=== PATIENT | female | born 1995 ===

== ENCOUNTER 2020-11-13 12:41 | Emergency (ER) | payer MEDICAID, SELFPAY ==
--- NOTE | ~2020-11-13 | CT_ITS ---
EXAMINATION: CT HEAD WITHOUT CONTRAST CLINICAL INFORMATION: Right-sided headache for 3 months. COMPARISON: 03/12/2016 TECHNIQUE: Contiguous axial imaging was performed from the skull base to vertex without intravenous contrast. This CT examination was performed using dose optimization techniques as appropriate, variously including the following: * Automated exposure control * Adjustment of mA and/or kV according to patient size (this includes techniques or standardized protocols for targeted exams where dose is matched to indication/reason for exam; i.e. extremities or head) Use of iterative reconstruction technique DLP: 690 mGy-cm. FINDINGS: There is no evidence of acute intracranial hemorrhage or territorial infarction. No abnormal mass effect or midline shift is seen. Luu to white matter differentiation is well preserved. No extra-axial fluid collections are identified. No hydrocephalus. No significant volume loss. There is no abnormal attenuation within the brain parenchyma. The osseous structures and soft tissues are normal. The mastoid air cells and visualized portions of the paranasal sinuses are well aerated. CT/CT head/brain wo con IMPRESSION: No acute intracranial pathology.
[2020-11-13 19:11] VITALS: BP 119/80; PULSE 91; RESP 16; TEMP 37.2; O2SAT 99; BMI 37.4
--- NOTE | 2020-11-13 21:50 | ED_ITS ---
HPI - General Adult General Chief complaint: Headache Stated complaint: abd pain Time Seen by Provider: 11/13/20 21:36 Source: patient Mode of arrival: ambulatory Limitations: no limitations History of Present Illness HPI narrative: 24-year-old female who presents emergency department for evaluation of headache and abdominal pain. The patient states that she has had a headache times 2-3 months. She states that the headache is located on the right side of her head. She describes the pain as a constant, sharp pain which waxes and wanes in intensity. The pain ranges from 7/10 to 10/10. The pain is currently 8/10 in the emergency department. She states that she has daily nausea and rarely vomits however over the past 24 hours she has vomited multiple times. She has also had loose diarrheal stools over the past 24 hours. She denies visual changes. She denies numbness, weakness, loss of bowel or bladder control. She also is complaining of abdominal pain. She points to her mid epigastric area when asked to localize the pain. She describes the pain as a burning, sharp, constant pain x2 weeks. She has associated nausea and has been vomiting multiple times the past 24 hours she has also had loose diarrheal stool for 24 hours. She states that 2 days prior, her abdominal pain increased and headache increased in a caused her to faint briefly, she had no injury from falling. The patient states she did see her primary care doctor 2 months prior for the headache and she was started on multiple medications with no relief for headache. Related Data Allergies Allergy/AdvReac Type Severity Reaction Status Date / Time fish derived [FISH] Allergy Severe ANAPHYLAXIS Unverified 06/13/20 17:39 Review of Systems Review of Systems: Yes all other systems are reviewed and are negative Neurologic: Reports Abnormal speech present [facility] Past Medical History [facility] Narrative: The patient has no chronic medical problems. She denies tobacco, alcohol and drug use. Medical History delivery delivered Gallbladder & bile duct stone with obstruction Surgical History Hx of breast reduction, elective Social History Social History Alcohol intake: never Smoking Status: Never smoker Smoked in Last 30 Days: No Use of substances other than those prescribed or required for medical reasons: No Advance Directives: No Physical Exam Vital Signs: Vital Signs: Last Vital Signs Temp 98.3 F 11/13/20 22:00 Pulse 74 11/13/20 22:00 Resp 16 11/13/20 22:00 BP 99/56 L 11/13/20 22:00 Pulse Ox 99 11/13/20 22:00 Body Mass Index 37.4 Const: General: other (Awake, alert, female, pleasant, cooperative, does not appear to be in distr) Orientation/consciousness: oriented to person and oriented to place Limitations: no limitations HENMT: Head: Yes normal to inspection, Yes normocephalic, Yes atraumatic and Yes other (Tender temporal areas and maxillary and frontal sinuses) Ears: external ears normal General nose exam: Normal external nose present Face and sinus: Yes normal facial exam Mouth: Normal oral and palatal mucosa pres ent Throat: Yes posterior oropharynx normal Eyes: Periorbital: periorbital findings normal Eyelids: Yes eyelids normal Conjunctivae: conjunctivae normal Sclerae: sclerae normal Corneas: corneas normal Pupils: Equal, round and reactive pupils present Direct Ophthalmoscopy: normal light reflex Neck: Neck: Yes full ROM, Yes no lymphadenopathy, Yes no meningeal signs, Yes trachea midline and Yes supple Chest: Chest palpation & inspection: normal inspection of the chest and tenderness sternum (Mild) Resp: Effort & Inspection: normal respiratory effort and able to speak in complete sentences Auscultation: clear to auscultation bilaterally Cardio: Rate: regular rate Rhythm: regular rhythm Heart sounds: S1 normal heart sound present, S2 normal heart sound present and no murmurs GI: Inspection: Yes normal to inspection Palpation (GI): Soft to palpation, Tenderness to palpation present (GI) in the epigastrum (Moderate), no guarding, not rigid and No hepatosplenomegaly present : General: Yes no CVA tenderness Back/Spine/Pelvis: Back: no CVA tenderness Cervical Spine: normal cervical lordosis Thoracic/Lumbar Spine: thoracic and lumbar spine normal to inspection Skin: Lesions: no lesions Rashes: no rashes Wounds: no wounds Neuro: General: oriented to person, oriented to place and no meningeal signs Cranial nerves: Yes CN's II-XII intact bilaterally and Yes Equal, round and reactive pupils present Cognition (Neuro): normal cognition Speech: Abnormal speech present Motor exam (neuro): 5/5 motor strength present throughout Extrem: General: Yes normal to inspection and Yes full ROM Psych: Appearance: well kempt Mental Status: mental status grossly normal Speech and movement: Normal speech and movement present Affect: normal affect Attitude: cooperative Thought process: Normal thought process present Thought content: Normal thought content present Course Course Course Narrative: 24-year-old female who presents emergency department for evaluation of headache times 2-3 months and epigastric pain x2 days. Physical examination revealed normal vital signs. She had tenderness with palpation over her maxillary and frontal sinuses as well as over her temporal areas of her scalp. She had mild chest wall tenderness and moderate epigastric tenderness. Her neurologic exam was nonfocal. Given the prolonged time of her headaches, I will obtain a CT scan to rule out mass effect is possible caused her headache. I also ordered a laboratory evaluation to include sedimentation rate. The patient's headache and epigastric pain was treated with Toradol 30 mg IV, Reglan 10 mg IV and Benadryl 50 mg IV. She was also ordered to get normal saline IV x1 L for dehydration secondary to vomiting and diarrhea. Given the persistence of her headache, I did order a CT scan to rule out mass effect. 0023: The patient's laboratory evaluation [place] [id number] [address] scan of the head without IV contrast revealed no mass effect or other acute abnormality. The patient's headache completely resolved with the above treatment. My impression is that the patient has a migraine syndrome and I did discuss this with her. She was started on the following regimen every 6 hours as needed for her headaches: Excedrin migraine 1 tablet, Benadryl 50 mg, and regular and 10 mg. She was given verbal and printed instructions on migraines and discharged home. Medical Decision Making Lab Data Result diagrams: 11/13/20 21:59 11/13/20 21:59 Labs: Lab Results 11/13/20 11/13/20 11/13/20 Range/Units 21:59 21:59 21:59 WBC 14.2 H (4.8-10.8) X10*3/uL RBC 4.41 (4.20-5.50) X10*6/uL Hgb 13.4 (12.0-16.0) g/dl Hct 40.0 (37-47) % MCV 90.7 (80-98) fL MCH 30.4 (27.0-33.0) pg MCHC 33.5 (31.0-35.0) g/dl RDW 11.9 (11.0-16.0) % Plt Count 351 (160-400) X10*3/uL MPV 10.1 (9.4-12.3) fL Immature Gran % (Auto) 0.3 (0.0-0.4) % Neut % (Auto) 68.4 (45-73) % Lymph % (Auto) 23.1 (20-40) % Ell[place] % (Auto) 6.6 (2-11) % Eos % (Auto) 1.2 (0-4) % Baso % (Auto) 0.4 (0-2) % Lymph # (Auto) 3.3 (1.2-4.9) X10*3/uL Ellsworth # (Auto) 0.9 (0.1-1.2) X10*3/uL Eos # (Auto) 0.2 (0.0-0.4) X10*3/uL Baso # (Auto) 0.1 (0.0-0.2) X10*3/uL Abs Immat Gran (auto) 0.04 H (0.00-0.03) X10*3/uL Absolute Neuts (auto) 9.8 H (2.0-8.3) X10*3/uL Absolute Nucleated RBC 0.000 (0.0-0.012) X10*3/uL Nucleated RBC % (auto) 0.0 (0.0-0.2) /100WBC ESR (0-20) MM/HR Hold Blue Top SEE NOTE Sodium 136 (135-145) mmol/L Potassium 3.9 (3.3-5.1) mmol/L Chloride 106 (96-108) mmol/L Carbon Dioxide 23 (22-29) mmol/L Anion Gap 11 L (12-20) BUN 11 (9-16) mg/dL Creatinine 0.70 (0.5-1.4) mg/dL Estim Creat Clear Calc 126.3 Estimated GFR > 60 Random Glucose 83 (60-115) mg/dL Calcium 8.4 (8.4-10.2) mg/dL Total Bilirubin 0.4 (0.0-1.0) mg/dL AST 13 (5-31) U/L ALT 19 (0-31) U/L Alkaline Phosphatase 58 (39-117) U/L Total Protein 7.4 (6.5-8.0) g/dL Albumin 3.8 (3.5-5.0) g/dL Lipase (8-78) U/L Beta HCG, Quant mIU/mL 11/13/20 11/13/20 Range/Units 21:59 21:59 WBC (4.8-10.8) X10*3/uL RBC (4.20-5.50) X10*6/uL Hgb (12.0-16.0) g/dl Hct (37-47) % MCV (80-98) fL MCH (27.0-33.0) pg MCHC (31.0-35.0) g/dl RDW (11.0-16.0) % Plt Count (160-400) X10*3/uL MPV (9.4-12.3) fL Immature Gran % (Auto) (0.0-0.4) % Neut % (Auto) (45-73) % Lymph % (Auto) (20-40) % Ellsworth % (Auto) (2-11) % Eos % (Auto) (0-4) % Baso % (Auto) (0-2) % Lymph # (Auto) (1.2-4.9) X10*3/uL Ellsworth # (Auto) (0.1-1.2) X10*3/uL Eos # (Auto) (0.0-0.4) X10*3/uL Baso # (Auto) (0.0-0.2) X10*3/uL Abs Immat Gran (auto) (0.00-0.03) X10*3/uL Absolute Neuts (auto) (2.0-8.3) X10*3/uL Absolute Nucleated RBC (0.0-0.012) X10*3/uL Nucleated RBC % (auto) (0.0-0.2) /100WBC ESR 28 H (0-20) MM/HR Hold Blue Top Sodium (135-145) mmol/L Potassium (3.3-5.1) mmol/L Chloride (96-108) mmol/L Carbon Dioxide (22-29) mmol/L Anion Gap (12-20) BUN (9-16) mg/dL Creatinine (0.5-1.4) mg/dL Estim Creat Clear Calc Estimated GFR Random Glucose (60-115) mg/dL Calcium (8.4-10.2) mg/dL Total Bilirubin (0.0-1.0) mg/dL AST (5-31) U/L ALT (0-31) U/L Alkaline Phosphatase (39-117) U/L Total Protein (6.5-8.0) g/dL Albumin (3.5-5.0) g/dL Lipase 16 (8-78) U/L Beta HCG, Quant < 2 mIU/mL
[2020-11-13 22:00] VITALS: BP 99/56; PULSE 74; RESP 16; TEMP 36.8; O2SAT 99
--- NOTE | 2020-11-13 22:00 | PC.NURSE ---
PATIENT IS ALERT AND ORIENTED, BROUGHT TO ROOM 13 , PROVIDER IS AT BEDSIDE WHEN PAIENT ARRIVED TO ROOM, ORDERS FOR BLOOD WORK AND MEDS. IV ACCESS OBTAINED. AWAITING LAB RESULTS.
[2020-11-13] MEDS: Metoclopramide HCl 10 MG/2 ML VIAL IVPUSH (22:08)
[2020-11-13] MEDS: Ketorolac Tromethamine 30 MG/ML VIAL IVPUSH (22:08)
[2020-11-13] MEDS: diphenhydrAMINE HCL 50 MG/ML VIAL IVPUSH (22:08)
[2020-11-13] MEDS: 0.9 % Sodium Chloride 1,000 ML 999 ML IV (22:08)
[2020-11-13 22:09] LABS: Basophils Absolute Auto 0.1 X10*3/uL (0.0-0.2); Basophils Percent Auto 0.4 % (0-2); Eosinophils Absolute Auto 0.2 X10*3/uL (0.0-0.4); Eosinophils Percent Auto 1.2 % (0-4); Hemoglobin 13.4 g/dl (12.0-16.0); Imm Gran Abs Auto 0.04 X10*3/uL (0.00-0.03); Imm Gran Pct Auto 0.3 % (0.0-0.4); Lymphocytes Absolute Auto 3.3 X10*3/uL (1.2-4.9); Lymphocytes Percent Auto 23.1 % (20-40); MANUAL DIFF FLAG NO; Mean Corpuscular HGB Conc 33.5 g/dl (31.0-35.0); Mean Corpuscular Hemoglobin 30.4 pg (27.0-33.0); Mean Corpuscular Volume 90.7 fL (80-98); Mean Platelet Volume 10.1 fL (9.4-12.3); Monocytes Absolute Auto 0.9 X10*3/uL (0.1-1.2); Monocytes Percent Auto 6.6 % (2-11); Neutrophils Absolute Auto 9.8 X10*3/uL (2.0-8.3); Neutrophils Percent Auto 68.4 % (45-73); Platelet Count 351 X10*3/uL (160-400); Red Blood Count 4.41 X10*6/uL (4.20-5.50); Red Cell Distribution Width 11.9 % (11.0-16.0); White Blood Count 14.2 X10*3/uL (4.8-10.8)
[2020-11-13 22:33] LABS: Lipase 16 U/L (8-78)
[2020-11-13 22:34] LABS: Alanine Aminotransferase 19 U/L (0-31); Albumin Level 3.8 g/dL (3.5-5.0); Alkaline Phosphatase 58 U/L (39-117); Anion Gap 11 (12-20); Aspartate Amino Transferase 13 U/L (5-31); Bilirubin Total 0.4 mg/dL (0.0-1.0); Blood Urea Nitrogen 11 mg/dL (9-16); Calcium 8.4 mg/dL (8.4-10.2); Carbon Dioxide 23 mmol/L (22-29); Chloride 106 mmol/L (96-108); Creatinine Clr Calc Pharmacy 126.3; Estimated Glomerular Filt Rate > 60; Glucose Random 83 mg/dL (60-115); Potassium 3.9 mmol/L (3.3-5.1); Sodium 136 mmol/L (135-145); Total Protein 7.4 g/dL (6.5-8.0)
[2020-11-13 22:47] LABS: Erythrocyte Sedimentation Rate 28 MM/HR (0-20)
[2020-11-13 23:26] LABS: HCG Quantitative < 2 mIU/mL
== END 2020-11-14 01:01 | disposition home or self-care (01) ==
PROVIDERS: Emergency Provider Emergency Medicine Emergency Medical Services; PCP Family Medicine
DX: R51.9 Headache, unspecified (principal); R10.9 Unspecified abdominal pain; R11.2 Nausea with vomiting, unspecified
CPT/HCPCS: 36415; 70450; 80053; 83690; 84702; 85025; 85652; 96361; 96374; 96375; 99284; J1200; J1885; J2765

== ENCOUNTER → 2021-04-10 13:31 | Outpatient (BNVA) | payer MEDICAID, SELFPAY | PROVIDERS: PCP Family Medicine; Referring Provider Family Medicine; Visit Provider Physician Assistant ==

== ENCOUNTER 2021-04-29 12:39 | Outpatient (REF) | payer MEDICAID, SELFPAY ==
--- NOTE | ~2021-04-29 | XR_ITS ---
EXAMINATION: XR CHEST CLINICAL INFORMATION: Morbid (severe) obesity due to excess calories. COMPARISON: Chest radiograph 01/16/2019, 08/05/2012 TECHNIQUE: Two views of the chest were obtained. FINDINGS: The lungs are clear. There is no airspace consolidation or ground-glass opacity or effusion. The costophrenic sulci are well defined. The heart is normal in size. The hilar and mediastinal contours and bony structures are unremarkable. XR/XR chest 2V IMPRESSION: Unremarkable examination.
--- NOTE | 2021-04-29 14:09 | ECG_ITS ---
Test Reason : E66.01 Blood Pressure : / mmHG Vent. Rate : 062 BPM Atrial Rate : 062 BPM P-R Int : 148 ms QRS Dur : 078 ms QT Int : 400 ms P-R-T Axes : 051 039 020 degrees QTc Int : 406 ms Normal sinus rhythm with sinus arrhythmia Low voltage QRS Borderline ECG When compared to the previous EKG of No significant changes seen Referred By: Mary Wilkins Electronically Signed By:Alirio Donato
[2021-04-29 14:32] LABS: MANUAL DIFF FLAG NO
[2021-04-29 14:41] LABS: Basophils Percent Auto 0.4 % (0-2); Eosinophils Absolute Auto 0.1 X10*3/uL (0.0-0.4); Eosinophils Percent Auto 1.2 % (0-4); Hematocrit 38.8 % (37-47); Imm Gran Abs Auto 0.02 X10*3/uL (0.00-0.03); Imm Gran Pct Auto 0.2 % (0.0-0.4); Lymphocytes Absolute Auto 2.7 X10*3/uL (1.2-4.9); Lymphocytes Percent Auto 26.5 % (20-40); Mean Corpuscular HGB Conc 33.5 g/dl (31.0-35.0); Mean Corpuscular Volume 89.6 fL (80-98); Mean Platelet Volume 10.4 fL (9.4-12.3); Monocytes Absolute Auto 0.7 X10*3/uL (0.1-1.2); Monocytes Percent Auto 6.9 % (2-11); Neutrophils Absolute Auto 6.6 X10*3/uL (2.0-8.3); Neutrophils Percent Auto 64.8 % (45-73); Platelet Count 379 X10*3/uL (160-400); Red Blood Count 4.33 X10*6/uL (4.20-5.50); Red Cell Distribution Width 11.9 % (11.0-16.0); White Blood Count 10.2 X10*3/uL (4.8-10.8)
[2021-04-29 14:45] LABS: Estimated Average Glucose 111 mg/dL; Hemoglobin A1c % 5.5 %
[2021-04-29 15:20] LABS: Alanine Aminotransferase 24 U/L (0-31); Alkaline Phosphatase 56 U/L (39-117); Anion Gap 14 (12-20); Aspartate Amino Transferase 17 U/L (5-31); Bilirubin Total 0.3 mg/dL (0.0-1.0); Blood Urea Nitrogen 10 mg/dL (9-16); C Reactive Protein 1.17 mg/dL (< or = 0.50); Calcium 9.2 mg/dL (8.4-10.2); Carbon Dioxide 24 mmol/L (22-29); Chloride 106 mmol/L (96-108); Cholesterol 153 mg/dL; Estimated Glomerular Filt Rate > 60; Glucose Random 95 mg/dL (60-115); HDL Cholesterol 36 mg/dL; Iron 51 mcg/dL (30-160); LDL Cholesterol Calculated 89 mg/dl; Potassium 4.6 mmol/L (3.3-5.1); Sodium 139 mmol/L (135-145); Total Protein 7.8 g/dL (6.5-8.0); Triglycerides 143 mg/dL
[2021-04-29 15:31] LABS: Percent Iron Saturation 17 % (15-50); Total Iron Binding Capacity 302 mcg/dL (228-428); Unsaturated Iron Binding 251 ug/dL
[2021-04-29 15:32] LABS: Ferritin 61 ng/mL (10-122); TSH reflex Free T4 1.05 uIU/mL (0.32-4.0); Vitamin D 25-OH Total 9.5 ng/mL (>30)
[2021-04-29 15:46] LABS: Folate 13.1 ng/mL (> or = 4.0); Vitamin B12 346 pg/mL (200-900)
[2021-04-30 21:21] LABS: Insulin Level Total 25.8 uIU/mL; PTHI 46 pg/mL (14-64)
[2021-05-01 13:35] LABS: H Pylori Breath Test NOT DETECTED (NOT DETECTED)
[2021-05-03 00:17] LABS: Zinc 82 mcg/dL (60-130)
[2021-05-03 17:42] LABS: Vitamin A 47 mcg/dL (38-98)
[2021-05-05 11:11] LABS: Vitamin B1 10 nmol/L (8-30)
== END 2021-04-29 12:40 | disposition home or self-care (01) ==
LOC: HO.LAB 12:39
PROVIDERS: PCP Family Medicine; Visit Provider Physician Assistant
DX: E66.01 Morbid (severe) obesity due to excess calories (principal); Z68.41 Body mass index [BMI] 40.0-44.9, adult; Z71.3 Dietary counseling and surveillance
CPT/HCPCS: 36415; 71046; 80053; 80061; 82306; 82607; 82728; 82746; 83013; 83036; 83525; 83540; 83970; 84425; 84443; 84590; 84630; 85025; 86140; 93005; 99202; 99211

== ENCOUNTER → 2021-06-05 14:06 | Outpatient (BNVA) | payer MEDICAID, SELFPAY | PROVIDERS: PCP Family Medicine; Visit Provider Dietitian, Registered | DX: E66.01 Morbid (severe) obesity due to excess calories (principal); Z68.41 Body mass index [BMI] 40.0-44.9, adult | CPT/HCPCS: 97802 ==

== ENCOUNTER → 2021-06-16 08:30 | Outpatient (BNVA) | payer MEDICAID, SELFPAY | PROVIDERS: PCP Family Medicine; Visit Provider Surgery ==

== ENCOUNTER → 2021-06-26 08:12 | Outpatient (BNVA) | payer MEDICAID, SELFPAY | PROVIDERS: PCP Family Medicine; Referring Provider Surgery; Visit Provider Dietitian, Registered | DX: E66.01 Morbid (severe) obesity due to excess calories (principal); Z68.41 Body mass index [BMI] 40.0-44.9, adult | CPT/HCPCS: 97803 ==

== ENCOUNTER → 2021-07-07 07:00 | Outpatient (BNVA) | payer MEDICAID, SELFPAY | PROVIDERS: PCP Family Medicine; Visit Provider Surgery ==

== ENCOUNTER 2021-07-21 08:48 | Outpatient (REF) | payer MEDICAID, SELFPAY ==
--- NOTE | ~2021-07-21 | US_ITS ---
EXAMINATION: US COMPLETE ABDOMEN WITH LIVER ELASTOGRAPHY CLINICAL INFORMATION: Morbid obesity due to excessive calories. COMPARISON: None. TECHNIQUE: Real-time imaging of the abdominal viscera. Noninvasive ultrasound liver fibrosis assessment is performed using Dalia ElastPQ point quantification shear wave elastography (pSWE) with a C5-2 MHz transducer. Multiple elastography samples are obtained. FINDINGS: PANCREAS: Nonvisualized due to overlying bowel gas, accordingly not evaluated. ABDOMINAL AORTA: The proximal and distal aortic segments are normal in caliber. Mid part of the aorta is not visualized due to overlying bowel gas. INFERIOR VENA CAVA: Visualized portions are normal. LIVER: Diffuse heterogeneous abnormal increased echotexture is present, consistent with diffuse liver disease likely secondary to hepatic steatosis, hepatocellular disease, or combination thereof. Superimposed indeterminate focal hypoechogenicity is noted within the right lobe of the liver, measures approximately 2 cm at its maximum dimension[, not optimally characterized. Differential diagnostic considerations include focal area of fatty sparing versus pathologic process. Follow-up multiphasic pre and postcontrast MRI of the liver is recommended for further full detail evaluation. The right lobe measures 17.6 cm in length. The left lobe measures 12.9 cm in length. Portal flow is towards the liver (hepatopetal). Shear wave liver elastography median stiffness is 1.35 m/s (reference: normal median stiffness is 1.3 m/s or less). IQR/median stiffness to assess sampling precision is 0.13 (reference: good quality data set is IQR/median stiffness of 0.15 or less). GALLBLADDER: Surgically absent. COMMON BILE DUCT: Normal in caliber measuring 0.4 cm in diameter. RIGHT KIDNEY: Normal. No hydronephrosis. No renal calculi or focal parenchymal lesions. The kidney measures 10.6 cm in maximum dimension. LEFT KIDNEY: Normal. No hydronephrosis. No renal calculi or focal parenchymal lesions. The kidney measures 10.9 cm in maximum dimension. SPLEEN: Normal. The spleen measures 10.5 cm in maximum dimension. FREE FLUID: None. US/US abdomen comp w elastography IMPRESSION: 1. Diffuse abnormal increased echotexture is noted throughout the entire liver, consistent with diffuse liver disease likely secondary to hepatic steatosis or hepatocellular disease, or combination thereof. Specific note is made of presence of a 2 cm focal area of hypoechogenicity within the right lobe of the liver, not optimally characterized. Differential includes focal area of fatty sparing versus other pathologic process. Follow-up multiphasic pre and postcontrast MRI of the liver is recommended for further full detail evaluation. 2. Liver elastography: Measurements are consistent with a high probability of normal liver stiffness. REFERENCE: Society of Radiologists in Ultrasound Liver Stiffness Thresholds (2020): LIVER STIFFNESS THRESHOLDS: *Liver Stiffness equal or less than 1.3 m/s: High probability of being normal. *Liver Stiffness less than 1.7 m/s: In the absence of other known clinical signs, rules out compensated advanced chronic liver disease. *Liver Stiffness 1.7-2.1 m/s: Suggestive of compensated advanced chronic liver disease but need further test for confirmation. *Liver Stiffness over 2.1 m/s: Rules in compensated advanced chronic liver disease. *Liver Stiffness over 2.4 m/s: Suggestive of clinically significant portal hypertension. QUALITY OF DATA SET: *IQR/Median value equal or less than 0.15 implies a quality data set. *IQR/Median value over 0.15 implies a poor quality data set. SIGNIFICANT CHANGE FROM PRIOR EXAM: Significant change if liver stiffness measurement is 10% or greater from prior exam. OTHER CONSIDERATIONS: The stage of liver fibrosis may be overestimated in the setting of acute hepatitis, liver inflammation, elevated liver function tests, hepatic vascular congestion, obstructive cholestasis, non-fasting state, and infiltrative diseases such as amyloidosis and lymphoma. In some patients with NAFLD, the liver stiffness thresholds for compensated advanced chronic liver disease may be lower. In causes other than viral hepatitis and NAFLD, liver stiffness thresholds are not well established.
--- NOTE | ~2021-07-21 | FL_ITS ---
EXAMINATION: XR GI SERIES CLINICAL INFORMATION: Morbid/severe obesity due to excess calories. COMPARISON: None TECHNIQUE: Routine upper GI air-contrast study was performed. FINDINGS: Following oral administration of thick barium and effervescent granules, there is normal propagation of bolus from the oral cavity through the pharynx, esophagus into stomach without any evidence of obstruction, narrowing or extrinsic compression. On placing patient supine and prone lying, there is large gastroesophageal reflux into the upper esophagus without hiatal hernia. The mucosal pattern of the stomach, duodenal bulb and the sweep is normal. FLUOROSCOPY TIME: 2.7 minutes DOSE AREA PRODUCT: 37.362 uGy-m2 (microgray-meter squared) FL/FL upper GI series IMPRESSION: Large gastroesophageal reflux without hiatal hernia. The rest of the upper GI exam is unremarkable.
== END 2021-07-21 08:49 | disposition home or self-care (01) ==
LOC: HO.US 08:48
PROVIDERS: PCP Family Medicine; Visit Provider Surgery
DX: E66.01 Morbid (severe) obesity due to excess calories (principal)
CPT/HCPCS: 74240; 76705; 76981

== ENCOUNTER → 2021-07-24 08:06 | Outpatient (BNVA) | payer MEDICAID, SELFPAY | PROVIDERS: PCP Family Medicine; Referring Provider Surgery; Visit Provider Dietitian, Registered | DX: E66.9 Obesity, unspecified (principal) | CPT/HCPCS: 97803 ==

== ENCOUNTER → 2021-08-04 08:08 | Outpatient (BNVA) | payer MEDICAID, SELFPAY | PROVIDERS: PCP Family Medicine; Visit Provider Surgery ==

== ENCOUNTER → 2022-12-29 12:32 | Outpatient (BNVA) | payer MEDICAID, SELFPAY | PROVIDERS: PCP Family Medicine; Visit Provider Physician Assistant ==

== ENCOUNTER 2023-01-28 08:48 | Emergency (ER) | payer MEDICAID, SELFPAY ==
--- NOTE | ~2023-01-28 | XR_ITS ---
EXAMINATION: XR CHEST CLINICAL INFORMATION: Chest pain with cough. COMPARISON: 04/29/2021 chest radiographs. TECHNIQUE: 2 views of the chest were obtained. FINDINGS: No significant abnormality is noted involving the heart, lungs, mediastinum, bony thorax or soft tissues. XR/XR chest 2V IMPRESSION: No acute cardiopulmonary process.
[2023-01-28 08:52] VITALS: BP 122/84; PULSE 80; RESP 18; TEMP 36.1; O2SAT 98; BMI 45.9
--- NOTE | 2023-01-28 09:12 | ED_ITS ---
HPI - General Adult General Chief complaint: Upper Respiratory Symptoms Stated complaint: PAIN IN LUNGS COUGH Time Seen by Provider: 01/28/23 09:10 Source: patient Mode of arrival: ambulatory Limitations: no limitations History of Present Illness HPI narrative: Patient is a 27 year old assigned female at with a history of MDD and GERD presenting to the emergency department today with persistent cough and sore throat. Patient states that her daughter was recently tested positive for strep. Patient denies any dizziness, lightheadedness, abdominal pain, nausea, vomiting, fever, chills, blurry vision, double vision, loss of vision, chest pain, difficulty breathing, shortness of breath, back pain, night sweats, pain with urination, increased urinary frequency, increased urinary urgency, blood in her urine or stool, syncope or a near syncopal episode, recent trauma or falls, bowel incontinence, bladder incontinence, bowel retention, bladder retention, or any other complaints at this time. Onset (ago): day(s) (6) Severity: mild Severity scale (1-10): 2 Relieving factors: none Exacerbating factors: none Associated symptoms: cough Treatments prior to arrival: none Related Data Home Medications Medication Instructions Recorded Confirmed loratadine 10 mg tablet 1 tab PO DAILY 01/21/21 06/16/21 omeprazole 20 mg capsule,delayed 1 cap PO DAILY 01/21/21 06/16/21 release sumatriptan succinate 50 mg tablet 1 tab PO DAILY PRN Migraine 01/21/21 06/16/21 Headache topiramate 25 mg tablet 1 tab PO BEDTIME 01/21/21 06/16/21 Previous Rx's Medication Instructions Recorded metoclopramide HCl 10 mg tablet 10 mg PO Q6H PRN nausea and 11/14/20 (Reglan) vomiting #14 tabs cholecalciferol (vitamin D3) 50 50 mcg PO DAILY #30 caps 04/30/21 mcg (2,000 unit) capsule albuterol sulfate 90 mcg/actuation 1 inh inhalation QID PRN shortness 01/28/23 aerosol inhaler of breath or wheezing #8.5 grams penicillin V potassium 500 mg 500 mg PO BID 10 days #20 tabs 01/28/23 tablet prednisone 20 mg tablet 20 mg PO DAILY 7 days #7 tabs 01/28/23 Allergies Allergy/AdvReac Type Severity Reaction Status Date / Time fish derived [FISH] Allergy Severe ANAPHYLAXIS Verified 12/29/22 12:58 Review of Systems Constitutional: Constitutional: Reports no additional constitutional complaints, Denies chills, Denies fever(s) and Denies night sweats Eyes: Eyes: Reports no additional eye complaints, Denies blurry vision, Denies change in vision, Denies diplopia, Denies eye discharge, Denies loss of vision and Denies eye pain ENT: Denies dizziness and Reports sore throat Cardiovascular: Cardiovascular: Reports no additional cardiovascular complaints, Denies chest pain, Denies lightheadedness, Denies Loss of Consciousness and Denies dyspnea Respiratory: Respiratory: Reports no additional respiratory complaints, Reports cough and Denies dyspnea Gastrointestinal: Gastrointestinal: Reports no additional gastrointestinal complaints, Denies abdominal pain, Denies melena, Denies hematochezia, Denies change in bowel habits and Denies change in stool character Genitourinary: Genitourinary: Denies hematuria, Denies urinary frequency, Denies dysuria, Denies urinary incontinence, Denies urinary hesitancy and Denies urinary urgency Musculoskeletal: Musculoskeletal: Reports no additional musculoskeletal complaints, Denies numbness and Denies tingling Neurologic: Denies dizziness, Denies loss of vision, Denies numbness and Denies tingling Psychiatric: Psychiatric: Reports no additional psychiatric complaints Endocrine: Endocrine: Reports no additional endocrine complaints Hematologic/Lymphatic: Hematologic/Lymphatic: Reports no additional hematolog ic/lymphatic complaints Allergic/Immunologic: Allergic/Immunologic: Reports no additional allergic/immunologic complaints [facility] Past Medical History Attestation statement: The following information was validated with the patient. Source: old records reviewed and nursing notes reviewed Medical History delivery delivered Gallbladder & bile duct stone with obstruction GERD (gastroesophageal reflux disease) Migraines Surgical History Hx of breast reduction, elective Family History Family History Maternal Grandmother Breast cancer Mother Breast cancer Throat cancer Ovarian cancer Family/Other Leukemia Father Prostate cancer Diabetes Heart attack Paternal Grandfather Diabetes Social History Social History Alcohol intake: former Patient Tobacco Use Status: Never used Tobacco Advance Directives: No Physical Exam ED Vital Signs: Vital Signs - 24 hr 01/28/23 08:52 Temperature 97 F Pulse Rate 80 Respiratory Rate 18 Blood Pressure 122/84 Pulse Oximetry 98 Oxygen Delivery Method Room Air BMI result Body Mass Index 45.9 Const General: cooperative, no acute distress, alert and awake Nutritional Appearance: well nourished Orientation/consciousness: patient oriented x3 Limitations: no limitations HENMT Head: Yes normal to inspection and Yes atraumatic Ears: hearing grossly normal bilaterally and external ears normal General nose exam: Normal external nose present, no nasal discharge noted and no epistaxis Face and sinus: Yes normal facial exam, No abrasion and No laceration Mouth: Normal oral and palatal mucosa present, no drooling and no muffled voice Throat: Yes posterior oropharynx abnormal (erythema) Eyes General: appearance normal, both eyes and all related structures Periorbital: periorbital findings normal Eyelids: Yes eyelids normal Conjunctivae: conjunctivae normal Pupils: Equal, round and reactive pupils present EOM: EOMs intact bilaterally Neck Neck: Yes normal visual inspection, Yes full ROM and Yes no lymphadenopathy Chest Chest palpation & inspection: normal inspection of the chest Resp Effort & Inspection: normal respiratory effort and able to speak in complete sentences Auscultation: clear to auscultation bilaterally Cardio Rate: regular rate Rhythm: regular rhythm GI Inspection: Yes normal to inspection Neuro General: patient oriented x3 and moves all extremities Cranial nerves: Yes Equal, round and reactive pupils present Cognition (Neuro): normal cognition Motor exam (neuro): 5/5 motor strength present throughout Sensory Exam: Normal double simultaneous stimulation for sensation Coordination: [id number] test normal Extrem General: Yes normal to inspection, Yes full ROM and Yes capillary refill normal Psych Appearance: grossly normal Mental Status: mental status grossly normal Affect: normal affect Attitude: cooperative Thought process: Normal thought process present Thought content: Normal thought content present Insight: Good insight present (Psych) Medical Decision Making Medical Decision Making MDM Narrative: Patient is a 27 year old assigned female at with a history of MDD and GERD presenting to the emergency department today with a persistent cough and sore throat. Patient's physical exam showed minimal erythema to the posterior oral pharynx. Patient's chest x-ray showed no acute process. I explained my physical exam findings as well as all test results to the patient. I answered all questions asked by the patient. Given patient's recent close contact with a strep positive individual and her current clinical presentation, will cover with ABX, steroids, and an inhaler. I stressed the importance of the patient taking her medication as prescribed. I stressed the importance of the patient following up with her primary care provider. I stressed the importance of the patient returning to the emergency department immediately if her symptoms were to worsen or if she were to develop any dizziness, shortness of breath, difficulty breathing, chest pain, blurry vision, loss of vision, nausea, vomiting, abdominal pain, fever, chills, back pain, or any other complaints. Patient verbalized agreement and understanding with this treatment plan and discharge. Differential Diagnosis Differential Diagnoses: The differential diagnosis associated with the presentation includes URI Independent Interpretation I performed an independent interpretation of an: Plain X-Ray Interpretation: My interpretation is in agreement with the radiologist's impression of this imaging study. EXAMINATION: XR CHEST CLINICAL INFORMATION: Chest pain with cough. COMPARISON: 04/29/2021 chest radiographs. TECHNIQUE: 2 views of the chest were obtained. FINDINGS: No significant abnormality is noted involving the heart, lungs, mediastinum, bony thorax or soft tissues. XR/XR chest 2V IMPRESSION: No acute cardiopulmonary process. Dictated By: Joel Soliman MD Signed By: Electronically signed by Joel Soliman MD 01/28/23 0984 Discharge Plan Discharge Clinical Impression: Upper respiratory infection Patient Disposition: Home, Self-Care Instructions: Upper Respiratory Infection (DC) Additional Instructions: Follow up with your primary care provider. Return to the emergency department immediately if your symptoms worsen or if you develop any dizziness, shortness of breath, difficulty breathing, chest pain, blurry vision, loss of vision, nausea, vomiting, abdominal pain, fever, chills, back pain, or any other complaints. Prescriptions: New prednisone 20 mg tablet 20 mg PO DAILY 7 Days Qty: 7 0RF penicillin V potassium 500 mg tablet 500 mg PO BID 10 Days Qty: 20 0RF albuterol sulfate 90 mcg/actuation HFA aerosol inhaler 1 inh inhalation QID PRN (Reason: shortness of breath or wheezing) Qty: 8.5 0RF No Action cholecalciferol (vitamin D3) 50 mcg (2,000 unit) capsule 50 mcg PO DAILY Qty: 30 6RF metoclopramide HCl [Reglan] 10 mg tablet 10 mg PO Q6H PRN (Reason: nausea and vomiting) Qty: 14 0RF sumatriptan succinate 50 mg tablet 1 tab PO DAILY PRN (Reason: Migraine Headache) topiramate 25 mg tablet 1 tab PO BEDTIME omeprazole 20 mg capsule,delayed release(DR/EC) 1 cap PO DAILY loratadine 10 mg tablet 1 tab PO DAILY Referrals: Hailey Sevilla MD [Primary Care Provider] - Stand Alone Forms: Work/School Release Print Language: Ivorian
== END 2023-01-28 09:41 | disposition home or self-care (01) ==
PROVIDERS: Emergency Provider Emergency Medicine; PCP Family Medicine
DX: J06.9 Acute upper respiratory infection, unspecified (principal); R05.9 Cough, unspecified; J02.9 Acute pharyngitis, unspecified
CPT/HCPCS: 71046; 99282; 99283

== ENCOUNTER → 2023-02-10 12:30 | Outpatient (BNVA) | payer MEDICAID, SELFPAY | PROVIDERS: PCP Family Medicine; Visit Provider Physician Assistant Surgical | DX: E66.01 Morbid (severe) obesity due to excess calories (principal); G43.909 Migraine, unspecified, not intractable, without status migrainosus; K21.9 Gastro-esophageal reflux disease without esophagitis; F50.81 Binge eating disorder; F32.2 Major depressive disorder, single episode, severe without psychotic features; D72.829 Elevated white blood cell count, unspecified; Z68.42 Body mass index [BMI] 45.0-49.9, adult | CPT/HCPCS: 99212 ==

== ENCOUNTER 2023-02-12 08:44 | Outpatient (REF) | payer MEDICAID, SELFPAY ==
--- NOTE | 2023-02-12 08:49 | ECG_ITS ---
Test Reason : e66.01 Blood Pressure : / mmHG Vent. Rate : 074 BPM Atrial Rate : 074 BPM P-R Int : 158 ms QRS Dur : 080 ms QT Int : 382 ms P-R-T Axes : 045 032 007 degrees QTc Int : 424 ms Sinus rhythm with marked sinus arrhythmia Low voltage QRS Borderline ECG When compared with ECG of 29-APR-2021 14:16, No significant change was found Referred By: Delia Ahsby Electronically Signed By:Alirio Donato
[2023-02-12 09:10] LABS: MANUAL DIFF FLAG NO
[2023-02-12 09:45] LABS: Basophils Absolute Auto 0.1 X10*3/uL (0.0-0.2); Basophils Percent Auto 0.6 % (0-2); Eosinophils Absolute Auto 0.2 X10*3/uL (0.0-0.4); Eosinophils Percent Auto 1.9 % (0-4); Hematocrit 38.1 % (37.0-47.0); Hemoglobin 12.7 g/dl (12.0-16.0); Imm Gran Abs Auto 0.03 X10*3/uL (0.00-0.03); Imm Gran Pct Auto 0.3 % (0.0-0.4); Lymphocytes Absolute Auto 2.6 X10*3/uL (1.2-4.9); Mean Corpuscular HGB Conc 33.3 g/dl (31.0-35.0); Mean Corpuscular Hemoglobin 30.2 pg (27.0-33.0); Mean Corpuscular Volume 90.5 fL (80.0-98.0); Mean Platelet Volume 10.7 fL (9.4-12.3); Monocytes Absolute Auto 0.6 X10*3/uL (0.1-1.2); Monocytes Percent Auto 5.8 % (2-11); Neutrophils Absolute Auto 6.9 x10*3/uL (2.0-8.3); Neutrophils Percent Auto 66.4 % (45-73); Platelet Count 349 X10*3/uL (160-400); Red Blood Count 4.21 X10*6/uL (4.20-5.50); Red Cell Distribution Width 12.2 % (11.0-16.0); White Blood Count 10.4 X10*3/uL (4.8-10.8)
[2023-02-12 09:54] LABS: Estimated Average Glucose 117 mg/dL; Hemoglobin A1C 134.8587 umol/L; Hemoglobin A1c % 5.7 %
[2023-02-12 10:58] LABS: Alanine Aminotransferase 66 U/L (0-31); Albumin Level 3.9 g/dL (3.5-5.0); Alkaline Phosphatase 60 U/L (39-117); Anion Gap 10 (12-20); Aspartate Amino Transferase 48 U/L (5-31); Bilirubin Total 0.6 mg/dL (0.0-1.0); Blood Urea Nitrogen 9 mg/dL (9-16); C Reactive Protein 2.74 mg/dL (< or = 0.50); Carbon Dioxide 27 mmol/L (22-29); Chloride 108 mmol/L (96-108); Cholesterol 187 mg/dL; Estimated Glomerular Filt Rate > 60; Glucose Random 100 mg/dL (60-115); HDL Cholesterol 37 mg/dL; Iron 81 mcg/dL (30-160); LDL Cholesterol Calculated 127 mg/dl; Percent Iron Saturation 31 % (15-50); Potassium 4.3 mmol/L (3.3-5.1); Sodium 141 mmol/L (135-145); Total Iron Binding Capacity 263 mcg/dL (228-428); Total Protein 7.2 g/dL (6.5-8.0); Triglycerides 117 mg/dL; Unsaturated Iron Binding 182 ug/dL
[2023-02-12 11:13] LABS: Ferritin 164 ng/mL (10-122); Folate 11.9 ng/mL (> or = 4.0); Insulin 26 uU/mL (2-29); TSH reflex Free T4 1.01 uIU/mL (0.32-4.0); Vitamin B12 398 pg/mL (200-900); Vitamin D 25-OH Total 12.6 ng/mL (>30)
[2023-02-15 15:54] LABS: PTHI 77 pg/mL (16-77)
[2023-02-17 17:03] LABS: Zinc 82 mcg/dL (60-130)
[2023-02-19 16:14] LABS: Vitamin A 50 mcg/dL (38-98)
[2023-02-27 15:13] LABS: Vitamin B1 11 nmol/L (8-30)
== END 2023-02-12 08:45 | disposition home or self-care (01) ==
LOC: HO.LAB 08:44
PROVIDERS: Visit Provider Physician Assistant Surgical
DX: E66.01 Morbid (severe) obesity due to excess calories (principal)
CPT/HCPCS: 36415; 80053; 80061; 82306; 82607; 82728; 82746; 83036; 83525; 83540; 83970; 84425; 84443; 84590; 84630; 85025; 86140; 93005

== ENCOUNTER → 2023-03-12 12:26 | Outpatient (BNVA) | payer MEDICAID, SELFPAY | PROVIDERS: PCP Family Medicine; Visit Provider Physician Assistant Surgical | DX: E66.01 Morbid (severe) obesity due to excess calories (principal); K21.9 Gastro-esophageal reflux disease without esophagitis; G43.909 Migraine, unspecified, not intractable, without status migrainosus; F50.81 Binge eating disorder; F32.2 Major depressive disorder, single episode, severe without psychotic features; Z68.41 Body mass index [BMI] 40.0-44.9, adult | CPT/HCPCS: 99211; 99212 ==

== ENCOUNTER 2023-03-12 17:31 | Outpatient (REF) | payer MEDICAID, SELFPAY ==
[2023-03-13 12:38] LABS: H Pylori Breath Test Negative (Negative)
== END 2023-03-12 17:32 | disposition home or self-care (01) ==
LOC: HO.LNP 17:31
PROVIDERS: Visit Provider Physician Assistant Surgical
DX: E66.01 Morbid (severe) obesity due to excess calories (principal)
CPT/HCPCS: 83013

== ENCOUNTER → 2023-03-19 16:00 | Outpatient (BNVA) | payer OTHER, MEDICAID, SELFPAY | PROVIDERS: PCP Family Medicine; Visit Provider Counselor Mental Health | DX: F43.25 Adjustment disorder with mixed disturbance of emotions and conduct (principal); F50.9 Eating disorder, unspecified ==

== ENCOUNTER 2023-04-05 13:56 | Outpatient (AMB) | payer MEDICAID, SELFPAY ==
--- NOTE | 2023-04-05 14:22 | MHC.OFFVISWM ---
Intake VS Expanded 04/05/23 14:27 Height 5 ft 1 in Weight 237 lb 9.6 oz BMI 44.9 BP 121/81 Blood Pressure Location Rt brachial Blood Pressure Position Sitting Pulse 84 Pulse Source Pulse Oximeter Temp 97.8 F Temperature Source Temporal Artery Scan Pulse Oximetry 95 Oxygen Delivery Method Room Air Body Fat 116.0 Body Fat Percentage 48.8 Free Fat Mass 121.4 Muscle Mass 115.4 Visceral Mass 13.0 Water Mass 87.4 BMR 1,775 Intake Visit Reasons: (OV) F/U SWL Allergies fish derived [FISH] Allergy (Severe, Verified 04/05/23 14:29) ANAPHYLAXIS Medication List - Last Reconciled 04/05/23 by JOHN Agarwal albuterol sulfate 90 mcg/actuation 1 inh inhalation QID PRN cholecalciferol (vitamin D3) 125 mcg PO DAILY loratadine 1 tab PO DAILY metoclopramide HCl (Reglan) 10 mg PO Q6H PRN omeprazole 1 cap PO DAILY sumatriptan succinate 1 tab PO DAILY PRN topiramate 100 mg PO DAILY HPI HPI Comments History of Present Illness Details The patient is a pleasant 27 year old female who returns to the clinic for pre-operative surgical weight loss management.?They were last seen in the office on 03/12/2023, recorded weight at that time was 237.4 pounds, with a BMI of 44.9.?Today's weight is 237.6 pounds and BMI is 44.9.? There has been a weight loss of 7.0 pounds since initiating the surgical weight loss program on 02/10/2023 with a total body weight loss of 2.86%. Pre op work up completed as follows: SWL classes:? 05/04 BH appts: cleared 03/19/23 ?? [address] appts: scheduled 04/08 Labs: 02/12/23- high CRP, low vit D, high AST/ALT H. pylori: 03/12 negative CXR: 01/28/23,?No acute cardiopulmonary process. EK02/12/23,?Sinus rhythm with marked sinus arrhythmia; Low voltage QRS; Borderline ECG; When compared with ECG of 29-APR-2021 14:16, no significant change was found ABD U/S: 07/21/2021,?likely hepatic steatosis, with specific note of presence of a 2 cm focal area of hypoechogenicity within the right lobe of the liver UGI: 07/21/2021,?Large gastroesophageal reflux without hiatal hernia. The rest of the upper GI exam is unremarkable. The patient reports sometimes will have half a bar for dinner instead of a meal. Current meal plan includes: 2 Isopure shakes (1 scoop in 8oz water) at 7-9am and 11am-1pm Atkins half protein bar at 2pm-4pm and 8pm-10pm dinner at 6pm (8 forks of protein and 8 forks of salad/vegetables) if she doesn't have dinner, will have another protein bar Current exercise plan includes: tries to walk, hasn't had a chance to go to the gym- 10 to 15 min a day [facility] Medical History delivery delivered Gallbladder & bile duct stone with obstruction GERD (gastroesophageal reflux disease) Migraines Surgical History Hx of breast reduction, elective Family History Maternal Grandmother Breast cancer Mother Breast cancer Throat cancer Ovarian cancer Family/Other Leukemia Father Prostate cancer Diabetes Heart attack Paternal Grandfather Diabetes Social History Alcohol intake: former Patient Tobacco Use Status: Never used Tobacco Physical Exam Vital Signs: Last Vital Signs Temp 97.8 F 04/05/23 14:27 Pulse 84 04/05/23 14:27 BP 121/81 04/05/23 14:27 Pulse Ox 95 04/05/23 14:27 Oxygen Delivery Method Room Air 04/05/23 14:27 BMI result Body Mass Index 44.9 Assessment & Plan Assessment & Plan (1) GERD (gastroesophageal reflux disease): Code(s): K21.9 - Gastro-esophageal reflux disease without esophagitis (2) Morbid obesity: Code(s): E66.01 - Morbid (severe) obesity due to excess calories Plan Discussed with pt that she is likely lacking in protein intake, and also not exercising adequately. She should be taking two WHOLE protein bars instead of half, and 7 forks/7 forks for her meal to ensure adequate protein. Gave pt a letter for [facility] where there is childcare for her daughters, so she can increase her exercise on cardio machines. Aside from RD visit, preop testing is complete. RTC 3 weeks to see me, then subsequent appt with Dr. Mcconnell. Patient is morbidly obese and is not considered stable at this time. I spent a total of 30 minutes reviewing/updating records, examining the patient and counseling the patient on weight management as detailed above. Coding Level of Care Code Est Pt Level 4 (88455) Diagnoses GERD (gastroesophageal reflux disease) K21.9 Morbid obesity E66.01
[2023-04-05 14:27] VITALS: BP 121/81; PULSE 84; TEMP 36.6; O2SAT 95; BMI 44.9
== END 2023-04-05 14:52 | disposition home or self-care (01) ==
PROVIDERS: PCP Family Medicine; Visit Provider Physician Assistant Surgical
DX: K21.9 Gastro-esophageal reflux disease without esophagitis (principal); E66.01 Morbid (severe) obesity due to excess calories
CPT/HCPCS: 99214

== ENCOUNTER → 2023-04-05 13:56 | Outpatient (BNVA) | payer MEDICAID, SELFPAY | PROVIDERS: PCP Family Medicine; Visit Provider Physician Assistant Surgical | DX: E66.01 Morbid (severe) obesity due to excess calories (principal); K21.9 Gastro-esophageal reflux disease without esophagitis; Z68.41 Body mass index [BMI] 40.0-44.9, adult | CPT/HCPCS: 99214 ==

== ENCOUNTER 2023-04-27 14:32 | Outpatient (AMB) | payer MEDICAID, SELFPAY ==
--- NOTE | 2023-04-27 14:44 | MHC.OFFVISWM ---
Intake VS Expanded 04/27/23 14:49 Height 5 ft 1 in Weight 237 lb 3.2 oz BMI 44.8 BP 126/75 Blood Pressure Location Lt brachial Blood Pressure Position Sitting Pulse 84 Pulse Source Pulse Oximeter Temp 98.3 F Temperature Source Temporal Artery Scan Pulse Oximetry 99 Oxygen Delivery Method Room Air Body Fat 114.0 Body Fat Percentage 48.1 Free Fat Mass 123.0 Muscle Mass 116.8 Visceral Mass 13.0 Water Mass 88.6 BMR 1,791 Intake Visit Reasons: (OV) F/U SWL Allergies fish derived [FISH] Allergy (Severe, Verified 04/27/23 14:47) ANAPHYLAXIS Medication List - Last Reconciled 04/27/23 by Delores Layne LPN albuterol sulfate 90 mcg/actuation 1 inh inhalation QID PRN cholecalciferol (vitamin D3) 125 mcg PO DAILY loratadine 1 tab PO DAILY metoclopramide HCl (Reglan) 10 mg PO Q6H PRN omeprazole 1 cap PO DAILY sumatriptan succinate 1 tab PO DAILY PRN topiramate 100 mg PO DAILY HPI HPI Comments History of Present Illness Details The patient is a pleasant 27 year old female who returns to the clinic for pre-operative surgical weight loss management.?They were last seen in the office on 03/12/2023, recorded weight at that time was 237.4 pounds, with a BMI of 44.9.?Today's weight is 237.2 pounds and BMI is 44.8.? There has been a weight loss of 7.0 pounds since initiating the surgical weight loss program on 02/10/2023 with a total body weight loss of 3.02%. Pre op work up completed as follows: SWL classes:? 05/04 BH appts: cleared 03/19/[address] appts: scheduled 05/03 Labs: 02/12/23- high CRP, low vit D, high AST/ALT H. pylori: 03/12 negative CXR: 01/28/23,?No acute cardiopulmonary process. EK02/12/23,?Sinus rhythm with marked sinus arrhythmia; Low voltage QRS; Borderline ECG; When compared with ECG of 29-APR-2021 14:16, no significant change was found ABD U/S: 07/21/2021,?likely hepatic steatosis, with specific note of presence of a 2 cm focal area of hypoechogenicity within the right lobe of the liver UGI: 07/21/2021,?Large gastroesophageal reflux without hiatal hernia. The rest of the upper GI exam is unremarkable. Current meal plan includes: 2 Isopure shakes (1 scoop in 8oz water) at 7-9am and 11am-1pm Atkins half protein bar at 2pm-4pm and 8pm-10pm dinner at 6pm (8 forks of protein and 8 forks of salad/vegetables) if she doesn't have dinner, will have another protein bar Current exercise plan includes: tries to walk, hasn't had a chance to go to the gym- 10 to 15 min a day?? plans to start [employer] tomorrow, when they have childcare [facility] Medical History delivery delivered Gallbladder & bile duct stone with obstruction GERD (gastroesophageal reflux disease) Migraines Surgical History Hx of breast reduction, elective Family History Maternal Grandmother Breast cancer Mother Breast cancer Throat cancer Ovarian cancer Family/Other Leukemia Father Prostate cancer Diabetes Heart attack Paternal Grandfather Diabetes Social History Alcohol intake: former Patient Tobacco Use Status: Never used Tobacco Physical Exam Vital Signs: Last Vital Signs Temp 98.3 F 04/27/23 14:49 Pulse 84 04/27/23 14:49 BP 126/75 04/27/23 14:49 Pulse Ox 99 04/27/23 14:49 Oxygen Delivery Method Room Air 04/27/23 14:49 BMI result Body Mass Index 44.8 Assessment & Plan Assessment & Plan (1) Morbid obesity: Code(s): E66.01 - Morbid (severe) obesity due to excess calories (2) GERD (gastroesophageal reflux disease): Code(s): K21.9 - Gastro-esophageal reflux disease without esophagitis (3) MDD (major depressive disorder), single episode, severe: Code(s): F32.2 - Major depressive disorder, single episode, severe without psychotic features (4) Binge eating disorder: Code(s): F50.81 - Binge eating disorder Plan Pt is motivated to start exercise this week now that she has childcare via gym membership. She does not want any meal plan changes today. We reviewed ideas for cardio workouts sent via initial email and pt confirmed she still had info contained in that email. Follow up with RD next week, remainder of preop workup complete. Follow up in 6 weeks at my next available appt but I encouraged pt to reach out sooner if she gets closer to 10% weight loss goal and we can attempt to have her scheduled sooner if I have openings. Patient is morbidly obese and is not considered stable at this time. I spent a total of 30 minutes reviewing/updating records, examining the patient and counseling the patient on weight management as detailed above. Coding Level of Care Code Est Pt Level 4 (07055) Diagnoses Morbid obesity E66.01 GERD (gastroesophageal reflux disease) K21.9 MDD (major depressive disorder), single episode, severe F32.2 Binge eating disorder F50.81
[2023-04-27 14:49] VITALS: BP 126/75; PULSE 84; TEMP 36.8; O2SAT 99; BMI 44.8
== END 2023-04-27 15:30 | disposition home or self-care (01) ==
PROVIDERS: PCP Family Medicine; Visit Provider Physician Assistant Surgical
DX: E66.01 Morbid (severe) obesity due to excess calories (principal); K21.9 Gastro-esophageal reflux disease without esophagitis; F32.2 Major depressive disorder, single episode, severe without psychotic features; F50.81 Binge eating disorder
CPT/HCPCS: 99214

== ENCOUNTER → 2023-04-27 14:32 | Outpatient (BNVA) | payer MEDICAID, SELFPAY | PROVIDERS: PCP Family Medicine; Visit Provider Physician Assistant Surgical | DX: E66.01 Morbid (severe) obesity due to excess calories (principal); K21.9 Gastro-esophageal reflux disease without esophagitis; F32.2 Major depressive disorder, single episode, severe without psychotic features; F50.81 Binge eating disorder; Z68.41 Body mass index [BMI] 40.0-44.9, adult | CPT/HCPCS: 99214 ==

== ENCOUNTER 2023-08-02 15:07 | Outpatient (AMB) | payer MEDICAID, SELFPAY ==
--- NOTE | 2023-08-02 15:10 | MHC.OFFVIS ---
Intake Vital Signs 08/02/23 15:13 Height 5 ft 1 in Weight 230 lb BMI 43.5 BP 110/78 Blood Pressure Location Rt brachial Position Sitting Pulse 89 Pulse Source Pulse Oximeter Pulse Oximetry (%) 98 Oxygen Delivery Method Room Air Intake Visit Reasons: INSURANCE CLAIMS ANALYST-KATIE/Lvm Intake Note: Patient presents for INSURANCE CLAIMS ANALYST KATIE evaluation. Patient states My pcp send me here for evaluation Allergies fish derived [FISH] Allergy (Severe, Verified 08/02/23 15:14) ANAPHYLAXIS HPI HPI Comments History of Present Illness Details 27 y/o female patient presents for new in-person visit for sleep consultation. Pt reports difficulty falling asleep and staying sleep. She only can sleep for an hour. Pt reports snoring, gasping, shortness of breath, and non refreshing sleep. She has headache all day, and sleepy during daytime. She is on wt program and plans to have gastric bypass surgery. Sleep questionnaire: Have you ever been diagnosed with a sleep disorder? No. Have you ever had a sleep study in the past? No. Have you ever been treated for a sleep disorder? No. Do you take medications for a sleep disorder? No. Do you snore? Yes. Do you wake up gasping at night? Yes. Do you have episodes of apneas? No. If yes, are they witnessed? No. sleeps alone. Do you have episodes of nocturnal chest pain or dyspnea? Yes. Do you have difficulty initiating sleep? Yes. Do you have difficulty maintaining sleep? Yes. Do you wake up tired? Yes. Do you have headaches upon awakening? Yes. Do you wake up with dry mouth or throat? Yes. Do you have GERD? Yes. Do you have nocturia? No. Do you have nocturnal leg cramps? No. Do you have symptoms of restless legs? No. Do you act out your dreams? No. Sleep hygiene questionnaire: What is your usual sleep routine? Usual bedtime is at 9-10 pm; Usual wake up time is at 5-6 am. Do you take naps? No. Is your sleep environment cool, dark, and quiet? Yes. Do you exercise? Yes, sometimes. Do you take caffeine or other stimulants? No. Do you use electronics in bed? Yes. What is your work schedule? N/A. Hypersomnolence questionnaire: Do you have daytime tiredness or fatigue? Yes. Do you easily fall asleep when inactive? Yes. Have you ever had episodes of sudden weakness? No. Have you ever had episodes of sudden weakness associated with strong emotions? No. PFSH Medical History (Updated 08/02/23 @ 15:40 by Law Riggs CNP) Migraines GERD (gastroesophageal reflux disease) delivery delivered Gallbladder & bile duct stone with obstruction Surgical History (Updated 08/02/23 @ 15:15 by SUZANNA Gonzales) Hx laparoscopic cholecystectomy Hx of breast reduction, elective Family History Maternal Grandmother Breast cancer Mother Breast cancer Throat cancer Ovarian cancer Family/Other Leukemia Father Prostate cancer Diabetes Heart attack Paternal Grandfather Diabetes Social History Alcohol intake: former Patient Tobacco Use Status: Never used Tobacco Review of Systems Const All systems reviewed & are unremarkable except as noted in HPI and below ENT Reports Normal hearing present Neuro Reports Normal hearing present Physical Exam Vital Signs: Last Vital Signs Pulse 89 08/02/23 15:13 BP 110/78 08/02/23 15:13 Pulse Ox 98 08/02/23 15:13 Oxygen Delivery Method Room Air 08/02/23 15:13 BMI result Body Mass Index 43.5 Const General: cooperative and tired appearing Nutritional Appearance: obese Orientation/consciousness: patient oriented x3 Neck Neck: Yes full ROM and Yes supple Resp Effort & Inspection: normal respiratory effort and able to speak in complete sentences Neuro General: patient oriented x3, gait normal and moves all extremities Cranial nerves: Yes Bilaterally intact EOM present, Yes Normal facial strength present, Yes Midline tongue present, Yes Symmetric palate elevation present, Yes Normal hearing present, Yes Ability to bilaterally rotate head present and Yes Ability to bilaterally elevate shoulders present Cognition (Neuro): normal cognition Gait exam (Neuro): Normal gait present Motor exam (neuro): 5/5 motor strength present throughout, Pronator motor function not present and no tremor noted Psych Appearance: grossly normal Mental Status: mental status grossly normal Speech and movement: Normal speech and movement present Affect: normal affect Attitude: cooperative Assessment & Plan Assessment & Plan (1) Daytime sleepiness: Code(s): R40.0 - Somnolence (2) Snoring: Code(s): R06.83 - Snoring (3) Obesity, Class III, BMI 40-49.9 (morbid obesity): Code(s): E66.01 - Morbid (severe) obesity due to excess calories (4) Insomnia: Code(s): G47.00 - Insomnia, unspecified (5) Migraines: Code(s): G43.909 - Migraine, unspecified, not intractable, without status migrainosus Plan Pt is advised to undergo in lab sleep study to assess for sleep apnea. Will f/u with pt after study to discuss results and appropriate treatment options. Sleep hygiene education provided. Advised patient to limit electronic use before bedtime. Encouraged patient to read Say Good Night to Insomnia and practice the 6 weeks sleep hygiene program Advised patient to try magnesium 400 mg and melatonin 3 mg qHS. Pt to call with any worsening concerns or questions. Orders: Orders RT PSG in-lab sleep study Today E66.01 - Morbid (severe) obesity due to excess calories, G43.909 - Migraine, unspecified, not intractable, without status migrainosus, G47.00 - Insomnia, unspecified, R06.83 - Snoring, R40.0 - Somnolence Medications: New magnesium oxide 400 mg PO DAILY 30 days 30 caps 4RF melatonin 3 mg PO BEDTIME 30 days 30 tabs 4RF sleep Coding Level of Care Code New Pt Level 4 (63321) Diagnoses Daytime sleepiness R40.0 Snoring R06.83 Obesity, Class III, BMI 40-49.9 (morbid obesity) E66.01 Insomnia G47.00 Migraines G43.909
[2023-08-02 15:13] VITALS: BP 110/78; PULSE 89; O2SAT 98; BMI 43.5
== END 2023-08-02 15:43 | disposition home or self-care (01) ==
PROVIDERS: PCP Family Medicine; Visit Provider Nurse Practitioner Family
DX: R40.0 Somnolence (principal); R06.83 Snoring; E66.01 Morbid (severe) obesity due to excess calories; G47.00 Insomnia, unspecified; G43.909 Migraine, unspecified, not intractable, without status migrainosus
CPT/HCPCS: 99204

== ENCOUNTER → 2023-08-02 15:07 | Outpatient (BNVA) | payer MEDICAID, SELFPAY | PROVIDERS: PCP Family Medicine; Visit Provider Nurse Practitioner Family | DX: R40.0 Somnolence (principal); R06.83 Snoring; E66.01 Morbid (severe) obesity due to excess calories; G47.00 Insomnia, unspecified; G43.909 Migraine, unspecified, not intractable, without status migrainosus | CPT/HCPCS: 99212 ==

== ENCOUNTER → 2023-08-22 19:30 | Outpatient (REF) | payer MEDICAID, SELFPAY | LOC: HO.SL 19:30 | PROVIDERS: PCP Family Medicine; Visit Provider Nurse Practitioner Family | DX: G47.33 Obstructive sleep apnea (adult) (pediatric) (principal); G47.00 Insomnia, unspecified; E66.01 Morbid (severe) obesity due to excess calories; R06.83 Snoring; R40.0 Somnolence | CPT/HCPCS: 95810 ==

== ENCOUNTER → 2023-08-22 20:30 | Outpatient (BNV) | payer MEDICAID, SELFPAY | PROVIDERS: PCP Family Medicine; Visit Provider Psychiatry & Neurology Neurology | DX: G47.33 Obstructive sleep apnea (adult) (pediatric) (principal) | CPT/HCPCS: 95810 ==

== ENCOUNTER 2023-08-24 10:39 | Outpatient (AMB) | payer MEDICAID, SELFPAY ==
--- NOTE | 2023-08-24 11:09 | A.OFFVIS_ITS ---
Intake VS Expanded 08/24/23 11:16 BP 119/71 Blood Pressure Location Rt brachial Blood Pressure Position Sitting Pulse 96 Pulse Source Pulse Oximeter Temp 98.6 F Temperature Source Temporal Artery Scan Pulse Oximetry 98 Oxygen Delivery Method Room Air Height 5 ft 1 in Weight 229 lb 12.8 oz BMI 43.4 Body Fat % 47.4 Body Fat Mass 109.0 Fat Free Mass 120.8 Visceral Fat Rating 12.0 Body Water % 37.8 Body Water Mass 86.8 Muscle Mass/Score 114.6 Basal Metabolic Rate/Score 1,755 Intake Visit Reasons: (OV) F/U SWL Allergies fish derived [FISH] Allergy (Severe, Verified 08/24/23 11:12) ANAPHYLAXIS pistachio nut Allergy (Intermediate, Verified 08/24/23 11:12) swollen Medication List - Last Reconciled 08/24/23 by JOHN Agarwal albuterol sulfate 90 mcg/actuation 1 inh inhalation QID PRN cholecalciferol (vitamin D3) 125 mcg PO DAILY loratadine 1 tab PO DAILY magnesium oxide 400 mg PO DAILY 30 days melatonin 3 mg PO BEDTIME 30 days metoclopramide HCl (Reglan) 10 mg PO Q6H PRN omeprazole 1 cap PO DAILY sumatriptan succinate 1 tab PO DAILY PRN topiramate 100 mg PO DAILY HPI HPI Comments History of Present Illness Details The patient is a pleasant 27 year old female who returns to the clinic for pre-operative surgical weight loss management.? They were last seen in the office on 04/27/2023, recorded weight at that time was 237.2 pounds, with a BMI of 44.8.? Today's weight is 229.8 pounds and BMI is 43.4.? There has been a weight loss of 14.8 pounds since initiating the surgical weight loss program on 02/10/2023 with a total body weight loss of 6.05 %. Pre op work up completed as follows: SWL classes:? 05/04 BH appts: cleared 03/19/23 ?? [address] appts: needs final clearance Labs: 02/12/23- high CRP, low vit D, high AST/ALT H. pylori: 03/12 negative CXR: 01/28/23,?No acute cardiopulmonary process. EK02/12/23,?Sinus rhythm with marked sinus arrhythmia; Low voltage QRS; Borderline ECG; When compared with ECG of 29-APR-2021 14:16, no significant change was found ABD U/S: 07/21/2021,?likely hepatic steatosis, with specific note of presence of a 2 cm focal area of hypoechogenicity within the right lobe of the liver UGI: 07/21/2021,?Large gastroesophageal reflux without hiatal hernia. The rest of the upper GI exam is unremarkable. Had sleep study done yesterday, waiting on results. Current meal plan includes: 2 Isopure shakes (1 scoop in 8oz water) at 7-9am and 11am-1pm Atkins half protein bar at 2pm-4pm and 8pm-10pm dinner at 6pm (8 forks of protein and 8 forks of salad/vegetables) if she doesn't have dinner, will have another protein bar Current exercise plan includes: walks on weekends at the gym, sometimes Wednesday- will walk 5 miles, but unsure of calorie burn. also doing [employer]. Will also do Sam classes most other days of the week. [facility] Medical History (Updated 08/02/23 @ 15:40 by Law Riggs CNP) Migraines GERD (gastroesophageal reflux disease) delivery delivered Gallbladder & bile duct stone with obstruction Surgical History Hx laparoscopic cholecystectomy Hx of breast reduction, elective Family History Maternal Grandmother Breast cancer Mother Breast cancer Throat cancer Ovarian cancer Family/Other Leukemia Father Prostate cancer Diabetes Heart attack Paternal Grandfather Diabetes Alcohol intake: former Patient Tobacco Use Status: Never used Tobacco Assessment & Plan Assessment & Plan (1) GERD (gastroesophageal reflux disease): Code(s): K21.9 - Gastro-esophageal reflux disease without esophagitis (2) Morbid obesity: Code(s): E66.01 - Morbid (severe) obesity due to excess calories Plan Pt still needs clearance from RD, will schedule today. Will set up initial consult once cleared by MARTHA with Dr. Mcconnell as pt has completed all preop testing and so far has lost more than 6% TBW. Patient is morbidly obese and is not considered stable at this time. I spent a total of 30 minutes reviewing/updating records, examining the patient and counseling the patient on weight management as detailed above. Medications: Discontinued metoclopramide HCl (Reglan) Discontinued Reason: Patient Completed Course 10 mg PO Q6H PRN 14 tabs 0RF nausea and vomiting Coding Level of Care Code Est Pt Level 4 (93064) Diagnoses GERD (gastroesophageal reflux disease) K21.9 Morbid obesity E66.01
[2023-08-24 11:16] VITALS: BP 119/71; PULSE 96; TEMP 37; O2SAT 98; BMI 43.4
== END 2023-08-24 12:05 | disposition home or self-care (01) ==
PROVIDERS: PCP Family Medicine; Visit Provider Physician Assistant Surgical
DX: K21.9 Gastro-esophageal reflux disease without esophagitis (principal); E66.01 Morbid (severe) obesity due to excess calories
CPT/HCPCS: 99214

== ENCOUNTER → 2023-08-24 10:39 | Outpatient (BNVA) | payer MEDICAID, SELFPAY | PROVIDERS: PCP Family Medicine; Visit Provider Physician Assistant Surgical | DX: E66.01 Morbid (severe) obesity due to excess calories (principal); K21.9 Gastro-esophageal reflux disease without esophagitis; Z68.41 Body mass index [BMI] 40.0-44.9, adult | CPT/HCPCS: 99212 ==

== ENCOUNTER 2023-09-08 08:21 | Outpatient (AMB) | payer MEDICAID, SELFPAY ==
--- NOTE | 2023-09-08 11:34 | MHC.OFFVISWM ---
Intake VS Expanded 09/08/23 11:53 Height 5 ft 1 in Weight 229 lb BMI 43.3 Body Fat % 55.8 Body Fat Mass 127.7 Fat Free Mass 101.2 Visceral Fat Rating 24 Body Water % 30.3 Body Water Mass 69.3 Basal Metabolic Rate/Score 1,342 Intake Visit Reasons: TV Consult/Transfer Delia Allergies fish derived [FISH] Allergy (Severe, Verified 09/08/23 11:34) ANAPHYLAXIS pistachio nut Allergy (Intermediate, Verified 09/08/23 11:34) swollen Medication List - Last Reconciled 09/08/23 by Hans Smith MD albuterol sulfate 90 mcg/actuation 1 inh inhalation QID PRN cholecalciferol (vitamin D3) 125 mcg PO DAILY loratadine 1 tab PO DAILY magnesium oxide 400 mg PO DAILY 30 days melatonin 3 mg PO BEDTIME 30 days omeprazole 1 cap PO DAILY sumatriptan succinate 1 tab PO DAILY PRN topiramate 100 mg PO DAILY HPI TV Consult/Transfer Delia HPI Details Start time: 11.19am, End time: 12.04pm ?I spent 35 minutes speaking with the patient on the phone plus an additional 10 minutes reviewing and updating records for a total of 45 minutes HPI Comments History of Present Illness Details Overall weight loss: 15.6lbs, or 6.38% TBWL Is doing two Isopure shakes (1 scoop each in 8oz of water), 2 Atkins protein bars and one meal (7 forks of protein and 7 forks of salad or vegetables) Exercise: Gym x3/wk for treadmill for 1-2 hours, and outside walking PFSH Medical History (Updated 08/02/23 @ 15:40 by Law Riggs CNP) Migraines GERD (gastroesophageal reflux disease) delivery delivered Gallbladder & bile duct stone with obstruction Surgical History Hx laparoscopic cholecystectomy Hx of breast reduction, elective Family History Maternal Grandmother Breast cancer Mother Breast cancer Throat cancer Ovarian cancer Family/Other Leukemia Father Prostate cancer Diabetes Heart attack Paternal Grandfather Diabetes Social History Alcohol intake: former Patient Tobacco Use Status: Never used Tobacco Assessment & Plan Assessment & Plan (1) Morbid obesity: Code(s): E66.01 - Morbid (severe) obesity due to excess calories Plan: 1. Plan for lap sleeve gastrectomy including upper GI endoscopy. All tests has been completed and reviewed and the patient is cleared for the surgery. ?If diaphragmatic or ventral hernias are present at time of surgery, these will be repaired laparoscopically as well. Risks and complications were discussed in detail including possible conversion to an open procedure, anastomotic leak, bleeding requiring transfusion, small bowel obstruction, , DVT and pulmonary embolism, cardiac, or pulmonary complications, as terminal worker complications such as anastomotic ulcer, insufficient weight loss and vitamin deficiencies. I emphasized the importance of close follow-up, adherence to instructions and good communication. So far she has proven to be an excellent communicator and very compliant with all our directions accomplishing a great weight loss. I believe that she is an excellent candidate and she is ready. 2. Change nutritional plan to two Isopure shakes (HALF scoop each in 8oz of water), 2 Atkins protein bars and one meal (7 forks of protein and 7 forks of salad or vegetables). 3. Do not replace the salad portion of the dinner with another protein bar 4. Change treadmill with an incline of 6.0 and speed of 3.5. Increase incline by 1 every 3 min to a max incline of 12.0, stay 3min at 12.0 and then return to 6.0 and repeat same steps until you burn 500 calories, 3 times per week. 5. Start walking outside 4 days per week, tracking calories with a goal of 150-200 calories per walk. 6. Send me your weight measurements weekly on Wednesdays Telehealth Telehealth Location of provider rendering services: practice address Location of patient: address on file Patient Identification confirmed using: Name, : Yes Telehealth method: voice only Patient verbally consented to treatment: Yes Patient verbally consented to billing insurance company: Yes Patient informed of any privacy concerns related to visit: Yes Minutes spent on Phone/Video with Pt.: 45 Coding Level of Care Code Tele Est Pt Level 5 (83957) Diagnoses Morbid obesity E66.01 Time Spent (min) 45
[2023-09-08 11:53] VITALS: BMI 43.3
== END 2023-09-08 12:04 | disposition home or self-care (01) ==
LOC: HO.HBS 08:21
PROVIDERS: PCP Family Medicine; Visit Provider Surgery
DX: E66.01 Morbid (severe) obesity due to excess calories (principal); Z68.43 Body mass index [BMI] 50.0-59.9, adult
CPT/HCPCS: 99215

== ENCOUNTER → 2023-09-08 08:21 | Outpatient (BNVA) | payer MEDICAID, SELFPAY | PROVIDERS: PCP Family Medicine; Visit Provider Surgery ==

== ENCOUNTER 2023-09-10 10:46 | Outpatient (AMB) | payer MEDICAID, SELFPAY ==
--- NOTE | 2023-09-10 10:43 | MHC.AMNUTRGE ---
Intake Intake Visit Reasons: VIDEO F/U SWL Station Examiner Required: No Allergies fish derived [FISH] Allergy (Severe, Verified 09/08/23 11:34) ANAPHYLAXIS pistachio nut Allergy (Intermediate, Verified 09/08/23 11:34) swollen HPI Nutrition Presentation Details Per Dr. Smith 09/08 notes, pt is ready for bariatric surgery Reason for consult elevated BMI Diet Assmnt Details I am doing the bars and shakes they told me I was supposed to do Completed the classes 7 months ago. pt states she has no questions or concerns but when discussing post op nut recs, pt states she doesn't remember anything. Patient was very guarded today, limited discussion Dietary counseling reduction Monitoring/Goals Nutrition problem monitoring total energy intake, level of knowledge/skill, total PRO intake and weight Outcome progress progressing Learning/Education Readiness to learn poor Stages of change action Most Recent Diabetes Results: No Data to Display [facility] Medical History (Updated 08/02/23 @ 15:40 by Law Riggs CNP) Migraines GERD (gastroesophageal reflux disease) delivery delivered Gallbladder & bile duct stone with obstruction Surgical History Hx laparoscopic cholecystectomy Hx of breast reduction, elective Family History Maternal Grandmother Breast cancer Mother Breast cancer Throat cancer Ovarian cancer Family/Other Leukemia Father Prostate cancer Diabetes Heart attack Paternal Grandfather Diabetes Social History Alcohol intake: former Patient Tobacco Use Status: Never used Tobacco Assessment & Plan Assessment & Plan (1) Obesity, Class III, BMI 40-49.9 (morbid obesity): Code(s): E66.01 - Morbid (severe) obesity due to excess calories Plan reviewed diet education post op - briefly. advised she rewatch classes 6-8 again, take notes, and ask questions as needed. she will follow up with surgeon and does not require a nutrition follow up at this time. Telehealth Telehealth Location of provider rendering services: practice address Location of patient: address on file Patient Identification confirmed using: Name, : Yes Telehealth method: voice only Patient verbally consented to treatment: Yes Patient verbally consented to billing insurance company: Yes Patient informed of any privacy concerns related to visit: Yes Minutes spent on Phone/Video with Pt.: 10 Coding Level of Care Code Nutr Indiv Subseq ([id number]) Diagnoses Obesity, Class III, BMI 40-49.9 (morbid obesity) E66.01 Time Spent (min) 10
== END 2023-09-10 10:48 | disposition home or self-care (01) ==
LOC: HO.HBS 10:46
PROVIDERS: PCP Family Medicine; Visit Provider Dietitian, Registered
DX: E66.01 Morbid (severe) obesity due to excess calories (principal)

== ENCOUNTER → 2023-09-10 10:46 | Outpatient (BNVA) | payer MEDICAID, SELFPAY | PROVIDERS: PCP Family Medicine; Visit Provider Dietitian, Registered | DX: E66.01 Morbid (severe) obesity due to excess calories (principal) | CPT/HCPCS: 97803 ==

== ENCOUNTER 2023-09-29 08:13 | Outpatient (AMB) | payer MEDICAID, SELFPAY ==
--- NOTE | 2023-09-29 11:15 | MHC.OFFVISWM ---
Intake VS Expanded 09/29/23 11:29 Height 5 ft 1 in Weight 230 lb 6 oz BMI 43.5 Intake Visit Reasons: TV Pre Op LSG 10/14/23 Allergies fish derived [FISH] Allergy (Severe, Verified 09/29/23 11:15) ANAPHYLAXIS pistachio nut Allergy (Intermediate, Verified 09/29/23 11:15) swollen Medication List - Last Reconciled 09/29/23 by Hans Smith MD albuterol sulfate 90 mcg/actuation 1 inh inhalation QID PRN cholecalciferol (vitamin D3) 125 mcg PO DAILY loratadine 1 tab PO DAILY magnesium oxide 400 mg PO DAILY 30 days melatonin 3 mg PO BEDTIME 30 days ondansetron 4 mg PO Q12H pantoprazole 40 mg PO DAILY polyethylene glycol 3350 (Miralax) 17 grams PO DAILY sucralfate 10 mL PO BID sumatriptan succinate 1 tab PO DAILY PRN topiramate 100 mg PO DAILY HPI TV Pre Op LSG 10/14/23 HPI Details Start time: 11AM, End time: 11.36AM ?I spent 31 minutes speaking with the patient on the phone plus an additional 5 minutes reviewing and updating records for a total of 36 minutes HPI Comments History of Present Illness Details Overall weight loss: 14lbs, or 5.72% TBWL Is doing one Premier shake (1/2 scoop in water), 2 Atkins protein bars and one meal (7 forks of protein and 7 forks of salad or vegetables Exercise: doing treadmill (speed 3.5 and incline 6-12) for 500 calories x3/week PFSH Medical History (Updated 08/02/23 @ 15:40 by Law Riggs CNP) Migraines GERD (gastroesophageal reflux disease) delivery delivered Gallbladder & bile duct stone with obstruction Surgical History Hx laparoscopic cholecystectomy Hx of breast reduction, elective Family History Maternal Grandmother Breast cancer Mother Breast cancer Throat cancer Ovarian cancer Family/Other Leukemia Father Prostate cancer Diabetes Heart attack Paternal Grandfather Diabetes Social History Alcohol intake: former Patient Tobacco Use Status: Never used Tobacco Assessment & Plan Assessment & Plan (1) Morbid obesity: Code(s): E66.01 - Morbid (severe) obesity due to excess calories Plan: 1. Plan for lap sleeve gastrectomy including upper GI endoscopy. All tests has been completed and reviewed and the patient is cleared for the surgery. ?If diaphragmatic or ventral hernias are present at time of surgery, these will be repaired laparoscopically as well. Risks and complications were discussed in detail including possible conversion to an open procedure, anastomotic leak, bleeding requiring transfusion, small bowel obstruction, , DVT and pulmonary embolism, cardiac, or pulmonary complications, as penitentiary complications such as anastomotic ulcer, insufficient weight loss and vitamin deficiencies. I emphasized the importance of close follow-up, adherence to instructions and good communication. So far she has proven to be an excellent communicator and very compliant with all our directions accomplishing a great weight loss. I believe that she is an excellent candidate and she is ready. 2. Preop prescriptions were provided and explained the purpose of each one. Need to be purchased preop. Start Pantoprazole now as you get it from the pharmacy, 1 pill per day. Sucralfate and Zofran are for after surgery as needed. 3. Bowel prep: please do 7 packets ?of Miralax mixing each one with a an 8oz glass of water, crystal light, gatorade zero, or propel ?on 10/12/23 and the same amount on 10/13/23. Continue the protein shakes during? the bowel prep. 4. Needs to purchase 1oz medicine cups . 5. Needs to purchase Children's liquid Tylenol for postop pain control. 6. Avoid aspirin, motrin, Advil, Aleve, Ibuprofen, Naproxyn. Tylenol is OK. 7. She needs to purchase the Celebrate 4:1 protein shakes from the hospital's gift shop. 8. Will do basic preop blood work-up any day between Wednesday10/04/23 and Wednesday10/08/23 fasting for 12 hours and is scheduled to see the Anesthesiologist prior to the day of surgery. 9. Importance of adherence to postop folllow-up and recommendations was underscored and she understands that. 10. Stop food and bars as of tomorrow 09/30/23 and continue with 5 Premier protein shakes (ONE scoop EACH in 8oz almond milk) at 8am-10am, 11am-1pm, 2pm-4pm, 5pm-7pm and at 8pm-10pm 11. No soups, broths or V8 12. The patient's?medical?history has been reviewed and they are considered low risk for post op DVT and therefore DVT prophylaxis is not considered necessary. Travel after surgery was reviewed. The patient has not disclosed any travel plans during the first 30 days after surgery and they have been advised that within the first 30 days after surgery any bus, plane, train or car travel over 2 hours in duration is contraindicated due to the possibility of developing blood clots from immobility. Any travel, needs to include periods of ambulation of 10 minutes in duration every 2 hours.? Patient was instructed to discuss any plans for travel during this period with their bariatric surgeon.? 13. Use your CPAP daily and bring it to the hospital with your mask 14. Please take at the day of surgery the following medications: NONE 15. Stop any control pills and don't use them for one month after surgery 16. Absolutely no smoking or vaping, or marijuana until the surgery and for at least the first 4 weeks. Only nicotine patches are allowed. 17. Send me weight measurements on Fridays and then on 10/14/23 the day of surgery before you go to the hospital. 18. Avoid any steroids by mouth for any reason. Let me know if someone prescribes them to you 19. These instructions supersede anything else you read in the handbook, anything you watched in videos or classes or you were told by any other provider. If there is any conflict, you follow the above instructions and nothing else. Orders: Orders TSH reflex Free T4 Today E66.01 - Morbid (severe) obesity due to excess calories Comprehensive Met. Panel Today E66.01 - Morbid (severe) obesity due to excess calories Type and Screen Today E66.01 - Morbid (severe) obesity due to excess calories Partial Thromboplastin Time Today E66.01 - Morbid (severe) obesity due to excess calories C Reactive Protein Today E66.01 - Morbid (severe) obesity due to excess calories Lipid Panel Today E66.01 - Morbid (severe) obesity due to excess calories Complete Blood Count Auto Diff Today E66.01 - Morbid (severe) obesity due to excess calories Hemoglobin A1c Today E66.01 - Morbid (severe) obesity due to excess calories Prothrombin Time INR Today E66.01 - Morbid (severe) obesity due to excess calories Insulin Today E66.01 - Morbid (severe) obesity due to excess calories Medications: New pantoprazole 40 mg PO DAILY 90 tabs 0RF K21.9 - Gastro-esophageal reflux disease without esophagitis ondansetron Only take one every 12 hours as needed if you have nausea 4 mg PO Q12H 20 tabs 0RF nausea and vomiting R11.0 - Nausea sucralfate 10 mL PO BID 600 mL 2RF K21.9 - Gastro-esophageal reflux disease without esophagitis polyethylene glycol 3350 (Miralax) Mix each packet with 8oz of water, Crystal light, or Gatorade zero, or Propel and do 7 packets on 10/12/23 and another 7 packets on 10/13/23 17 grams PO DAILY 14 ea 0RF Z01.818 - Encounter for other preprocedural examination Telehealth Telehealth Location of provider rendering services: practice address Location of patient: address on file Patient Identification confirmed using: Name, : Yes Telehealth method: voice only Patient verbally consented to treatment: Yes Patient verbally consented to billing insurance company: Yes Patient informed of any privacy concerns related to visit: Yes Minutes spent on Phone/Video with Pt.: 36 Coding Level of Care Code Tele Est Pt Level 4 (50763) Diagnoses Morbid obesity E66.01 Time Spent (min) 36
[2023-09-29 11:29] VITALS: BMI 43.5
== END 2023-09-29 11:37 | disposition home or self-care (01) ==
LOC: HO.HBS 08:13
PROVIDERS: PCP Family Medicine; Visit Provider Surgery
DX: E66.01 Morbid (severe) obesity due to excess calories (principal)
CPT/HCPCS: 99214; 99443

== ENCOUNTER → 2023-09-29 08:13 | Outpatient (BNVA) | payer MEDICAID, SELFPAY | PROVIDERS: PCP Family Medicine; Visit Provider Surgery ==

== ENCOUNTER 2023-10-14 09:54 | Inpatient (IN) | payer MEDICAID, SELFPAY ==
[2023-10-05 09:55] VITALS: BMI 43.1
--- NOTE | 2023-10-09 00:05 | MHC.SHP ---
Pre-Procedural Eval Section A Date of Service: 10/09/23 The patient is an INPATIENT: Yes The History & Physical has been completed within 30 days and I have reviewed it.: Yes Section B Chief Complaint: Morbid (severe) obesity due to excess calories Relevant Family History (Specify if Yes): No Relevant Social History: None Present Medications: None Medical History: No relevant PMH History of Previous Operations: No relevant previous surgery Allergies: Allergies Allergy/AdvReac Type Severity Reaction Status Date / Time fish derived [FISH] Allergy Severe Anaphylaxis Verified 10/05/23 08:47 pistachio nut Allergy Intermediate Swelling Verified 10/05/23 08:47 Review of Systems Sugical H&P ROS: Negative: Constitution, Cardiovascular, Respiratory, Neurological, Psychiatric, Hem-Onc, Allergic/Immunologic, Gastrointestinal, Genitourinary, Musculoskeletal, Integumentary, Endocrine and Eyes/Ears/Nose/Throat Exam Surgical H&P Exam: Normal: HEENT, Normal: Heart, Normal: Lungs, Normal: Extremities, Normal: Abdomen, Normal: Skin and Normal: Neurological Plan Diagnosis/Plan: Unchanged I have reviewed the history and physical and performed a pertinent physical examination on my patient. No changes have occurred unless specified. Time Spent With Patient Time: Total time managing care of this patient today ____ minutes.
--- NOTE | 2023-10-12 13:56 | HO.ANESPROP2 ---
Documented by User: Leonie Nash NP 10/12/23 13:57 HPI - Anesthesia Eval Consult details Narrative: 27yo F for Gastrectomy Sleeve PMFSH Active Problems Active Problems: All Active Problems (Updated 10/05/23 @ 09:58 by Kiana Ramos RN) Daytime sleepiness (Acute) Snoring (Acute) Obesity, Class III, BMI 40-49.9 (morbid obesity) (Acute) Insomnia (Acute) Binge eating disorder (Acute) MDD (major depressive disorder), single episode, severe (Acute) Morbid obesity (Acute) Leukocytosis (Acute) Migraines (Acute) GERD (gastroesophageal reflux disease) (Acute) Past Medical History Medical History KATIE on CPAP Depression Migraines GERD (gastroesophageal reflux disease) Family History Family History Maternal Grandmother Breast cancer Mother Breast cancer Throat cancer Ovarian cancer Family/Other Leukemia Father Prostate cancer Diabetes Heart attack Paternal Grandfather Diabetes Surgical History Surgical History Hx of section Hx laparoscopic cholecystectomy Hx of breast reduction, elective Social History Social History Household Members Other:: minor children ages 5 & 6 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 If so, by whom?: No Are you DNR?: No Advance Directives: No Advance Directives Information Provided: No Advance Directives on File: No Recently lost weight without trying: No Eating poorly because of decreased appetite: No Nutrition Risks: No Nutritional Risk Patient : No FDLMP: 09/14/23 : No Poor oral hygiene: No Meds Allergies Allergy/AdvReac Type Severity Reaction Status Date / Time fish derived [FISH] Allergy Severe Anaphylaxis Verified 10/14/23 10:30 pistachio nut Allergy Intermediate Swelling Verified 10/14/23 10:30 Home Medications Medication Instructions Recorded Confirmed Last Taken Type loratadine 10 mg tablet 1 tab PO DAILY 01/21/21 10/05/23 Unknown History sumatriptan succinate 50 mg tablet 1 tab PO DAILY PRN Migraine 01/21/21 10/14/23 Unknown History Headache topiramate 100 mg tablet 100 mg PO DAILY 02/10/23 10/14/23 10/13/23 History Exam Height,Weight and Vital Signs: Height 5 ft 1 in Weight 103.419 kg Pertinent Lab Results Pertinent Lab Results: Laboratory Tests 10/04/23 10/04/23 12:00 12:09 WBC 10.2 RBC 4.55 Hgb 13.9 Hct 40.8 MCV 89.7 MCH 30.5 MCHC 34.1 RDW 12.1 Plt Count 393 MPV 10.8 Immature Gran % (Auto) 0.3 Neut % (Auto) 59.2 Lymph % (Auto) 32.0 [place] % (Auto) 6.8 Eos % (Auto) 1.1 Baso % (Auto) 0.6 Lymph # (Auto) 3.3 [place] # (Auto) 0.7 Eos # (Auto) 0.1 Baso # (Auto) 0.1 Abs Immat Gran (auto) 0.03 Absolute Neuts (auto) 6.0 Absolute Nucleated RBC 0.000 Nucleated RBC % (auto) 0.0 PT 12.1 INR 1.0 APTT 29.6 Sodium 138 Potassium 3.7 Chloride 106 Carbon Dioxide 26 Anion Gap 10 L BUN 13 Creatinine 0.80 Estim Creat Clear Calc TNP Estimated GFR > 60 Random Glucose 90 Estimat Average Glucose 108 Hemoglobin A1c % 5.4 Insulin Level 16 Calcium 9.3 Total Bilirubin 0.5 AST 23 ALT 35 H Alkaline Phosphatase 50 C-Reactive Protein 0.78 H Total Protein 8.2 H Albumin 4.1 Triglycerides 128 Cholesterol 156 LDL Cholesterol, Calc 93 HDL Cholesterol 38 L TSH 1.44 Blood Type O Positive Antibody Screen NEGATIVE Narrative Narrative: EKG 01/2023 Vent. Rate : 074 BPM Atrial Rate : 074 BPM P-R Int : 158 ms QRS Dur : 080 ms QT Int : 382 ms P-R-T Axes : 045 032 007 degrees QTc Int : 424 ms Sinus rhythm with marked sinus arrhythmia Low voltage QRS Borderline ECG When compared with ECG of 29-APR-2021 14:16, No significant change was found Assessment and Plan Assessment Anesthesia Assessment: Chart Reviewed Documented by User: Elias Jacob MD 10/14/23 12:43 PMFSH Past Medical History Medical History KATIE on CPAP Depression Migraines GERD (gastroesophageal reflux disease) Patient : No Family History Family History Maternal Grandmother Breast cancer Mother Breast cancer Throat cancer Ovarian cancer Family/Other Leukemia Father Prostate cancer Diabetes Heart attack Paternal Grandfather Diabetes Family history of problems with anesthesia: No Surgical History Surgical History Hx of section Hx laparoscopic cholecystectomy Hx of breast reduction, elective History of Problems with Anesthesia: No Social History Social History Household Members Other:: minor children ages 5 & 6 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 If so, by whom?: No Are you DNR?: No Advance Directives: No Advance Directives Information Provided: No Advance Directives on File: No Recently lost weight without trying: No Eating poorly because of decreased appetite: No Nutrition Risks: No Nutritional Risk Patient : No FDLMP: 09/14/23 : No Poor oral hygiene: No Meds Allergies Allergy/AdvReac Type Severity Reaction Status Date / Time fish derived [FISH] Allergy Severe Anaphylaxis Verified 10/14/23 10:30 pistachio nut Allergy Intermediate Swelling Verified 10/14/23 10:30 Home Medications Medication Instructions Recorded Confirmed Last Taken Type loratadine 10 mg tablet 1 tab PO DAILY 01/21/21 10/05/23 Unknown History sumatriptan succinate 50 mg tablet 1 tab PO DAILY PRN Migraine 01/21/21 10/14/23 Unknown History Headache topiramate 100 mg tablet 100 mg PO DAILY 02/10/23 10/14/23 10/13/23 History Exam Airway Mallampati Class: II (small mouth opening) TM Dist: <=3cm Neck ROM: Full Loose/Missing/Broken Teeth: No Heart: ok Lungs: ok Assessment and Plan Assessment Anesthesia Assessment: Anesthesia Plan Discussed Final Anesthetic Review Family History of Problems with Anesthesia: No History of Problems with Anesthesia: No NPO: Yes ASA Class: III Final Preanesthetic Review: No Changes in Pt Med Stat, Meds/Allgs Chart Reviewed, Consent Obtained/Reviewed and Anes Risks/Benef Reviewed Patient Risk: Intermediate Procedure Risk: Intermediate Anesthetic Plan Anesthetic Plan: GA and Agree w/ Assess. and Plan Disposition: Standard PACU
[2023-10-14] VITALS (10 sets, daily range): BP systolic 111–144; BP diastolic 62–85; PULSE 64–95; RESP 16–18; TEMP 36.1–36.8; O2SAT 96–100
--- NOTE | ~2023-10-14 | US_ITS ---
EXAMINATION: US VENOUS ULTRASOUND WITH DOPPLER LOWER EXTREMITY, LEFT CLINICAL INFORMATION: Left leg heaviness. COMPARISON: None available. TECHNIQUE: Ultrasound of the deep veins is performed from the hip to the calf with compression sonography and color and pulse Doppler assessment. Spectral analysis with color-flow imaging is performed. FINDINGS: There is normal venous compression and respiratory variation and augmented flow. The visualized common femoral vein, superficial femoral vein, profunda femoral vein, popliteal vein, and the trifurcation region shows no evidence of deep venous thrombosis. If the patient's symptoms persist, followup ultrasound in 5 days 7 days might be of value to exclude proximal propagation from a non-visualized calf vein. US/US venous duplex LE IMPRESSION: No DVT demonstrated in the left lower extremity.
--- NOTE | 2023-10-14 10:22 | PHA.MEDREC ---
Pharmacy Consult ? Medication Reconciliation Pharmacy has completed the medication reconciliation. Reviewed med rec done by nursing
[2023-10-14] MEDS: Lactated Ringers 1,000 ML 100 ML IVCONT ×2 (10:57→16:54)
[2023-10-14] MEDS: Lactated Ringers 1,000 ML 999 ML IV (10:57)
[2023-10-14] MEDS: Aprepitant 32 MG/4.4 ML VIAL IVPUSH (10:57)
[2023-10-14 11:45] LABS: UPreg QC Valid YES; Urine Pregnancy NEGATIVE (NEGATIVE)
--- NOTE | 2023-10-14 12:39 | PC.NURSE ---
CPAP checked by [facility] referral number [id number].
--- NOTE | 2023-10-14 12:58 | P.BOP_ITS ---
Brief Operative Note Date of Service: 10/14/23 Pre-op diagnosis: Morbid obesity with comorbidities (see below) Post-op diagnosis: same (& congenital adhesions) Procedure: INITIAL PATIENT BMI ON PRESENTATION AT OUR OFFICE: 46.2 kg/m2 LAST BMI BEFORE SURGERY: 43 kg/m2 COMORBIDITIES: sleep apnea on CPAP, asthma, GERD, insomnia, migraines, GERD ?The patient presented to the Weight Management Program with significant obesity that was negatively impacting the patient's comorbidities as listed above.? The program is a phased program with a special focus on preoperative medical weight management to promote substantial weight loss and prepare the patients for the second phase of the program: bariatric surgery. The patient participated in an intensive weekly lifestyle ?intervention and exercise program during which the patient ?has lost between the initial office visit and the last preoperative visit 17lbs, or 6.55% of initial actual body weight. It was deemed appropriate for the patient to now have bariatric surgery. In light of the current Covid-19 pandemic and the well documented strong association of obesity and increased risk of worse outcomes if infected with Covid-19 (REFERENCES: https://pubmed.ncbi.nlm.nih.gov/81611108/ ,? https://pubmed.ncbi.nlm.nih.gov/76198100/ ), any delay in undergoing bariatric surgery may lead to the patient's worsening health condition and increased?risk of more severe Covid-19 disease if infected. In addition a recent?study from [facility] published in [employer] on 09/22/2021 ([id number]) found that, among patients with obesity, substantial weight loss achieved with surgery was associated with improved outcomes of COVID-19 infection. The findings suggest that obesity can be a modifiable risk factor for the severity of COVID-19 infection. In addition, the patient met the BMI-criteria for bariatric surgery based on the BMI on initial presentation. The patient should not be penalized for achieving such weight loss because ?it is not sustainable long-term without surgical intervention and it was achieved in preparation for bariatric surgery ?under my direction and based on my published research ([email or web address]).pdf and? https://www.soard.org/article/[email or web address](10)49630-X/pdf ) ?that a 10% preoperative weight loss improves long-term weight loss after surgery and reduces perioperative complications.? Insurance carriers such as [facility] have endorsed my recommendations ?and have included in their policies criteria to include a 10% preoperative weight loss requirement. PROCEDURE: Esophago-gastroscopy, laparoscopic lysis of adhesions, laparoscopic sleeve gastrectomy and laparoscopic gastropexy INDICATIONS: This is a 27 year-old female who was electively scheduled for laparoscopic, possibly open sleeve gastrectomy. The risks and complications of the procedure were discussed with the patient in advance, particularly the possibility of ; pulmonary embolism; staple line leak; bleeding; GERD; cardiac, pulmonary, or renal complications; as well as long-term problems such as insufficient weight loss, vitamin deficiency, strictures, or ulcers. The patient understood all the risks, and was in agreement to proceed with surgery. DESCRIPTION OF PROCEDURE: After informed consent was obtained from the patient, the patient was given preoperative antibiotics, and was transferred to the operating room. After successful induction of general anesthesia, pneumatic compression devices were placed on both lower extremities. An upper endoscopy was performed next. The oropharynx and esophagus appeared to be within normal limits. There was no diaphragmatic hernia present consistent w ith the findings of the preoperative upper GI. The stomach was entered. Then after all fluid and air were suctioned and the stomach was fully decompressed, the scope was withdrawn and secured in the mid esophagus. The patient was then prepped and draped in the usual sterile manner, and abdominal access was established at the right upper quadrant with the Katty technique. A 12 mm blunt port was inserted, and the abdomen was insufflated with CO2 to a pressure of 15 mmHg. Under direct visualization, additional ports were placed, specifically two 5 mm Versi-step ports to the left upper quadrant, and a 5 mm Versi-Step port to the right upper quadrant. 1% lidocaine plain was used to infiltrate all port sites as well as all fascia defects. Following that, the patient was placed in a steep reverse Trendelenburg position. An additional 5 mm port was placed to the right flank for the Mediflex retractor that was used to retract the left lobe of the liver. The gastro-esophageal fat pad was opened with the ultrasonic device (Thunderbeat, Olympus) and the anterior esophagus and hiatus were exposed. The angle of His was opened with the ultrasonic device the fundus of the stomach from any diaphragmatic and splenic attachments. I then opened the gastrocolic ligament between the transverse colon and the greater curvature of the stomach with the ultrasonic device to enter the lesser sac and facilitate the ligation of the short gastric vessels. I started at a mid-point along the greater curvature and using the Thunderbeat, all short gastric vessels were divided all the way to the angle of His until the left merary was completely dissected at its entirety. I then divided the gastro-colic ligament distally to a distance of about 3-4 cm proximal to the pylorus. There were extensive congenital adhesions between the pancreas and posterior gastric wall. Those were lysed completely with the ultrasonic device. Adhesiolysis took approximately 45 min to complete. The stomach was then divided transversely with three Endo PRATIMA-45 purple and three PRATIMA-60 articulating purple loads using the [employer] stapler and loads. Every effort was made that the gastric sleeve had a tubular shape and an even caliber throughout. Once the sleeve resection was completed, the staple line of the gastric sleeve was reinforced with Hemoclips. The resected stomach was retrieved without difficulty from the Katty port. A gastropexy was then performed in order to prevent postoperative GERD and partial gastric volvulus. Several interrupted 2.0 Surgidac sutures were placed between the sleeve's staple line and the previously divided greater omentum and gastro-colic ligament using the Endo-Stitch device. ?An upper endoscopy was performed. There was no narrowing at the GE junction. The scope was easily advanced all the way to the pylorus which was clearly visualized. There was no narrowing anywhere and the sleeve's caliber was even throughout. The sleeve's staple line was inspected and there was no evidence of ischemia, bleeding or dehiscence. At that point the gastroscope was withdrawn from the patient?s mouth while we were decompressing the bowel and the stomach from any remaining air. I looked into the lesser sac to see how the sleeve was situating and it was situating well. There was no bleeding from the staple line, spleen, or short gastric vessels. The Mediflex retractor was removed, and the undersurface of the liver was inspected and there was no bleeding. The patient was placed in supine position. I closed the fascial defect of the 12 mm port site with a figure of eight #1 Polysorb suture. Then 30cc Ropivacaine plain with 10 mg of Dexamethasone were used to infiltrate the fascial closure as well as all skin incisions. At this point, the abdomen was deflated, all ports were removed under direct vision, and no bleeding was noted from any of the port sites. The skin incisions were irrigated with saline and were closed with 4-0 absorbable monofilament sutures. Steri-Strips and OpSites were used to cover all incisions. The patient was extubated and was transferred in stable condition to the recovery room for further care. I was present and performed all pruitt parts of the procedure. Mr. Bearden was the transport assistant. There were no residents to assist with this case. Ryley Smith MD, PhD, FACS Surgeon: Hans Smith MD Anesthesia: GETA, local and other (TAP block) Was an Machinist Job Setter used for this Procedure?: No Machinist Job Setter: Manuel Bearden Estimated blood loss (mL): 10 Urine output (mL): 0 (No Foster to record output) Pathology: other (Stomach) Condition: stable Disposition: PACU
--- NOTE | 2023-10-14 13:01 | P.PNGS_ITS ---
Subjective Subjective Date of Service: 10/15/23 Interval history: Feels well. Mild incisional pain. She is tolerating phase 1 bariatric diet Physical Exam 2 Vital Signs: Vital Signs: Last Vital Signs Temp 98.3 F 10/14/23 10:55 Pulse 69 10/14/23 10:55 Resp 16 10/14/23 10:55 BP 117/62 10/14/23 10:55 Pulse Ox 98 10/14/23 10:55 O2 Del Method Room Air 10/14/23 10:55 BMI result Body Mass Index 43.1 GI: Inspection: Yes normal to inspection, Yes incision (clean, dry and intact) and Yes obesity Palpation (GI): Soft to palpation Extrem: Right lower extremity: normal to inspection (no calf tenderness) L eft lower extremity: normal to inspection (no calf tenderness) Objective Data Active Medications Fentanyl (Fentanyl Citrate/Pf 100 Mcg/2 Ml Vial) 50 mcg IVPUSH Q5M PRN; Protocol PRN Reason: Pain, Severe (Pain Scale 7-10) Hydromorphone HCl (Hydromorphone Hcl 0.5 Mg/0.5 Ml Syringe) 0.5 mg IVPUSH Q5M PRN; Protocol PRN Reason: Pain, Severe (Pain Scale 7-10) Lactated Ringer's (Lr) 1,000 mls @ 100 mls/hr IVCONT .Q10H NUPUR Last Admin: 10/14/23 10:57 Dose: 100 mls/hr Documented By: NGOZI Ondansetron HCl (Ondansetron Hcl 4 Mg/2 Ml Vial) 4 mg IVPUSH ONCE PRN PRN Reason: Nausea and Vomiting Labs 10/15/23 05:57 10/15/23 05:57 Labs: Laboratory Results - last 24 hr 10/14/23 11:30 Urine Test NEGATIVE Procedures Date of Service Date of Service: 10/15/23 Progress Note: A&P Assessment and plan (1) Morbid obesity: Status: Acute Assessment and Plan: s/p laparoscopic sleeve gastrectomy, lysis of adhesions and gastropexy Doing well Will check am labs and if OK the patient will be discharged home (2) KATIE on CPAP: Status: Acute (3) Asthma: Status: Acute (4) GERD (gastroesophageal reflux disease): Status: Acute (5) Migraines: Status: Acute (6) S/P laparoscopic sleeve gastrectomy: Status: Acute (7) Congenital intra-abdominal adhesions: Status: Acute Time Spent With Patient Time: Total time managing care of this patient today ____ minutes. Quality Stroke Does the patient have a stroke diagnosis?: No VTE Prior VTE?: No VTE Risk Level:: Surgical - moderate VTE Device Contraindication: N/A - Device Ordered VTE Drug Contraindication: Treatment Not Indicated
--- NOTE | 2023-10-14 15:29 | P.DS_ITS ---
DS: Providers Provider Date of Service: 10/15/23 Date of admission: 10/14/23 09:54 Primary care physician: Hailey Sevilla MD DS: Diagnosis Discharge Diagnosis (1) Morbid obesity: Status: Acute (2) KATIE on CPAP: Status: Acute (3) Asthma: Status: Acute (4) GERD (gastroesophageal reflux disease): Status: Acute (5) Migraines: Status: Acute (6) S/P laparoscopic sleeve gastrectomy: Status: Acute (7) Congenital intra-abdominal adhesions: Status: Acute DS: Summary Hospital Course Hospital Course: ADMITTING DIAGNOSIS: morbid obesity, KATIE, depression, migraines, GERD ? DISCHARGE DIAGNOSIS: same, s/p laparoscopic sleeve gastrectomy ? PAST SURGICAL HISTORY: laparoscopic cholecystectomy, cesarian section, breast reduction ? PROCEDURE: upper endoscopy, laparoscopic sleeve gastrectomy ? DISCHARGE SUMMARY: ? History of Present Illness: ? The patient is a?27 year-old woman with a BMI of?46.2 kg/m2 and associated co- morbidities as described above. The patient had extensive work-up,lost?17.2 lbs preoperatively and was electively scheduled for laparoscopic, possible open sleeve gastrectomy and gastropexy. Risks and complications of the surgery were discussed with the patient in advance, particularly the possibility of , pulmonary embolism, anastomotic leak, bleeding, bowel injury, GERD, cardiac, renal or pulmonary complications. The patient understood all the risks and was in agreement with the surgical plan. ? Hospital Course: ? The patient underwent an uneventful laparoscopic sleeve gastrectomy with gastropexy on the day of admission. Postoperatively, the patient was transferred to the surgical floor. The patient received IV Acetaminophen and IV dilaudid for pain control. Patient was started on bariatric phase 1 diet POD #0. On postoperative day one, the patient was feeling well without nausea, vomiting, fevers, or tachycardia. The patient had some mild incisional pain and the abdomen was soft. ? On the morning of postoperative day one, the patient was continued on 1 ounce of water or ice every half hour. During the day, the patient did fairly well, having some incisional pain, but able to ambulate adequately and to tolerate liquids well. ? Since the patient is doing well, we decided that the patient was ready to be discharged. The patient was given instructions to follow-up with me next week and to call my office for any fever over 101, persistent abdominal pain, nausea, vomiting, GERD, symptoms of DVT such as calf tenderness, or leg swelling, or pulmonary embolism such as chest pain or shortness of breath. The patient was also instructed to drink 40-60 ounces of liquids per day using the 1-ounce cups. The patient had been given prescriptions for Tylenol for pain, Zofran prn for nausea, and pantoprazole and carafate previously. The patient was encouraged to ambulate and use the incentive spirometer. The patient was allowed to shower, but no baths, and encouraged to stay active at home. All of these instructions were given to the patient personally. All questions were answered and the patient understood all instructions, the instructions were also given to the patient in print. Time Attestation Discharge coordination time: Less than 30 minutes Quality: Safe Use of Opioids Does Pt have an Active Cancer Diagnosis on the Problem List?: No Quality: Stroke Does the patient have a stroke diagnosis?: No Physical Exam Vital Signs: Vital Signs: Last Vital Signs Temp 98.3 F 10/14/23 10:55 Pulse 69 10/14/23 10:55 Resp 16 10/14/23 10:55 BP 117/62 10/14/23 10:55 Pulse Ox 98 10/14/23 10:55 O2 Del Method Room Air 10/14/23 10:55 BMI result Body Mass Index 43.1 DS: Data Data Completed and Pending Pending studies at discharge: Pending at discharge 10/14/23 14:28 Surgical [PTH] Routine Labs on day of discharge: Laboratory Results - last 24 hr 10/14/23 11:30 Urine Test NEGATIVE Discharge Plan Discharge Anticipated Discharge Date/Time: 10/15/23 10:00 Patient Disposition: Home, Self-Care Discharge Diagnosis: s/p laparoscopic sleeve gastrectomy Referrals: Hailey Sevilla MD [Primary Care Provider] - 1 Week Discharge Medications: Continued sumatriptan succinate 50 mg tablet 1 tab PO DAILY PRN (Reason: Migraine Headache) loratadine 10 mg tablet 1 tab PO DAILY albuterol sulfate 90 mcg/actuation HFA aerosol inhaler 1 inh inhalation QID PRN (Reason: shortness of breath or wheezing) Qty: 8.5 0RF topiramate 100 mg tablet 100 mg PO DAILY melatonin 3 mg tablet 3 mg PO BEDTIME 30 Days Qty: 30 4RF pantoprazole 40 mg tablet,delayed release (DR/EC) 40 mg PO DAILY Qty: 90 0RF sucralfate 100 mg/mL suspension 10 ml PO BID Qty: 600 2RF ondansetron 4 mg tablet,disintegrating 4 mg PO Q12H Qty: 20 0RF Rx Instructions: Only take one every 12 hours as needed if you have nausea Held magnesium oxide 400 mg magnesium capsule 400 mg PO DAILY 30 Days Qty: 30 4RF Hold Instructions: until discussed with Dr Smith Discontinued cholecalciferol (vitamin D3) 125 mcg (5,000 unit) capsule 125 mcg PO DAILY Qty: 90 3RF polyethylene glycol 3350 [Miralax] 17 gram powder in packet 17 g PO DAILY Qty: 14 0RF Rx Instructions: Mix each packet with 8oz of water, Crystal light, or Gatorade zero, or Propel and do 7 packets on 10/12/23 and another 7 packets on 10/13/23 Discharge Orders: Discharge Order (Routine); Ordered 10/15/23 Ordered By: Manuel Bearden Activity on Discharge: No heavy lifting Stand Alone Forms: Patient Portal Discharge page Care Plan Goals: weight loss Health Concerns: morbid obesity Plan of Treatment: No tub baths, sex or returning to work until discussed at first post op appointment. No exercise, alcohol, tobacco or illegal drug use. Continue to use incentive spirometer hourly while awake. Walk in home for 5- 10 minutes every 2 hours during the first week. Follow all instructions in the bariatric handbook and call with any questions.Discharge Instructions 1. Please call your doctor or come back to the emergency room should any new symptoms arise. 2. You will receive a courtesy call from [facility] 24-48 hours after discharge. 3. Activity: abstain from alcohol, practice limited stair climbing, no bending, no driving, no exercise, no illicit substances, no lifting, no sex, no tub bath, no work. 4. Diet: continue as discussed with Dr. Smith. 5. Dressing Change/Wound Care: Your incision is covered by clear bandages and guaze underneath. If the area is tender, you may apply an ice pack for short intervals (no more than 20 minutes on, followed by at least 20 minutes off). Do not apply heat. Do not use creams, lotions, or topical antibiotics unless instructed to do so by your surgeon. These can cause infection or allergic reaction. 6. Call your doctor if: - Your temperature exceeds 101.5 F - You experience excessive pain or swelling - You have an unexpected reaction to medication - You have excessive bleeding - You experience continued vomiting/nausea - Your incision begins to separate - Your incision shows signs of infection such as increased redness, swelling, excessive pain, heat, or drainage (light blood or clear fluid is normal) 7. General instructions: No lifting greater than 5 lbs for 1 week and not more than 20lbs the next 3?weeks. No driving until seen at the office in 5-7 days after surgery. If you do not move your bowels in the next 2 days, please tell?Dr. Smith. Please walk around your home every hour or two to prevent blood clots from forming in your legs. You do not need to wake from sleeping to walk. Please sleep in a bed or couch to prevent kinking at the hips and knees. Please take your incentive spirometer (your lung cinder crusher operator) home with you and use it for the next few days to prevent pneumonia. You may shower, no hot tubs, baths or swimming pools.?Please follow the post op diet instructions you are?emily modi by Dr Smith? and text me daily at 5-6pm for an update.?If you have any issues or concerns or questions please communicate this to him via text.? The Celebrate shakes have all of the bariatric vitamins you need if you consume these shakes. If you are drinking other protein shakes, you will need to purchase the Celebrate multivitamins and calcium that are available in the hospital gift shop on the first floor of the [facility].??Do not take anything without first discussing with Dr Smith. Please make sure you are consuming at least 40 ounces of fluids per day starting the?day AFTER your discharge from the hospital. Always drink 1-2 ml per minute using the 5ml?syringe. If you drink faster you may experience?bloating,?gas pain, burping, nausea or heartburn. In that case please slow down your pace and use the syringe to?understand better the?proper?pace and volume of drinking. Do not hesitate to contact the office with any questions at . The patient's medical history has been reviewed and they are considered low risk for post op DVT and therefore DVT prophylaxis is not considered necessary. Travel after surgery was reviewed. The patient has not disclosed any travel plans during the first 30 days after surgery and they have been advised that within the first 30 days after surgery any bus, plane, train or car travel over 2 hours in duration is contraindicated due to the possibility of developing blood clots from immobility. Any travel, needs to include periods of ambulation of 10 minutes in duration every 2 hours.? The patient was instructed to discuss any plans for travel during this period with their bariatric surgeon. Assessment: stable, s/p laparscopic sleeve gastrectomy
[2023-10-14 16:39] LABS: Hematocrit 38.2 % (37.0-47.0); Hemoglobin 13.1 g/dl (12.0-16.0)
[2023-10-14 16:52] LABS: Anion Gap 13 (12-20); Blood Urea Nitrogen 11 mg/dL (9-16); Calcium 8.5 mg/dL (8.4-10.2); Carbon Dioxide 22 mmol/L (22-29); Chloride 105 mmol/L (96-108); Creatinine Clr Calc Pharmacy 109.9; Estimated Glomerular Filt Rate > 60; Glucose Random 88 mg/dL (60-115); Potassium 4.1 mmol/L (3.3-5.1); Sodium 136 mmol/L (135-145)
[2023-10-14] MEDS: 0.9 % Sodium Chloride Flush 3 ML SYRINGE IVFLUSH ×2 (16:55→20:42)
[2023-10-14] MEDS: ondansetron HCL 4 MG/2 ML VIAL IVPUSH (18:07)
[2023-10-14] MEDS: ceFAZolin Sodium/Dextrose,Iso 2 GM/50 ML PIGGYBACK IV (19:18)
[2023-10-14] MEDS: Famotidine/PF 20 MG/2 ML VIAL IVPUSH (20:39)
[2023-10-14] MEDS: Acetaminophen 1,000 MG/100 ML PIGGYBACK 16.7 MG IV (20:39)
[2023-10-14] MEDS: Melatonin 3 MG TABLET PO (20:47)
[2023-10-15] MEDS: Acetaminophen 1,000 MG/100 ML PIGGYBACK 16.7 MG IV ×2 (02:55→09:48)
[2023-10-15] MEDS: Lactated Ringers 1,000 ML 100 ML IVCONT (02:56)
[2023-10-15] MEDS: HYDROmorphone HCl 0.5 MG/0.5 ML SYRINGE 0.25 MG IVPUSH ×2 (03:23→12:31)
[2023-10-15 03:59] VITALS: BP 113/78; PULSE 61; RESP 17; TEMP 36.1; O2SAT 96
[2023-10-15] MEDS: ondansetron HCL 4 MG/2 ML VIAL IVPUSH (06:18)
[2023-10-15 06:33] LABS: MANUAL DIFF FLAG NO
[2023-10-15 06:39] LABS: Basophils Percent Auto 0.1 % (0-2); Hematocrit 36.8 % (37.0-47.0); Hemoglobin 12.6 g/dl (12.0-16.0); Imm Gran Abs Auto 0.03 X10*3/uL (0.00-0.03); Imm Gran Pct Auto 0.3 % (0.0-0.4); Lymphocytes Absolute Auto 1.1 X10*3/uL (1.2-4.9); Lymphocytes Percent Auto 11.3 % (20-40); Mean Corpuscular HGB Conc 34.2 g/dl (31.0-35.0); Mean Corpuscular Volume 90.4 fL (80.0-98.0); Mean Platelet Volume 11.1 fL (9.4-12.3); Monocytes Absolute Auto 0.3 X10*3/uL (0.1-1.2); Monocytes Percent Auto 3.5 % (2-11); Neutrophils Percent Auto 84.8 % (45-73); Platelet Count 326 X10*3/uL (160-400); Red Blood Count 4.07 X10*6/uL (4.20-5.50); White Blood Count 9.4 X10*3/uL (4.8-10.8)
[2023-10-15 06:52] LABS: Anion Gap 17 (12-20); Blood Urea Nitrogen 9 mg/dL (9-16); Calcium 8.8 mg/dL (8.4-10.2); Carbon Dioxide 19 mmol/L (22-29); Chloride 106 mmol/L (96-108); Creatinine Clr Calc Pharmacy 121.3; Estimated Glomerular Filt Rate > 60; Glucose Random 98 mg/dL (60-115); Potassium 4.7 mmol/L (3.3-5.1); Sodium 137 mmol/L (135-145)
[2023-10-15 07:31] VITALS: BP 125/72; PULSE 56; RESP 16; TEMP 36.8; O2SAT 97
--- NOTE | 2023-10-15 09:25 | MHC.CM.PN ---
Female 27 S/P Gastric sleeve. She lives with her 2 children. Her mother will stay with the family to assist. Patient is independent with all functional mobility. A new HCP has been documented. It has been scanned into the EMR. DP home with family assist. Patients sister will provide transportation home.
[2023-10-15] MEDS: Famotidine/PF 20 MG/2 ML VIAL IVPUSH (09:47)
[2023-10-15] MEDS: Topiramate 100 MG TABLET PO (09:50)
[2023-10-15 11:08] VITALS: O2SAT 97
--- NOTE | 2023-10-15 14:02 | HO.POSTANES ---
Post Anesthesia Evaluation Post Anesthesia Evaluation Date of Service: 10/15/23 Vital Signs: Vital Signs Temp Pulse Resp BP Pulse Ox O2 Del Method 10/15/23 11:08 97 Room Air 10/15/23 07:31 98.2 F 56 16 125/72 97 Room Air 10/15/23 03:59 97 F 61 17 113/78 96 CPAP Anesthesia: General Endotracheal-GETA Mental Status: Awake Pain Control: Satisfactory Nausea/Vomiting: None Hydration: Adequate Anesthesia-Related Issues: No Anes. Related Issues
== END 2023-10-15 15:01 | disposition home or self-care (01) | DRG 403 ==
LOC: HO.SSSA 15:32 → HO.S3 16:12
PROVIDERS: Nurse Practitioner; Physician Assistant Surgical; Admitting Provider Surgery; PCP Family Medicine; Visit Provider Surgery
PROC: 0DB64Z3 Excision of Stomach, Percutaneous Endoscopic Approach, Vertical (ICD-10-PCS; CPT 43845; principal; 2023-10-14 12:50)
DX: E66.01 Morbid (severe) obesity due to excess calories (principal); Q43.3 Congenital malformations of intestinal fixation; G43.909 Migraine, unspecified, not intractable, without status migrainosus; G47.33 Obstructive sleep apnea (adult) (pediatric); K21.9 Gastro-esophageal reflux disease without esophagitis; J45.909 Unspecified asthma, uncomplicated; Z68.41 Body mass index [BMI] 40.0-44.9, adult; Z79.899 Other long term (current) drug therapy
CPT/HCPCS: 36415; 80048; 80053; 80061; 81025; 83036; 83525; 84443; 85014; 85018; 85025; 85610; 85730; 86140; 86850; 86900; 86901; 88304; 88305; 88307; 88342; 93971; 99024; A4649; C9145; J0131; J0690; J1100; J1170; J1596; J2250; J2405; J2704; J2795; J3010; J7120

== ENCOUNTER → 2023-10-14 09:54 | Outpatient (BNV) | payer MEDICAID, SELFPAY | PROVIDERS: Admitting Provider Surgery; PCP Family Medicine; Visit Provider Surgery | DX: E66.01 Morbid (severe) obesity due to excess calories (principal); Z68.41 Body mass index [BMI] 40.0-44.9, adult; K66.0 Peritoneal adhesions (postprocedural) (postinfection) | CPT/HCPCS: 43659; 43775; 99238 ==

== ENCOUNTER 2023-10-19 10:21 | Outpatient (AMB) | payer MEDICAID, SELFPAY ==
--- NOTE | 2023-10-19 11:00 | MHC.OFFVISWM ---
Intake VS Expanded 10/19/23 11:19 BP 115/59 L Blood Pressure Location Rt brachial Blood Pressure Position Sitting Pulse 90 Pulse Source Pulse Oximeter Temp 98.2 F Temperature Source Temporal Artery Scan Pulse Oximetry 97 Oxygen Delivery Method Room Air Height 5 ft 1 in Weight 211 lb 12.8 oz BMI 40.0 Body Fat % 48.3 Body Fat Mass 102.2 Fat Free Mass 109.4 Visceral Fat Rating 11.0 Body Water % 37.2 Body Water Mass 78.8 Muscle Mass/Score 103.8 Basal Metabolic Rate/Score 1,603 Intake Visit Reasons: (OV) PO LSG 10/14/23 Allergies fish derived [FISH] Allergy (Severe, Verified 10/19/23 11:52) Anaphylaxis pistachio nut Allergy (Intermediate, Verified 10/19/23 11:52) Swelling HPI HPI Comments History of Present Illness Details Patient is a 27-year-old female who returns to the office today in follow-up. She is approximately 5 days post sleeve gastrectomy performed on 10/14/2023. She states that she has only been tolerating 1-2 shakes per day consisting of celebrate 4 in 1 with 1 scoop in 8 oz of fluids and only 20-30 oz at max per day of liquids. She reports multiple episodes of dizziness and lightheadedness without any syncope. She was somewhat vague in her account of exact fluids, she states that she had been communicating with Dr. Smith but was unable to quantify how accurate she was with her text messages. She reports positive bowel movement and only mild mid incisional pain. [facility] Medical History (Updated 10/19/23 @ 15:15 by JOHN Preston) Asthma KATIE on CPAP Depression Migraines GERD (gastroesophageal reflux disease) Surgical History (Updated 10/19/23 @ 11:22 by Susan Zuniga CMA) S/P laparoscopic sleeve gastrectomy Hx of section Hx laparoscopic cholecystectomy Hx of breast reduction, elective Family History Maternal Grandmother Breast cancer Mother Breast cancer Throat cancer Ovarian cancer Family/Other Leukemia Father Prostate cancer Diabetes Heart attack Paternal Grandfather Diabetes Social History Household Members: Children Household Members Other:: minor children ages 5 & 6 Housing: Apartment Are you a primary critical care paramedic to a significant other at home: Yes Do you presently have visiting nurse or other home services: No Alcohol intake: former Patient Tobacco Use Status: Never used Tobacco service: No Physical Exam Vital Signs: Last Vital Signs Temp 98.2 F 10/19/23 11:19 Pulse 90 10/19/23 11:19 BP 115/59 L 10/19/23 11:19 Pulse Ox 97 10/19/23 11:19 Oxygen Delivery Method Room Air 10/19/23 11:19 BMI result Body Mass Index 40.0 GI Inspection: Yes incision (Staining at the midline incision otherwise clean, dry, intact) Assessment & Plan Assessment & Plan (1) S/P laparoscopic sleeve gastrectomy: Code(s): Z98.84 - Bariatric surgery status Plan: POD 5 s/p LSG on 10/14/[address] Smith Weight loss prior to surgery was 17.2 pounds or []7 % TBWL. Original weight on 02/10/2023 was 244.6 pounds and op weight was 227.4 pounds. Be sure to text Dr Smith exactly 1 week after surgery your weight from your home scale so he can adjust your meal plan. Continue meal plan until f/u w Delia in 2 weeks May shower, no submersion in bath for another week Continue abdominal binder with activity and exercise for the next 2 weeks. Exercise prior to surgery was [treadmill, may resume once improved PO intake No abdominal exercises for 6 weeks post operatively Will be emailed link to post op video for review Reminded of the pace of drinking, 2 mL per minute, 1 oz/15 min. (2) Dehydration: Code(s): E86.0 - Dehydration Plan: Discussed the critical importance of communicating accurately with Dr. Smith. Given her presentation, suspect dehydration. She will be sent down to the emergency room for labs and IV fluids. Report given to ER attending. Discussed with the patient the importance of following directions exactly including drinking 1 oz every 15 minutes. She was unable to accurately count how much she had been drinking. She did state that she was frequently feeling full, but was unable to clearly, consistently and accurately account for how much she was drinking and it seems as though she was drinking 10 mL every 15 minutes which was not correct. We again discussed the appropriate pace of drinking and the importance of maintaining adequate hydration. Coding Level of Care Code Global (51932) Diagnoses S/P laparoscopic sleeve gastrectomy Z98.84 Dehydration E86.0
[2023-10-19 11:19] VITALS: BP 115/59; PULSE 90; TEMP 36.8; O2SAT 97; BMI 40.0
== END 2023-10-19 15:28 | disposition home or self-care (01) ==
PROVIDERS: PCP Family Medicine; Visit Provider Physician Assistant Surgical
DX: E66.01 Morbid (severe) obesity due to excess calories (principal); Z68.41 Body mass index [BMI] 40.0-44.9, adult; Z90.3 Acquired absence of stomach [part of]; Z98.84 Bariatric surgery status; E86.0 Dehydration
CPT/HCPCS: 99024

== ENCOUNTER → 2023-10-19 10:21 | Outpatient (BNVA) | payer MEDICAID, SELFPAY | PROVIDERS: PCP Family Medicine; Visit Provider Physician Assistant Surgical ==

== ENCOUNTER 2023-10-19 11:40 | Emergency (ER) | payer MEDICAID, SELFPAY ==
--- NOTE | 2023-10-19 11:51 | ED_ITS ---
HPI - Abdominal Pain General Chief Complaint: General Medical Stated Complaint: Dehydrated 5 Days Postop Time Seen by Provider: 10/19/23 17:43 Source: patient, RN notes reviewed and old records reviewed Mode of arrival: ambulatory Limitations: no limitations History of Present Illness HPI narrative: 27-year-old female presents for evaluation of weakness. Patient is postop day 5 a sleeve gastrectomy with Dr. Smith She states that she is supposed to be drinking 40 oz of fluids per day but has been drinking approximately half that She is not supposed to have anything solid yet and therefore has not been eating anything solid She reports nausea, weakness, occasional dizziness She was seen in the office today by Manuel reid who recommended the patient come to the ER for further evaluation. Denies any fevers or chills, She is occasional mild abdominal pain She is passing gas Related Data Home Medications Medication Instructions Recorded Confirmed loratadine 10 mg tablet 1 tab PO DAILY 01/21/21 10/05/23 sumatriptan succinate 50 mg tablet 1 tab PO DAILY PRN Migraine 01/21/21 10/14/23 Headache topiramate 100 mg tablet 100 mg PO DAILY 02/10/23 10/14/23 Previous Rx's Medication Instructions Recorded albuterol sulfate 90 mcg/actuation 1 inh inhalation QID PRN shortness 01/28/23 aerosol inhaler of breath or wheezing #8.5 grams magnesium oxide 400 mg PO DAILY 30 days #30 caps 08/02/23 melatonin 3 mg tablet 3 mg PO BEDTIME sleep 30 days #30 08/02/23 tabs ondansetron 4 mg disintegrating 4 mg PO Q12H nausea and vomiting 09/29/23 tablet #20 tabs pantoprazole 40 mg tablet,delayed 40 mg PO DAILY #90 tabs 09/29/23 release sucralfate 100 mg/mL oral 10 ml PO BID #600 mL 09/29/23 suspension Allergies Allergy/AdvReac Type Severity Reaction Status Date / Time fish derived [FISH] Allergy Severe Anaphylaxis Verified 10/19/23 11:52 pistachio nut Allergy Intermediate Swelling Verified 10/19/23 11:52 Review of Systems Constitutional: Denies chills, Denies fever(s) and Reports weakness Cardiovascular: Denies dyspnea Respiratory: Denies dyspnea Gastrointestinal: Reports abdominal pain, Reports nausea and Denies vomiting Musculoskeletal: Denies back pain Skin/Breast: Denies rash Reports weakness PMFSH Past Medical History Medical History (Updated 10/19/23 @ 18:10 by Benito Pastrana) Asthma KATIE on CPAP Depression Migraines GERD (gastroesophageal reflux disease) Surgical History (Updated 10/19/23 @ 18:10 by Benito Pastrana) S/P laparoscopic sleeve gastrectomy Hx of section Hx laparoscopic cholecystectomy Hx of breast reduction, elective Family History Family History Maternal Grandmother Breast cancer Mother Breast cancer Throat cancer Ovarian cancer Family/Other Leukemia Father Prostate cancer Diabetes Heart attack Paternal Grandfather Diabetes Social History Social History Household Members: Children Household Members Other:: minor children ages 5 & 6 Housing: Apartment Are you a primary healthcare administrative assistant to a significant other at home: Yes Do you presently have visiting nurse or other home services: No Alcohol intake: former Patient Tobacco Use Status: Never used Tobacco Smoked in Last 30 Days: No Use of substances other than those prescribed or required for medical reasons: No Advance Directives: No Advance Directives Information Provided: Yes service: No Physical Exam ED Vital Signs: Vital Signs - 24 hr 10/19/23 11:52 10/19/23 14:18 Temperature 98 F 97.8 F Pulse Rate 81 75 Respiratory Rate 18 17 Blood Pressure 113/69 119/82 Pulse Oximetry 98 98 Oxygen Delivery Method Room Air Room Air BMI result Body Mass Index 39.9 Const General: healthy appearing, comfortable, no acute distress, alert and awake Nutritional Appearance: well nourished Orientation/consciousness: patient oriented x3 HENMT Head: Yes normocephalic and Yes atraumatic Eyes Eyelids: Yes eyelids normal Conjunctivae: conjunctivae normal Sclerae: sclerae normal Corneas: corneas normal Pupils: Equal, round and reactive pupils present EOM: EOMs intact bilaterally Neck Neck: Yes full ROM Resp Effort & Inspection: normal respiratory effort, able to speak in complete sentences and not labored GI Other: Patient's surgical wounds are intact, no significant erythema. No purulent drainage Inspection: No distended Palpation (GI): Soft to palpation, not firm, Tenderness to palpation present (GI) (Mild diffuse tenderness), no guarding and not rigid Skin General skin exam: elasticity normal Neuro General: patient oriented x3 Cranial nerves: Yes Equal, round and reactive pupils present and Yes Bilaterally intact EOM present Cognition (Neuro): normal cognition Extrem Other: Moving all extremities well without any obvious deformities Course Course Course Narrative: RME: 27 year-old F w/ PMHx pbesity, KATIE, asthma, Migraines, s/p laparoscopic sleeve gastrectomy on 10/14/[address] Girard presenting to the ED from Bariatric office for dehydration. reports decreased PO intake/nausea. Admits to residual pain from surgery, unchanged. denies fever, vomiting Labs, UA, ordered Full HPI, ROS and PE to be performed by primary ED provider. Medical Decision Making Medical Decision Making MDM Narrative: 27-year-old female presents for evaluation of weakness 5 days postop a gastric sleeve. Her labs and vitals are within normal limits. She has a mild leukocytosis which is likely reactive. No ANGELITO or electrolyte abnormalities. Plan to treat with a L of lactated Ringer's. I discussed with Manuel reid bariatric JOHN who agrees with plan. Low suspicion for obstruction. No evidence of infectious process. Differential Diagnosis Differential Diagnoses: The differential diagnosis associated with the presentation includes Weakness Dehydration Postop pain Gastric sleeve Morbid obesity Consult Healthcare Provider Management of the patient was discussed with: Clinical Research Analyst (Manuel reid bariatric PA) Lab Data [facility] Lab Attestation statement: I reviewed the patient's lab results. As above, mild leukocytosis, no electrolyte abnormalities 10/19/23 12:36 10/19/23 12:36 Labs: Lab Results 10/19/23 Range/Units 12:36 WBC 13.7 H (4.8-10.8) X10*3/uL RBC 4.61 (4.20-5.50) X10*6/uL Hgb 13.8 (12.0-16.0) g/dl Hct 40.9 (37.0-47.0) % MCV 88.7 (80.0-98.0) fL MCH 29.9 (27.0-33.0) pg MCHC 33.7 (31.0-35.0) g/dl RDW 12.5 (11.0-16.0) % Plt Count 392 (160-400) X10*3/uL MPV 10.4 (9.4-12.3) fL Immature Gran % (Auto) 0.3 (0.0-0.4) % Neut % (Auto) 74.1 H (45-73) % Lymph % (Auto) 16.8 L (20-40) % [place] % (Auto) 5.6 (2-11) % Eos % (Auto) 2.9 (0-4) % Baso % (Auto) 0.3 (0-2) % Lymph # (Auto) 2.3 (1.2-4.9) X10*3/uL [place] # (Auto) 0.8 (0.1-1.2) X10*3/uL Eos # (Auto) 0.4 (0.0-0.4) X10*3/uL Baso # (Auto) 0.0 (0.0-0.2) X10*3/uL Abs Immat Gran (auto) 0.04 H (0.00-0.03) X10*3/uL Absolute Neuts (auto) 10.1 H (2.0-8.3) x10*3/uL Absolute Nucleated RBC 0.000 (0.0-0.012) X10*3/uL Nucleated RBC % (auto) 0.0 (0.0-0.2) /100WBC Sodium 138 (135-145) mmol/L Potassium 4.1 (3.3-5.1) mmol/L Chloride 108 (96-108) mmol/L Carbon Dioxide 19 L (22-29) mmol/L Anion Gap 15 (12-20) BUN 11 (9-16) mg/dL Creatinine 0.73 (0.5-1.4) mg/dL Estim Creat Clear Calc 122.3 Estimated GFR > 60 Random Glucose 68 (60-115) mg/dL Calcium 9.5 D (8.4-10.2) mg/dL Magnesium 2.0 (1.6-2.6) mg/dL Total Bilirubin 0.5 (0.0-1.0) mg/dL Direct Bilirubin 0.3 (0.0-0.5) mg/dL AST 18 (5-31) U/L ALT 23 (0-31) U/L Alkaline Phosphatase 58 (39-117) U/L Total Protein 8.7 H (6.5-8.0) g/dL Albumin 4.0 (3.5-5.0) g/dL Lipase 12 (8-78) U/L Discharge Plan Discharge Clinical Impression: Obesity, Class III, BMI 40-49.9 (morbid obesity), S/P laparoscopic sleeve gastrectomy, Weakness Patient Disposition: Home, Self-Care Instructions: Soft Diet (ED) Additional Instructions: Your workup in the ER today was reassuring. Your blood work did not show any concerning abnormalities to suggest true dehydration.. Your given 1 L of IV fluids Follow-up with your bariatric surgery office Prescriptions: No Action sumatriptan succinate 50 mg tablet 1 tab PO DAILY PRN (Reason: Migraine Headache) loratadine 10 mg tablet 1 tab PO DAILY albuterol sulfate 90 mcg/actuation HFA aerosol inhaler 1 inh inhalation QID PRN (Reason: shortness of breath or wheezing) Qty: 8.5 0RF topiramate 100 mg tablet 100 mg PO DAILY magnesium oxide 400 mg magnesium capsule 400 mg PO DAILY 30 Days Qty: 30 4RF Hold Instructions: until discussed with Dr Smith melatonin 3 mg tablet 3 mg PO BEDTIME 30 Days Qty: 30 4RF pantoprazole 40 mg tablet,delayed release (DR/EC) 40 mg PO DAILY Qty: 90 0RF sucralfate 100 mg/mL suspension 10 ml PO BID Qty: 600 2RF ondansetron 4 mg tablet,disintegrating 4 mg PO Q12H Qty: 20 0RF Rx Instructions: Only take one every 12 hours as needed if you have nausea
[2023-10-19 11:52] VITALS: BP 113/69; PULSE 81; RESP 18; TEMP 36.6; O2SAT 98; BMI 39.9
[2023-10-19 12:54] LABS: MANUAL DIFF FLAG NO
[2023-10-19 12:56] LABS: Basophils Percent Auto 0.3 % (0-2); Eosinophils Absolute Auto 0.4 X10*3/uL (0.0-0.4); Eosinophils Percent Auto 2.9 % (0-4); Hematocrit 40.9 % (37.0-47.0); Hemoglobin 13.8 g/dl (12.0-16.0); Imm Gran Abs Auto 0.04 X10*3/uL (0.00-0.03); Imm Gran Pct Auto 0.3 % (0.0-0.4); Lymphocytes Absolute Auto 2.3 X10*3/uL (1.2-4.9); Lymphocytes Percent Auto 16.8 % (20-40); Mean Corpuscular HGB Conc 33.7 g/dl (31.0-35.0); Mean Corpuscular Hemoglobin 29.9 pg (27.0-33.0); Mean Corpuscular Volume 88.7 fL (80.0-98.0); Mean Platelet Volume 10.4 fL (9.4-12.3); Monocytes Absolute Auto 0.8 X10*3/uL (0.1-1.2); Monocytes Percent Auto 5.6 % (2-11); Neutrophils Absolute Auto 10.1 x10*3/uL (2.0-8.3); Neutrophils Percent Auto 74.1 % (45-73); Platelet Count 392 X10*3/uL (160-400); Red Blood Count 4.61 X10*6/uL (4.20-5.50); Red Cell Distribution Width 12.5 % (11.0-16.0); White Blood Count 13.7 X10*3/uL (4.8-10.8)
[2023-10-19 13:34] LABS: Alanine Aminotransferase 23 U/L (0-31); Alkaline Phosphatase 58 U/L (39-117); Anion Gap 15 (12-20); Aspartate Amino Transferase 18 U/L (5-31); Bilirubin Direct 0.3 mg/dL (0.0-0.5); Bilirubin Total 0.5 mg/dL (0.0-1.0); Blood Urea Nitrogen 11 mg/dL (9-16); Calcium 9.5 mg/dL (8.4-10.2); Carbon Dioxide 19 mmol/L (22-29); Chloride 108 mmol/L (96-108); Creatinine Clr Calc Pharmacy 122.3; Estimated Glomerular Filt Rate > 60; Glucose Random 68 mg/dL (60-115); Potassium 4.1 mmol/L (3.3-5.1); Sodium 138 mmol/L (135-145); Total Protein 8.7 g/dL (6.5-8.0)
[2023-10-19 13:56] LABS: Lipase 12 U/L (8-78)
[2023-10-19 14:18] VITALS: BP 119/82; PULSE 75; RESP 17; TEMP 36.6; O2SAT 98
--- NOTE | 2023-10-19 17:49 | PC.NURSE ---
pt is a&o x4, pleasant, calm, and cooperative. pt sts she had a gastric sleeve placed 5 days ago, followed up today and was sent to the ER for possible dehydration. pt reports 6/10 pain to incision sites. currently resting quietly in no apparent distress. rr even/unlabored. plan of care ongoing.
[2023-10-19] MEDS: Lactated Ringers 1,000 ML 999 ML IV (18:37)
[2023-10-19] MEDS: Acetaminophen 325 MG TABLET 650 MG PO (20:08)
== END 2023-10-19 20:14 | disposition home or self-care (01) ==
PROVIDERS: Physician Assistant; Emergency Provider Internal Medicine; PCP Family Medicine
DX: R53.1 Weakness (principal); E66.01 Morbid (severe) obesity due to excess calories; Z68.41 Body mass index [BMI] 40.0-44.9, adult; Z71.3 Dietary counseling and surveillance; Z98.84 Bariatric surgery status
CPT/HCPCS: 36415; 80048; 80076; 83690; 83735; 85025; 96360; 99212; 99284; J7120

== ENCOUNTER 2023-10-26 11:27 | Outpatient (AMB) | payer MEDICAID, SELFPAY ==
--- NOTE | 2023-10-26 11:38 | A.OFFVIS_ITS ---
Intake VS Expanded 10/26/23 11:45 BP 100/59 L Blood Pressure Location Rt brachial Blood Pressure Position Sitting Pulse 88 Pulse Source Pulse Oximeter Temp 96.3 F L Temperature Source Tympanic Pulse Oximetry 98 Oxygen Delivery Method Room Air Height 5 ft 1 in Weight 203 lb 9.6 oz BMI 38.5 Body Fat % 49.3 Body Fat Mass 100.4 Fat Free Mass 103.2 Visceral Fat Rating 11.0 Body Water % 36.5 Body Water Mass 74.2 Muscle Mass/Score 97.8 Basal Metabolic Rate/Score 1,526 Intake Visit Reasons: (OV) PO LSG 10/14/23 Allergies fish derived [FISH] Allergy (Severe, Verified 10/19/23 11:52) Anaphylaxis pistachio nut Allergy (Intermediate, Verified 10/19/23 11:52) Swelling Medication List - Last Reconciled 10/26/23 by JOHN Agarwal albuterol sulfate 90 mcg/actuation 1 inh inhalation QID PRN loratadine 1 tab PO DAILY magnesium oxide 400 mg PO DAILY 30 days melatonin 3 mg PO BEDTIME 30 days ondansetron 4 mg PO Q12H pantoprazole 40 mg PO DAILY sucralfate 10 mL PO BID sumatriptan succinate 1 tab PO DAILY PRN topiramate 100 mg PO DAILY HPI HPI Comments History of Present Illness Details Pt is 12 days s/p LSG. Went to ER 1 week ago for dehydration, was treated with IVF and able to be discharged to home. Since ER visit, pt doing better although only getting 32oz fluids total per day. Low BP noted, Meal plan per Dr. Mcconnell: Celebrate 4:1, 8oz UAM with 2 scoops each 1 Premier shake 2 scoops in 8oz unsweete rigo almond milk Voiding without difficulty, urine is not dark per pt, normal yellow color. Continues to have some episodes of lightheadedness/dizziness, not constant, will happen with positional changes. [facility] Medical History (Updated 10/26/23 @ 12:33 by JOHN Agarwal) Asthma KATIE on CPAP Depression Migraines GERD (gastroesophageal reflux disease) Surgical History (Updated 10/23/23 @ 00:04 by Eli Samano) S/P laparoscopic sleeve gastrectomy Hx of section Hx laparoscopic cholecystectomy Hx of breast reduction, elective Family History Maternal Grandmother Breast cancer Mother Breast cancer Throat cancer Ovarian cancer Family/Other Leukemia Father Prostate cancer Diabetes Heart attack Paternal Grandfather Diabetes Social History Household Members: Children Household Members Other:: minor children ages 5 & 6 Housing: Apartment Are you a primary director medicare sales to a significant other at home: Yes Do you presently have visiting nurse or other home services: No Alcohol intake: former Patient Tobacco Use Status: Never used Tobacco service: No Physical Exam Vital Signs: Last Vital Signs Temp 96.3 F L 10/26/23 11:45 Pulse 88 10/26/23 11:45 BP 100/59 L 10/26/23 11:45 Pulse Ox 98 10/26/23 11:45 Oxygen Delivery Method Room Air 10/26/23 11:45 BMI result Body Mass Index 38.5 Const General: cooperative, comfortable and no acute distress Orientation/consciousness: patient oriented x3 GI Other: soft, nontender, nondistended, steri-strips stained/peeling- removed and replaced with clean steris, no hernia, no masses Neuro General: patient oriented x3 Assessment & Plan Assessment & Plan (1) S/P laparoscopic sleeve gastrectomy: Code(s): Z98.84 - Bariatric surgery status (2) Obesity: Code(s): E66.9 - Obesity, unspecified Plan Pt to continue same meal plan for now. Encouraged her to be taking 1oz q15min even if she feels full from protein shake- take a break from shake and drink water. Primary goal at this time is to stay hydrated. Pt is not tachycardic today. She will monitor her BP at home. Per pt Dr Mcconnell was ok with 32oz fluids per day right now; I encouraged her to try to get closer to 40+oz. Avoid any activity/exercise that exacerbates dizziness, focus on walking. If episodes of dizziness worsen she knows to call the office and can set up additional IVF hydration if needed. RTC 1 week. Patient is obese and is not considered stable at this time. I spent a total of 30 minutes reviewing/updating records, examining the patient and counseling the patient on weight management as detailed above. Coding Level of Care Code Est Pt Level 4 (98587) Diagnoses S/P laparoscopic sleeve gastrectomy Z98.84 Obesity E66.9
[2023-10-26 11:45] VITALS: BP 100/59; PULSE 88; TEMP 35.7; O2SAT 98; BMI 38.5
== END 2023-10-26 12:40 | disposition home or self-care (01) ==
PROVIDERS: PCP Family Medicine; Visit Provider Physician Assistant Surgical
DX: E66.9 Obesity, unspecified (principal); Z68.38 Body mass index [BMI] 38.0-38.9, adult; Z90.3 Acquired absence of stomach [part of]; Z98.84 Bariatric surgery status
CPT/HCPCS: 99024

== ENCOUNTER → 2023-10-26 11:27 | Outpatient (BNVA) | payer MEDICAID, SELFPAY | PROVIDERS: PCP Family Medicine; Visit Provider Physician Assistant Surgical | DX: Z98.84 Bariatric surgery status (principal); E86.0 Dehydration ==

== ENCOUNTER 2023-11-04 11:24 | Outpatient (AMB) | payer MEDICAID, SELFPAY ==
--- NOTE | 2023-11-04 11:41 | A.OFFVIS_ITS ---
Intake VS Expanded 11/04/23 11:47 BP 116/86 Blood Pressure Location Rt brachial Blood Pressure Position Sitting Pulse 93 Pulse Source Pulse Oximeter Temp 96.3 F L Temperature Source Tympanic Pulse Oximetry 96 Oxygen Delivery Method Room Air Height 5 ft 1 in Weight 197 lb 6.4 oz BMI 37.3 Body Fat % 48.7 Body Fat Mass 96.2 Fat Free Mass 101.2 Visceral Fat Rating 11.0 Body Water % 37.0 Body Water Mass 73.0 Muscle Mass/Score 96.2 Basal Metabolic Rate/Score 1,495 Intake Visit Reasons: (OV) PO LSG 10/14/23 Allergies fish derived [FISH] Allergy (Severe, Verified 11/04/23 11:53) Anaphylaxis pistachio nut Allergy (Intermediate, Verified 11/04/23 11:53) Swelling Medication List - Last Reconciled 11/04/23 by JOHN Agarwal albuterol sulfate 90 mcg/actuation 1 inh inhalation QID PRN loratadine 1 tab PO DAILY magnesium oxide 400 mg PO DAILY 30 days melatonin 3 mg PO BEDTIME 30 days ondansetron 4 mg PO Q12H pantoprazole 40 mg PO DAILY sucralfate 10 mL PO BID sumatriptan succinate 1 tab PO DAILY PRN topiramate 100 mg PO DAILY HPI HPI Comments History of Present Illness Details This?is a?27?yo female who is s/p LSG 10/14/2023. Presents for 3 week post op visit. 6.2lb weight loss since last office visit 1 week ago.? Hydration- 40oz per day over the past few days, no N/V, no pain. Occasional lightheadedness when walking, a few days with low BP. (SBP in high 90s) She reports Dr. Mcconnell is aware and she has been texting her readings to him. Present meal plan includes: Celebrate 4:1, 8oz UAM with 2 scoops each 1 Premier shake 1 scoops in 8oz unsweete rigo almond milk 1 Zone bar Exercise routine includes: walking- mostly around the house, or out shopping [facility] Medical History (Updated 11/04/23 @ 12:17 by JOHN Agarwal) Asthma KATIE on CPAP Depression Migraines GERD (gastroesophageal reflux disease) Surgical History S/P laparoscopic sleeve gastrectomy Hx of section Hx laparoscopic cholecystectomy Hx of breast reduction, elective Family History Maternal Grandmother Breast cancer Mother Breast cancer Throat cancer Ovarian cancer Family/Other Leukemia Father Prostate cancer Diabetes Heart attack Paternal Grandfather Diabetes Social History Household Members: Children Household Members Other:: minor children ages 5 & 6 Housing: Apartment Are you a primary memory care program director to a significant other at home: Yes Do you presently have visiting nurse or other home services: No Alcohol intake: former Patient Tobacco Use Status: Never used Tobacco service: No Physical Exam Vital Signs: Last Vital Signs Temp 96.3 F L 11/04/23 11:47 Pulse 93 11/04/23 11:47 BP 116/86 11/04/23 11:47 Pulse Ox 96 11/04/23 11:47 Oxygen Delivery Method Room Air 11/04/23 11:47 BMI result Body Mass Index 37.3 Assessment & Plan Assessment & Plan (1) Obesity: Code(s): E66.9 - Obesity, unspecified (2) S/P laparoscopic sleeve gastrectomy: Code(s): Z98.84 - Bariatric surgery status (3) Dizziness: Code(s): R42 - Dizziness and giddiness Plan Pt to continue same meal plan per Dr. Mcconnell for now. Recommended walking for exercise, can avoid anything too high intensity until dizziness resolves. Encouraged her to notify us if she struggles with hydration or protein intake. Will order EKG to rule out cardiac origin although I think this is unlikely. At this time her vital signs are WNL, no tachycardia or hypotension in office. RTC 2 weeks. Patient is obese and is not considered stable at this time. I spent a total of 30 minutes reviewing/updating records, examining the patient and counseling the patient on weight management as detailed above. Orders: Orders ECG 12 lead EKG Today R42 - Dizziness and giddiness Coding Level of Care Code Est Pt Level 4 (31001) Diagnoses Obesity E66.9 S/P laparoscopic sleeve gastrectomy Z98.84 Dizziness R42
[2023-11-04 11:47] VITALS: BP 116/86; PULSE 93; TEMP 35.7; O2SAT 96; BMI 37.3
== END 2023-11-04 12:27 | disposition home or self-care (01) ==
PROVIDERS: PCP Family Medicine; Visit Provider Physician Assistant Surgical
DX: E66.9 Obesity, unspecified (principal); Z68.37 Body mass index [BMI] 37.0-37.9, adult; Z98.84 Bariatric surgery status; R42 Dizziness and giddiness
CPT/HCPCS: 99024

== ENCOUNTER → 2023-11-04 11:24 | Outpatient (BNVA) | payer MEDICAID, SELFPAY | PROVIDERS: PCP Family Medicine; Visit Provider Physician Assistant Surgical ==

== ENCOUNTER → 2023-11-05 09:53 | Outpatient (REF) | payer MEDICAID, SELFPAY ==
--- NOTE | 2023-11-05 10:07 | ECG_ITS ---
Test Reason : DIZZINESS GIDDI Blood Pressure : / mmHG Vent. Rate : 093 BPM Atrial Rate : 093 BPM P-R Int : 156 ms QRS Dur : 088 ms QT Int : 360 ms P-R-T Axes : 054 031 016 degrees QTc Int : 447 ms Normal sinus rhythm Nonspecific ST abnormality Abnormal ECG When compared with ECG of 12-FEB-2023 08:50, Non-specific change in ST segment in Inferior leads Referred By: Delia Ashby Electronically Signed By:JAVIER RAY
== END ==
LOC: HO.CARD 09:53
PROVIDERS: PCP Family Medicine; Visit Provider Physician Assistant Surgical
DX: R42 Dizziness and giddiness (principal)
CPT/HCPCS: 93005

== ENCOUNTER → 2023-11-05 10:07 | Outpatient (BNV) | payer MEDICAID, SELFPAY | PROVIDERS: PCP Family Medicine; Visit Provider Internal Medicine | DX: R94.31 Abnormal electrocardiogram [ECG] [EKG] (principal) | CPT/HCPCS: 93010 ==

== ENCOUNTER 2023-11-30 14:07 | Outpatient (AMB) | payer MEDICAID, SELFPAY ==
[2023-11-30 15:03] VITALS: BP 112/68; PULSE 51; BMI 37.4
--- NOTE | 2023-11-30 15:03 | A.OFFVIS_ITS ---
Intake Vital Signs 11/30/23 15:03 Height 5 ft 1 in Weight 198 lb BMI 37.4 BP 112/68 Blood Pressure Location Lt brachial Position Sitting Pulse 51 Pulse Source Monitor Intake Visit Reasons: Abnormal EKG Intake Note: follow up with EKG Allergies fish derived [FISH] Allergy (Severe, Verified 11/04/23 11:53) Anaphylaxis pistachio nut Allergy (Intermediate, Verified 11/04/23 11:53) Swelling Medication List - Last Reconciled 11/30/23 by Elissa Leung NP albuterol sulfate 90 mcg/actuation 1 inh inhalation QID PRN loratadine 1 tab PO DAILY magnesium oxide 400 mg PO DAILY 30 days melatonin 3 mg PO BEDTIME 30 days ondansetron 4 mg PO Q12H pantoprazole 40 mg PO DAILY sucralfate 10 mL PO BID sumatriptan succinate 1 tab PO DAILY PRN topiramate 100 mg PO DAILY HPI HPI Comments History of Present Illness Details 28-year-old female presents today for a new patient visit. She had an abnormal EKG ordered by her PCP showing ST changes in the inferior leads. Octavia ent reports she has been getting chest pressure, shortness of breath, and palpitations. The chest pain is a pressure and happens at rest and with exertion about two times a week. She reports she gets dizzy when she gets palpitations described as fast and pounding of her heart. She has a medical history of sleep apnea with CPAP use, obesity, and gastric sleeve. [facility] Medical History (Updated 11/30/23 @ 15:18 by Elissa Leung NP) Palpitation Shortness of breath Chest pain Asthma KATIE on CPAP Depression Migraines GERD (gastroesophageal reflux disease) Surgical History S/P laparoscopic sleeve gastrectomy Hx of section Hx laparoscopic cholecystectomy Hx of breast reduction, elective Family History Maternal Grandmother Breast cancer Mother Breast cancer Throat cancer Ovarian cancer Family/Other Leukemia Father Prostate cancer Diabetes Heart attack Paternal Grandfather Diabetes Social History Household Members: Children Household Members Other:: minor children ages 5 & 6 Housing: Apartment Are you a primary health care facility administrator to a significant other at home: Yes Do you presently have visiting nurse or other home services: No Alcohol intake: former Patient Tobacco Use Status: Never used Tobacco service: No Review of Systems Const Denies weakness ENT Denies dizziness Card Denies chest pain, Denies chest pain with activity, Denies syncope, Denies rapid heart rate, Denies pedal edema, Denies edema, Denies leg edema, Denies lightheadedness, Denies palpitations, Denies dyspnea, Denies dyspnea on exertion and Denies orthopnea Resp Denies cough, Denies dyspnea and Denies dyspnea on exertion GI Denies hematochezia and Denies change in stool character Musc Denies abnormal gait, Denies muscle cramps, Denies muscle weakness, Denies numbness, Denies radiating pain into limb and Denies tingling Neuro Denies abnormal gait, Denies dizziness, Denies syncope, Denies numbness, Denies tingling and Denies weakness Endo Denies palpitations Physical Exam Vital Signs: BMI result Body Mass Index 37.4 Const General: healthy appearing and no acute distress Orientation/consciousness: patient oriented x3 HEENT Head: Yes normal to inspection Eyes General: appearance normal, both eyes and all related structures Neck Neck: Yes normal visual inspection Chest Chest palpation & inspection: normal inspection of the chest Resp Effort & Inspection: normal respiratory effort Auscultation: clear to auscultation bilaterally Cardio Jugular venous distension: no JVD Palpation: normal PMI Rate: regular rate Rhythm: regular rhythm Heart sounds: S1 normal heart sound present, S2 normal heart sound present, no click, no gallops, no murmurs and no rubs GI Inspection: Yes normal to inspection Palpation (GI): Soft to palpation Skin General skin exam: no rashes or lesions noted Neuro General: patient oriented x3 Extrem General: Yes normal to inspection Psych Appearance: grossly normal Office Procedures EKG Details: EKG today. Sinus Bradycardia. Rate 51 pm. QRS 94ms. QTc. 422ms. MD 144ms. [id number], Complete Assessment & Plan Assessment & Plan (1) Chest pain: Code(s): R07.9 - Chest pain, unspecified (2) Shortness of breath: Code(s): R06.02 - Shortness of breath (3) Palpitation: Code(s): R00.2 - Palpitations (4) Dizziness: Code(s): R42 - Dizziness and giddiness Plan Patient reports chest pains and at rest and with exertion in a pressure like quality with occasional numbness in the arm and episodes of shortness of breath. She also had EKG which showed ST depressions in the inferior leads. Will get exercise stress test to assess ischemia. Patient states she can walk on a treadmill. She reports palpitations which feel hard and fast in which she gets dizzy - will get a 3 day holter to assess for arrhythmias. She denies syncope and substance use. Will obtain echo for a baseline and to assess ejection fraction, valves, and wall motion. ED care if needed for symptoms. Follow-up after testing. Orders: Orders CA echo transthoracic complete Today R07.9 - Chest pain, unspecified, R42 - Dizziness and giddiness ECG 3 day holter monitor Today R00.2 - Palpitations CA stress test Today R06.02 - Shortness of breath, R07.9 - Chest pain, unspecified Coding Level of Care Code New Pt Level 4 (83434) Diagnoses Chest pain R07.9 Shortness of breath R06.02 Palpitation R00.2 Dizziness R42 CPT Codes EKG - CPT: [id number], Complete ([id number])
== END 2023-11-30 16:00 | disposition home or self-care (01) ==
PROVIDERS: PCP Family Medicine; Visit Provider Nurse Practitioner
DX: R07.9 Chest pain, unspecified (principal); R06.02 Shortness of breath; R00.2 Palpitations; R42 Dizziness and giddiness
CPT/HCPCS: 93010; 99204

== ENCOUNTER → 2023-11-30 14:07 | Outpatient (BNVA) | payer MEDICAID, SELFPAY | PROVIDERS: PCP Family Medicine; Visit Provider Nurse Practitioner | DX: R07.9 Chest pain, unspecified (principal); R06.02 Shortness of breath; R00.2 Palpitations; R42 Dizziness and giddiness | CPT/HCPCS: 93005; 99212 ==

== ENCOUNTER 2023-12-02 14:17 | Outpatient (AMB) | payer MEDICAID, SELFPAY ==
--- NOTE | 2023-12-02 14:27 | MHC.OFFVIS ---
Intake Vital Signs 12/02/23 14:32 Height 5 ft 1 in Weight 197 lb 2 oz BMI 37.2 BP 124/70 Blood Pressure Location Lt brachial Position Sitting Pulse 56 Pulse Source Pulse Oximeter Pulse Oximetry (%) 98 Oxygen Delivery Method Room Air Intake Visit Reasons: 4 mo f/u -KATIE-Conf Intake Note: Patient presents for 4 months KATIE. Allergies fish derived [FISH] Allergy (Severe, Verified 12/02/23 14:31) Anaphylaxis pistachio nut Allergy (Intermediate, Verified 12/02/23 14:31) Swelling HPI HPI Comments History of Present Illness Details 28 y/o female patient presents for follow up of sleep study. The PSG sleep study result was significant for loud snoring, mild degree of sleep apnea with increased severity in REM. The AHI was 7/hr, REM AHI was 17/hr and oxygen armando was 86%. Pt started APAP [id number]. The CPAP compliance and therapy response (11/02/23-12/01/23) reviewed. The usage days 15 days and the average usage hours 3 hrs 36 min. The max pressure was 11.5 and the AHI was 2/hr. She feels good with CPAP but still wakes up several times in the middle of night. Pt reports she had a gastric sleeves done in September, and lost about 50 lb. [facility] Medical History (Updated 11/30/23 @ 15:18 by Elissa Leung NP) Palpitation Shortness of breath Chest pain Asthma KATIE on CPAP Depression Migraines GERD (gastroesophageal reflux disease) Surgical History S/P laparoscopic sleeve gastrectomy Hx of section Hx laparoscopic cholecystectomy Hx of breast reduction, elective Family History Maternal Grandmother Breast cancer Mother Breast cancer Throat cancer Ovarian cancer Family/Other Leukemia Father Prostate cancer Diabetes Heart attack Paternal Grandfather Diabetes Social History Household Members: Children Household Members Other:: minor children ages 5 & 6 Housing: Apartment Are you a primary tire care manager to a significant other at home: Yes Do you presently have visiting nurse or other home services: No Alcohol intake: former Patient Tobacco Use Status: Never used Tobacco service: No Review of Systems Const All systems reviewed & are unremarkable except as noted in HPI and below ENT Reports Normal hearing present Neuro Reports Normal hearing present Physical Exam Vital Signs: Last Vital Signs Pulse 56 12/02/23 14:32 BP 124/70 12/02/23 14:32 Pulse Ox 98 12/02/23 14:32 Oxygen Delivery Method Room Air 12/02/23 14:32 BMI result Body Mass Index 37.2 Const General: cooperative Nutritional Appearance: obese Orientation/consciousness: patient oriented x3 Neck Neck: Yes full ROM and Yes supple Resp Effort & Inspection: normal respiratory effort and able to speak in complete sentences Neuro General: patient oriented x3, gait normal and moves all extremities Cranial nerves: Yes Bilaterally intact EOM present, Yes Normal facial strength present, Yes Midline tongue present, Yes Symmetric palate elevation present, Yes Normal hearing present, Yes Ability to bilaterally rotate head present and Yes Ability to bilaterally elevate shoulders present Cognition (Neuro): normal cognition Gait exam (Neuro): Normal gait present Motor exam (neuro): 5/5 motor strength present throughout, Pronator motor function not present and no tremor noted Psych Appearance: grossly normal Mental Status: mental status grossly normal Speech and movement: Normal speech and movement present Affect: normal affect Attitude: cooperative Assessment & Plan Assessment & Plan (1) KATIE on CPAP: Code(s): G47.33 - Obstructive sleep apnea (adult) (pediatric) Plan Advised patient to continue to use APAP at 5-42mbV4T. Stressed compliance, use CPAP nightly and more than 4 hrs. Will repeat sleep study next year. Coding Level of Care Code Est Pt Level 3 (33609) Diagnoses KATIE on CPAP G47.33
[2023-12-02 14:32] VITALS: BP 124/70; PULSE 56; O2SAT 98; BMI 37.2
== END 2023-12-02 14:48 | disposition home or self-care (01) ==
LOC: HO.HSMS 14:24
PROVIDERS: PCP Family Medicine; Visit Provider Nurse Practitioner Family
DX: G47.33 Obstructive sleep apnea (adult) (pediatric) (principal)
CPT/HCPCS: 99213

== ENCOUNTER → 2023-12-02 14:17 | Outpatient (BNVA) | payer MEDICAID, SELFPAY | PROVIDERS: PCP Family Medicine; Visit Provider Nurse Practitioner Family | DX: G47.33 Obstructive sleep apnea (adult) (pediatric) (principal) | CPT/HCPCS: 99212 ==

== ENCOUNTER 2023-12-13 10:12 | Outpatient (AMB) | payer MEDICAID, SELFPAY ==
--- NOTE | 2023-12-13 09:55 | A.OFFVIS_ITS ---
Intake VS Expanded 12/13/23 10:07 Height 5 ft 1 in Weight 190 lb 2 oz BMI 35.9 Intake Visit Reasons: TELEPHONE PO LSG 10/14/23 Allergies fish derived [FISH] Allergy (Severe, Verified 12/02/23 14:31) Anaphylaxis pistachio nut Allergy (Intermediate, Verified 12/02/23 14:31) Swelling Medication List - Last Reconciled 12/13/23 by JOHN Agarwal albuterol sulfate 90 mcg/actuation 1 inh inhalation QID PRN loratadine 1 tab PO DAILY magnesium oxide 400 mg PO DAILY 30 days melatonin 3 mg PO BEDTIME 30 days ondansetron 4 mg PO Q12H pantoprazole 40 mg PO DAILY sucralfate 10 mL PO BID sumatriptan succinate 1 tab PO DAILY PRN topiramate 100 mg PO DAILY HPI HPI Comments History of Present Illness Details This?is a?28?yo female who is s/p LSG 10/14/2023. Presents for 2 month post op visit. Weight at last visit on 11/04/2023 was 197.4 pounds with a BMI of 37.3, weight today is 190.2 pounds, representing a [] pound weight loss with a BMI today of [].? No complaints of nausea, emesis, abdominal pain or reflux, or constipation. Since last visit saw cardiology, scheduled for echo and stress test. Present meal plan includes: 1 shake a day- Premier 2 scoops 1-2 ZP bars per day will sometimes have some yogurt or cottage cheese- only 1-2 forks 1-2 forkfuls soft veggies getting adequate hydration now All meals last 20 - 30 minutes and does not drink and eat at the same time. Exercise routine includes: walking outside most days [facility] Medical History (Updated 11/30/23 @ 15:18 by Elissa Leung NP) Palpitation Shortness of breath Chest pain Asthma KATIE on CPAP Depression Migraines GERD (gastroesophageal reflux disease) Surgical History S/P laparoscopic sleeve gastrectomy Hx of section Hx laparoscopic cholecystectomy Hx of breast reduction, elective Family History Maternal Grandmother Breast cancer Mother Breast cancer Throat cancer Ovarian cancer Family/Other Leukemia Father Prostate cancer Diabetes Heart attack Paternal Grandfather Diabetes Social History (Reviewed 12/02/23 @ 14:32 by Delores Frost [facility]) Household Members: Children Household Members Other:: minor children ages 5 & 6 Housing: Apartment Are you a primary elderly caregiver to a significant other at home: Yes Do you presently have visiting nurse or other home services: No Alcohol intake: former Patient Tobacco Use Status: Never used Tobacco service: No Assessment & Plan Assessment & Plan (1) S/P laparoscopic sleeve gastrectomy: Code(s): Z98.84 - Bariatric surgery status (2) Obesity, Class III, BMI 40-49.9 (morbid obesity): Code(s): E66.01 - Morbid (severe) obesity due to excess calories Plan Discussed getting adequate protein intake, pt currently likely to be low- needs 1 shake, 2 bars, and 1 small meal of protein to ensure she meets her protein needs. Scheduled to have cardiology testing later this month. RTC 4 weeks, pt will text me between appts with any concerns. Patient is obese and is not considered stable at this time. I spent a total of 30 minutes reviewing/updating records, examining the patient and counseling the patient on weight management as detailed above. Telehealth Telehealth Location of provider rendering services: other Location of patient: address on file Patient Identification confirmed using: Name, : Yes Telehealth method: voice only Patient verbally consented to treatment: Yes Patient verbally consented to billing insurance company: Yes Patient informed of any privacy concerns related to visit: Yes Minutes spent on Phone/Video with Pt.: 15 Coding Level of Care Code Tele Est Pt Level 4 (11114) Diagnoses S/P laparoscopic sleeve gastrectomy Z98.84 Obesity, Class III, BMI 40-49.9 (morbid obesity) E66.01
[2023-12-13 10:07] VITALS: BMI 35.9
== END 2023-12-13 10:33 | disposition home or self-care (01) ==
LOC: HO.HBS 10:12
PROVIDERS: PCP Family Medicine; Visit Provider Physician Assistant Surgical
DX: E66.01 Morbid (severe) obesity due to excess calories (principal); Z68.35 Body mass index [BMI] 35.0-35.9, adult; Z90.3 Acquired absence of stomach [part of]; Z98.84 Bariatric surgery status
CPT/HCPCS: 99024

== ENCOUNTER → 2023-12-13 10:12 | Outpatient (BNVA) | payer MEDICAID, SELFPAY | PROVIDERS: PCP Family Medicine; Visit Provider Physician Assistant Surgical ==

== ENCOUNTER → 2023-12-23 08:18 | Outpatient (REF) | payer MEDICAID, SELFPAY ==
--- NOTE | 2023-12-23 08:21 | HM_ITS ---
* Total monitoring time 2 days. * Underlying rhythm is sinus with an average rate of 61/Min. * Frequent supraventricular ectopy with a burden of 2.2%. * No significant pauses or AV blocks. * No patient markers or diary events. MTDD
--- NOTE | 2023-12-23 08:21 | CA_ITS ---
Transthoracic Echocardiogram Patient (Last, First, Middle): Jak Izquierdo, Gender: Female Date of : 1995 Age: 28 Procedure Date: 12/23/2023 Procedure Type: Transthoracic Echocardiogram Location: OP Height: 154.94 cm Weight: 85.73 kg BSA: 1.84 m2 Heart Rate: bpm BP: 100 / 62 mmHg Medical Reception: TO Referring MD: Elissa Leung ACID OPERATOR [id number] Programmer Analyst: Rafa Lott MD Symptoms: R07.9 - Chest pain, unspecified Study Quality: Adequate w contrast ECG Rhythm: Sinus Conclusions: - Normal study Findings Procedure Information Contrast agent, definity, is being given per protocol without apparent complications. Left Ventricle Normal left ventricular size, thickness, and systolic function. The visually estimated ejection fraction is between 60-65%. Diastolic function is normal for age. Right Ventricle Normal right ventricular cavity size and systolic function. Atria Both atria are normal in size. There is no evidence of interatrial shunt. Aortic Valve Normal aortic valve structure and function. There is no aortic valve stenosis. There is no aortic valve regurgitation. Mitral Valve Normal mitral valve structure and function. There is no mitral valve regurgitation. There is no mitral valve stenosis. Pulmonic Valve The pulmonic valve is likely normal. There is trace pulmonic valve regurgitation. Tricuspid Valve Normal tricuspid valve structure. There is trace tricuspid valve regurgitation. The right ventricular systolic pressure is normal. The right ventricular systolic pressure is 14 mmHg. Normal right atrial pressure. There is no evidence of pulmonary hypertension. Great Vessels All visible segments of the aorta are normal in size. The visualized portions of the pulmonary artery and branches are normal. Venous The inferior vena cava is normal in size and collapses greater than 50% with inspiration. Pericardium/Pleural There is no evidence of pericardial effusion. Prior Study Comparison No prior study available for comparison. Measurements 2D Linear Measurements IVSd: 0.81 0.6-0.9/0.6-1.0 cm LVIDd: 4.86 3.9-5.3/4.2-5.9 cm LVIDd Index: 2.64 2.4-3.2/2.2-3.1 cm/m2 LVIDs: 2.79 2.0-3.6 cm LVPWd: 0.79 0.7-1.1 cm LA Diam: 3.70 2.7-3.8/3.0-4.0 cm LAIDs Index: 2.01 1.5-2.3 cm/m2 LV Mass: 161.25 67-162/88-224 g LV Mass Index: 87.63 43-95/49-115 g/m2 LVOT Diam: 2.10 3.0+(-)1.3 cm 2D Systolic Function EF 4C: 63.90 >55% EF 2C: 65.60 >55% EF BiP: 64.80 >55% Mitral Valve MV Pk E: 0.85 MV PK A: 0.41 MV Decel Time: 194.00 E/A: 2.10 E'Lateral: 13.90 E'Medial: 10.40 E/E' Med: 8.20 E/E' Lat: 6.10 PHT: 57.00 MVA PHT: 3.86 Decel [place]: 4.40 Aortic Valve AoV Pk [place]: 1.40 AoV Mn Marco [place]: 0.88 AoV VTI: 0.32 AoV Pk Grad: 8.00 Aov Mn Grad: 4.00 BI Cont.VTI: 2.87 LVOT LVOT Pk [place]: 0.99 LVOT Mn [place]: 0.71 LVOT VTI: 0.27 LVOT Pk Grad: 4.00 LVOT Mn Grad: 3.00 LVOT Diam: 2.10 LVOT Area: 3.46 Diastolic Function MV Pk E: 0.85 MV Pk A: 0.41 E/A: 2.10 E'Medial: 10.40 E/E' Med: 8.20 E' Laterial: 13.90 E/E' Lat: 6.10 Right Ventricle TAPSE (mm): 16.90 TVS' [place]: 10.30 Tricuspid Valve TR Pk [place]: 1.69 TR Pk Grad: 11.00 RA Press: 3.00 RVSP: 14.00 Great Vessels Aorta Sinus of Valsalva: 2.81 2.0-3.5 cm Ao Asc: 2.80 2.1-3.4 cm Ao Arch: 2.50 Updated in Other Vendor System with Status of Final Rafa Lott MD electronically signed on 12/24/2023 1:25:57 PM with status of Final
--- NOTE | 2023-12-23 08:21 | CA_ITS ---
Acquisition Time: 2023-12-23 10:09:05 Total Exercise Time: 00:09:00 Test Indications: ABN EKG, CP Medications: SEE H Protocol: GAYE Max HR: 179 BPM 93% of Pred: 192 BPM Max BP: 150/078 mmHG Max Work Load: 10.1 METS Exercise stress test with exercise 9 min of Gaye protocol, achieving 93% MPHR, with report of sharp pleuritic pain left upper chest that started in stage 3 and continued through recovery, without arrythmia, with normotensive response to exercise, with T wave inversion lead III and slight inversion aVF, without ST changes that meet criteria for ischemia. She further describes that the chest discomfort can happen at rest or with activity, at times feeling like a pressure and other times more sharp, both worsened by deep inspiration and can take 30-60 minutes to fully resolved once it occurs. Test reviewed with Dr Donato. Referred By: Elissa Leung Overread By: JADON TIRADO
== END ==
LOC: HO.CARD 08:18
PROVIDERS: PCP Family Medicine; Visit Provider Nurse Practitioner
DX: R07.9 Chest pain, unspecified (principal); R00.2 Palpitations; R06.02 Shortness of breath
CPT/HCPCS: 93017; 93242; 93306; Q9957

== ENCOUNTER → 2023-12-23 08:21 | Outpatient (BNV) | payer MEDICAID, SELFPAY | PROVIDERS: PCP Family Medicine; Visit Provider Nurse Practitioner Family | DX: R00.1 Bradycardia, unspecified (principal) | CPT/HCPCS: 93016; 93018; 93227; 93350; 93352 ==

== ENCOUNTER 2024-01-13 09:46 | Outpatient (AMB) | payer MEDICAID, SELFPAY ==
--- NOTE | 2024-01-13 09:42 | MHC.OFFVISWM ---
Intake VS Expanded 01/13/24 09:44 Height 5 ft 1 in Weight 181 lb 2 oz BMI 34.2 Intake Visit Reasons: TELEPHONE PO LSG 10/08/23 Allergies fish derived [FISH] Allergy (Severe, Verified 12/02/23 14:31) Anaphylaxis pistachio nut Allergy (Intermediate, Verified 12/02/23 14:31) Swelling Medication List - Last Reconciled 01/13/24 by JOHN Agarwal albuterol sulfate 90 mcg/actuation 1 inh inhalation QID PRN clotrimazole 1% 1 appl topical BID loratadine 1 tab PO DAILY magnesium oxide 400 mg PO DAILY 30 days melatonin 3 mg PO BEDTIME 30 days sumatriptan succinate 1 tab PO DAILY PRN topiramate 100 mg PO DAILY HPI HPI Comments History of Present Illness Details This?is a?28?yo female who is s/p LSG 10/08/2023. Presents for 3 month post op visit. Weight loss of 9lbs since last OV.? No complaints of nausea, emesis, abdominal pain or reflux, or constipation. Present meal plan includes: 1 shake (Premier 2 scoops), 2 bars, and 1 small meal of protein taking MVI Exercise routine includes: walking most days Pt reports some rashes of excess skin of abdomen, using Vaseline to help. This bothers her during exercise. [facility] Medical History (Updated 01/13/24 @ 09:54 by JOHN Agarwal) Palpitation Shortness of breath Chest pain Asthma KATIE on CPAP Depression Migraines GERD (gastroesophageal reflux disease) Surgical History S/P laparoscopic sleeve gastrectomy Hx of section Hx laparoscopic cholecystectomy Hx of breast reduction, elective Family History Maternal Grandmother Breast cancer Mother Breast cancer Throat cancer Ovarian cancer Family/Other Leukemia Father Prostate cancer Diabetes Heart attack Paternal Grandfather Diabetes Social History Household Members: Children Household Members Other:: minor children ages 5 & 6 Housing: Apartment Are you 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 She is happy with current meal plan, does not desire any changes today. Rx for clotrimazole for rashes of excess skin. RTC 6 weeks. Patient is obese and is not considered stable at this time. I spent a total of 30 minutes reviewing/updating records, examining the patient and counseling the patient on weight management as detailed above. Medications: New clotrimazole 1% 1 appl topical BID 45 grams 3RF Telehealth Telehealth Location of provider rendering services: practice address Location of patient: address on file Patient Identification confirmed using: Name, : Yes Telehealth method: voice only Patient verbally consented to treatment: Yes Patient verbally consented to billing insurance company: Yes Patient informed of any privacy concerns related to visit: Yes Minutes spent on Phone/Video with Pt.: 15 Coding Level of Care Code Tele Est Pt Level 4 (34670) Diagnoses Obesity E66.9 S/P laparoscopic sleeve gastrectomy Z98.84 Excess skin L98.7
[2024-01-13 09:44] VITALS: BMI 34.2
== END 2024-01-13 09:58 | disposition home or self-care (01) ==
LOC: HO.HBS 09:47
PROVIDERS: PCP Family Medicine; Visit Provider Physician Assistant Surgical
DX: E66.9 Obesity, unspecified (principal); Z98.84 Bariatric surgery status; L98.7 Excessive and redundant skin and subcutaneous tissue
CPT/HCPCS: 99214

== ENCOUNTER → 2024-01-13 09:46 | Outpatient (BNVA) | payer MEDICAID, SELFPAY | PROVIDERS: PCP Family Medicine; Visit Provider Physician Assistant Surgical ==

== ENCOUNTER → 2024-01-31 10:41 | Outpatient (REF) | payer MEDICAID, SELFPAY ==
--- NOTE | 2024-01-31 10:49 | CA_ITS ---
Acquisition Time: 2024-01-31 10:53:05 Total Exercise Time: 00:10:10 Test Indications: ABN EKG, CP, SOB Medications: SEE H Protocol: GAYE Max HR: 179 BPM 93% of Pred: 192 BPM Max BP: 114/078 mmHG Max Work Load: 12.0 METS Exercise stress test exercise 10 min 10 sec of Gaye protocol achieving approximaletly 91% MPHR, with 6-7/10 chest tightness in stage 3, without arrhythmias noted through artfact, with normotensivce response to exercise, without EKG changes. Echo images obtained by tech at rest and immediately post peak exercise. Definity contrast used. Patient describes deep insiration worsens pain. Can take up to an hour to resolve, Test reviewed with Dr. Donato. Echo images reviewed at rest and post stress. At rest: Normal EF and no RWMA. Post stress: LV cavity appears smaller in size and LV function has appropriately augmented. No exercise induced RWMA. Conclusion: Normal stress echo at achieved workload. Referred By: Elissa Leung Overread By: Alirio Donato
== END ==
LOC: HO.CARD 10:41
PROVIDERS: PCP Family Medicine; Visit Provider Nurse Practitioner
DX: R07.9 Chest pain, unspecified (principal)
CPT/HCPCS: 93350; Q9957

== ENCOUNTER → 2024-01-31 10:49 | Outpatient (BNV) | payer MEDICAID, SELFPAY | PROVIDERS: PCP Family Medicine; Visit Provider Internal Medicine Cardiovascular Disease | DX: R07.9 Chest pain, unspecified (principal) | CPT/HCPCS: 93351; 93352 ==

== ENCOUNTER 2024-02-08 14:43 | Outpatient (AMB) | payer MEDICAID, SELFPAY ==
[2024-02-08 14:55] VITALS: BP 122/68; PULSE 60; O2SAT 99; BMI 33.7
--- NOTE | 2024-02-08 14:55 | A.OFFVIS_ITS ---
Vital Signs 02/08/24 14:55 Height 5 ft 1 in Weight 178 lb 9.191 oz BMI 33.7 BP 122/68 Blood Pressure Location Lt brachial Position Sitting Pulse 60 Pulse Source Pulse Oximeter Pulse Oximetry (%) 99 Oxygen Delivery Method Room Air Intake Visit Reasons: f/up echo/ holter/ stress Allergies fish derived [FISH] Allergy (Severe, Verified 12/02/23 14:31) Anaphylaxis pistachio nut Allergy (Intermediate, Verified 12/02/23 14:31) Swelling HPI Comments Details: 28-year-old female presents today for a follow-up. She has a medical history of sleep apnea with CPAP use, obesity, and gastric sleeve. She reports she still gets palpitations about three times per week. She will get some chest discomfort especially with deep breathes. [facility] Medical History (Updated 01/13/24 @ 09:54 by JOHN Agarwal) Palpitation Shortness of breath Chest pain Asthma KATIE on CPAP Depression Migraines GERD (gastroesophageal reflux disease) Surgical History S/P laparoscopic sleeve gastrectomy Hx of section Hx laparoscopic cholecystectomy Hx of breast reduction, elective Family History Maternal Grandmother Breast cancer Mother Breast cancer Throat cancer Ovarian cancer Family/Other Leukemia Father Prostate cancer Diabetes Heart attack Paternal Grandfather Diabetes Social History Household Members: Children Household Members Other:: minor children ages 5 & 6 Housing: Apartment Are you a primary rn home care to a significant other at home: Yes Do you presently have visiting nurse or other home services: No Alcohol intake: former Patient Tobacco Use Status: Never used Tobacco service: No Review of Systems Const Denies weakness ENT Denies dizziness Card Denies chest pain, Denies chest pain with activity, Denies syncope, Denies rapid heart rate, Denies pedal edema, Denies edema, Denies leg edema, Denies lightheadedness, Denies palpitations, Denies dyspnea, Denies dyspnea on exertion and Denies orthopnea Resp Denies cough, Denies dyspnea and Denies dyspnea on exertion GI Denies hematochezia and Denies change in stool character Musc Denies abnormal gait, Denies muscle cramps, Denies muscle weakness, Denies numbness, Denies radiating pain into limb and Denies tingling Neuro Denies abnormal gait, Denies dizziness, Denies syncope, Denies numbness, Denies tingling and Denies weakness Endo Denies palpitations Physical Exam Vital Signs: Last Vital Signs Pulse 60 02/08/24 14:55 BP 122/68 02/08/24 14:55 Pulse Ox 99 02/08/24 14:55 Oxygen Delivery Method Room Air 02/08/24 14:55 BMI result Body Mass Index 33.7 Results Reviewed Results Reviewed: Exercise stress test exercise 10 min 10 sec of Eduard protocol achieving approximately 91% MPHR, with 6-7/10 chest tightness in stage 3, without arrhythmias noted through artfact, with normotensivce response to exercise, without EKG changes. Echo images obtained by tech at rest and immediately post peak exercise. Definity contrast used. Patient describes deep insiration worsens pain. Can take up to an hour to resolve, Test reviewed with Dr. Donato. Echo images reviewed at rest and post stress. At rest: Normal EF and no RWMA. Post stress: LV cavity appears smaller in size and LV function has appropriately augmented. No exercise induced RWMA. Conclusion: Normal stress echo at achieved workload. * Total monitoring time 2 days. * Underlying rhythm is sinus with an average rate of 61/Min. * Frequent supraventricular ectopy with a burden of 2.2%. * No significant pauses or AV blocks. * No patient markers or diary events. * Echo Conclusions: - Normal study Assessment & Plan Assessment & Plan (1) Palpitation: Code(s): R00.2 - Palpitations Category: Medical Plan: Stress echo shows normal perfusion at achieved workload. No exercise induced RWMA. Holter showed PACs. Discussed avoidance of stimulants, dehydration, poor sleep, and stress. Echocardiogram within normal limits. Will check in in 6 months to evaluate if further improvement or not. Coding Level of Care Code Est Pt Level 3 (69895) Diagnoses Palpitation R00.2
== END 2024-02-08 15:27 | disposition home or self-care (01) ==
PROVIDERS: PCP Family Medicine; Visit Provider Nurse Practitioner
DX: R00.2 Palpitations (principal)
CPT/HCPCS: 99213

== ENCOUNTER → 2024-02-08 14:43 | Outpatient (BNVA) | payer MEDICAID, SELFPAY | PROVIDERS: PCP Family Medicine; Visit Provider Nurse Practitioner | DX: R00.2 Palpitations (principal) | CPT/HCPCS: 99212 ==

== ENCOUNTER 2024-03-09 14:24 | Outpatient (REF) | payer MEDICAID, SELFPAY ==
[2024-03-09 15:58] LABS: Hematocrit 36.5 % (37.0-47.0); Hemoglobin 12.5 g/dl (12.0-16.0)
[2024-03-09 16:14] LABS: Iron 55 mcg/dL (30-160); Percent Iron Saturation 24 % (15-50); Total Iron Binding Capacity 233 mcg/dL (228-428); Unsaturated Iron Binding 178 ug/dL
[2024-03-09 16:30] LABS: TSH reflex Free T4 0.77 uIU/mL (0.32-4.0)
== END 2024-03-09 14:25 | disposition home or self-care (01) ==
LOC: HO.HHCL 14:24
PROVIDERS: Visit Provider Nurse Practitioner Primary Care
DX: L65.9 Nonscarring hair loss, unspecified (principal)
CPT/HCPCS: 36415; 83540; 84443; 85014; 85018

== ENCOUNTER 2024-03-15 09:22 | Outpatient (AMB) | payer MEDICAID, SELFPAY ==
--- NOTE | 2024-03-15 09:06 | A.OFFVIS_ITS ---
VS Expanded 03/15/24 09:08 Height 5 ft 1 in Weight 167 lb BMI 31.6 Intake Visit Reasons: (TELEPHONE) PO LSG 10/08/23 Allergies fish derived [FISH] Allergy (Severe, Verified 12/02/23 14:31) Anaphylaxis pistachio nut Allergy (Intermediate, Verified 12/02/23 14:31) Swelling Medication List - Last Reconciled 03/15/24 by JOHN Agarwal albuterol sulfate 90 mcg/actuation 1 inh inhalation QID PRN clotrimazole 1% 1 appl topical BID loratadine 1 tab PO DAILY magnesium oxide 400 mg PO DAILY 30 days melatonin 3 mg PO BEDTIME 30 days sumatriptan succinate 1 tab PO DAILY PRN topiramate 100 mg PO DAILY HPI Comments Details: This?is a?28?yo female who is s/p LSG 10/08/2023. Presents for 5 month post op visit. Weight at last visit on 01/13/2024 was 181.2 pounds with a BMI of 34.2, weight today is 167 pounds, representing a 14.2 pound weight loss with a BMI today of 31.? No complaints of nausea, emesis, abdominal pain or reflux, or constipation. Was referred to dermatology due to hair loss. Saw cardiology and underwent testing, will follow up in 6months. Present meal plan includes: 1 shake (Premier 2 scoops), 2 bars, and 1 small meal of protein taking MVI Exercise routine includes: walking most days Pt reports ongoing rashes of excess skin of abdomen, which bothers her during exercise. Has tried clotrimazole ointment but still getting some irritation. [facility] Medical History (Updated 01/13/24 @ 09:54 by JOHN Agarwal) Palpitation Shortness of breath Chest pain Asthma KATIE on CPAP Depression Migraines GERD (gastroesophageal reflux disease) Surgical History S/P laparoscopic sleeve gastrectomy Hx of section Hx laparoscopic cholecystectomy Hx of breast reduction, elective Family History Maternal Grandmother Breast cancer Mother Breast cancer Throat cancer Ovarian cancer Family/Other Leukemia Father Prostate cancer Diabetes Heart attack Paternal Grandfather Diabetes Social History Household Members: Children Household Members Other:: minor children ages 5 & 6 Housing: Apartment Are you a primary early breastfeeding care specialist to a significant other at home: Yes Do you presently have visiting nurse or other home services: No Alcohol intake: former Patient Tobacco Use Status: Never used Tobacco service: No Telehealth Telehealth Telehealth Platform: Telephone Location of provider rendering services: practice address Location of patient: address on file Patient Identification confirmed using: Name, : Yes Telehealth method: voice only Patient verbally consented to treatment: Yes Patient verbally consented to billing insurance company: Yes Patient informed of any privacy concerns related to visit: Yes Minutes spent on Phone/Video with Pt.: 12 Assessment & Plan Assessment & Plan (1) Obesity: Code(s): E66.9 - Obesity, unspecified Category: Medical (2) S/P laparoscopic sleeve gastrectomy: Code(s): Z98.84 - Bariatric surgery status Category: Medical (3) Excess skin: Code(s): L98.7 - Excessive and redundant skin and subcutaneous tissue Category: Medical Plan We discussed that hair loss is very common at this point postop, ensure adequate protein intake and vitamin supplementation. Patient doing well on current meal plan, losing about 2lbs per week and happy with it so no changes made today. Will order labs in anticipation of 6 month visit, can also check vitamin levels to ensure no vitamin deficiencies contributing to hair loss. Continue clotrimazole ointment for excess skin irritation. RTC 6 weeks for 6mo appt. Patient is obese and is not considered stable at this time. I spent a total of 30 minutes reviewing/updating records, examining the patient and counseling the patient on weight management as detailed above. Orders: Orders Vitamin B1 Today Z98.84 - Bariatric surgery status Vitamin A Today Z98.84 - Bariatric surgery status TSH reflex Free T4 03/27/24 Z98.84 - Bariatric surgery status Vitamin D 25-OH Total Today Z98.84 - Bariatric surgery status Insulin Today Z98.84 - Bariatric surgery status Hemoglobin A1c Today Z98.84 - Bariatric surgery status Complete Blood Count Auto Diff Today Z98.84 - Bariatric surgery status Lipid Panel Today Z98.84 - Bariatric surgery status IRON PROFILE Today Z.84 - Bariatric surgery status Comprehensive Met. Panel Today Z98.84 - Bariatric surgery status Vitamin B12 and Folate Today Z98.84 - Bariatric surgery status Zinc Today Z98.84 - Bariatric surgery status C Reactive Protein Today Z98.84 - Bariatric surgery status Ferritin Today Z98.84 - Bariatric surgery status
[2024-03-15 09:08] VITALS: BMI 31.6
== END 2024-03-15 09:25 | disposition home or self-care (01) ==
LOC: HO.HBS 09:22
PROVIDERS: PCP Family Medicine; Visit Provider Physician Assistant Surgical
DX: E66.9 Obesity, unspecified (principal); Z98.84 Bariatric surgery status; L98.7 Excessive and redundant skin and subcutaneous tissue
CPT/HCPCS: 99214

== ENCOUNTER → 2024-03-15 09:22 | Outpatient (BNVA) | payer MEDICAID, SELFPAY | PROVIDERS: PCP Family Medicine; Visit Provider Physician Assistant Surgical | DX: Z98.84 Bariatric surgery status (principal); E66.9 Obesity, unspecified; L98.7 Excessive and redundant skin and subcutaneous tissue ==

== ENCOUNTER → 2024-05-25 13:31 | Outpatient (RCR) | payer MEDICAID, SELFPAY ==
[2021-01-21 14:57] VITALS: BP 116/64; PULSE 92; RESP 12; TEMP 36.9; O2SAT 98; BMI 41.3
--- NOTE | 2021-01-21 15:19 | MHC.HEMONCMA ---
Patient came in for a consult on leukocytosis. Clinical summary was reiviewed and updated. PAtient had labs and will return in 3 months for a follow up.
[2021-01-21 15:39] LABS: MANUAL DIFF FLAG NO
[2021-01-21 15:49] LABS: Basophils Absolute Auto 0.1 X10*3/uL (0.0-0.2); Basophils Percent Auto 0.5 % (0-2); Eosinophils Absolute Auto 0.1 X10*3/uL (0.0-0.4); Eosinophils Percent Auto 0.9 % (0-4); Hematocrit 39.3 % (37-47); Hemoglobin 13.2 g/dl (12.0-16.0); Imm Gran Abs Auto 0.03 X10*3/uL (0.00-0.03); Imm Gran Pct Auto 0.2 % (0.0-0.4); Lymphocytes Absolute Auto 3.1 X10*3/uL (1.2-4.9); Lymphocytes Percent Auto 25.5 % (20-40); Mean Corpuscular HGB Conc 33.6 g/dl (31.0-35.0); Mean Corpuscular Hemoglobin 30.1 pg (27.0-33.0); Mean Corpuscular Volume 89.5 fL (80-98); Monocytes Percent Auto 8.5 % (2-11); Neutrophils Absolute Auto 7.9 X10*3/uL (2.0-8.3); Neutrophils Percent Auto 64.4 % (45-73); Platelet Count 337 X10*3/uL (160-400); Red Blood Count 4.39 X10*6/uL (4.20-5.50); Red Cell Distribution Width 11.9 % (11.0-16.0); White Blood Count 12.2 X10*3/uL (4.8-10.8)
[2021-01-21 16:20] LABS: Alanine Aminotransferase 20 U/L (0-31); Alkaline Phosphatase 59 U/L (39-117); Anion Gap 11 (12-20); Aspartate Amino Transferase 15 U/L (5-31); Bilirubin Total 0.4 mg/dL (0.0-1.0); Blood Urea Nitrogen 10 mg/dL (9-16); Calcium 9.1 mg/dL (8.4-10.2); Carbon Dioxide 27 mmol/L (22-29); Chloride 105 mmol/L (96-108); Creatinine Clr Calc Pharmacy 130.6; Estimated Glomerular Filt Rate > 60; Glucose Random 77 mg/dL (60-115); Lactate Dehydrogenase 140 U/L (122-220); Potassium 4.3 mmol/L (3.3-5.1); Sodium 139 mmol/L (135-145); Total Protein 7.6 g/dL (6.5-8.0)
--- NOTE | 2021-01-21 16:21 | PM.HEMONCCN ---
Subjective - Subjective Chief complaint: CONSULT FOR: LEUKOCYTOSIS. Patient: new to practice Consult date: 01/21/21 Requesting Physician: . Medical Summary: DIAGNOSIS: LEUKOCYTOSIS. HPI - Consult Narrative Reason for consult: Consult for: Leukocytosis. Narrative: Jak Blankenship is a pleasant 25 year old lady, review of her labs revealed mild leukocytosis. In 2018 white count was 11.7. In 2019 it was 11.3. Most recently she went to the ER for a migraine headache back in October. WBC was 14.2. ROS: She feels somewhat fatigued. No fever nor chills. No recent infections. Appetite is good she eats once a day. She has not lost weight. She gets migraine headaches. She had nose bleeds a few days ago. They have since stopped. Denies chest pain or trouble breathing. She denies abdominal pain nausea or vomiting. No diarrhea. No gross blood in the stools. She denies urinary complaints. She does get some muscle pain. Lately she has noted easy bruising. She denies any focal weakness. Denies depression. No skin rashes nor pruritus. Family history: Mom had throat cancer breast cancer and ovarian cancer. Did ovarian cancer was recurrent and so she had surgery, for it. She is well now. 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 Currently she is home with the kids. She has 2 kids. She is . Denies smoking. No alcohol. Review of Systems - Constitutional Reports system reviewed and no additional complaints, except as documented - Eyes Reports system reviewed and no additional complaints, except as documented - ENT Reports system reviewed and no additional complaints, except as documented - Cardiovascular Reports system reviewed and no additional complaints, except as documented - Respiratory Reports no additional respiratory complaints - Gastrointestinal Reports system reviewed and no additional complaints, except as documented - Genitourinary Reports no additional female genitourinary complaints - Musculoskeletal Reports system reviewed and no additional complaints, except as documented - Integumentary/Breasts Skin/Breast: Reports no additional skin complaints - Neurologic Reports system reviewed and no additional complaints, except as documented Comments: Migraine headaches. - Psychiatric Reports system reviewed and no additional complaints, except as documented - Endocrine Reports no additional endocrine complaints - Hematologic/Lymphatic Reports system reviewed and no additional complaints, except as documented - Allergic/Immunologic Reports system reviewed and no additional complaints, except as documented Oncology Screenings - ECOG Performance Status ECOG Performance Status: 0 [facility] Medical History: Medical History (Last Updated 01/21/21 @ 15:01 by Janae Alvarenga) delivery delivered Gallbladder & bile duct stone with obstruction GERD (gastroesophageal reflux disease) Functional capacity: independent ambulation Patient : No Family History: Family History (Last Updated 01/21/21 @ 15:04 by Janae Alvarenga) Maternal Grandmother Breast cancer Mother Breast cancer Throat cancer Ovarian cancer Family/Other Leukemia Father Prostate cancer Diabetes Heart attack Paternal Grandfather Diabetes Surgical History: Surgical History (Last Reviewed 11/13/20 @ 21:55 by Nick Grider MD) Hx of breast reduction, elective Social History: Social History (Last Updated 01/21/21 @ 15:04 by Janae Alvarenga) Alcohol History: Alcohol intake: former Alcohol History Details: Alcohol intake frequency: does not drink Tobacco History: Smoking Status: Never smoker Substance Use History: Use of substances other than those prescribed or required for medical reasons: No Nutrition Assessment: Patient : No Smoking status: Never smoker Home Medications and Allergies Home Medications Medication Instructions Recorded Confirmed Type loratadine 1 tab PO DAILY 01/21/21 01/21/21 History omeprazole 1 cap PO DAILY 01/21/21 01/21/21 History sumatriptan succinate 1 tab PO DAILY PRN 01/21/21 01/21/21 History topiramate 1 tab PO BEDTIME 01/21/21 01/21/21 History Allergies Allergy/AdvReac Type Severity Reaction Status Date / Time fish derived [FISH] Allergy Severe ANAPHYLAXIS Unverified 06/13/20 17:39 Physical Exam Vital signs: Vital Signs Temp 98.4 F 01/21/21 14:57 Pulse 92 01/21/21 14:57 Resp 12 01/21/21 14:57 BP 116/64 01/21/21 14:57 Pulse Ox 98 01/21/21 14:57 Intake & Output 01/20/21 01/21/21 01/21/21 18:59 06:59 18:59 Other: Weight 99.1 kg Weight in Grams 42800 Weight 99.1 kg - Constitutional Present: no acute distress - Routine HEENT Exam Head: Present: normal inspection ENT: Present: mucous membranes moist - Routine Neck Exam Present: supple - Routine Cardiovascular Exam Cardiovascular: Present: RRR, S1, S2 - Routine Abdominal Exam Present: soft, nontender - Routine Extremities Exam Present: nontender - Routine Back/Spine/Pelvis Exam Back/Spine: Present: full ROM - Routine Skin Exam Present: intact - Routine Neurological Exam Present: alert, oriented X3 - Detailed Neurological Exam: Coma Scale Eye Opening: Spontaneous (4) Verbal Response: Oriented (5) Motor Response: Obeys commands (6) V[place]y Coma Scale Total: 15 - Routine Psychiatric Exam Present: normal affect Hem/Onc Consult Result - Labs CBC & Chem 7: 01/21/21 15:38 01/21/21 15:38 Labs: Short CBC 01/21/21 Range/Units 15:38 WBC 12.2 H (4.8-10.8) X10*3/uL Hgb 13.2 (12.0-16.0) g/dl Hct 39.3 (37-47) % Plt Count 337 (160-400) X10*3/uL BMP 01/21/21 15:38 Sodium 139 Potassium 4.3 Chloride 105 Carbon Dioxide 27 BUN 10 Creatinine 0.71 Calcium 9.1 D Liver Function 01/21/21 Range/Units 15:38 Total Bilirubin 0.4 (0.0-1.0) mg/dL AST 15 (5-31) U/L ALT 20 (0-31) U/L Alkaline Phosphatase 59 (39-117) U/L Albumin 4.0 (3.5-5.0) g/dL Assessment and Plan (1) Leukocytosis Status: Acute This is a pleasant 25-year-old lady with a history of mild Leukocytosis, dating back to 2019. White count range is 11.3-14.2. Today's WBC is 12.2. She has a normal hemoglobin and platelet count. Most likely she has benign leukocytosis. DIFFERENTIAL DIAGNOSIS: 2. Related to infection: There is no obvious infectious process going on at this point. 3. Myeloproliferative neoplasm: CML. PLAN: I will proceed with further evaluation. Will check a manual diff. Check LDH: 140. I will check BCR-ABL gene transcript to rule out CML. She will return in 3 months for a follow-up visit. Thank you, CC: Dr. Sevilla.
== END | disposition home or self-care (01) ==
LOC: HO.ONC 01-21 14:31
PROVIDERS: Visit Provider Internal Medicine Medical Oncology
DX: D72.829 Elevated white blood cell count, unspecified (principal)
CPT/HCPCS: 36415; 80053; 81206; 81207; 83615; 85025; 99204

== ENCOUNTER 2024-06-20 08:57 | Emergency (ER) | payer MEDICAID, SELFPAY ==
--- NOTE | ~2024-06-20 | XR_ITS ---
EXAMINATION: XR CHEST CLINICAL INFORMATION: Chest pain and tightening. COMPARISON: Chest radiograph dated 01/28/2023. TECHNIQUE: 2 views of the chest were obtained. FINDINGS: The lungs are clear. The cardiomediastinal silhouette is normal in size. There is no pleural effusion or pneumothorax. No acute osseous abnormality. XR/XR chest 2V IMPRESSION: No acute cardiopulmonary findings. Electronically signed by: Morteza Alvarez MD 06/20/2024 11:21 AM EDT
--- NOTE | 2024-06-20 09:00 | ECG_ITS ---
Test Reason : chest tighness Blood Pressure : / mmHG Vent. Rate : 046 BPM Atrial Rate : 046 BPM P-R Int : 146 ms QRS Dur : 090 ms QT Int : 474 ms P-R-T Axes : 055 030 022 degrees QTc Int : 414 ms Sinus bradycardia with Premature atrial complexes Nonspecific ST abnormality Abnormal ECG When compared with ECG of 05-NOV-2023 10:05, Premature atrial complexes are now Present Vent. rate has decreased BY 47 BPM Non-specific change in ST segment in Inferior leads Referred By: Generic ED Physician Electronically Signed By:IGOR DENISE
[2024-06-20 09:32] VITALS: BP 107/60; PULSE 42; RESP 18; O2SAT 100; BMI 28.4
[2024-06-20 10:03] VITALS: BP 119/61; PULSE 43; RESP 14; TEMP 36.6; O2SAT 100
[2024-06-20 10:17] LABS: MANUAL DIFF FLAG NO
[2024-06-20 10:21] LABS: Basophils Percent Auto 0.5 % (0-2); Eosinophils Absolute Auto 0.1 X10*3/uL (0.0-0.4); Eosinophils Percent Auto 0.9 % (0-4); Imm Gran Abs Auto 0.03 X10*3/uL (0.00-0.03); Imm Gran Pct Auto 0.4 % (0.0-0.4); Lymphocytes Absolute Auto 2.6 X10*3/uL (1.2-4.9); Mean Corpuscular HGB Conc 34.2 g/dl (31.0-35.0); Mean Corpuscular Hemoglobin 31.2 pg (27.0-33.0); Mean Corpuscular Volume 91.1 fL (80.0-98.0); Mean Platelet Volume 10.5 fL (9.4-12.3); Monocytes Absolute Auto 0.6 X10*3/uL (0.1-1.2); Monocytes Percent Auto 7.5 % (2-11); Neutrophils Absolute Auto 4.3 x10*3/uL (2.0-8.3); Neutrophils Percent Auto 56.7 % (45-73); Platelet Count 294 X10*3/uL (160-400); Red Blood Count 4.17 X10*6/uL (4.20-5.50); Red Cell Distribution Width 12.4 % (11.0-16.0); White Blood Count 7.6 X10*3/uL (4.8-10.8)
[2024-06-20 10:23] LABS: UPreg QC Valid YES; Urine Pregnancy NEGATIVE (NEGATIVE)
--- NOTE | 2024-06-20 10:38 | ED.CHESTPAIN ---
HPI - Chest Pain General Chief Complaint: Chest Pain Stated Complaint: Chest tightness Time Seen by Provider: 06/20/24 10:38 History of Present Illness ED Provider: Chris DUBON narrative: The patient is a 28-year-old female who says that she has not been feeling well for about a week. She has had headaches, chest discomfort, palpitations, and an episode of near-syncope. Not had any fever, sweats, chills. No cough or sputum. The patient had bariatric surgery in September of this year and she says that she had an episode of feeling unwell in a manner somewhat similar to this postoperatively. Related Data Home Medications ?Medication ?Instructions ?Recorded ?Confirmed loratadine 10 mg tablet 1 tab PO DAILY 01/21/21 03/15/24 sumatriptan succinate 50 mg tablet 1 tab PO DAILY PRN Migraine 01/21/21 03/15/24 Headache topiramate 100 mg tablet 100 mg PO DAILY 02/10/23 03/15/24 Previous Rx's ?Medication ?Instructions ?Recorded albuterol sulfate 90 mcg/actuation 1 inh inhalation QID PRN shortness 01/28/23 aerosol inhaler of breath or wheezing #8.5 grams magnesium oxide 400 mg PO DAILY 30 days #30 caps 08/02/23 melatonin 3 mg tablet 3 mg PO BEDTIME sleep 30 days #30 08/02/23 tabs clotrimazole 1 % topical cream 1 appl topical BID #45 grams 01/13/24 Allergies Allergy/AdvReac Type Severity Reaction Status Date / Time fish derived [FISH] Allergy Severe Anaphylaxis Verified 06/20/24 09:34 pistachio nut Allergy Intermediate Swelling Verified 06/20/24 09:34 Review of Systems Review of Systems: Yes all other systems are reviewed and are negative [facility] Past Medical History Medical History (Updated 06/20/24 @ 11:46 by Michael Perez MD) Palpitation Shortness of breath Chest pain Asthma KATIE on CPAP Depression Migraines GERD (gastroesophageal reflux disease) Surgical History S/P laparoscopic sleeve gastrectomy Hx of section Hx laparoscopic cholecystectomy Hx of breast reduction, elective Family History Family History Maternal Grandmother Breast cancer Mother Breast cancer Throat cancer Ovarian cancer Family/Other Leukemia Father Prostate cancer Diabetes Heart attack Paternal Grandfather Diabetes Social History Social History Household Members: Children Household Members Other:: minor children ages 5 & 6 Housing: Apartment Are you a primary rn long term care to a significant other at home: Yes Do you presently have visiting nurse or other home services: No Alcohol intake: former Patient Tobacco Use Status: Never used Tobacco service: No Physical Exam Vital Signs: Vital Signs: Last Vital Signs Temp 97.2 F 06/20/24 12:38 Pulse 47 L 06/20/24 12:38 Resp 20 06/20/24 12:38 BP 110/72 06/20/24 12:38 Pulse Ox 99 06/20/24 12:38 O2 Del Method Room Air 06/20/24 12:38 BMI result Body Mass Index 28.4 Const: Other: the patient is awake, alert, pleasant, cooperative. She does not appear in distress or seem uncomfortable or ill in anyway. HEENT: Other: Face is symmetrical. Mucous membranes moist. Posterior pharynx is unremarkable. Eyes: Other: Pupils are round equal, conjunctivae are clear, extraocular movements intact. Neck: Other: Neck is supple, no JVD. Resp: Effort & Inspection: normal respiratory effort Auscultation: clear to auscultation bilaterally Cardio: Rate: bradycardic Rhythm: regular rhythm Heart sounds: S1 normal heart sound present and S2 normal heart sound present GI: Other: the abdomen is soft and nontender. Skin: Other: Skin is dry and unremarkable. Neuro: Other: The patient is awake, alert, oriented, appropriate. Mental status is entirely normal. Demeanor is nontoxic. Cranial nerves 2-12 are intact. She moves her extremities normally and appropriately. She seems neurologically intact. Extrem: Other: No calf swelling or tenderness, no peripheral edema, no calf asymmetry. Medical Decision Making Medical Decision Making MDM Narrative: The patient is a 28-year-old female who had bariatric surgery 8 months ago. She presents with several days of nonspecific symptoms including headaches, lightheadedness, intermittent chest tightness. There have been no fevers, sweats, chills. No shortness of breath. No sweats. Clinically the patient does not appear ill or unwell in any way. The most salient finding in her workup is bradycardia. She says that she has been noted to have bradycardia in the past but my review of her records does not show this degree of bradycardia. Her blood pressure is fine and she does not seem to be currently symptomatic with her bradycardia currently. Her labs are very reassuring. On the whole I do not have a good explanation for her symptoms. I do not think she requires hospitalization. She does not seem to require any acute treatment as she seemed relatively asymptomatic. I think she may be discharged with instructions follow-up with regular doctor. I think she should also follow up with Cardiology given her degree of bradycardia. Lab Data 06/20/24 10:13 06/20/24 10:13 Labs: Lab Results 06/20/24 Range/Units 10:13 WBC 7.6 (4.8-10.8) X10*3/uL RBC 4.17 L (4.20-5.50) X10*6/uL Hgb 13.0 (12.0-16.0) g/dl Hct 38.0 (37.0-47.0) % MCV 91.1 (80.0-98.0) fL MCH 31.2 (27.0-33.0) pg MCHC 34.2 (31.0-35.0) g/dl RDW 12.4 (11.0-16.0) % Plt Count 294 (160-400) X10*3/uL MPV 10.5 (9.4-12.3) fL Immature Gran % (Auto) 0.4 (0.0-0.4) % Neut % (Auto) 56.7 (45-73) % Lymph % (Auto) 34.0 (20-40) % [place] % (Auto) 7.5 (2-11) % Eos % (Auto) 0.9 (0-4) % Baso % (Auto) 0.5 (0-2) % Lymph # (Auto) 2.6 (1.2-4.9) X10*3/uL [place] # (Auto) 0.6 (0.1-1.2) X10*3/uL Eos # (Auto) 0.1 (0.0-0.4) X10*3/uL Baso # (Auto) 0.0 (0.0-0.2) X10*3/uL Abs Immat Gran (auto) 0.03 (0.00-0.03) X10*3/uL Absolute Neuts (auto) 4.3 (2.0-8.3) x10*3/uL Absolute Nucleated RBC 0.000 (0.0-0.012) X10*3/uL Nucleated RBC % (auto) 0.0 (0.0-0.2) /100WBC Sodium 139 (135-145) mmol/L Potassium 4.0 (3.3-5.1) mmol/L Chloride 109 H (96-108) mmol/L Carbon Dioxide 24 (22-29) mmol/L Anion Gap 10 L (12-20) BUN 8 L (9-16) mg/dL Creatinine 0.68 (0.5-1.4) mg/dL Estim Creat Clear Calc 108.8 Estimated GFR > 60 Random Glucose 86 (60-115) mg/dL Calcium 8.9 D (8.4-10.2) mg/dL Total Bilirubin 0.7 (0.0-1.0) mg/dL AST 14 (5-31) U/L ALT 14 (0-31) U/L Alkaline Phosphatase 52 (39-117) U/L Troponin I High Sens < 2.7 (<3.5-17.0) ng/L Total Protein 7.4 (6.5-8.0) g/dL Albumin 3.8 (3.5-5.0) g/dL Urine Test NEGATIVE (NEGATIVE) Independent Interpretation I performed an independent interpretation of an: EKG Interpretation: EKG at 09:00 shows sinus bradycardia at 47 beats per minute. Aside from the significant bradycardia I do not feel there are any significant acute findings. Discharge Plan Discharge Clinical Impression: Weakness, Bradycardia, Near syncope Patient Disposition: Home, Self-Care Additional Instructions: Your testing today is largely reassuring. The most notable abnormality in your testing today is that your heart rate is quite low. I know that your heart rate has been low in the past but I think it would be good for you to follow up with the cardiology office again to discuss your heart rate. Therefore please plan on following up both with your regular doctor and with the cardiology office. Please call the cardiology office today to set up an appointment soon. Return to the emergency room if you feel significantly worse. Prescriptions: No Action sumatriptan succinate 50 mg tablet 1 tab PO DAILY PRN (Reason: Migraine Headache) loratadine 10 mg tablet 1 tab PO DAILY albuterol sulfate 90 mcg/actuation HFA aerosol inhaler 1 inh inhalation QID PRN (Reason: shortness of breath or wheezing) Qty: 8.5 0RF topiramate 100 mg tablet 100 mg PO DAILY magnesium oxide 400 mg magnesium capsule 400 mg PO DAILY 30 Days Qty: 30 4RF melatonin 3 mg tablet 3 mg PO BEDTIME 30 Days Qty: 30 4RF clotrimazole 1 % cream 1 appl topical BID Qty: 45 3RF Referrals: [facility] [Provider Group] (Bradycardia) Hailey Sevilla MD [Primary Care Provider] - (bradycardia, lightheadedness) Discharge Date/Time: 06/20/24 12:40 Print Language: Luxembourger
[2024-06-20 10:46] LABS: Troponin-I High Sensitivity < 2.7 ng/L (<3.5-17.0)
[2024-06-20 10:47] LABS: Alanine Aminotransferase 14 U/L (0-31); Albumin Level 3.8 g/dL (3.5-5.0); Alkaline Phosphatase 52 U/L (39-117); Anion Gap 10 (12-20); Aspartate Amino Transferase 14 U/L (5-31); Bilirubin Total 0.7 mg/dL (0.0-1.0); Blood Urea Nitrogen 8 mg/dL (9-16); Calcium 8.9 mg/dL (8.4-10.2); Carbon Dioxide 24 mmol/L (22-29); Chloride 109 mmol/L (96-108); Creatinine Clr Calc Pharmacy 108.8; Estimated Glomerular Filt Rate > 60; Glucose Random 86 mg/dL (60-115); Sodium 139 mmol/L (135-145); Total Protein 7.4 g/dL (6.5-8.0)
[2024-06-20 12:38] VITALS: BP 110/72; PULSE 47; RESP 20; TEMP 36.2; O2SAT 99
== END 2024-06-20 12:40 | disposition home or self-care (01) ==
PROVIDERS: Emergency Provider Emergency Medicine; PCP Family Medicine
DX: R07.89 Other chest pain (principal); I49.8 Other specified cardiac arrhythmias; R55 Syncope and collapse; Z98.84 Bariatric surgery status; Z79.899 Other long term (current) drug therapy
CPT/HCPCS: 36415; 71046; 80053; 81025; 84484; 85025; 93005; 99283

== ENCOUNTER 2024-06-27 13:32 | Outpatient (AMB) | payer MEDICAID, SELFPAY ==
[2024-06-27 13:41] VITALS: BP 110/62; PULSE 45; BMI 28.2
--- NOTE | 2024-06-27 13:41 | MHC.OFFVIS ---
Vital Signs 06/27/24 13:41 Height 5 ft 1 in Weight 149 lb 0.52 oz BMI 28.2 BP 110/62 Blood Pressure Location Lt brachial Position Sitting Pulse 45 L Pulse Source Monitor Intake Visit Reasons: ER-Follow up-Jhon Intake Note: ER-f/up-jhon- pt had some chest pain last night while sleeping that work her up. Sausage Stringer Required: No Accompanied by: Self / Same As Patient Allergies fish derived [FISH] Allergy (Severe, Verified 06/20/24 09:34) Anaphylaxis pistachio nut Allergy (Intermediate, Verified 06/20/24 09:34) Swelling Medication List - Last Reconciled 06/27/24 by Tawanna Hinson CHIEF CLINICAL OFFICER-C albuterol sulfate 90 mcg/actuation 1 inh inhalation QID PRN clotrimazole 1% 1 appl topical BID loratadine 1 tab PO DAILY magnesium oxide 400 mg PO DAILY 30 days melatonin 3 mg PO BEDTIME 30 days sumatriptan succinate 1 tab PO DAILY PRN topiramate 100 mg PO DAILY HPI HPI ER-Follow up-Jhon: Details: Ree is a 28-year-old female with past medical history of obesity, status post gastric sleeve September 2023, sleep apnea with CPAP use, prior evaluation for chest discomfort without cardiac findings who was recently seen in the ER for lightheadedness, palpitation, reported presyncope. BP 110/72, labs were unremarkable. EKG showed Sinus Bradycardia, rate 47. She was referred back to cardiology in follow up. Today she reports that she has notice that her heart rate has been running slower recently. She had 1 episode of lightheadedness where she thought she may pass out. No recurrent episodes. She does get discomfort along her left chest and around the breast area that occurs randomly. When she has the discomfort she feels the area is tender to palpation. It is not worsened by walking or stair climbing. No shortness of breath, PND, orthopnea or edema. She has not had any racing palpitations. She reports good activity tolerance. Tolerates normal ADLs. Takes care of her 2-year-old child. [facility] Medical History Palpitation Shortness of breath Chest pain Asthma KATIE on CPAP Depression Migraines GERD (gastroesophageal reflux disease) Surgical History S/P laparoscopic sleeve gastrectomy Hx of section Hx laparoscopic cholecystectomy Hx of breast reduction, elective Family History Maternal Grandmother Breast cancer Mother Breast cancer Throat cancer Ovarian cancer Family/Other Leukemia Father Prostate cancer Diabetes Heart attack Paternal Grandfather Diabetes Social History Household Members: Children Household Members Other:: minor children ages 5 & 6 Housing: Apartment Are you a primary care clinician to a significant other at home: Yes Do you presently have visiting nurse or other home services: No Alcohol intake: former Patient Tobacco Use Status: Never used Tobacco service: No Review of Systems Const All systems reviewed & are unremarkable except as noted in HPI and below Denies chills, Denies fatigue, Denies fever(s), Denies frequent falls, Denies weakness, Denies weight gain and Denies weight loss ENT Reports dizziness Card Reports chest pain, Reports chest pain at rest, Denies leg edema, Reports lightheadedness, Denies palpitations, Denies dyspnea and Denies dyspnea on exertion Resp Denies cough, Denies dyspnea and Denies dyspnea on exertion GI Denies hematochezia Musc Denies abnormal gait, Denies muscle weakness, Denies numbness, Denies radiating pain into limb and Denies tingling Neuro Denies abnormal gait, Reports dizziness, Denies frequent falls, Denies numbness, Denies tingling and Denies weakness Endo Denies fatigue and Denies palpitations Physical Exam Vital Signs: Last Vital Signs Pulse 45 L 06/27/24 13:41 BP 110/62 06/27/24 13:41 BMI result Body Mass Index 28.2 Const General: cooperative, healthy appearing, comfortable and no acute distress Orientation/consciousness: patient oriented x3 Neck Neck: Yes normal visual inspection Resp Effort & Inspection: normal respiratory effort Auscultation: clear to auscultation bilaterally, no crackles, no rales, no rhonchi and no wheezes Cardio Jugular venous distension: no JVD Rate: bradycardic Rhythm: regular rhythm Heart sounds: S1 normal heart sound present, S2 normal heart sound present, no murmurs and no rubs Neuro General: patient oriented x3 Extrem General: Yes normal to inspection and No no pedal edema Psych Appearance: grossly normal Mental Status: mental status grossly normal Speech and movement: Normal speech and movement present Office Procedures EKG Details: Today, read by me, sinus bradycardia, rate 45, QTC 390 milliseconds [id number], Complete Assessment & Plan Assessment & Plan (1) Sinus bradycardia: Code(s): R00.1 - Bradycardia, unspecified Category: Medical Plan: EKG done during recent ER visit for symptoms including lightheadedness did show sinus bradycardia, rate 47. EKG done in the office today also showing sinus bradycardia, rate 45, currently asymptomatic. She did have prior cardiac evaluation for atypical chest discomfort without significant findings. Echocardiogram done 12/23/2023 was normal study. Holter monitor done on 12/23/2023 for 2 days showed sinus rhythm with average heart rate 61, SVE 2.2% of time. Exercise stress echo done 01/31/2024 showed exercise 10 minutes with report of chest tightness however no EKG or echo evidence of ischemia. She had normal chronotropic heart rate response at that time. Prior EKGs reviewed by me and sinus bradycardia seems to be new finding. She denies any new medications. She is not on any rate slowing agents. I had her ambulate the full distance of our hallway, up and back and heart rate shana to 68. Her blood pressure was low when checked by me however not orthostatic. Blood pressure/pulse sitting 88/60, 44. Blood pressure/pulse standing 102/60, 56. She did undergo bariatric surgery September 2023. She reports that she has been losing weight and tries to maintain good hydration. Instructed to increase her fluid intake and add salt to her diet. Keep off all rate slowing medications. Will check a Holter monitor to ensure she has no significant bradycardia or pauses. Plan to call her with results. Emergency care if she does have any recurrent presyncope or syncope. Cardiology follow-up 6 weeks, sooner if needed (2) Dizziness: Code(s): R42 - Dizziness and giddiness Category: Medical Plan: As above (3) Chest pain: Code(s): R07.9 - Chest pain, unspecified Category: Medical Plan: Atypical with prior negative cardiac workup (4) S/P laparoscopic sleeve gastrectomy: Code(s): Z98.84 - Bariatric surgery status Category: Surgical Plan: As above Plan Time spent on chart review, documentation, interview and assessment Orders: Orders ECG 3 day holter monitor Today R00.1 - Bradycardia, unspecified Coding Level of Care Code Est Pt Level 4 (36525) Diagnoses Sinus bradycardia R00.1 Dizziness R42 Chest pain R07.9 S/P laparoscopic sleeve gastrectomy Z98.84 CPT Codes EKG - CPT: 37047-[id number], Complete ([id number]) Time Spent (min) 28
== END 2024-06-27 14:20 | disposition home or self-care (01) ==
PROVIDERS: PCP Family Medicine; Visit Provider Nurse Practitioner Family
DX: R00.1 Bradycardia, unspecified (principal); R42 Dizziness and giddiness; R07.9 Chest pain, unspecified; Z98.84 Bariatric surgery status
CPT/HCPCS: 93010; 99214

== ENCOUNTER → 2024-06-27 13:32 | Outpatient (BNVA) | payer MEDICAID, SELFPAY | PROVIDERS: PCP Family Medicine; Visit Provider Nurse Practitioner Family | DX: R00.1 Bradycardia, unspecified (principal); R07.9 Chest pain, unspecified; R42 Dizziness and giddiness; Z90.3 Acquired absence of stomach [part of] | CPT/HCPCS: 93005; 99212 ==

== ENCOUNTER → 2024-07-06 12:52 | Outpatient (REF) | payer MEDICAID, SELFPAY ==
--- NOTE | 2024-07-06 12:54 | HM_ITS ---
* Total monitoring time 3 days. * Underlying rhythm is sinus with an average rate of 59/Min. * Frequent supraventricular ectopy with a burden of 2.1%. * No significant pauses or high-grade AV blocks. * No patient markers or diary events. MTDD
== END ==
LOC: HO.CARD 12:52
PROVIDERS: PCP Family Medicine; Visit Provider Nurse Practitioner Family
DX: R00.1 Bradycardia, unspecified (principal)
CPT/HCPCS: 93242

== ENCOUNTER → 2024-07-06 12:54 | Outpatient (BNV) | payer MEDICAID, SELFPAY | PROVIDERS: PCP Family Medicine; Visit Provider Internal Medicine | DX: I47.10 Supraventricular tachycardia, unspecified (principal) | CPT/HCPCS: 93244 ==

== ENCOUNTER 2024-07-12 13:17 | Outpatient (AMB) | payer MEDICAID, SELFPAY ==
--- NOTE | 2024-07-12 13:04 | MHC.OFFVISWM ---
VS Expanded 07/12/24 13:07 Height 5 ft 1 in Weight 147 lb BMI 27.8 Intake Visit Reasons: (TELEPHONE) PO LSG 10/08/23 Allergies fish derived [FISH] Allergy (Severe, Verified 06/20/24 09:34) Anaphylaxis pistachio nut Allergy (Intermediate, Verified 06/20/24 09:34) Swelling Medication List - Last Reconciled 07/12/24 by JOHN Agarwal albuterol sulfate 90 mcg/actuation 1 inh inhalation QID PRN clotrimazole 1% 1 appl topical BID loratadine 1 tab PO DAILY magnesium oxide 400 mg PO DAILY 30 days melatonin 3 mg PO BEDTIME 30 days sumatriptan succinate 1 tab PO DAILY PRN topiramate 100 mg PO DAILY HPI Comments Details: This?is a?28?yo female who is s/p LSG 10/08/2023. Presents for 9 month post op visit. Weight at last visit on 03/13/2024 was 167 pounds with a BMI of 31.6, weight today is 147 pounds, representing a 20 pound weight loss with a BMI today of 27.8.? No complaints of nausea, emesis, abdominal pain or reflux, or constipation. Recently followed up with cardiology again for hypotension/bradycardia, notes reviewed. Present meal plan includes: 1 shake (Premier 2 scoops), 2 bars, and 1 small meal of protein taking MVI Exercise routine includes: walking most days Pt reports ongoing rashes of excess skin of abdomen, which bothers her during movement and exercise. Belly button has become increasingly rashy and painful. The moisture that collects here has an unpleasant odor. Has difficulty finding clothes that fit well; has to wear compressive garment to hold excess skin in place. Has tried clotrimazole ointment but still getting some irritation. [facility] Medical History Palpitation Shortness of breath Chest pain Asthma KATIE on CPAP Depression Migraines GERD (gastroesophageal reflux disease) Surgical History S/P laparoscopic sleeve gastrectomy Hx of section Hx laparoscopic cholecystectomy Hx of breast reduction, elective Family History Maternal Grandmother Breast cancer Mother Breast cancer Throat cancer Ovarian cancer Family/Other Leukemia Father Prostate cancer Diabetes Heart attack Paternal Grandfather Diabetes Social History Household Members: Children Household Members Other:: minor children ages 5 & 6 Housing: Apartment Are you a primary direct support professional caregiver to a significant other at home: Yes Do you presently have visiting nurse or other home services: No Alcohol intake: former Patient Tobacco Use Status: Never used Tobacco service: No Telehealth Telehealth Telehealth Platform: Telephone Location of provider rendering services: other Location of patient: address on file Patient Identification confirmed using: Name, : Yes Telehealth method: voice only Patient verbally consented to treatment: Yes Patient verbally consented to billing insurance company: Yes Patient informed of any privacy concerns related to visit: Yes Minutes spent on Phone/Video with Pt.: 14 Assessment & Plan Assessment & Plan (1) Overweight: Code(s): E66.3 - Overweight Category: Medical (2) Excess skin: Code(s): L98.7 - Excessive and redundant skin and subcutaneous tissue Category: Medical (3) S/P laparoscopic sleeve gastrectomy: Code(s): Z98.84 - Bariatric surgery status Category: Surgical Plan Pt doing very well with weight loss, continue same meal plan/exercise regimen. Continue clotrimazole for rashes of excess skin. Pt is experiencing issues of excess skin resulting in frequent painful and malodorous rashes refractory to topical rx, as well as limitation of mobility due to discomfort and need for special clothing. Her insurance requires her to be 18mo postop for consideration of panniculectomy. RTC 3 months for annual. I spent a total of 30 minutes reviewing/updating records, examining the patient and counseling the patient on weight management as detailed above.
[2024-07-12 13:07] VITALS: BMI 27.8
== END 2024-07-12 13:19 | disposition home or self-care (01) ==
LOC: HO.HBS 13:17
PROVIDERS: PCP Family Medicine; Visit Provider Physician Assistant Surgical
DX: E66.3 Overweight (principal); L98.7 Excessive and redundant skin and subcutaneous tissue; Z98.84 Bariatric surgery status
CPT/HCPCS: 99214

== ENCOUNTER → 2024-07-12 13:17 | Outpatient (BNVA) | payer MEDICAID, SELFPAY | PROVIDERS: PCP Family Medicine; Visit Provider Physician Assistant Surgical ==

== ENCOUNTER 2024-08-30 13:18 | Outpatient (AMB) | payer MEDICAID, SELFPAY ==
[2024-08-30 13:21] VITALS: BP 120/60; PULSE 68; BMI 26.7
--- NOTE | 2024-08-30 13:21 | MHC.OFFVIS ---
Vital Signs 08/30/24 13:21 Height 5 ft 1 in Weight 141 lb 1.533 oz BMI 26.7 BP 120/60 Blood Pressure Location Lt brachial Position Sitting Pulse 68 Pulse Source Pulse Oximeter Intake Visit Reasons: 7 wk f/up Intake Note: 7 wk f/up/ holter Business Account Executive Required: No Accompanied by: Self / Same As Patient Allergies fish derived [FISH] Allergy (Severe, Verified 06/20/24 09:34) Anaphylaxis pistachio nut Allergy (Intermediate, Verified 06/20/24 09:34) Swelling Medication List - Last Reconciled 08/30/24 by Alirio Donato MD albuterol sulfate 90 mcg/actuation 1 inh inhalation QID PRN clotrimazole 1% 1 appl topical BID loratadine 1 tab PO DAILY magnesium oxide 400 mg PO DAILY 30 days melatonin 3 mg PO BEDTIME 30 days sumatriptan succinate 1 tab PO DAILY PRN topiramate 100 mg PO DAILY HPI Comments Details: [age] year female here for follow-up. She has been following with Tawanna in our office. Previously had stress echocardiogram where no wall motion abnormalities were noticed. She had some bradycardia but 3 day Holter monitor did not show any significant arrhythmia. Also during exercise stress test her peak heart rate was 179 beats per minute. She does not have any chronotropic incompetence. She is status post bariatric surgery and has lost 100 lb. At times she has noticed dizziness and lightheadedness and fatigue. She hydrate herself. Previous visits her blood pressure was low but overall her blood pressure has improved significantly. She is saying she continues to lose weight. She also has reproducible sharp chest pains which she can point with 1 finger. [facility] Medical History Palpitation Shortness of breath Chest pain Asthma KATIE on CPAP Depression Migraines GERD (gastroesophageal reflux disease) Surgical History S/P laparoscopic sleeve gastrectomy Hx of section Hx laparoscopic cholecystectomy Hx of breast reduction, elective Family History Maternal Grandmother Breast cancer Mother Breast cancer Throat cancer Ovarian cancer Family/Other Leukemia Father Prostate cancer Diabetes Heart attack Paternal Grandfather Diabetes Social History Household Members: Children Household Members Other:: minor children ages 5 & 6 Housing: Apartment Are you a primary animal caretaker supervisor to a significant other at home: Yes Do you presently have visiting nurse or other home services: No Alcohol intake: former Patient Tobacco Use Status: Never used Tobacco service: No Review of Systems Const Denies chills, Denies fatigue, Denies fever(s), Denies frequent falls, Denies weakness, Denies weight gain and Denies weight loss ENT Denies dizziness Card Denies chest pain, Denies leg edema, Denies lightheadedness, Denies palpitations, Denies dyspnea and Denies dyspnea on exertion Resp Denies cough, Denies dyspnea and Denies dyspnea on exertion GI Denies hematochezia Musc Denies abnormal gait, Denies muscle weakness, Denies numbness, Denies radiating pain into limb and Denies tingling Neuro Denies abnormal gait, Denies dizziness, Denies frequent falls, Denies numbness, Denies tingling and Denies weakness Endo Denies fatigue and Denies palpitations Physical Exam Vital Signs: Last Vital Signs Pulse 68 08/30/24 13:21 BP 120/60 08/30/24 13:21 BMI result Body Mass Index 26.7 GENERAL APPEARANCE: in no acute distress, pleasant. NECK: no carotid bruit, no jugular venous distention. SKIN: no suspicious lesions, warm and dry. HEART: no murmurs, regular rate and rhythm. LUNGS: clear to auscultation bilaterally. ABDOMEN: soft, nontender. EXTREMITIES: no edema. PERIPHERAL PULSES: equal. NEUROLOGIC: No gross deficits, AAO X 3 Assessment & Plan Assessment & Plan (1) Sinus bradycardia: Code(s): R00.1 - Bradycardia, unspecified Category: Medical (2) Chest pain: Code(s): R07.9 - Chest pain, unspecified Category: Medical Plan Pleasant young lady with background of morbid obesity status post bariatric surgery and 100 lb weight loss. She has noncardiac chest pain. She had a stress echocardiogram performed already which did not show any regional wall motion abnormalities or ischemic EKG changes. I have reassured her about this. Previously had sinus bradycardia but during exercise she did not have chronotropic incompetence. Heart rates are back to normal at this point. Three day Holter monitor did not show any heart block or any significant arrhythmia. I have advised her to keep herself well hydrated and drink Gatorade/Powerade or Pedialyte every 2-3 days. Follow-up with Tawanna in 1 year. Thank you for allowing me to participate in the care of your patient. Please feel free to contact me if you have any questions. Coding Level of Care Code Est Pt Level 4 (65975) Diagnoses Sinus bradycardia R00.1 Chest pain R07.9
== END 2024-08-30 14:01 | disposition home or self-care (01) ==
PROVIDERS: PCP Family Medicine; Visit Provider Internal Medicine Cardiovascular Disease
DX: R00.1 Bradycardia, unspecified (principal); R07.9 Chest pain, unspecified
CPT/HCPCS: 99214

== ENCOUNTER → 2024-08-30 13:18 | Outpatient (BNVA) | payer MEDICAID, SELFPAY | PROVIDERS: PCP Family Medicine; Visit Provider Internal Medicine Cardiovascular Disease | DX: R00.1 Bradycardia, unspecified (principal); R07.9 Chest pain, unspecified | CPT/HCPCS: 99212 ==

== ENCOUNTER 2024-09-08 18:29 | Inpatient (IN) | payer MEDICAID, SELFPAY ==
--- NOTE | ~2024-09-08 | CT_ITS ---
EXAMINATION: CT ABDOMEN AND PELVIS WITH CONTRAST CLINICAL INFORMATION: Abdominal pain. Pancreatitis. COMPARISON: Abdominal ultrasound 07/21/2021. TECHNIQUE: Multidetector volumetric images were obtained from the superior aspect of the liver through the pubic symphysis following administration 85 mL of Omnipaque 350 intravenous contrast. Sagittal and coronal reformatted images were obtained on the technologist's workstation. Oral contrast: No This CT examination was performed using dose optimization techniques as appropriate, variously including the following: *Automated exposure control *Adjustment of mA and/or kV according to patient size (this includes techniques or standardized protocols for targeted exams where dose is matched to indication/reason for exam; i.e. extremities or head) *Use of iterative reconstruction technique DLP: 395 mGy-cm FINDINGS: LUNG BASES: The visualized lung bases are unremarkable. LIVER, GALLBLADDER, AND BILIARY TREE: Vague focal geographic low density is present in the liver adjacent to the falciform ligament most consistent with incidental focal fat. The liver is otherwise normal in appearance. The gallbladder is not visualized and may be surgically absent. PANCREAS: The pancreas is normal in appearance. No peripancreatic inflammatory changes identified. No dilatation of the main pancreatic duct. SPLEEN: Normal ADRENAL GLANDS: Unremarkable. KIDNEYS AND URETERS: 3 mm low-density focus is present within the superior pole of the right kidney and may represent an angiomyolipoma. This region demonstrates macroscopic fat density. BLADDER: Unremarkable. GASTROINTESTINAL TRACT: The appendix is not visualized. No pericecal inflammatory changes noted. No free intraperitoneal fluid or gas collections identified. Suture material likely related to a gastric sleeve resection is noted. A small hiatal hernia of the stomach is identified. Normal appearance of the sigmoid mesentery and small bowel mesentery. ABDOMINAL WALL: No significant hernia is appreciated. LYMPH NODES: Normal. VASCULAR: Unremarkable. PELVIC VISCERA: Intrauterine device is noted. No adnexal lesions visualized. OSSEOUS STRUCTURES: Benign-appearing densely sclerotic 6 mm focus within the intertrochanteric region of the right femur which may represent an incidental anostosis. No suspicious skeletal lesions noted. CT/CT abdomen pelvis w IV con IMPRESSION: 1. No acute abnormalities identified. Normal appearance of the pancreas. No peripancreatic inflammatory changes identified. 2. Status post gastric sleeve resection. Small gastric hiatal hernia. 3. Intrauterine device in place. Electronically signed by: Naman Mack MD 09/09/2024 03:53 AM EST RP
--- NOTE | ~2024-09-08 | MR_ITS ---
ABDOMINAL MRI/MRCP with Contrast Clinical indication: Epigastric pain Technique: Abdominal MRI with MRCP was performed as per standard departmental protocol. Comparison: CT abdomen pelvis on 09/09/2024 FINDINGS: GALLBLADDER/BILIARY TREE: Common bile duct is normal in caliber. No filling ducts in the common bile duct. No gallstones, gallbladder wall thickening or pericholecystic fluid. LIVER: The liver measures 19 cm. The liver parenchyma demonstrates normal signal characteristics aside from a region of focal fat infiltration adjacent to the falciform ligament.. No focal hepatic lesions. Patent portal and hepatic veins. Mild periportal edema. PANCREAS: Normal pancreatic parenchyma. No pancreatic ductal dilatation. SPLEEN: Normal. KIDNEYS: No focal renal lesions or hydronephrosis. LYMPH NODES: No lymphadenopathy. MUSCULOSKELETAL: Unremarkable. OTHER: No ascites. Postsurgical changes of the stomach. MR/MR MRCP IMPRESSION: 1. Mild periportal edema, nonspecific and possibly due to resuscitation. 2. No choledocholithiasis. Electronically signed by: Krysten Burch MD 09/09/2024 12:54 PM EST
[2024-09-08 19:40] VITALS: BP 97/45; PULSE 78; RESP 19; TEMP 36.6; O2SAT 98; BMI 27.4
--- NOTE | 2024-09-08 19:41 | ECG_ITS ---
Test Reason : pain Blood Pressure : / mmHG Vent. Rate : 068 BPM Atrial Rate : 068 BPM P-R Int : 136 ms QRS Dur : 088 ms QT Int : 400 ms P-R-T Axes : -04 025 030 degrees QTc Int : 425 ms Sinus rhythm with marked sinus arrhythmia Low voltage QRS Borderline ECG When compared with ECG of 20-JUN-2024 09:00, Premature atrial complexes are no longer Present Vent. rate has increased BY 22 BPM Referred By: Benito Pastrana Electronically Signed By:LIAM BRADLEY MD
--- NOTE | 2024-09-08 19:42 | ED_ITS ---
HPI - General Adult General Chief complaint: Abdominal Pain Stated complaint: Vomiting Time Seen by Provider: 09/09/24 02:14 Source: patient Mode of arrival: ambulatory Limitations: no limitations History of Present Illness ED Provider: HPI narrative: Patient no significant past medical history status post gastric sleeve surgery , cholecystitis comes here for upper abdominal pain with nausea vomiting all day with also has a headache unable due eat much does not feel hungry , pain localized in mid abdomen radiating to the back no fever no history of alcohol use no history of high cholesterol no family history of pancreatitis other family member also sick with GI symptoms Related Data Home Medications ?Medication ?Instructions ?Recorded ?Confirmed loratadine 10 mg tablet 1 tab PO DAILY 01/21/21 08/30/24 sumatriptan succinate 50 mg tablet 1 tab PO DAILY PRN Migraine 01/21/21 08/30/24 Headache topiramate 100 mg tablet 100 mg PO DAILY 02/10/23 08/30/24 Previous Rx's ?Medication ?Instructions ?Recorded albuterol sulfate 90 mcg/actuation 1 inh inhalation QID PRN shortness 01/28/23 aerosol inhaler of breath or wheezing #8.5 grams magnesium oxide 400 mg PO DAILY 30 days #30 caps 08/02/23 melatonin 3 mg tablet 3 mg PO BEDTIME sleep 30 days #30 08/02/23 tabs clotrimazole 1 % topical cream 1 appl topical BID #45 grams 01/13/24 Allergies Allergy/AdvReac Type Severity Reaction Status Date / Time fish derived [FISH] Allergy Severe Anaphylaxis Verified 09/08/24 19:42 pistachio nut Allergy Intermediate Swelling Verified 09/08/24 19:42 Iodinated Contrast Media Allergy Anaphylaxis Verified 09/09/24 03:25 [IV Contrast Dye] Review of Systems 2 Review of Systems: Yes all other systems are reviewed and are negative PMFSH Past Medical History Medical History Palpitation Shortness of breath Chest pain Asthma KATIE on CPAP Depression Migraines GERD (gastroesophageal reflux disease) Surgical History S/P laparoscopic sleeve gastrectomy Hx of section Hx laparoscopic cholecystectomy Hx of breast reduction, elective Family History Family History Maternal Grandmother Breast cancer Mother Breast cancer Throat cancer Ovarian cancer Family/Other Leukemia Father Prostate cancer Diabetes Heart attack Paternal Grandfather Diabetes Social History Social History Household Members: Children Household Members Other:: minor children ages 5 & 6 Housing: Apartment 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: Yes Do you presently have visiting nurse or other home services: No Alcohol intake: former Patient Tobacco Use Status: Never used Tobacco Use of substances other than those prescribed or required for medical reasons: No Advance Directives: No Advance Directives Information Provided: No Do you have a plan to hurt others: No Plan Nutrition Risks: No Nutritional Risk service: No Physical Exam ED Vital Signs: Vital Signs - 24 hr 09/08/24 19:40 09/09/24 02:46 09/09/24 03:05 Temperature 98 F Pulse Rate 78 108 H Respiratory Rate 19 18 Blood Pressure 97/45 L 111/59 L Pulse Oximetry 98 Oxygen Delivery Method Room Air 09/09/24 03:13 09/09/24 03:19 09/09/24 04:10 Temperature 98.6 F Pulse Rate 108 H 102 H 75 Respiratory Rate 26 H 18 16 Blood Pressure 106/58 L 116/61 99/54 L Pulse Oximetry 99 100 96 Oxygen Delivery Method Room Air Room Air Room Air BMI result Body Mass Index 27.4 Appearance: Alert. Oriented X3. No acute distress. Eyes: No pallor or icterus ENT: Pharynx normal. Oral Mucosa moist Neck: Normal inspection. Neck supple. CVS: Normal heart rate and rhythm. Pulses normal. Respiratory: No respiratory distress. Equal air entry bilateral, no wheezing/rales/rhonchi Abdomen: Soft and tenderness in mid abdomen with guarding no rebound tenderness Bowel sounds are present, no mass palpable, no CVA tenderness Skin: Skin warm and dry. Normal skin color. Normal skin turgor. Extremities: No lower extremity edema. No calf tenderness Neuro: Oriented X 3. No motor deficit. Course Course Course Narrative: RME, this is a rapid medical exam performed by Nain Pastrana please refer to primary provider for complete H&P- 28-year-old female presents for evaluation upper abdominal pain, nausea vomiting. She also complains of chest pain, headaches and subjective fevers and chills. Her boyfriend has similar symptoms. Plan for labs, EKG, viral swabs. She will be treated with acetaminophen she is status post cholecystectomy and gastric sleeve Medications Administered Generic Name Dose Route Start Last Admin Trade Name Freq PRN Reason Stop Dose Admin Lactated Ringer's 1,000 mls @ 100 mls/hr 09/09/24 06:00 09/09/24 06:32 Lr IVCONT 0 mls/hr .Q10H NUPUR Infusion Sodium Chloride 3 ml 09/09/24 08:00 09/09/24 06:28 0.9 % Sodium Chloride Flush 3 Ml Syringe IVFLUSH Not Given QSHIFT NUPUR Discontinued Medications Generic Name Dose Route Start Last Admin Trade Name Freq PRN Reason Stop Dose Admin Acetaminophen 975 mg 09/08/24 19:43 09/08/24 19:46 Acetaminophen 325 Mg Tablet PO 09/08/24 19:44 975 mg ONCE ONE Administration Dexamethasone Sodium Phosphate 10 mg 09/09/24 03:02 09/09/24 03:07 Dexamethasone Sod Phosphate 10 Mg/Ml Vial IVPUSH 09/09/24 03:03 10 mg ONCE ONE Administration Diphenhydramine HCl 50 mg 09/09/24 03:02 09/09/24 03:04 Diphenhydramine Hcl 50 Mg/Ml Vial IVPUSH 09/09/24 03:03 50 mg ONCE ONE Administration Epinephrine 0.3 mg 09/09/24 03:02 09/09/24 03:05 Epinephrine 1 Mg/Ml Vial IM 09/09/24 03:03 0.3 mg STAT STA Administration Sodium Chloride 1,000 mls @ 999 mls/hr 09/09/24 02:29 09/09/24 04:09 Ns IV 09/09/24 03:29 Infused .Q1H1M ONE Infusion Lactated Ringer's 1,000 mls @ 999 mls/hr 09/09/24 06:08 09/09/24 06:27 Lr IV 09/09/24 07:08 999 mls/hr .Q1H1M STA Administration Iohexol 85 ml 09/09/24 03:03 09/09/24 03:03 Iohexol 350 Mg/Ml 100 Ml Infus..Btl IV 09/09/24 03:04 85 ml ONCE ONE Administration Morphine Sulfate 4 mg 09/09/24 02:29 09/09/24 02:46 Morphine Sulfate 4 Mg/Ml Cartridge IVPUSH 09/09/24 02:30 4 mg ONCE ONE Administration Protocol Ondansetron HCl 4 mg 09/08/24 19:41 09/08/24 19:46 Ondansetron Odt 4 Mg Tab.Rapdis TRANSLINGU 09/08/24 19:42 4 mg ONCE ONE Administration Ondansetron HCl 4 mg 09/09/24 02:29 09/09/24 02:46 Ondansetron Hcl 4 Mg/2 Ml Vial IVPUSH 09/09/24 02:30 4 mg ONCE ONE Administration Medical Decision Making Medical Decision Making [facility] Narrative: Patient has elevated LFT and lipase CT scan negative for findings of pancreatitis patient is status post cholecystectomy likely stricture or pancreatic duct obstruction will admit patient for further evaluation including MRCP patient's repeat liver functions enzymes were further elevated Differential Diagnosis Differential Diagnoses: The differential diagnosis associated with the presentation includes Admission/Observation Consideration of admission/observation: Escalation of care including admission/observation considered Consult Healthcare Provider Management of the patient was discussed with: Hospitalist Lab Data [facility] Lab Attestation statement: I reviewed the patient's lab results. 09/08/24 20:19 09/08/24 20:19 Labs: Lab Results 09/08/24 09/09/24 Range/Units 20:19 04:44 WBC 11.1 H (4.8-10.8) X10*3/uL RBC 4.32 (4.20-5.50) X10*6/uL Hgb 13.7 (12.0-16.0) g/dl Hct 38.9 (37.0-47.0) % MCV 90.0 (80.0-98.0) fL MCH 31.7 (27.0-33.0) pg MCHC 35.2 H (31.0-35.0) g/dl RDW 12.1 (11.0-16.0) % Plt Count 261 (160-400) X10*3/uL MPV 10.6 (9.4-12.3) fL Immature Gran % (Auto) 0.4 (0.0-0.4) % Neut % (Auto) 87.4 H (45-73) % Lymph % (Auto) 5.4 L (20-40) % [place] % (Auto) 6.4 (2-11) % Eos % (Auto) 0.1 (0-4) % Baso % (Auto) 0.3 (0-2) % Lymph # (Auto) 0.6 L (1.2-4.9) X10*3/uL [place] # (Auto) 0.7 (0.1-1.2) X10*3/uL Eos # (Auto) 0.0 (0.0-0.4) X10*3/uL Baso # (Auto) 0.0 (0.0-0.2) X10*3/uL Abs Immat Gran (auto) 0.04 H (0.00-0.03) X10*3/uL Absolute Neuts (auto) 9.7 H (2.0-8.3) x10*3/uL Absolute Nucleated RBC 0.000 (0.0-0.012) X10*3/uL Nucleated RBC % (auto) 0.0 (0.0-0.2) /100WBC Sodium 139 (135-145) mmol/L Potassium 4.0 (3.3-5.1) mmol/L Chloride 109 H (96-108) mmol/L Carbon Dioxide 20 L (22-29) mmol/L Anion Gap 14 (12-20) BUN 12 (9-16) mg/dL Creatinine 0.61 (0.5-1.4) mg/dL Estim Creat Clear Calc 119.2 Estimated GFR > 60 Random Glucose 106 (60-115) mg/dL Calcium 9.0 (8.4-10.2) mg/dL Total Bilirubin 1.7 H 1.5 H (0.0-1.0) mg/dL Direct Bilirubin 0.9 H (0.0-0.5) mg/dL AST 544 H 993 H (5-31) U/L ALT 196 H 606 H (0-31) U/L Alkaline Phosphatase 79 95 (39-117) U/L Troponin I High Sens < 2.7 (<3.5-17.0) ng/L Total Protein 7.7 6.1 L (6.5-8.0) g/dL Albumin 4.0 3.2 L (3.5-5.0) g/dL Triglycerides 49 (<150) mg/dL Cholesterol 146 (<200) mg/dL LDL Cholesterol, Calc 91 (<100) mg/dL HDL Cholesterol 46 (>40) mg/dL Lipase 1215 H 110 H (8-78) U/L Beta HCG, Quant < 2 mIU/mL Influenza Type A (PCR) NEGATIVE (Negative) Influenza Type B (PCR) NEGATIVE (Negative) RSV RNA Qual (PCR) NEGATIVE (Negative) SARS-CoV-2 RNA (RT-PCR) NEGATIVE (Negative) Independent Interpretation I performed an independent interpretation of an: CT Scan Radiology Impression Discussion of test interpretation with radiology: I have reviewed the radiologist's reading. Radiologist Impression: [address] [address] [address] Scan Report Signed Patient: Jak Izquierdo MR#: [id number] : 1995 Acct:[id number] Age/Sex: 28 / F ADM Date: 09/08/24 Loc: .ED Attending Dr: Ordering Physician: Nemesio Riggs MD Date of Service: 09/09/24 Procedure(s): CT abdomen pelvis w IV con Accession Number(s): [id number] cc: Physician,Unknown ; Nemesio Riggs MD~ EXAMINATION: CT ABDOMEN AND PELVIS WITH CONTRAST CLINICAL INFORMATION: Abdominal pain. Pancreatitis. COMPARISON: Abdominal ultrasound 07/21/2021. TECHNIQUE: Multidetector volumetric images were obtained from the superior aspect of the liver through the pubic symphysis following administration 85 mL of Omnipaque 350 intravenous contrast. Sagittal and coronal reformatted images were obtained on the technologist's workstation. Oral contrast: No This CT examination was performed using dose optimization techniques as appropriate, variously including the following: *Automated exposure control *Adjustment of mA and/or kV according to patient size (this includes techniques or standardized protocols for targeted exams where dose is matched to indication/reason for exam; i.e. extremities or head) *Use of iterative reconstruction technique DLP: 395 mGy-cm FINDINGS: LUNG BASES: The visualized lung bases are unremarkable. LIVER, GALLBLADDER, AND BILIARY TREE: Vague focal geographic low density is present in the liver adjacent to the falciform ligament most consistent with incidental focal fat. The liver is otherwise normal in appearance. The gallbladder is not visualized and may be surgically absent. PANCREAS: The pancreas is normal in appearance. No peripancreatic inflammatory changes identified. No dilatation of the main pancreatic duct. SPLEEN: Normal ADRENAL GLANDS: Unremarkable. KIDNEYS AND URETERS: 3 mm low-density focus is present within the superior pole of the right kidney and may represent an angiomyolipoma. This region demonstrates macroscopic fat density. BLADDER: Unremarkable. GASTROINTESTINAL TRACT: The appendix is not visualized. No pericecal inflammatory changes noted. No free intraperitoneal fluid or gas collections identified. Suture material likely related to a gastric sleeve resection is noted. A small hiatal hernia of the stomach is identified. Normal appearance of the sigmoid mesentery and small bowel mesentery. ABDOMINAL WALL: No significant hernia is appreciated. LYMPH NODES: Normal. VASCULAR: Unremarkable. PELVIC VISCERA: Intrauterine device is noted. No adnexal lesions visualized. OSSEOUS STRUCTURES: Benign-appearing densely sclerotic 6 mm focus within the intertrochanteric region of the right femur which may represent an incidental anostosis. No suspicious skeletal lesions noted. CT/CT abdomen pelvis w IV con IMPRESSION: 1. No acute abnormalities identified. Normal appearance of the pancreas. No peripancreatic inflammatory changes identified. 2. Status post gastric sleeve resection. Small gastric hiatal hernia. 3. Intrauterine device in place. Electronically signed by: Naman Mack MD 09/09/2024 03:53 AM EST Dictated By: Naman Mack MD Signed By: <Electronically signed by Naman Mack MD in OV> 09/09/24 0353 DD/ 0230 TD/TT: 09/09/24 0304 Tufting Supervisor: EF Discharge Plan Discharge Clinical Impression: Pancreatitis, Transaminitis Patient Disposition: Admitted As Inpatient
[2024-09-08] MEDS: Acetaminophen 325 MG TABLET 975 MG PO (19:46)
[2024-09-08] MEDS: Ondansetron ODT 4 MG TAB.RAPDIS TRANSLINGU (19:46)
[2024-09-08 20:24] LABS: MANUAL DIFF FLAG NO
[2024-09-08 20:26] LABS: Basophils Percent Auto 0.3 % (0-2); Eosinophils Percent Auto 0.1 % (0-4); Hematocrit 38.9 % (37.0-47.0); Hemoglobin 13.7 g/dl (12.0-16.0); Imm Gran Abs Auto 0.04 X10*3/uL (0.00-0.03); Imm Gran Pct Auto 0.4 % (0.0-0.4); Lymphocytes Absolute Auto 0.6 X10*3/uL (1.2-4.9); Lymphocytes Percent Auto 5.4 % (20-40); Mean Corpuscular HGB Conc 35.2 g/dl (31.0-35.0); Mean Corpuscular Hemoglobin 31.7 pg (27.0-33.0); Mean Platelet Volume 10.6 fL (9.4-12.3); Monocytes Absolute Auto 0.7 X10*3/uL (0.1-1.2); Monocytes Percent Auto 6.4 % (2-11); Neutrophils Absolute Auto 9.7 x10*3/uL (2.0-8.3); Neutrophils Percent Auto 87.4 % (45-73); Platelet Count 261 X10*3/uL (160-400); Red Blood Count 4.32 X10*6/uL (4.20-5.50); Red Cell Distribution Width 12.1 % (11.0-16.0); White Blood Count 11.1 X10*3/uL (4.8-10.8)
[2024-09-08 20:45] LABS: Alanine Aminotransferase 196 U/L (0-31); Alkaline Phosphatase 79 U/L (39-117); Anion Gap 14 (12-20); Aspartate Amino Transferase 544 U/L (5-31); Bilirubin Total 1.7 mg/dL (0.0-1.0); Blood Urea Nitrogen 12 mg/dL (9-16); Carbon Dioxide 20 mmol/L (22-29); Chloride 109 mmol/L (96-108); Creatinine Clr Calc Pharmacy 119.2; Estimated Glomerular Filt Rate > 60; Glucose Random 106 mg/dL (60-115); Sodium 139 mmol/L (135-145); Total Protein 7.7 g/dL (6.5-8.0)
[2024-09-08 20:49] LABS: HCG Quantitative < 2 mIU/mL; Troponin-I High Sensitivity < 2.7 ng/L (<3.5-17.0)
[2024-09-08 20:58] LABS: Lipase 1215 U/L (8-78)
[2024-09-08 21:02] LABS: Influenza A PCR NEGATIVE (Negative); Influenza B PCR NEGATIVE (Negative); Resp Syncy Virus RNA Qual PCR NEGATIVE (Negative); SARS COV2 PCR INHOUSE NEGATIVE (Negative)
[2024-09-09] VITALS (11 sets, daily range): BP systolic 93–116; BP diastolic 53–61; PULSE 44–108; RESP 11–26; TEMP 36.1–37; O2SAT 96–100
[2024-09-09] MEDS: Morphine Sulfate 4 MG/ML CARTRIDGE IVPUSH (02:46)
[2024-09-09] MEDS: 0.9 % Sodium Chloride 1,000 ML 999 ML IV (02:46)
[2024-09-09] MEDS: ondansetron HCL 4 MG/2 ML VIAL IVPUSH (02:46)
[2024-09-09] MEDS: iohexoL 350 MG/ML 100 ML INFUS..BTL 85 ML IV (03:03)
[2024-09-09] MEDS: diphenhydrAMINE HCL 50 MG/ML VIAL IVPUSH (03:04)
[2024-09-09] MEDS: EPINEPHrine 1 MG/ML VIAL 0.3 MG IM (03:05)
[2024-09-09] MEDS: dexAMETHasone sod phosphate 10 MG/ML VIAL IVPUSH (03:07)
[2024-09-09 03:22] LABS: Cholesterol 146 mg/dL (<200); HDL Cholesterol 46 mg/dL (>40); LDL Cholesterol Calculated 91 mg/dL (<100); Triglycerides 49 mg/dL (<150)
--- NOTE | 2024-09-09 04:11 | PC.NURSE ---
Pt remains stable on RA, reporting relief of symptoms post admin of medications documented per MAR
--- NOTE | 2024-09-09 04:50 | PC.NURSE ---
Repeat lab work order by provider to compare to initial draw, CT neg, at this time pt continues to have moderate abdominal pain, this RN obtained labs via straight stick, pt made aware of plan
[2024-09-09 05:05] LABS: Alanine Aminotransferase 606 U/L (0-31); Albumin Level 3.2 g/dL (3.5-5.0); Alkaline Phosphatase 95 U/L (39-117); Aspartate Amino Transferase 993 U/L (5-31); Bilirubin Direct 0.9 mg/dL (0.0-0.5); Bilirubin Total 1.5 mg/dL (0.0-1.0); Lipase 110 U/L (8-78); Total Protein 6.1 g/dL (6.5-8.0)
--- NOTE | 2024-09-09 05:50 | PM.IMHP ---
History of Present Illness Date of Service: 09/09/24 Attending physician on admission: Julito Ruiz Chief Complaint: Abdominal pain, nausea and diarrhea Jak Blankenship is a 28 years old woman with past medical history significant for GERD and migraines presents to the emergency department complaining of multiple events of nonbloody watery diarrhea, nausea, vomiting and epigastric pain that started yesterday for p.m.. She also reported chills, headache and chest tightness. Denies fever, palpitations or shortness on breath. She characterizes the pain as colicky in nature, intensity 10/10 without radiations. Currently the pain is 7/10. She took Pepto-Bismol at home without improvement of her symptoms. Patient mentioned that her family is experiencing the same symptoms. Past medical history significant for x2, laparoscopic cholecystectomy and gastric sleeve. Patient denied recent alcohol consumption. Patient developed allergic reaction to the IV contrast for which she received epinephrine, Benadryl and dexamethasone. In the ED, she was found to have stable vital signs. Blood workup showed leukocytosis 11.1. Hemoglobin and platelets are normal. There are no significant electrolyte imbalances except for mild hyperchloremia of 109. Renal function is normal. Transaminases are markedly elevated and getting worse, AST 993 and ALT 606. Bilirubin is mildly elevated at 1.5 and alk-phos is normal. Lipase decreased from 1215 to 110. test is negative. Lipid panel is normal. COVID-19, RSV and influenza are negative. Abdomen pelvis CT scan with IV contrast showed no acute intra-abdominal abnormalities: Pancreas is normal; there is an IUD in place. ED tx: Ibuprofen 600 mg p.o., Zofran 8 mg IV Toradol, Tylenol 975 mg p.o., NS 1 L bolus Review of Systems Review of Systems: All 12 systems were reviewed and normal except as noted in HPI. [facility] Medical History Palpitation Shortness of breath Chest pain Asthma KATIE on CPAP Depression Migraines GERD (gastroesophageal reflux disease) Family History Maternal Grandmother Breast cancer Mother Breast cancer Throat cancer Ovarian cancer Family/Other Leukemia Father Prostate cancer Diabetes Heart attack Paternal Grandfather Diabetes Surgical History S/P laparoscopic sleeve gastrectomy Hx of section Hx laparoscopic cholecystectomy Hx of breast reduction, elective Social History Household Members: Children Household Members Other:: minor children ages 5 & 6 Housing: Apartment 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 Do you presently have visiting nurse or other home services: No Alcohol intake: former Patient Tobacco Use Status: Never used Tobacco Use of substances other than those prescribed or required for medical reasons: No Advance Directives: No Advance Directives Information Provided: No Do you have a plan to hurt others: No Plan Nutrition Risks: No Nutritional Risk service: No Meds Allergies Allergy/AdvReac Type Severity Reaction Status Date / Time fish derived [FISH] Allergy Severe Anaphylaxis Verified 09/08/24 19:42 pistachio nut Allergy Intermediate Swelling Verified 09/08/24 19:42 Iodinated Contrast Media Allergy Anaphylaxis Verified 09/09/24 03:25 [IV Contrast Dye] Home Medications ?Medication ?Instructions ?Recorded ?Confirmed ?Last Taken ?Type loratadine 10 mg tablet 1 tab PO DAILY 01/21/21 08/30/24 Unknown History sumatriptan succinate 50 mg tablet 1 tab PO DAILY PRN Migraine 01/21/21 08/30/24 Unknown History Headache topiramate 100 mg tablet 100 mg PO DAILY 02/10/23 08/30/24 10/13/23 History Physical Exam Vital Signs and Narrative: Vital Signs: Last Vital Signs Temp 98.6 F 09/09/24 04:10 Pulse 75 09/09/24 04:10 Resp 16 09/09/24 04:10 BP 99/54 L 09/09/24 04:10 Pulse Ox 96 09/09/24 04:10 O2 Del Method Room Air 09/09/24 04:10 BMI result Body Mass Index 27.4 Constitutional - Awake and Alert, No apparent distress. Pleasant. Cooperative. HEENT - PER, EOMI. Normal sclerae. Dry oral mucosa. Heart - S1S2, RRR, No murmurs Lungs - Normal lung expansion, Normal respiratory effort, No respiratory distress, CTA bilaterally Abdomen -increased bowel sounds, nondistended, epigastric tenderness to palpation without rebound or guarding. Extremities - no calf tenderness bilaterally, no swelling Musculoskeletal - Normal inspection, normal ROM Skin - Warm/Dry Neurological - Alert & oriented x3. No focal weakness grossly noted. Normal speech. Psychological - Appropriate affect Results Labs 09/08/24 20:19 09/08/24 20:19 Labs: Laboratory Results - last 24 hr 09/08/24 09/09/24 20:19 04:44 MCV 90.0 MCH 31.7 MCHC 35.2 H RDW 12.1 Plt Count 261 MPV 10.6 Immature Gran % (Auto) 0.4 Neut % (Auto) 87.4 H Lymph % (Auto) 5.4 L [place] % (Auto) 6.4 Eos % (Auto) 0.1 Baso % (Auto) 0.3 Lymph # (Auto) 0.6 L [place] # (Auto) 0.7 Eos # (Auto) 0.0 Baso # (Auto) 0.0 Abs Immat Gran (auto) 0.04 H Absolute Neuts (auto) 9.7 H Absolute Nucleated RBC 0.000 Nucleated RBC % (auto) 0.0 Anion Gap 14 Estim Creat Clear Calc 119.2 Estimated GFR > 60 Random Glucose 106 Calcium 9.0 Total Bilirubin 1.7 H 1.5 H Direct Bilirubin 0.9 H AST 544 H 993 H ALT 196 H 606 H Alkaline Phosphatase 79 95 Troponin I High Sens < 2.7 Total Protein 7.7 6.1 L Albumin 4.0 3.2 L Triglycerides 49 Cholesterol 146 LDL Cholesterol, Calc 91 HDL Cholesterol 46 Lipase 1215 H 110 H Beta HCG, Quant < 2 Influenza Type A (PCR) NEGATIVE Influenza Type B (PCR) NEGATIVE RSV RNA Qual (PCR) NEGATIVE SARS-CoV-2 RNA (RT-PCR) NEGATIVE Imaging Radiologist's Impressions: Impressions Abdomen/Pelvis CT 09/09/24 02:30 IMPRESSION: 1. No acute abnormalities identified. Normal appearance of the pancreas. No peripancreatic inflammatory changes identified. 2. Status post gastric sleeve resection. Small gastric hiatal hernia. 3. Intrauterine device in place. Electronically signed by: Naman Mack MD 09/09/2024 03:53 AM [facility] Assessment and Plan (1) Elevated LFTs: Status: Acute (2) Acute gastroenteritis: Status: Acute Plan Jak Blankenship is a 28 y/o woman with PMHx significant for laparoscopic cholecystectomy, gastric sleep and X2 presents with diarrhea, nausea, vomiting and epigastric pain admitted with: Markedly elevated transaminases, mild elevation of direct bilirubin, normal alk-phos, elevated lipase -consistent with hepatocellular damage + family has same symptoms. Normal abdominopelvic CT scan. Likely infectious in etiology. Admit to hospitalist service. NPO. Start IV fluids. Check hepatitis panel, acetaminophen level and INR. Continue to monitor LFTs. Check MRCP. Gastroenterology consult. Status post allergic reaction secondary to IV contrast, resolved. Symptoms resolved. Migraine. Continue Topamax. Asthma, well controlled. DVT prophylaxis: SCDs, early ambulation. Code status: Full Patient will need hospitalization for at least 2 midnights for LFTs workup with further imaging (MRI), closed LFTs monitoring and evaluation by subspecialty. Quality Stroke Does the patient have a stroke diagnosis?: No VTE Prior VTE?: No VTE Risk Level:: Medical - low VTE Device Contraindication: N/A - Device Ordered VTE Drug Contraindication: Treatment Not Indicated
[2024-09-09 06:18] LABS: Appearance Urine Clear; Color Urine Dark Yellow; Glucose Urine UA Negative (Negative); Leukocyte Esterase Urine Negative (Negative); Nitrite Urine Negative (Negative); Specific Gravity - Urine >= 1.030 (1.005-1.025); UMIC TRIGGER UACC YES; Urine Blood Negative (Negative); Urine Ketones 15 mg/dL (Negative); Urine Protein 30 (1+) mg/dL (Neg-Trace)
[2024-09-09] MEDS: Lactated Ringers 1,000 ML 100 ML IVCONT (06:18)
--- NOTE | 2024-09-09 06:21 | PC.NURSE ---
Addendum entered by Nubia Segovia RN 09/09/24 06:31: Per MD she wants the bolus given first, then continue with maintenance fluids.Bolus running at this time, IVF paused until bolus complete. Original Note: MRI screening form completed at 0620 by this RN and faxed to MRI. Pt aware next time she has a BM that we need to collect it, IVF running at this time per NOV. verified to clarify LR orders, awaiting response at this time
[2024-09-09 06:25] LABS: Bacteria Urine None Seen (None Seen); Hyaline Casts Urine 0-2 /LPF (0-2); RBC Urine 0-2 /HPF (0-2); Squamous Epithelial Cell Urine 0-2 /HPF (0-2); WBC Urine 0-5 /HPF (0-5)
[2024-09-09] MEDS: Lactated Ringers 1,000 ML 999 ML IV (06:27)
[2024-09-09 07:03] LABS: INTERNATIONAL NORM RATIO 1.2 (0.9-1.1); Prothrombin Time 14.3 SEC (10.9-12.4)
[2024-09-09 07:21] LABS: Acetaminophen LAB < 3 mcg/mL (<30)
--- NOTE | 2024-09-09 08:33 | PC.NURSE ---
Pt restful, states mild pain at this time to abd. No n/v. Sinus vesna on tele and BP soft however pt relays this is her baseline recently. Dr Robbins notified. LR continues at 100ml/hr. Awaits MRCP.
[2024-09-09 08:54] LABS: HBS Num1 2.36 mIU/mL (0-7.99); HBc Num1 0.16 S/CO (0.00-0.79); HBsAGNum1 0.47 S/CO (0.00-0.99); Hepatitis A Antibody IgM 0.18 Index (0-0.79); Hepatitis B Core Antibody Nonreactive (Nonreactive); Hepatitis B Surface Antigen Negative (Negative); ~HepC Num1 0.13 S/CO (0.00-0.79); ~Hepatitis A Antibody IgM Nonreactive (Nonreactive); ~Hepatitis B Surface Antibody NONREACTIVE (Nonreactive); ~Hepatitis C Antibody Nonreactive (Nonreactive)
--- NOTE | 2024-09-09 09:06 | PHA.MEDREC ---
Pharmacy Consult ? Medication Reconciliation Pharmacy has completed the medication reconciliation. Spoke to pt to confirm meds.
--- NOTE | 2024-09-09 09:58 | PC.NURSE ---
returned from MRI, no acute changes from prior assessment
--- NOTE | 2024-09-09 11:03 | PM.GICN ---
History of Present Illness Data of Consult Service Date: 09/09/24 Requesting physician: Julito Ruiz Primary Care Provider: Unknown Physician HPI Reason for consult: Elevated LFTs 28 YF with GERD and migraine HAs seen at [facility] on 09/08/24 with multiple episodes of non bloody watery diarrhea, nausea, vomiting and epigastric pain 1 day prior to presentation to the ER. Pt reports abd pain was 10/10 in intensity colicky in character and radiated to the back and chest (notes pain is similar to past episodes of abd pain prior to her cholecystectomy in ). Pt noted She could not get comfortable in any position. She also reported chills, headache and chest tightness and denies fever, palpitations or shortness on breath. She took Pepto-Bismol at home without improvement of her symptoms. Patient mentioned that her family is experiencing the same symptoms. Past medical history significant for x2, laparoscopic cholecystectomy and gastric sleeve. Patient denied smoking or recent alcohol consumption. She has 2 children. Pt denies known FH of pancreatic disease, colon polyps or GI malignancy Patient developed allergic reaction to the IV contrast for which she received epinephrine, Benadryl and dexamethasone. In the ED, labs showed leukocytosis 11.1. Hemoglobin and platelets are normal. Renal function is normal. Transaminases were markedly elevated and repeat LFTs showed AST 993 and ALT 606. Bilirubin is mildly elevated at 1.5 and alk-phos is normal. Lipase improved from 1215 to 110. test is negative. Lipid panel was normal. COVID-19, RSV and influenza are negative. ED tx: Ibuprofen 600 mg p.o., Zofran 8 mg IV Toradol, Tylenol 975 mg p.o., NS 1 L bolus 09/09/[address] SCAN SHOWED: 1. No acute abnormalities identified. Normal appearance of the pancreas. No peripancreatic inflammatory changes identified. 2. Status post gastric sleeve resection. Small gastric hiatal hernia. 3. Intrauterine device in place. 09/09/24 MRI SHOWED: GALLBLADDER/BILIARY TREE: Common bile duct is normal in caliber. No filling ducts in the common bile duct. No gallstones, gallbladder wall thickening or pericholecystic fluid. LIVER: The liver measures 19 cm. The liver parenchyma demonstrates normal signal characteristics aside from a region of focal fat infiltration adjacent to the falciform ligament.. No focal hepatic lesions. Patent portal and hepatic veins. Mild periportal edema. PANCREAS: Normal pancreatic parenchyma. No pancreatic ductal dilatation. Review of Systems Review of Systems: All 12 systems were reviewed and normal except as noted in HPI. [facility] Past Medical History Medical History Palpitation Shortness of breath Chest pain Asthma KATIE on CPAP Depression Migraines GERD (gastroesophageal reflux disease) Family History Family History Maternal Grandmother Breast cancer Mother Breast cancer Throat cancer Ovarian cancer Family/Other Leukemia Father Prostate cancer Diabetes Heart attack Paternal Grandfather Diabetes Surgical History Surgical History S/P laparoscopic sleeve gastrectomy Hx of section Hx laparoscopic cholecystectomy Hx of breast reduction, elective Social History Social History Household Members: Children Household Members Other:: minor children ages 5 & 6 Housing: Apartment 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 Do you presently have visiting nurse or other home services: No Alcohol intake: former Patient Tobacco Use Status: Never used Tobacco Use of substances other than those prescribed or required for medical reasons: No Advance Directives: No Advance Directives Information Provided: No Do you have a plan to hurt others: No Plan Nutrition Risks: No Nutritional Risk service: No Meds Allergies Allergy/AdvReac Type Severity Reaction Status Date / Time fish derived [FISH] Allergy Severe Anaphylaxis Verified 09/08/24 19:42 pistachio nut Allergy Intermediate Swelling Verified 09/08/24 19:42 Iodinated Contrast Media Allergy Anaphylaxis Verified 09/09/24 03:25 [IV Contrast Dye] Active Medications: Current Medications Lactated Ringer's (Lr) 1,000 mls @ 100 mls/hr IVCONT .Q10H NUPUR Last Infusion: 09/09/24 08:09 Dose: 100 mls/hr Sodium Chloride (0.9 % Sodium Chloride Flush 3 Ml Syringe) 3 ml IVFLUSH QSHIFT NUPUR Last Admin: 09/09/24 06:28 Dose: Not Given Home Medications ?Medication ?Instructions ?Recorded ?Confirmed ?Last Taken ?Type topiramate 100 mg tablet 100 mg PO DAILY PRN Migraine 02/10/23 09/09/24 10/13/23 History Headache [id number] 1 tab PO DAILY 09/09/24 09/09/24 3 Days Ago History fumarate 7.5 mg-folic acid 400 mcg ~09/06/24 tablet pantoprazole 40 mg tablet,delayed 40 mg PO DAILY PRN Heartburn 09/09/24 09/09/24 Unknown History release Physical Exam Vital Signs: Vital Signs: Last Vital Signs Temp 98.1 F 09/09/24 08:15 Pulse 50 09/09/24 08:15 Resp 11 L 09/09/24 08:15 BP 94/55 L 09/09/24 08:15 Pulse Ox 99 09/09/24 08:15 O2 Del Method Room Air 09/09/24 08:15 BMI result Body Mass Index 27.4 Const: General: no acute distress Nutritional Appearance: overweight Orientation/consciousness: patient oriented x3 Limitations: no limitations HEENT: Head: Yes normal to inspection Ears: hearing grossly normal bilaterally Eyes: Sclerae: sclerae normal Pupils: Equal, round and reactive pupils present Neck: Neck: Yes normal visual inspection Chest: Chest palpation & inspection: normal inspection of the chest Resp: Effort & Inspection: normal respiratory effort Auscultation: clear to auscultation bilaterally Cardio: Palpation: normal PMI Rate: regular rate Rhythm: regular rhythm Heart sounds: S1 normal heart sound present, S2 normal heart sound present and no murmurs GI: Palpation (GI): Soft to palpation, nontender and No hepatosplenomegaly present Auscultation: normal bowel sounds Rectal Exam - Female: deferred Skin: General skin exam: no rashes or lesions noted Neuro: General: patient oriented x3, gait normal and moves all extremities Cranial nerves: Yes Equal, round and reactive pupils present Psych: Appearance: grossly normal Mental Status: mental status grossly normal Results Labs 09/08/24 20:19 09/08/24 20:19 Labs: Short CBC 09/08/24 Range/Units 20:19 WBC 11.1 H (4.8-10.8) X10*3/uL Hgb 13.7 (12.0-16.0) g/dl Hct 38.9 (37.0-47.0) % Plt Count 261 (160-400) X10*3/uL BMP 09/08/24 20:19 Sodium 139 Potassium 4.0 Chloride 109 H Carbon Dioxide 20 L BUN 12 Creatinine 0.61 Calcium 9.0 Liver Function 09/08/24 09/09/24 Range/Units 20:19 04:44 Total Bilirubin 1.7 H 1.5 H (0.0-1.0) mg/dL Direct Bilirubin 0.9 H (0.0-0.5) mg/dL AST 544 H 993 H (5-31) U/L ALT 196 H 606 H (0-31) U/L Alkaline Phosphatase 79 95 (39-117) U/L Albumin 4.0 3.2 L (3.5-5.0) g/dL Urine 09/09/24 Range/Units 06:08 Urine Color Dark Yellow Urine Appearance Clear Urine pH 6.0 (5.0-9.0) Ur Specific [place] >= 1.030 H (1.005-1.025) Urine Protein 30 (1+) H (Neg-Trace) mg/dL Urine Glucose (UA) Negative (Negative) mg/dL Assessment and Plan (1) Pancreatitis: Status: Acute (2) Acute gastroenteritis: Status: Acute (3) Elevated LFTs: Status: Acute Plan 28 YF with GERD and migraine HAs admitted to [facility] on 09/08/24 with one day hx of multiple episodes of non bloody watery diarrhea, nausea, vomiting and epigastric pain (notes pain is similar to past episodes of abd pain prior to her cholecystectomy in ). Past medical history significant for x2, laparoscopic cholecystectomy and gastric sleeve. Patient denied smoking or recent alcohol consumption In the ED, labs showed leukocytosis 11.1. Transaminases were markedly elevated and repeat LFTs showed AST 993 and ALT 606 (of note, pt had normal LFTs in 05/2024). Bilirubin is mildly elevated at 1.5 and alk-phos is normal. Lipase improved from 1215 to 110. Hep A, B and C serologies were negative and Lipid panel was normal. Acute pancreatitis with elevated LFTs is suggestive of gallstone pancreatitis (likely due to stones or sludge in the CBD) or sphincter of Oddi stenosis. No CBD stone seen on abd MRI suggesting stone may have passed spontaneously RECOMMENDATIONS: 1. Agree with IV fluids, pain medications and antiemetics. 2. GI panel if pt continues to have diarrhea (order placed) - pancreatitis can be associated with Salmonella or parasitic infections 3. Follow LFTs daily. 4. If LFTs remain elevated and abd pain persists, she may need further evaluation with EUS or ERCP Procedures Date of Service Date of Service: 09/09/24
--- NOTE | 2024-09-09 11:55 | PM.EVENT ---
Event Note Date of Service: 09/09/24 Event Note: Day Team follow up S - Pt seen and examined reports abd pain, upper quadrants radiating to back denies n/v O vitals -- hypotensive without any symptoms gen - nad cvs - s1s2; braydcardic in the 40s lungs - clear abd - soft with upper quad TTP without rebound A/P 28 yo F presenting with abd pain found to have elevated LFTs AST/ALT rising MRCP done, pending results continue with IVF -- increase to 150 cc/hr pt with hypotension and bradycardia -- completely asymptomatic and endorses this is around her baseline IV analgesics GI consult remainder per H&P Time Spent With Patient Time: Total time managing care of this patient today ____ minutes.
[2024-09-09] MEDS: Morphine Sulfate 2 MG/ML CARTRIDGE IVPUSH ×2 (11:58→20:43)
[2024-09-09] MEDS: Lactated Ringers 1,000 ML 150 ML IVCONT (15:47)
[2024-09-09] MEDS: 0.9 % Sodium Chloride Flush 3 ML SYRINGE IVFLUSH (15:48)
[2024-09-09] MEDS: oxyCODONE HCl Immed Release 5 MG TABLET PO (16:34)
--- NOTE | 2024-09-09 17:17 | PC.NURSE ---
pt medicated per NOV for 5 posterior headache, per MD Chang hold APAP d/t increased LFT's
[2024-09-10] MEDS: Morphine Sulfate 2 MG/ML CARTRIDGE IVPUSH ×4 (00:42→22:46)
[2024-09-10 03:23] VITALS: BP 97/61; PULSE 53; RESP 16; TEMP 36.1; O2SAT 98
[2024-09-10] MEDS: Lactated Ringers 1,000 ML 150 ML IVCONT ×3 (04:50→18:28)
[2024-09-10 05:41] LABS: MANUAL DIFF FLAG NO
[2024-09-10 06:04] LABS: Alanine Aminotransferase 453 U/L (0-31); Albumin Level 3.3 g/dL (3.5-5.0); Alkaline Phosphatase 83 U/L (39-117); Anion Gap 11 (12-20); Aspartate Amino Transferase 193 U/L (5-31); Bilirubin Total 0.6 mg/dL (0.0-1.0); Blood Urea Nitrogen 10 mg/dL (9-16); Calcium 8.4 mg/dL (8.4-10.2); Carbon Dioxide 23 mmol/L (22-29); Chloride 107 mmol/L (96-108); Creatinine Clr Calc Pharmacy 106.8; Estimated Glomerular Filt Rate > 60; Glucose Random 90 mg/dL (60-115); Potassium 4.1 mmol/L (3.3-5.1); Sodium 137 mmol/L (135-145); Total Protein 6.3 g/dL (6.5-8.0)
[2024-09-10 06:26] LABS: Basophils Percent Auto 0.2 % (0-2); Hematocrit 32.6 % (37.0-47.0); Hemoglobin 11.1 g/dl (12.0-16.0); Imm Gran Abs Auto 0.01 X10*3/uL (0.00-0.03); Imm Gran Pct Auto 0.2 % (0.0-0.4); Lymphocytes Absolute Auto 2.1 X10*3/uL (1.2-4.9); Lymphocytes Percent Auto 33.4 % (20-40); Mean Corpuscular Hemoglobin 31.2 pg (27.0-33.0); Mean Corpuscular Volume 91.6 fL (80.0-98.0); Mean Platelet Volume 11.4 fL (9.4-12.3); Monocytes Absolute Auto 0.7 X10*3/uL (0.1-1.2); Neutrophils Absolute Auto 3.5 x10*3/uL (2.0-8.3); Neutrophils Percent Auto 55.2 % (45-73); Platelet Count 241 X10*3/uL (160-400); Red Blood Count 3.56 X10*6/uL (4.20-5.50); Red Cell Distribution Width 12.2 % (11.0-16.0); White Blood Count 6.3 X10*3/uL (4.8-10.8)
[2024-09-10 07:15] VITALS: BP 91/55; PULSE 56; RESP 16; TEMP 36.3; O2SAT 100
--- NOTE | 2024-09-10 08:27 | P.PNIM_ITS ---
Subjective Subjective Date of Service: 09/10/24 Interval History: seen and examined reports some improvement in pain denies nausea d/w her Re: mri Review of Systems Negative except HPI/interval history. Physical Exam 2 Vital Signs: Vital Signs: Last Vital Signs Temp 97.4 F 09/10/24 07:15 Pulse 56 09/10/24 07:15 Resp 16 09/10/24 07:15 BP 91/55 L 09/10/24 07:15 Pulse Ox 100 09/10/24 07:15 O2 Del Method Room Air 09/10/24 07:15 BMI result Body Mass Index 27.4 Const: Other: General - no acute distress, appears comfortable Cardiovascular - regular rate and rhythm, S1-S2 Lungs - normal respiratory effort, clear to auscultation bilaterally, no wheezing Abdomen - mild TTP without rebound; +BS Extremities - no edema bilaterally Neuro - awake and alert, no focal deficits Objective Data Active Medications Lactated Ringer's (Lr) 1,000 mls @ 150 mls/hr IVCONT .Q6H40M [facility] Last Admin: 09/10/24 04:50 Dose: 150 mls/hr Documented By: CHRISTOPH Morphine Sulfate (Morphine Sulfate 2 Mg/Ml Cartridge) 2 mg IVPUSH Q4H PRN; Protocol PRN Reason: Pain, Severe (Pain Scale 7-10) Last Admin: 09/10/24 00:42 Dose: 2 mg Documented By: CHRISTOPH Sodium Chloride (0.9 % Sodium Chloride Flush 3 Ml Syringe) [facility] Last Admin: 09/09/24 15:48 Dose: 3 ml Documented By: ONESIMO Labs 09/10/24 05:30 09/10/24 05:30 Labs: Laboratory Results - last 24 hr 09/09/24 09/10/24 06:47 05:30 MCV 91.6 MCH 31.2 MCHC 34.0 RDW 12.2 Plt Count 241 MPV 11.4 Immature Gran % (Auto) 0.2 Neut % (Auto) 55.2 Lymph % (Auto) 33.4 [place] % (Auto) 11.0 Eos % (Auto) 0.0 Baso % (Auto) 0.2 Lymph # (Auto) 2.1 [place] # (Auto) 0.7 Eos # (Auto) 0.0 Baso # (Auto) 0.0 Abs Immat Gran (auto) 0.01 Absolute Neuts (auto) 3.5 Absolute Nucleated RBC 0.000 Nucleated RBC % (auto) 0.0 Anion Gap 11 L Estim Creat Clear Calc 106.8 Estimated GFR > 60 Random Glucose 90 Calcium 8.4 D Total Bilirubin 0.6 AST 193 H ALT 453 H Alkaline Phosphatase 83 Total Protein 6.3 L Albumin 3.3 L Hepatitis A IgM Ab Nonreactive Hep Bs Antigen Negative Hep Bs Antibody NONREACTIVE Hep B Core Total Ab Nonreactive Hepatitis C Ab (EIA) Nonreactive Assessment and Plan (1) Pancreatitis: Status: Acute Plan 28 yo F with past lap. sleeve gastrectomy, lap jennifer, GERD, migranes and others who prsented with abdominal pain and was found to have elevated LFTS and lipase. 1. Abdominal pain Question secondary to pancreatitis from question passed gall stones IV analgesics and IVF start clears and advance as tolerated 2. Elevated LFTs probable same etiology as #1 down trending GI input appreciate 3. Allergic Reaction post IV contrast no further issues 4. hypotension / bradycardia not due to sepsis and likely her baseline no symptoms related to this Full Code DVT pptx -- low risk, early ambulation reason for continued hospitalization: advancing diet today, will taper IV analgesics and IVF -- possible d/c later today vs tomorrow Quality Stroke Does the patient have a stroke diagnosis?: No VTE Prior VTE?: No VTE Risk Level:: Medical - low VTE Device Contraindication: N/A - Device Ordered VTE Drug Contraindication: Treatment Not Indicated
--- NOTE | 2024-09-10 09:40 | MHC.CM.PN ---
PT REPORTS SHE LIVES WITH HER S/O AND CHILDREN SHE IS INDEPENDENT WITH CARE AND MOBILITY HCP ON FILE PCP: KARL AREVALO DCP: HOME NO SERVICES VIA PRIVATE TRANSPORT
[2024-09-10] MEDS: ondansetron HCL 4 MG/2 ML VIAL IVPUSH (11:38)
[2024-09-10 11:58] VITALS: BP 96/56; PULSE 44; RESP 14; TEMP 36.4; O2SAT 100
--- NOTE | 2024-09-10 12:47 | PC.NURSE ---
HR 44, alert and oriented ,no sob, no chest pain no dizziness
--- NOTE | 2024-09-10 12:48 | PC.NURSE ---
diet advanced to clear liquids this am , pt had some pain to upper abdomen after the meal , has nausea no vomiting , medicated with Morphine for pain and Zofran for nausea with good effect .
[2024-09-10] MEDS: Famotidine/PF 20 MG/2 ML VIAL IVPUSH (13:30)
[2024-09-10 15:26] VITALS: BP 105/61; PULSE 43; RESP 18; TEMP 36.3; O2SAT 100
--- NOTE | 2024-09-10 18:37 | PC.NURSE ---
pt is not tolerating PO intake , pt reported that she has pain to epigastric area when she tries liquid diet ,
[2024-09-10 20:00] VITALS: BP 99/54; PULSE 47; RESP 20; TEMP 36.2; O2SAT 93
[2024-09-10 23:37] VITALS: BP 98/57; PULSE 52; RESP 18; TEMP 36.2; O2SAT 100
[2024-09-11] MEDS: Lactated Ringers 1,000 ML 150 ML IVCONT ×2 (00:05→06:11)
[2024-09-11 07:18] VITALS: BP 112/75; PULSE 44; RESP 16; TEMP 36.6; O2SAT 100
[2024-09-11] MEDS: ondansetron HCL 4 MG/2 ML VIAL IVPUSH ×3 (07:33→22:54)
[2024-09-11] MEDS: Morphine Sulfate 2 MG/ML CARTRIDGE IVPUSH ×3 (07:33→22:53)
[2024-09-11 08:51] LABS: Alanine Aminotransferase 275 U/L (0-31); Albumin Level 3.1 g/dL (3.5-5.0); Alkaline Phosphatase 70 U/L (39-117); Aspartate Amino Transferase 64 U/L (5-31); Bilirubin Direct 0.2 mg/dL (0.0-0.5); Bilirubin Total 0.5 mg/dL (0.0-1.0)
[2024-09-11] MEDS: Famotidine/PF 20 MG/2 ML VIAL IVPUSH (09:05)
--- NOTE | 2024-09-11 09:42 | P.PNIM_ITS ---
Subjective Subjective Date of Service: 09/11/24 Interval History: seen and examined reports abdomina pain and nausea, worsened by oral intake denies cp, dizziness Physical Exam 2 Vital Signs: Vital Signs: Last Vital Signs Temp 97.9 F 09/11/24 07:18 Pulse 44 L 09/11/24 07:18 Resp 16 09/11/24 07:18 BP 112/75 09/11/24 07:18 Pulse Ox 100 09/11/24 07:18 O2 Del Method Room Air 09/11/24 07:18 BMI result Body Mass Index 27.4 Const: Other: General - no acute distress, appears comfortable Cardiovascular - regular rate and rhythm, S1-S2 Lungs - normal respiratory effort, clear to auscultation bilaterally, no wheezing Abdomen - ssoft with TTP in upper quadrants Extremities - no edema bilaterally Neuro - awake and alert, no focal deficits Objective Data Active Medications Famotidine (Famotidine/Pf 20 Mg/2 Ml Vial) 20 mg IVPUSH BID [facility] Last Admin: 09/11/24 09:05 Dose: 20 mg Documented By: MELI Morphine Sulfate (Morphine Sulfate 2 Mg/Ml Cartridge) 2 mg IVPUSH Q4H PRN; Protocol PRN Reason: Pain, Severe (Pain Scale 7-10) Last Admin: 09/11/24 07:33 Dose: 2 mg Documented By: MELI Ondansetron HCl (Ondansetron Hcl 4 Mg/2 Ml Vial) 4 mg IVPUSH Q8H PRN PRN Reason: Nausea and Vomiting Last Admin: 09/11/24 07:33 Dose: 4 mg Documented By: MELI Sodium Chloride (0.9 % Sodium Chloride Flush 3 Ml Syringe) 3 ml IVFLUSH QSHIFT [facility] Last Admin: 09/11/24 07:01 Dose: Not Given Documented By: MELI Non-Admin Reason: IV Running Labs 09/10/24 05:30 09/10/24 05:30 Labs: Laboratory Results - last 24 hr 09/11/24 08:11 Hold Purple Top SEE NOTE Total Bilirubin 0.5 Direct Bilirubin 0.2 AST 64 H ALT 275 H Alkaline Phosphatase 70 Total Protein 6.0 L Albumin 3.1 L Assessment and Plan (1) Pancreatitis: Status: Acute Plan 28 yo F with past lap. sleeve gastrectomy, lap jennifer, GERD, migranes and others who prsented with abdominal pain and was found to have elevated LFTS and lipase. 1. Abdominal pain had initially improved, but now intolerant to orals pancreatitis vs gastritis vs others diet as tolerate -- continue with IVF for now IV analgesics IV PPI d/w GI -- they will follow up today 2. Elevated LFTs improving; question related to passed stone 3. Allergic Reaction post IV contrast no further issues 4. hypotension / bradycardia not due to sepsis and likely her baseline no symptoms related to this Full Code DVT pptx -- low risk, early ambulation reason for continued hospitalization: persistent abdominal pain, still not tolerate oral intake, requiring IV analgesics and IV PPI + GI re-eval Quality Stroke Does the patient have a stroke diagnosis?: No VTE Prior VTE?: No VTE Risk Level:: Medical - low VTE Device Contraindication: N/A - Device Ordered VTE Drug Contraindication: Treatment Not Indicated
[2024-09-11] MEDS: Pantoprazole Sodium 40 MG/10 ML VIAL IVPUSH ×2 (10:38→15:33)
--- NOTE | 2024-09-11 11:31 | MHC.CM.PN ---
Per MD rounds no dc today. Patient continues with abdominal pain. She is tolerating po intake. GI is scheduled to assess the patient later today. [facility] Home no services. Patient will arrange for transportation home when cleared for discharge.
[2024-09-11 11:59] VITALS: BP 99/66; PULSE 46; RESP 20; TEMP 36.1; O2SAT 99
[2024-09-11 12:09] VITALS: RESP 18
[2024-09-11] MEDS: Lactated Ringers 1,000 ML 100 ML IVCONT (12:12)
[2024-09-11 15:03] VITALS: BP 107/75; PULSE 45; RESP 20; TEMP 36.7; O2SAT 100
[2024-09-11 19:47] VITALS: BP 94/53; PULSE 47; RESP 20; TEMP 36.9; O2SAT 99
[2024-09-11 23:15] VITALS: BP 103/52; PULSE 51; RESP 18; TEMP 36.7; O2SAT 96
[2024-09-12] VITALS (10 sets, daily range): BP systolic 84–105; BP diastolic 44–61; PULSE 43–63; RESP 12–18; TEMP 36.1–36.9; O2SAT 96–100
[2024-09-12] MEDS: Lactated Ringers 1,000 ML 100 ML IVCONT ×2 (01:16→08:54)
[2024-09-12] MEDS: Pantoprazole Sodium 40 MG/10 ML VIAL IVPUSH ×2 (05:32→16:48)
[2024-09-12 07:02] LABS: Anion Gap 11 (12-20); Blood Urea Nitrogen 7 mg/dL (9-16); Calcium 8.4 mg/dL (8.4-10.2); Carbon Dioxide 27 mmol/L (22-29); Chloride 103 mmol/L (96-108); Creatinine Clr Calc Pharmacy 96.9; Estimated Glomerular Filt Rate > 60; Glucose Random 72 mg/dL (60-115); Potassium 3.9 mmol/L (3.3-5.1); Sodium 137 mmol/L (135-145)
[2024-09-12 07:07] LABS: Hematocrit 30.7 % (37.0-47.0); Hemoglobin 10.8 g/dl (12.0-16.0); Mean Corpuscular HGB Conc 35.2 g/dl (31.0-35.0); Mean Corpuscular Hemoglobin 31.6 pg (27.0-33.0); Mean Corpuscular Volume 89.8 fL (80.0-98.0); Mean Platelet Volume 11.4 fL (9.4-12.3); Platelet Count 214 X10*3/uL (160-400); Red Blood Count 3.42 X10*6/uL (4.20-5.50); Red Cell Distribution Width 11.9 % (11.0-16.0); White Blood Count 7.4 X10*3/uL (4.8-10.8)
[2024-09-12] MEDS: Morphine Sulfate 2 MG/ML CARTRIDGE IVPUSH (08:47)
[2024-09-12] MEDS: ondansetron HCL 4 MG/2 ML VIAL IVPUSH (08:49)
[2024-09-12] MEDS: Lactated Ringers 1,000 ML 80 ML IVCONT (12:32)
--- NOTE | 2024-09-12 13:04 | MHC.SHP ---
Pre-Procedural Eval Section A - 24 Hr Update-Section A only Date of Service: 09/12/24 The patient is an INPATIENT: Yes Changes since office visit: Yes New Medical Problems, Yes Changes in Medication and Yes Patient answered all questions; No Cold of Flu in the past 2 weeks The patient has been examined within 24 hours of the surgical procedure. The History & Physical has been completed within 30 days and I have reviewed it.: Yes Section B - Complete if H&P > 30 days Chief Complaint: Abdominal Pain, Elevated LFT's Allergies: Allergies Allergy/AdvReac Type Severity Reaction Status Date / Time fish derived [FISH] Allergy Severe Anaphylaxis Verified 09/12/24 12:19 Iodinated Contrast Media Allergy Severe Anaphylaxis Verified 09/12/24 12:19 [IV Contrast Dye] pistachio nut Allergy Intermediate Swelling Verified 09/12/24 12:19 Plan Diagnosis/Plan: Change (proceed with EGD today) I have reviewed the history and physical and performed a pertinent physical examination on my patient. No changes have occurred unless specified. Time Spent With Patient Time: Total time managing care of this patient today ____ minutes.
--- NOTE | 2024-09-12 13:41 | HO.ANESPROP2 ---
[facility] Active Problems Active Problems: All Active Problems Transaminitis (Acute) Pancreatitis (Acute) Acute gastroenteritis (Acute) Elevated LFTs (Acute) Overweight (Acute) Sinus bradycardia (Acute) Excess skin (Acute) Dizziness (Acute) Obesity (Acute) Dehydration (Acute) Congenital intra-abdominal adhesions (Acute) Daytime sleepiness (Acute) Snoring (Acute) Obesity, Class III, BMI 40-49.9 (morbid obesity) (Acute) Insomnia (Acute) Binge eating disorder (Acute) MDD (major depressive disorder), single episode, severe (Acute) Morbid obesity (Acute) Leukocytosis (Acute) Palpitation (Acute) Shortness of breath (Acute) Chest pain (Acute) S/P laparoscopic sleeve gastrectomy (Acute) Asthma (Acute) KATIE on CPAP (Acute) Migraines (Acute) GERD (gastroesophageal reflux disease) (Acute) Past Medical History Medical History Palpitation Shortness of breath Chest pain Asthma KATIE on CPAP Depression Migraines GERD (gastroesophageal reflux disease) Patient : No Family History Family History Maternal Grandmother Breast cancer Mother Breast cancer Throat cancer Ovarian cancer Family/Other Leukemia Father Prostate cancer Diabetes Heart attack Paternal Grandfather Diabetes Family history of problems with anesthesia: No Surgical History Surgical History S/P laparoscopic sleeve gastrectomy Hx of section Hx laparoscopic cholecystectomy Hx of breast reduction, elective History of Problems with Anesthesia: No Social History Social History Household Members: Family Household Members Other:: minor children ages 5 & 6 Housing: House Are you a primary field care coordinator to a significant other at home: No Do you presently have visiting nurse or other home services: No Alcohol intake: former Patient Tobacco Use Status: Never used Tobacco Advance Directives Date on File: 10/15/23 service: No Meds Allergies Allergy/AdvReac Type Severity Reaction Status Date / Time fish derived [FISH] Allergy Severe Anaphylaxis Verified 09/12/24 12:19 Iodinated Contrast Media Allergy Severe Anaphylaxis Verified 09/12/24 12:19 [IV Contrast Dye] pistachio nut Allergy Intermediate Swelling Verified 09/12/24 12:19 Active Medications: Current Medications Lactated Ringer's (Lr) 1,000 mls @ 100 mls/hr IVCONT .Q10H [facility] Last Admin: 09/12/24 08:54 Dose: 100 mls/hr Lactated Ringer's (Lr) 1,000 mls @ 80 mls/hr IVCONT .[id number] [facility] Last Admin: 09/12/24 12:32 Dose: 80 mls/hr Morphine Sulfate (Morphine Sulfate 2 Mg/Ml Cartridge) 2 mg IVPUSH Q4H PRN; Protocol PRN Reason: Pain, Severe (Pain Scale 7-10) Last Admin: 09/12/24 08:47 Dose: 2 mg Ondansetron HCl (Ondansetron Hcl 4 Mg/2 Ml Vial) 4 mg IVPUSH Q8H PRN PRN Reason: Nausea and Vomiting Last Admin: 09/12/24 08:49 Dose: 4 mg Pantoprazole Sodium (Pantoprazole Sodium 40 Mg/10 Ml Vial) 40 mg IVPUSH BID@0630,1630 [facility] Last Admin: 09/12/24 05:32 Dose: 40 mg Sodium Chloride (0.9 % Sodium Chloride Flush 3 Ml Syringe) 3 ml IVFLUSH QSHIFT [facility] Last Admin: 09/12/24 08:34 Dose: Not Given Home Medications ?Medication ?Instructions ?Recorded ?Confirmed ?Last Taken ?Type topiramate 100 mg tablet 100 mg PO DAILY PRN Migraine 02/10/23 09/09/24 10/13/23 History Headache [id number] 1 tab PO DAILY 09/09/24 09/09/24 3 Days Ago History fumarate 7.5 mg-folic acid 400 mcg ~09/06/24 tablet pantoprazole 40 mg tablet,delayed 40 mg PO DAILY PRN Heartburn 09/09/24 09/09/24 Unknown History release Exam Height,Weight and Vital Signs: Height 5 ft 1 in Weight 65.771 kg Last Vital Signs Temp 98.0 F 09/12/24 12:24 Pulse 44 L 09/12/24 12:56 Resp 16 09/12/24 12:24 BP 91/56 L 09/12/24 12:56 Pulse Ox 99 09/12/24 12:24 O2 Del Method Room Air 09/12/24 12:24 Pertinent Lab Results Pertinent Lab Results: Laboratory Tests 09/08/24 09/09/24 09/09/24 20:19 04:44 06:08 WBC 11.1 H RBC 4.32 Hgb 13.7 Hct 38.9 MCV 90.0 MCH 31.7 MCHC 35.2 H RDW 12.1 Plt Count 261 MPV 10.6 Immature Gran % (Auto) 0.4 Neut % (Auto) 87.4 H Lymph % (Auto) 5.4 L [place] % (Auto) 6.4 Eos % (Auto) 0.1 Baso % (Auto) 0.3 Lymph # (Auto) 0.6 L [place] # (Auto) 0.7 Eos # (Auto) 0.0 Baso # (Auto) 0.0 Abs Immat Gran (auto) 0.04 H Absolute Neuts (auto) 9.7 H Absolute Nucleated RBC 0.000 Nucleated RBC % (auto) 0.0 Hold Purple Top PT INR Sodium 139 Potassium 4.0 Chloride 109 H Carbon Dioxide 20 L Anion Gap 14 BUN 12 Creatinine 0.61 Estim Creat Clear Calc 119.2 Estimated GFR > 60 Random Glucose 106 Calcium 9.0 Total Bilirubin 1.7 H 1.5 H Direct Bilirubin 0.9 H AST 544 H 993 H ALT 196 H 606 H Alkaline Phosphatase 79 95 Troponin I High Sens < 2.7 Total Protein 7.7 6.1 L Albumin 4.0 3.2 L Triglycerides 49 Cholesterol 146 LDL Cholesterol, Calc 91 HDL Cholesterol 46 Lipase 1215 H 110 H Beta HCG, Quant < 2 Urine Color Dark Yellow Urine Appearance Clear Urine pH 6.0 Ur Specific [place] >= 1.030 H Urine Protein 30 (1+) H Urine Glucose (UA) Negative Urine Ketones 15 Urine Blood Negative Urine Nitrite Negative Ur Leukocyte Esterase Negative Urine RBC 0-2 Urine WBC 0-5 Ur Squamous Epith Cells 0-2 Urine Bacteria None Seen Hyaline Casts 0-2 Acetaminophen Hepatitis A IgM Ab Hep Bs Antigen Hep Bs Antibody Hep B Core Total Ab Hepatitis C Ab (EIA) Influenza Type A (PCR) NEGATIVE Influenza Type B (PCR) NEGATIVE RSV RNA Qual (PCR) NEGATIVE SARS-CoV-2 RNA (RT-PCR) NEGATIVE 09/09/24 09/10/24 09/11/24 06:47 05:30 08:11 WBC 6.3 RBC 3.56 L Hgb 11.1 L Hct 32.6 L MCV 91.6 MCH 31.2 MCHC 34.0 RDW 12.2 Plt Count 241 MPV 11.4 Immature Gran % (Auto) 0.2 Neut % (Auto) 55.2 Lymph % (Auto) 33.4 [place] % (Auto) 11.0 Eos % (Auto) 0.0 Baso % (Auto) 0.2 Lymph # (Auto) 2.1 [place] # (Auto) 0.7 Eos # (Auto) 0.0 Baso # (Auto) 0.0 Abs Immat Gran (auto) 0.01 Absolute Neuts (auto) 3.5 Absolute Nucleated RBC 0.000 Nucleated RBC % (auto) 0.0 Hold Purple Top SEE NOTE PT 14.3 H INR 1.2 H Sodium 137 Potassium 4.1 Chloride 107 Carbon Dioxide 23 Anion Gap 11 L BUN 10 Creatinine 0.68 Estim Creat Clear Calc 106.8 Estimated GFR > 60 Random Glucose 90 Calcium 8.4 D Total Bilirubin 0.6 0.5 Direct Bilirubin 0.2 AST 193 H 64 H ALT 453 H 275 H Alkaline Phosphatase 83 70 Troponin I High Sens Total Protein 6.3 L 6.0 L Albumin 3.3 L 3.1 L Triglycerides Cholesterol LDL Cholesterol, Calc HDL Cholesterol Lipase Beta HCG, Quant Urine Color Urine Appearance Urine pH Ur Specific [place] Urine Protein Urine Glucose (UA) Urine Ketones Urine Blood Urine Nitrite Ur Leukocyte Esterase Urine RBC Urine WBC Ur Squamous Epith Cells Urine Bacteria Hyaline Casts Acetaminophen < 3 Hepatitis A IgM Ab Nonreactive Hep Bs Antigen Negative Hep Bs Antibody NONREACTIVE Hep B Core Total Ab Nonreactive Hepatitis C Ab (EIA) Nonreactive Influenza Type A (PCR) Influenza Type B (PCR) RSV RNA Qual (PCR) SARS-CoV-2 RNA (RT-PCR) 09/12/24 05:31 WBC 7.4 RBC 3.42 L Hgb 10.8 L Hct 30.7 L MCV 89.8 MCH 31.6 MCHC 35.2 H RDW 11.9 Plt Count 214 MPV 11.4 Immature Gran % (Auto) Neut % (Auto) Lymph % (Auto) [place] % (Auto) Eos % (Auto) Baso % (Auto) Lymph # (Auto) [place] # (Auto) Eos # (Auto) Baso # (Auto) Abs Immat Gran (auto) Absolute Neuts (auto) Absolute Nucleated RBC 0.000 Nucleated RBC % (auto) 0.0 Hold Purple Top PT INR Sodium 137 Potassium 3.9 Chloride 103 Carbon Dioxide 27 Anion Gap 11 L BUN 7 L Creatinine 0.75 Estim Creat Clear Calc 96.9 Estimated GFR > 60 Random Glucose 72 Calcium 8.4 Total Bilirubin Direct Bilirubin AST ALT Alkaline Phosphatase Troponin I High Sens Total Protein Albumin Triglycerides Cholesterol LDL Cholesterol, Calc HDL Cholesterol Lipase Beta HCG, Quant Urine Color Urine Appearance Urine pH Ur Specific [place] Urine Protein Urine Glucose (UA) Urine Ketones Urine Blood Urine Nitrite Ur Leukocyte Esterase Urine RBC Urine WBC Ur Squamous Epith Cells Urine Bacteria Hyaline Casts Acetaminophen Hepatitis A IgM Ab Hep Bs Antigen Hep Bs Antibody Hep B Core Total Ab Hepatitis C Ab (EIA) Influenza Type A (PCR) Influenza Type B (PCR) RSV RNA Qual (PCR) SARS-CoV-2 RNA (RT-PCR) Airway Mallampati Class: II TM Dist: >3cm Neck ROM: Full Heart: RRR Lungs: CTA Assessment and Plan Assessment Anesthesia Assessment: Anesthesia Plan Discussed and Chart Reviewed Final Anesthetic Review Family History of Problems with Anesthesia: No History of Problems with Anesthesia: No NPO: Yes ASA Class: II Final Preanesthetic Review: Meds/Allgs Chart Reviewed, Consent Obtained/Reviewed and Anes Risks/Benef Reviewed Patient Risk: Low Procedure Risk: Low Anesthetic Plan Anesthetic Plan: MAC: Disposition: Standard PACU
--- NOTE | 2024-09-12 13:47 | W.PM.OPN ---
Operative Note Operative Note Date of Service: 09/12/24 Narrative: FLEXIBLE TRANSORAL UPPER GASTROINTESTINAL ENDOSCOPY WITH BIOPSIES Pre-op diagnosis: Epigastric pain, Nausea Post-op diagnosis: Esophageal nodule, hiatal hernia, Gastritis, gastric antral nodule, Sleeve gastrectomy status Endoscopist:? Bang Maldonado MD Anesthesia:?MAC UPPER ENDOSCOPY Consent: Indications for the procedure and potential complications of bleeding, perforation, reaction to medications and missed diagnosis were discussed with the patient and informed consent was obtained. Instrument: Olympus GIF H 190 mid size upper endoscope Monitoring: Vital signs and clinical assessment, continuous EKG monitoring, Pulse oximetry, Carbon Dioxide monitoring and blood pressure monitoring were done throughout the procedure. Procedure: The patient was placed in the left lateral decubitis position and pre-procedure medications were administered and a bite block was placed. The endoscope was inserted into the mouth and advanced under direct vision to the third part of duodenum. A careful inspection was made as the upper endoscope was withdrawn including a retroflexed examination of the proximal stomach; Findings and interventions are described below. Findings: Larynx: Normal Esophagus: GE junction at 32 cms, hiatal hernia 32 to 35 cms. A 10 -12 mm benign appearing nodule at GE junction - biopsied. Stomach: Mild diffuse gastric erythema without ulcers or erosions - biopsies were obtained from the antrum. A 12 mm benign appearing nodule in the pre-pyloric area - biopsied. Grade 3 flap valve on retroflexed examination of the cardia. Duodenum: Normal bulb and descending duodenum. Biopsies were obtained from 3rd part of the duodenum to check for celiac sprue. Intervention: Biopsies as noted above Impression and Post Procedure Diagnosis: Endoscopy Findings: ESOPHAGUS: Hiatal hernia, Nodule GE junction STOMACH: Gastritis and benign appearing gastric nodule DUODENUM: Normal - biopsied to check for celiac sprue No clear etiology found for nausea and vomiting - ? medication related Plan: I will contact the pt with biopsy results. Switch anti emetics to Compazine instead of Ondansetron Attempt a trail of full liquid diet. Above findings were reviewed with the patient and relevant handouts were given and the discharge area.
--- NOTE | 2024-09-12 15:00 | PC.NURSE ---
Addendum entered by Adri Nuno RN 09/12/24 23:15: IVF held per Ana Layne, pending tolerance to diet. Pt has tolerated some food states slight pain, but tolerable Original Note: IV fluids held per Ana Layne, pending evaluation of diet tolerance.
--- NOTE | 2024-09-12 15:01 | MHC.CM.PN ---
Patient has returned from Endoscopy. A diet has been ordered. Patient may be able to discharge later today. The patient will need to tolerate the diet prior to discharge. DP Home self care. Pt will arrange for a ride home.
[2024-09-12] MEDS: 0.9 % Sodium Chloride Flush 3 ML SYRINGE IVFLUSH ×2 (16:48→23:13)
--- NOTE | 2024-09-12 16:51 | P.PNIM_ITS ---
Subjective Subjective Date of Service: 09/12/24 Interval History: seen and examined reports abdomina pain and nausea, worsened by oral intake denies cp, dizziness Physical Exam 2 Vital Signs: Vital Signs: Last Vital Signs Temp 98.5 F 09/12/24 15:19 Pulse 56 09/12/24 15:19 Resp 18 09/12/24 15:19 BP 98/61 09/12/24 15:19 Pulse Ox 98 09/12/24 15:19 O2 Del Method Room Air 09/12/24 15:19 BMI result Body Mass Index 27.4 Appearing in no acute distress lung sounds are clear to auscultation heart regular rate rhythm, clear S1, S2 positive bowel sounds, abdomen is soft, nontender neuro patient is alert x3, no focal deficits Objective Data Active Medications Lactated Ringer's (Lr) 1,000 mls @ 100 mls/hr IVCONT .Q10H [facility] Last Infusion: 09/12/24 14:52 Dose: 0 mls/hr Documented By: MELI Lactated Ringer's (Lr) 1,000 mls @ 80 mls/hr IVCONT .[id number] [facility] Last Admin: 09/12/24 12:32 Dose: 80 mls/hr Documented By: ZAYNAB Morphine Sulfate (Morphine Sulfate 2 Mg/Ml Cartridge) 2 mg IVPUSH Q4H PRN; Protocol PRN Reason: Pain, Severe (Pain Scale 7-10) Last Admin: 09/12/24 08:47 Dose: 2 mg Documented By: MELI Naloxone HCl (Naloxone Hcl 0.4 Mg/Ml Vial) 0.04 mg IVPUSH Q5M PRN PRN Reason: Excessive sedation or RR < 8 Ondansetron HCl (Ondansetron Hcl 4 Mg/2 Ml Vial) 4 mg IVPUSH Q8H PRN PRN Reason: Nausea and Vomiting Last Admin: 09/12/24 08:49 Dose: 4 mg Documented By: MELI Pantoprazole Sodium (Pantoprazole Sodium 40 Mg/10 Ml Vial) 40 mg IVPUSH BID@0630,1630 [facility] Last Admin: 09/12/24 05:32 Dose: 40 mg Documented By: DEE Sodium Chloride (0.9 % Sodium Chloride Flush 3 Ml Syringe) 3 ml IVFLUSH QSHIFT [facility] Last Admin: 09/12/24 08:34 Dose: Not Given Documented By: MELI Non-Admin Reason: IV Running Labs 09/12/24 05:31 09/12/24 05:31 Labs: Laboratory Results - last 24 hr 09/12/24 05:31 MCV 89.8 MCH 31.6 MCHC 35.2 H RDW 11.9 Plt Count 214 MPV 11.4 Absolute Nucleated RBC 0.000 Nucleated RBC % (auto) 0.0 Anion Gap 11 L Estim Creat Clear Calc 96.9 Estimated GFR > 60 Random Glucose 72 Calcium 8.4 Assessment and Plan (1) Pancreatitis: Status: Acute Plan 28 yo F with past lap. sleeve gastrectomy, lap jennifer, GERD, migranes and others who prsented with abdominal pain and was found to have elevated LFTS and lipase. Abdominal pain had initially improved, but became intolerant IV analgesics IV PPI>po d/w GI>s/p; EGD hiatal hernia, GE junction nodule, gastritis. Biopsies taken, antiemetic change to Compazine, advanced diet Elevated LFTs improving; question related to passed stone Allergic Reaction post IV contrast no further issues hypotension / bradycardia. not due to sepsis and likely her baseline no symptoms related to this Full Code DVT pptx -- low risk, early ambulation reason for continued hospitalization: persistent abdominal pain, still not tolerate oral intake, requiring IV analgesics and IV PPI + GI re-eval Quality Stroke Does the patient have a stroke diagnosis?: No VTE Prior VTE?: No VTE Risk Level:: Medical - low VTE Device Contraindication: N/A - Device Ordered VTE Drug Contraindication: Treatment Not Indicated
[2024-09-12] MEDS: Prochlorperazine Edisylate 10 MG/2 ML VIAL 5 MG IV (20:32)
[2024-09-13 03:26] VITALS: BP 100/56; PULSE 43; RESP 16; TEMP 36; O2SAT 96
--- NOTE | 2024-09-13 07:05 | P.DS_ITS ---
DS: Providers Provider Date of Service: 09/13/24 Date of admission: 09/09/24 05:52 Date of discharge: 09/13/24 Primary care physician: Hailey Sevilla MD Consults: 09/09/24 06:29 Consult to Gastroenterology Routine Consulting Provider: Bang Maldonado Reason for consultation: Elevated LFTs Has provider been notified: No DS: Diagnosis Discharge Diagnosis (1) Pancreatitis: Status: Acute DS: Summary Hospital Course Hospital Course: History and physical as per admitting provider. Jak Blankenship is a 28 years old woman with past medical history significant for GERD and migraines presents to the emergency department complaining of multiple events of nonbloody watery diarrhea, nausea, vomiting and epigastric pain that started yesterday for p.m.. She also reported chills, headache and chest tightness. Denies fever, palpitations or shortness on breath. She characterizes the pain as colicky in nature, intensity 10/10 without radiations. Currently the pain is 7/10. She took Pepto-Bismol at home without improvement of her symptoms. Patient mentioned that her family is experiencing the same symptoms. Past medical history significant for x2, laparoscopic cholecystectomy and gastric sleeve. Patient denied recent alcohol consumption. Patient developed allergic reaction to the IV contrast for which she received epinephrine, Benadryl and dexamethasone. In the ED, she was found to have stable vital signs. Blood workup showed leukocytosis 11.1. Hemoglobin and platelets are normal. There are no significant electrolyte imbalances except for mild hyperchloremia of 109. Renal function is normal. Transaminases are markedly elevated and getting worse, AST 993 and ALT 606. Bilirubin is mildly elevated at 1.5 and alk-phos is normal. Lipase decreased from 1215 to 110. test is negative. Lipid panel is normal. COVID-19, RSV and influenza are negative. Abdomen pelvis CT scan with IV contrast showed no acute intra-abdominal abnormalities: Pancreas is normal; there is an IUD in place. 28-year-old woman treated for abdominal pain. Initially treated with IV PPI, IV fluids, NPO and IV analgesics. Patient is status post EGD with findings of hiatal hernia, GE junction nodule and gastritis. Biopsies taken and patient should follow-up with her primary care provider for results. She was also noted to have elevated LFTs with the likelihood of a passed stone but LFTs have trended down significantly. MRCP showed mild periportal edema with no choledocholithiasis. She was noted to have an allergic reaction post IV contrast but resolved fairly quickly and had no further issues. She was noted to be hypotensive and bradycardic, not due to sepsis and likely her baseline. Time Attestation Discharge Coordination Time (in mins): 38 Quality: Safe Use of Opioids Does Pt have an Active Cancer Diagnosis on the Problem List?: No Quality: Stroke Does the patient have a stroke diagnosis?: No Physical Exam Vital Signs: Vital Signs: Last Vital Signs Temp 96.8 F 09/13/24 03:26 Pulse 43 L 09/13/24 03:26 Resp 16 09/13/24 03:26 BP 100/56 L 09/13/24 03:26 Pulse Ox 96 09/13/24 03:26 O2 Del Method Room Air 09/13/24 03:26 BMI result Body Mass Index 27.4 Appearing in no acute distress head is normocephalic atraumatic eyes pupils are PERRLA sclera is anicteric mouth throat mucous membranes are intact and moist neck is supple no lymphadenopathy, no JVD noted lung sounds are clear to auscultation heart regular rate rhythm, clear S1, S2 positive bowel sounds, abdomen is soft, nontender neuro patient is alert x3, no focal deficits DS: Data Data Completed and Pending Completed studies during hospitalization [Text1]: Procedures Excision of Stomach, Percutaneous Endoscopic Approach, Vertical (10/14/23) Release Peritoneum, Percutaneous Endoscopic Approach (10/14/23) Pending studies at discharge: Pending at discharge 09/12/24 13:36 Surgical [PTH] Routine Labs on day of discharge: Laboratory Results - last 24 hr 09/12/24 05:31 WBC 7.4 RBC 3.42 L Hgb 10.8 L Hct 30.7 L MCV 89.8 MCH 31.6 MCHC 35.2 H RDW 11.9 Plt Count 214 MPV 11.4 Absolute Nucleated RBC 0.000 Nucleated RBC % (auto) 0.0 Discharge Plan Discharge Anticipated Discharge Date/Time: 09/13/24 07:04 Patient Disposition: Home, Self-Care Discharge Diagnosis: Hiatal hernia Gastritis Referrals: Hailey Sevilla MD [Primary Care Provider] - 1 Week Discharge Medications: New prochlorperazine maleate [Compazine] 5 mg tablet 5 mg PO BID PRN (Reason: nausea and vomiting) Qty: 10 0RF Continued pantoprazole 40 mg tablet,delayed release (DR/EC) 40 mg PO DAILY PRN (Reason: Heartburn) [id number] fum-folic ac 7.5 mg iron-400 mcg tablet 1 tab PO DAILY topiramate 100 mg tablet 100 mg PO DAILY PRN (Reason: Migraine Headache) Discharge Orders: Discharge Order (Routine); Ordered 09/13/24 Ordered By: Ana Layne Diet: Low fat, low cholesterol Activity on Discharge: As tolerated Stand Alone Forms: Patient Portal Discharge page Print Language: Bulgarian Care Plan Goals: Continue with bland foods for a few days, follow low-fat diet Continue pantoprazole for gastritis Health Concerns: Hiatal hernia Gastritis Plan of Treatment: Follow-up with primary care provider for results of biopsy Take all medications as prescribed Assessment: See discharge summary Discharge Date/Time: 09/13/24 09:21
[2024-09-13 07:17] VITALS: BP 104/61; PULSE 47; RESP 12; TEMP 36.6; O2SAT 100
--- NOTE | 2024-09-13 08:46 | MHC.CM.PN ---
Patient is discharged to home self care. She has arranged for transportation home.
--- NOTE | 2024-09-13 10:57 | HO.POSTANES ---
Post Anesthesia Evaluation Post Anesthesia Evaluation Date of Service: 09/13/24 Vital Signs: Vital Signs Temp Pulse Resp BP Pulse Ox O2 Del Method 09/13/24 07:17 97.9 F 47 L 12 104/61 100 Room Air 09/13/24 03:26 96.8 F 43 L 16 100/56 L 96 Room Air Anesthesia: Monitored Mental Status: Awake Pain Control: Satisfactory Nausea/Vomiting: None Hydration: Adequate Anesthesia-Related Issues: No Anes. Related Issues Comments: spoke over the phone
== END 2024-09-13 09:21 | disposition home or self-care (01) | DRG 241 ==
LOC: HO.ED 09-09 02:14 → HO.EDOVER 09-09 05:59 → HO.S3 09-09 18:09
PROVIDERS: Family Medicine; Internal Medicine Gastroenterology; Physician Assistant; Admitting Provider Internal Medicine; Emergency Provider Internal Medicine; PCP Family Medicine; Visit Provider Nurse Practitioner Acute Care
PROC: 0DJ08ZZ Inspection of Upper Intestinal Tract, Via Natural or Artificial Opening Endoscopic (ICD-10-PCS; CPT 43235; principal; 2024-09-12 13:20)
DX: K29.70 Gastritis, unspecified, without bleeding (principal); I95.9 Hypotension, unspecified; K22.89 Other specified disease of esophagus; K44.9 Diaphragmatic hernia without obstruction or gangrene; K80.20 Calculus of gallbladder without cholecystitis without obstruction; K31.89 Other diseases of stomach and duodenum; Z20.822 Contact with and (suspected) exposure to COVID-19; Z98.84 Bariatric surgery status; Z79.899 Other long term (current) drug therapy
CPT/HCPCS: 0241U; 36415; 74177; 74181; 80048; 80053; 80061; 80076; 80143; 81001; 83690; 84484; 84702; 85025; 85027; 85610; 86704; 86706; 86709; 86803; 87340; 88305; 88313; 88342; 93005; 99285; J0171; J0737; J1100; J1200; J1596; J2003; J2270; J2405; J2470; J2704; J7120; Q9967

== ENCOUNTER → 2024-09-08 19:41 | Outpatient (BNV) | payer MEDICAID, SELFPAY | PROVIDERS: Admitting Provider Internal Medicine; Emergency Provider Internal Medicine; Visit Provider Internal Medicine Cardiovascular Disease | DX: R10.9 Unspecified abdominal pain (principal) | CPT/HCPCS: 93010 ==

== ENCOUNTER → 2024-09-09 05:52 | Outpatient (BNV) | payer MEDICAID, SELFPAY | PROVIDERS: Admitting Provider Internal Medicine; Emergency Provider Internal Medicine; Visit Provider Internal Medicine | DX: K85.90 Acute pancreatitis without necrosis or infection, unspecified (principal) | CPT/HCPCS: 99223; 99232; 99239; 99499 ==

== ENCOUNTER → 2024-09-09 05:52 | Outpatient (BNV) | payer MEDICAID, SELFPAY | PROVIDERS: Admitting Provider Internal Medicine; Emergency Provider Internal Medicine; Visit Provider Internal Medicine Gastroenterology | DX: K29.70 Gastritis, unspecified, without bleeding (principal); R11.0 Nausea; K22.82 Esophagogastric junction polyp | CPT/HCPCS: 43239; 99222 ==

== ENCOUNTER 2024-10-05 10:28 | Outpatient (REF) | payer MEDICAID, SELFPAY ==
[2024-10-05 11:36] LABS: MANUAL DIFF FLAG NO
[2024-10-05 11:37] LABS: Basophils Absolute Auto 0.1 X10*3/uL (0.0-0.2); Basophils Percent Auto 0.8 % (0-2); Eosinophils Percent Auto 0.7 % (0-4); Hematocrit 35.8 % (37.0-47.0); Hemoglobin 12.1 g/dl (12.0-16.0); Imm Gran Abs Auto 0.02 X10*3/uL (0.00-0.03); Imm Gran Pct Auto 0.3 % (0.0-0.4); Lymphocytes Absolute Auto 1.8 X10*3/uL (1.2-4.9); Lymphocytes Percent Auto 31.1 % (20-40); Mean Corpuscular HGB Conc 33.8 g/dl (31.0-35.0); Mean Corpuscular Hemoglobin 31.3 pg (27.0-33.0); Mean Corpuscular Volume 92.7 fL (80.0-98.0); Mean Platelet Volume 11.2 fL (9.4-12.3); Monocytes Absolute Auto 0.4 X10*3/uL (0.1-1.2); Monocytes Percent Auto 7.4 % (2-11); Neutrophils Absolute Auto 3.5 x10*3/uL (2.0-8.3); Neutrophils Percent Auto 59.7 % (45-73); Platelet Count 271 X10*3/uL (160-400); Red Blood Count 3.86 X10*6/uL (4.20-5.50); Red Cell Distribution Width 12.3 % (11.0-16.0); White Blood Count 5.9 X10*3/uL (4.8-10.8)
[2024-10-05 12:34] LABS: Vitamin B12 266 pg/mL (200-900)
[2024-10-05 12:40] LABS: Estimated Average Glucose 100 mg/dL; Hemoglobin A1C 103.2966 umol/L; Hemoglobin A1c % 5.1 % (<6.0); Total Hemoglobin (HGBA1C) 3166.1279 umol/L
[2024-10-05 12:51] LABS: Alanine Aminotransferase 22 U/L (0-31); Albumin Level 3.9 g/dL (3.5-5.0); Alkaline Phosphatase 52 U/L (39-117); Anion Gap 9 (12-20); Aspartate Amino Transferase 20 U/L (5-31); Bilirubin Direct 0.2 mg/dL (0.0-0.5); Bilirubin Total 0.7 mg/dL (0.0-1.0); Blood Urea Nitrogen 12 mg/dL (9-16); C Reactive Protein 0.13 mg/dL (< or = 0.50); Calcium 8.9 mg/dL (8.4-10.2); Carbon Dioxide 27 mmol/L (22-29); Chloride 111 mmol/L (96-108); Cholesterol 134 mg/dL (<200); Estimated Glomerular Filt Rate > 60; Glucose Random 73 mg/dL (60-115); HDL Cholesterol 40 mg/dL (>40); Iron 62 mcg/dL (30-160); LDL Cholesterol Calculated 81 mg/dL (<100); Percent Iron Saturation 29 % (15-50); Potassium 3.9 mmol/L (3.3-5.1); Sodium 143 mmol/L (135-145); Total Iron Binding Capacity 215 mcg/dL (228-428); Total Protein 7.3 g/dL (6.5-8.0); Triglycerides 68 mg/dL (<150); Unsaturated Iron Binding 153 ug/dL
[2024-10-05 13:13] LABS: Ferritin 142 ng/mL (10-122); TSH reflex Free T4 0.57 uIU/mL (0.32-4.0); Vitamin D 25-OH Total 9.3 ng/mL (>30)
[2024-10-05 13:32] LABS: Insulin 10 uU/mL (2-29)
[2024-10-06 19:53] LABS: Immunoglobulin A 267 mg/dL (47-310); Transglutaminase IgA <1.0 U/mL
[2024-10-09 17:18] LABS: Vitamin A 29 mcg/dL (38-98)
== END 2024-10-05 10:29 | disposition home or self-care (01) ==
LOC: HO.HHCL 10:28
PROVIDERS: Physician Assistant Surgical; Visit Provider Family Medicine
DX: Z98.84 Bariatric surgery status (principal); R63.4 Abnormal weight loss; R74.01 Elevation of levels of liver transaminase levels
CPT/HCPCS: 36415; 80053; 80061; 82248; 82306; 82607; 82728; 82746; 82784; 83036; 83525; 83540; 84443; 84590; 85025; 86140; 86364

== ENCOUNTER 2024-10-17 09:21 | Outpatient (AMB) | payer MEDICAID, SELFPAY ==
--- NOTE | 2024-10-17 09:32 | A.OFFVIS_ITS ---
VS Expanded 10/17/24 09:50 BP 110/58 L Blood Pressure Location Rt brachial Blood Pressure Position Sitting Pulse 62 Pulse Source Pulse Oximeter Temp 96.8 F Temperature Source Temporal Artery Scan Pulse Oximetry 100 Oxygen Delivery Method Room Air Height 5 ft 1 in Weight 128 lb 6.4 oz BMI 24.3 Body Fat % 30.2 Body Fat Mass 38.8 Fat Free Mass 89.6 Visceral Fat Rating 3.0 Body Water % 50.2 Body Water Mass 64.4 Muscle Mass/Score 84.8 Basal Metabolic Rate/Score 1,259 Intake Visit Reasons: OV PO LSG 09/28/23 -annual Allergies fish derived [FISH] Allergy (Severe, Verified 10/17/24 09:48) Anaphylaxis Iodinated Contrast Media [IV Contrast Dye] Allergy (Severe, Verified 10/17/24 09:48) Anaphylaxis pistachio nut Allergy (Intermediate, Verified 10/17/24 09:48) Swelling Medication List - Last Reconciled 10/17/24 by JOHN Agarwal clotrimazole 1% 1 appl topical BID gdzcdatj-eug-jbap fum-folic ac 7.5 mg iron-400 mcg 1 tab PO DAILY pantoprazole 40 mg PO DAILY PRN prochlorperazine maleate (Compazine) 5 mg PO BID PRN topiramate 100 mg PO DAILY PRN [vitamin a PO] HPI Comments Details: This?is a?28?yo female who is s/p LSG 09/28/2023. Presents for 1 year post op visit. Weight loss of 18.6lbs since last OV 3 months ago and has now reached a healthy BMI.? Was recently hospitalized for abdominal pain, elevated LFTs, ? passed stone. Pain has improved, no nausea. Present meal plan includes: 1 shake (Premier 2 scoops), 2 bars, and 1 small meal of protein taking MVI Exercise routine includes: walking most days Pt reports ongoing rashes of excess skin of abdomen, which bothers her during movement and exercise. Belly button has become increasingly rashy and painful. The moisture that collects here has an unpleasant odor. Has difficulty finding clothes that fit well; has to wear compressive garment to hold excess skin in place. Has tried clotrimazole ointment but still getting some irritation. [facility] Medical History Palpitation Shortness of breath Chest pain Asthma KATIE on CPAP Depression Migraines GERD (gastroesophageal reflux disease) Surgical History S/P laparoscopic sleeve gastrectomy Hx of section Hx laparoscopic cholecystectomy Hx of breast reduction, elective Family History Maternal Grandmother Breast cancer Mother Breast cancer Throat cancer Ovarian cancer Family/Other Leukemia Father Prostate cancer Diabetes Heart attack Paternal Grandfather Diabetes Social History Household Members: Family Household Members Other:: minor children ages 5 & 6 Housing: House Are you a primary child daycare worker to a significant other at home: No Do you presently have visiting nurse or other home services: No Alcohol intake: former Patient Tobacco Use Status: Never used Tobacco Advance Directives Date on File: 10/15/23 service: No Physical Exam Vital Signs: Last Vital Signs Temp 96.8 F 10/17/24 09:50 Pulse 62 10/17/24 09:50 BP 110/58 L 10/17/24 09:50 Pulse Ox 100 10/17/24 09:50 Oxygen Delivery Method Room Air 10/17/24 09:50 BMI result Body Mass Index 24.3 Const General: cooperative, comfortable and no acute distress Orientation/consciousness: patient oriented x3 GI Other: soft, nontender, nondistended, incisions well healed, no hernia, no masses Grade II pannus Neuro General: patient oriented x3 Assessment & Plan Assessment & Plan (1) S/P laparoscopic sleeve gastrectomy: Code(s): Z98.84 - Bariatric surgery status Category: Surgical Plan Congratulated pt on achieving a healthy BMI. Continue clotrimazole for rashes of excess skin. Pt is experiencing issues of excess skin resulting in frequent painful and malodorous rashes refractory to topical rx, as well as limitation of mobility due to discomfort and need for special clothing. She has also sent me photos previously of these active rashes. Her insurance requires her to be 18mo postop for consideration of panniculectomy. Labs reviewed, low in vit A and D- pt reports has already received vit A supplement, thinks she has D- will text me if not. RTC 3 months. I spent a total of 30 minutes reviewing/updating records, examining the patient and counseling the patient on weight management as detailed above. Medications: New clotrimazole 1% 1 appl topical BID 45 grams 3RF fmieroxs-fgd-xhur fum-folic ac 7.5 mg iron-400 mcg 1 tab PO DAILY 90 tabs 3RF
[2024-10-17 09:50] VITALS: BP 110/58; PULSE 62; TEMP 36; O2SAT 100; BMI 24.3
== END 2024-10-17 10:28 | disposition home or self-care (01) ==
PROVIDERS: PCP Family Medicine; Visit Provider Physician Assistant Surgical
DX: Z71.3 Dietary counseling and surveillance (principal); Z90.3 Acquired absence of stomach [part of]; Z98.84 Bariatric surgery status
CPT/HCPCS: 99214

== ENCOUNTER → 2024-10-17 09:21 | Outpatient (BNVA) | payer MEDICAID, SELFPAY | PROVIDERS: PCP Family Medicine; Visit Provider Physician Assistant Surgical | DX: L98.7 Excessive and redundant skin and subcutaneous tissue (principal); Z98.84 Bariatric surgery status; Z79.899 Other long term (current) drug therapy | CPT/HCPCS: 99212 ==

== ENCOUNTER 2024-12-12 14:49 | Outpatient (REF) | payer MEDICAID, SELFPAY ==
[2024-12-12 16:49] LABS: MANUAL DIFF FLAG NO
[2024-12-12 16:55] LABS: Basophils Percent Auto 0.5 % (0-2); Eosinophils Absolute Auto 0.1 X10*3/uL (0.0-0.4); Eosinophils Percent Auto 1.2 % (0-4); Hematocrit 36.9 % (37.0-47.0); Hemoglobin 12.4 g/dl (12.0-16.0); Imm Gran Abs Auto 0.02 X10*3/uL (0.00-0.03); Imm Gran Pct Auto 0.2 % (0.0-0.4); Lymphocytes Absolute Auto 3.2 X10*3/uL (1.2-4.9); Lymphocytes Percent Auto 38.4 % (20-40); Mean Corpuscular HGB Conc 33.6 g/dl (31.0-35.0); Mean Corpuscular Hemoglobin 31.3 pg (27.0-33.0); Mean Corpuscular Volume 93.2 fL (80.0-98.0); Mean Platelet Volume 10.9 fL (9.4-12.3); Monocytes Absolute Auto 0.7 X10*3/uL (0.1-1.2); Monocytes Percent Auto 7.9 % (2-11); Neutrophils Absolute Auto 4.3 x10*3/uL (2.0-8.3); Neutrophils Percent Auto 51.8 % (45-73); Platelet Count 306 X10*3/uL (160-400); Red Blood Count 3.96 X10*6/uL (4.20-5.50); Red Cell Distribution Width 12.1 % (11.0-16.0); White Blood Count 8.2 X10*3/uL (4.8-10.8)
[2024-12-12 17:11] LABS: Anion Gap 11 (12-20); Blood Urea Nitrogen 13 mg/dL (9-16); Calcium 8.9 mg/dL (8.4-10.2); Carbon Dioxide 23 mmol/L (22-29); Chloride 109 mmol/L (96-108); Estimated Glomerular Filt Rate > 60; Glucose Random 82 mg/dL (60-115); Potassium 3.8 mmol/L (3.3-5.1); Sodium 139 mmol/L (135-145)
[2024-12-16 18:19] LABS: C. trachomatis RNA TMA DETECTED (NOT DETECTED); N. gonorrhoeae RNA TMA NOT DETECTED (NOT DETECTED)
[2024-12-18 14:34] LABS: Vitamin B1 13 nmol/L (8-30)
== END 2024-12-12 14:50 | disposition home or self-care (01) ==
LOC: HO.HHCL 14:49
PROVIDERS: Family Medicine; Visit Provider Physician Assistant Surgical
DX: Z01.419 Encounter for gynecological examination (general) (routine) without abnormal findings (principal); R10.84 Generalized abdominal pain; R63.4 Abnormal weight loss; Z98.84 Bariatric surgery status
CPT/HCPCS: 36415; 80048; 84425; 85025; 87491; 87591; 87661; 88175

== ENCOUNTER 2024-12-18 16:38 | Outpatient (REF) | payer MEDICAID, SELFPAY ==
[2024-12-19 12:18] LABS: CT PCR DETECTED (Not Detect.); NG PCR NOT DETECTED (Not Detect.)
== END 2024-12-18 16:39 | disposition home or self-care (01) ==
LOC: HO.LNP 16:38
PROVIDERS: Visit Provider Family Medicine
DX: A74.9 Chlamydial infection, unspecified (principal)
CPT/HCPCS: 87491; 87591

== ENCOUNTER 2025-01-10 16:52 | Outpatient (REF) | payer MEDICAID, SELFPAY ==
--- OUTSIDE RECORDS SUMMARY | 2025-01-10 18:23 | XMS_ITS | Encounter Summary ---
Author Organization [employer] Address [address] [place] [address] Care Team Providers Care Machine Tool Operator Name Role Phone Hailey Sevilla MD Primary Care Provider [phone] Encounter Details Date Type Department Care Team (Late st Contact Info) Description 12/18/2024 Orders Only [facility] [address] [place], [place] [phone] Hailey Sevilla MD [address] [place], [place] [phone] Chlamydia (Primary Dx) Social History Tobacco Use Types Packs/Day Years Used Date Smoking Tobacco: Never Passive Smoke Exposure: Never Smokeless Tobacco: Never Depression Answer Date Recorded Patient Health Questionnaire-9 Score 0 03/09/2024 Patient Health Questionnaire-9 Score 0 03/09/2024 Last PHQ-9: Questionnaire Data Not on file 0 03/09/2024 Housing Stability Answer Date Recorded What is your housing situation today? I have franky delatorre 03/09/[address] you li ve. Do you have problems with any of the following? None of the above 03/09/2024 Food Insecurity Answer Date Recorded Within the past 12 months, y ou worried that your food would run out before you got money to buy more: Never True 03/09/2024 Within the past 12 months,th e food you bought just didn't last and you didn't have enough money to get more: Never True Transportation Answer Date Recorded In the past 12 months, has l ack of transportation kept you from medical appts, meetings, work or from getting things needed for daily living? No 03/09/2024 Utilities Answer Date Recorded In the past 12 months, has t he electric, gas, oil or water company threatened to shut off services in your home? No 03/09/2024 Depression Answer Date Recorded Patient Health Questionnaire-2 Score 0 03/09/2024 Comments Unknown Sex and Gender Information Value Date Recorded Sex Assigned at Female 07/27/2022 10:20 AM EDT Legal Sex Female 10:20 AM EDT Gender Identity Female 07/27/2022 10:20 AM EDT Sexual Orientation Straight 07/27/2022 10 :20 AM EDT documented as of this encounter Plan of Treatment Not on file documented as of this encounter Procedures Procedure Name Priority Date/Time Associated Diagnosis Comments CHLAMYDIA/N. GONORRHOEAE RNA, TMA, UROGENITAL Routine 12/18/2024 1:31 PM EDT Chlamydia documented in this encounter Results * (ABNORMAL) Chlamydia/N. Gonorrhoeae RNA, TMA, Urogenitial (12/18/2024 1:31 PM EDT) CT PCR DETECTED(A) Not Detect. [facility] Comment:Detected results may be observed after successful antibiotictreatment due to target nucleic acids from residualnon-viable chlamydia. As with many diagnostic tests, resultsfrom the Xpert CT/NG assay should be interpreted inconjunction with other laboratory and clinical dataavailable to the clinician.Xpert CT/NG performance has not been evaluated in patientsless than 14 years of age. The assay should not be used forthe evaluationof suspected sexual abuse or for other medico- legalindications. Additional testing is recommended inany circumstance when false positive or false negativeresults could lead to adverse medical, social orpsychological consequences.These results must be reported by the ordering clinician orclinical facility to the [facility] required by state law. NG PCR NOT DETECTED Not Detect. [facility] Comment:A not detected test result does not exclude the possibilityof infection because test results can be affected byimproper specimen collection, concurrent antibiotic therapy,or the number of organisms in the specimen which may bebelow the sensitivity of the test. As with many diagnostictests, results from the Xpert CT/NG assay should beinterpreted in conjunction with other laboratory andclinical data available to the clinician.Xpert CT/NG performance has not been evaluated in patientsless than 14 years of age. The assay should not be used forthe evaluationof suspected sexual abuse or for other medico-legalindications. Additional testing is recommended in anycircumstance when false positive or false negative resultscould lead to adverse medical, social or psychologicalconsequences. Urine (Urine, Random) 12/18/2024 1:31 PM EDT 12/18/2024 4:39 PM EDT Narrative [facility] - 12/19/2024 12:18 PM EDT Vaginal us Hailey Sevilla MD LAB MICROBIOLOGY - GENERAL ORDER SHAKIRA Final Result [facility] [address] [place] [phone] documented in this encounter Visit Diagnoses Diagnosis Chlamydia- Primary Other specified chlamydial infection, in conditions classified elsewhere and of unspecified site documented in this encounter Additional Health Concerns Assessment Noted Time PHQ-9 Depression Total Score: 0 03/09/20 24 1:49 PM EDT documented as of this encounter Care Teams Machine Tool Operator Relationship Specialty Start Date End Date Hailey Sevilla MD [address] [place] [phone] PCP - General Family Medicine 09/27/18 documented as of this encounter
--- OUTSIDE RECORDS SUMMARY | 2025-01-10 18:23 | XMS_ITS | Encounter Summary ---
Author Organization [employer] Address [address] [place] [address] Care Team Providers Care Finisher Plate Name Role Phone Hailey Sevilla MD Primary Care Provider [phone] Encounter Details Date Type Department Care Team (Late st Contact Info) Description 10/05/2024 Orders Only [facility] [address] [place], [place] [phone] Hailey Sevilla MD [address] [place], [place] [phone] Social History Tobacco Use Types Packs/Day Years [...] Procedure Name Priority Date/Time Associated Diagnosis Comments VITAMIN A Routine 10/05/2024 10:35 AM EST documented in this encounter Results * (ABNORMAL) Vitamin A (10/05/2024 10:35 AM EST) Pathologist [facility] Vitamin A (Retinol) 29(A) 38 - 98 mcg/dL [facility] Comment:Vitamin supplementat ion within 24 hours prior toblood draw may affect the accuracy of the results.This test was developed and its analytical performancecharacteristics have been determined by [facility] [place], [place]. It hasnot been cleared or approved by the U.S. Food and DrugAdministration. This assay has been validated pursuantto the CLIA regulations and is used for clinicalpurposes.THIS TEST WAS PERFORMED AT:[employer] [place] [id number] MARQUEZ MD,PHD 10/05/2024 10:3 5 AM EST 10/05/2024 11:32 AM EST us Generic External Data Provider LAB BLOOD ORDERAB LES Final Result [facility] [address] [place] [phone] documented in this encounter Visit Diagnoses Not on filedocumented in this encounter Additional Health Concerns Assessment Noted Time PHQ-9 Depression Total Score: 0 03/09/20 24 1:49 PM EDT documented as of this encounter Care Teams Finisher Plate Relationship Specialty Start Date End Date Hailey Sevilla MD [address] [place] [address] PCP - General Family Medicine 09/27/18 documented as of this encounter
--- OUTSIDE RECORDS SUMMARY | 2025-01-10 18:23 | XMS_ITS | Clinical Summary ---
Author Organization [employer] Address [address] [facility] 7[address] [place] [address] Care Team Providers Care Waiter/Waitress Head Name Role Phone Hailey Sevilla MD Primary Care Provider [phone] Allergies No known active allergies Medications topiramate 50 MG tabletIndication s:Chronic migraine without aura without status migrainosus, not intractable Take 1 tablet (50 mg) by mouth at bedtime. 90 tablet 3 5 Active SUMAtriptan (Imitrex) 50 MG tabletIndication s:Chronic migraine without aura without status migrainosus, not intractable TAKE 1 TABLET BY MOUTH AT ONSET OF MIGRAINE. MAY REPEAT ONCE AFTER 2 HOURS IF NEEDED. NO MORE THAN 4 TABLETS PER DAY 9 tablet 1 5 Active cholecalciferol (Vitamin D-3) 50 MCG (1999 UT) capsule Take 1 capsule (50 mcg) by mouth Once per day. 90 capsule 3 5 Active omeprazole (PriLOSEC) [address] Lua ns:Gastroesophag eal reflux disease, unspecified whether esophagitis present Take 1 tablet by mouth once daily before breakfast as needed for heartburn. Do not crush or chew. 30 capsule 11 5 Active multivitamin () 27-0.8 MG tablet Take 1 tablet by mouth Once per day. 90 tablet 3 5 Active Multiple Vitamins-Iron (Tab-A-Todd/Iron ) tablet Take 1 tablet by mouth Once per day. 5 Active doxycycline (Vibramycin) 100 MG capsule Take 1 capsule (100 mg) by mouth 2 times daily. 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 - EGD with findings of hiatal hernia, GE junction nodule and gastritis. - Markedly elevated LFTs on admission, with the likelihood of a passed stone but LFTs have trended down significantly. - MRCP showed mild periportal edema with no choledocholithiasis. Transaminitis 10/05/2024 Assessment & Plan (10/14/2024 6:45 AM EST): - in a setting of pancreatitis - Liver enzyme level had improved during the hospitalization - will check again - evaluate for celiac disease - refer to GI Chronic migraine without aur a without status migrainosus, not intractable 12/28/2022 Assessment & Plan (10/14/2024 6:47 AM EST): -improve adherence to prohylactic medication topiramate 50 mg at bedtime -continue sumatriptan prn as abortive medication Assessment & Plan (01/03/2023 12:20 PM EDT): -improve adherence to prohylactic medication topiramate 50 mg at bedtime -continue sumatriptan prn as abortive medication -possible KATIE / sleep deprivation; improving sleep quality will improve MUNROE Allergic rhinitis 12/23/2015 Assessment & Plan (10/14/2024 6:47 AM EST): -restart loratadine 10 mg daily and fluticasone nasal spray Assessment & Plan (01/03/2023 12:17 PM EDT): -restart loratadine 10 mg daily and fluticasone nasal spray Resolved Problems Problem Noted Date Diagnosed Date Resolved Date BMI 40.0-44.9, adult 12/28/2022 025 Assessment & Plan (01/03/2023 12:21 PM EDT): -pt is restarting Weight Management Program at [facility] -encouraged to focus on healthy lifestyle, rather than weight Obesity 12/11/2014 10/05/2024 Assessment & Plan (01/03/2023 12:21 PM EDT): -pt is starting weight management clinic and will likely to have an extensive lab evaluation; therefore, I will not order lab today 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 Encounters Date Type Department Care Team Description 12/25/2024 Telephone [facility] [address] [place] [phone] Hailey Sevilla MD Call Back Request 12/21/2024 Telephone [facility] [address] [place] [phone] Lynn Botello, RN Results 12/21/2024 Orders Only [facility] [address] [place] [address] Hailey Sevilla MD Chlamydia (Primary Dx) 12/18/2024 Telephone [facility] [address] [place] [address] Ivanna Parks, RN Results 12/18/2024 Orders Only [facility] [address] [place] [address] Hailey Sevilla MD Chlamydia (Primary Dx) 12/18/2024 Orders Only [facility] [address] [place] [phone] Hailey Sevilla MD 12/12/2024 1:45 PM EDT Procedure Visit [facility] [address] [place] [phone] Hailey Sevilla MD Encounter for well woman exam with routine gynecological exam (Primary Dx); Encounter for IUD removal 12/12/2024 Travel 12/08/2024 Population Health Risk Score [facility] () Department [address] [place] [phone] Provider, Population Health Generic 12/07/2024 Telephone [facility] [address], [place] [phone] Hailey Sevilla MD chart prep 10/18/[address] [phone] Hailey Sevilla MD 10/18/[address] [phone] Hailey Sevilla MD from Last 3 Months Immunizations Name Administration Dates Next Due DTaP 04/30/2000, 7,07/27/1996,04/24,01/17/1996 HPV, Quadrivalent 02/07/2009, 8,02/17/2008,12/30 Hep A, ped/adol, 2 dose 07/16/2010,2009 Hep B, Adolescent or Pediatric 07/27/1996,1995,1995 Hib (HbOC) 03/21/1997, 6,04/24/1996,01/16 IPV 04/30/2000, 6,04/24/1996,03/18 Influenza Injectable Quadriv alant Preservative Free IIV4 MDCK 08/26/2020 Influenza injectable quadriv alent IIV4 with preservative 11/23/2019 Influenza injectable quadriv alent preservative free 06/30/2022,12/22/2016,12/23/2015,12/11 Influenza, IIV3, injectable 07/14/2011 Influenza, Split (incl. tomasa fied surface antigen) 08/02/2013,06/24/2012 Influenza, seasonal, injecta ble, preservative free 10/05/2024 MMR 04/30/2000,11/28/1996 Meningococcal MCV4P ACYW-135 12/08/2011,12/31/19 07 Pfizer Covid-19 Vaccine 12+ 10/05/2024 Pfizer Covid-19 Vaccine 12+ Bivalent 09/07/2022 TD (adult), 2 Lf tetanus tox oid, preservative free, adsorbed 11/23/2019 Tdap 11/24/2016,02/07/2009,12/30/2006 Varicella 02/07/2009,07/06/2008 Family History Medical History Relation Name Comments Kidney disease Mother Relation Name Status Comments Mother Social History Tobacco Use Types Packs/Day Years Used Date Smoking Tobacco: Never Passive Smoke Exposure: Never Smokeless Tobacco: Never Tobacco Cessation:Counseling Given: Not Answered Depression Answer Date Recorded Patient Health Questionnaire-9 [...] Orientation Straight 07/27/2022 10 :20 AM EDT Last Filed Vital Signs Vital Sign Reading Time Taken Comments Blood Pressure 104/66 12/12/2024 2:14 PM EDT Pulse 56 12/12/2024 2:14 PM EDT Temperature 36.2 ??C (97.1 ??F) 12/12/2024 2:14 PM ED T Respiratory Rate 17 12/12/2024 2:14 PM EDT Oxygen Saturation 99% 03/09/2024 1:47 PM EDT Inhaled Oxygen Concentration - - Weight 61.1 kg (134 lb 12.8 oz) 12/12/2024 2:14 PM EDT Height 154.9 cm (5' 1 ) 12/12/2024 2:14 PM EDT Body Mass Index 25.47 12/12/2024 2:14 PM EDT Plan of Treatment Health Maintenance Due Date Last Done Comments Depression Screening 03/09/2025 03/09/2024, 03/09/20 24 SDOH Screening 03/09/2025 03/09/2024 Alcohol/Substance Use Screening 12/12/2025 12/12/2024 Family Planning (PISQ) 12/12/2025 12/12/2024 Tobacco Screening 12/16/2025 12/16/2024 Pap Smear 12/13/2027 12/12/2024 DTaP/Tdap/Td Vaccines (10 - Td or Tdap) 11/23/2029 11/23/2019, 11/24/2016, 02/07/2009, Additional history exists Zoster Vaccines (1 of 2) 11/24/2045 RSV Patients and Patients Aged 60 years or older (1 - 1-dose 75+ series) 11/24/2070 Hepatitis B Vaccines Completed 07/27/1996, 01/17/1996, 1995 HIB Vaccines Completed 03/21/1997, 06/29, 04/24/1996, Additional history exists IPV Vaccines Completed 04/30/2000, 06/29, 04/24/1996, Additional history exists HPV Vaccines Completed 02/07/2009, 03/27, 02/17/2008, Additional history exists Hepatitis A Vaccines Completed 07/16/2010, 11/26/19 10 Meningococcal Vaccine Completed 12/08/2011, 007 HIV Screening Completed 06/30/2022, 06/27/2020 Hepatitis C Screening Completed 06/30/2022, 020 COVID-19 Vaccine Completed 10/05/2024, 08/2022, 06/30/2022, Additional history exists Influenza Vaccine Completed 10/05/2024, , 08/26/2020, Additional history exists Pneumococcal Vaccine: Pediatrics (0 to 5 Years) and At-Risk Patients (6 to 49) Years) Aged Out No longer eligible based on patient's age to complete this topic RSV under 20 months Aged Out No longe r eligible based on patient's age to complete this topic Rotavirus Vaccines Aged Out No longer eligible based on patient's age to complete this topic Procedures Procedure Name Priority Date/Time Associated Diagnosis Comments CHLAMYDIA/N. GONORRHOEAE RNA, TMA, UROGENITAL Routine 12/18/2024 1:31 PM EDT Chlamydia BASIC METABOLIC PANEL Routine 12/12/2024 2:51 PM EDT Generalized abdominal pain Weight loss CBC WITH AUTO DIFFERENTIAL Routine 12/12/2024 2:51 PM EDT Generalized abdominal pain Weight loss CHLAMYDIA/N. GONORRHOEAE AND T. VAGINALIS RNA, QUAL,TMA Routine 12/12/2024 12:00 AM EDT Encounter for well woman exam with routine gynecological exam PAP SMEAR Routine 12/12/2024 12:00 AM EDT Encounter for well woman exam with routine gynecological exam ZZZ HISTORICAL HEPATITIS C AB W/REFL TO HCV RNA, QN, PCR Routine 06/30/2022 9:08 AM EDT HIV 1/2 ANTIGEN/ANTIBODY, FOURTH GENERATION W/RFL Routine 06/30/2022 9:08 AM EDT from Last 3 Months or Most Recently Relevant to Health Maintenance Results * (ABNORMAL) Chlamydia/N. Gonorrhoeae RNA, TMA, Urogenitial (12/18/2024 1:31 PM EDT) CT PCR DETECTED(A) Not Detect. [facility] Comment:Detected results may be observed after [...] the ordering clinician orclinical facility [facility] required by state law. NG PCR NOT DETECTED Not Detect. [facility] Comment:A not detected test result does [...] PM EDT 12/18/2024 4:39 PM EDT Narrative [facility] - 12/19/2024 12:18 PM EDT Vaginal us Hailey Sevilla MD LAB MICROBIOLOGY - GENERAL ORDER SHAKIRA Final Result [facility] [address] [place] [phone] * (ABNORMAL) CBC auto differential (12/12/2024 2:51 PM EDT) White Blood Count 8.2 4.8 - 10.8 X10*3/uL [facility] Red Blood Count 3.96(L) 4.20 - 5.50 X10*6/uL [facility] Hemoglobin 12.4 12.0 - 16.0 g/dl [facility] Hematocrit 36.9(L) 37.0 - 47.0 % [facility] Mean Corpuscular Volume 93.2 80.0 - 98.0 fL [facility] Mean Corpuscular Hemoglobin 31.3 27.0 - 33.0 pg [facility] Mean Corpuscular HGB Conc 33.6 31.0 - 35.0 g/dl [facility] Red Cell Distribution Width 12.1 11.0 - 16.0 % [facility] Platelet Count 306 160 - 400 X10*3/uL [facility] Mean Platelet Volume 10.9 9.4 - 12.3 fL [facility] Neutrophils Percent Auto 51.8 45 - 73 % [facility] Imm Gran Pct Auto 0.2 0.0 - 0.4 % [facility] Lymphocytes Percent Auto 38.4 20 - 40 % [facility] Monocytes Percent Auto 7.9 2 - 11 % [facility] Eosinophils Percent Auto 1.2 0 - 4 % [facility] Basophils Percent Auto 0.5 0 - 2 % [facility] NRBC Pct Auto 0.0 0.0 - 0.2 /100WBC [facility] Neutrophils Absolute Auto 4.3 2.0 - 8.3 x10*3/uL [facility] Imm Gran Abs Auto 0.02 0.00 - 0.03 X10*3/uL [facility] Lymphocytes Absolute Auto 3.2 1.2 - 4.9 X10*3/uL [facility] Monocytes Absolute Auto 0.7 0.1 - 1.2 X10*3/uL [facility] Eosinophils Absolute Auto 0.1 0.0 - 0.4 X10*3/uL [facility] Basophils Absolute Auto 0.0 0.0 - 0.2 X10*3/uL [facility] NRBC Abs Auto 0.000 0.0 - 0.012 X10*3/uL [facility] Blood Venous blood specimen / Unknown 12/12/2024 2:51 PM EDT 12/12/2024 4:48 PM EDT Hailey Sevilla MD LAB BLOOD ORDERABLES Final Resul t Performing Organization Address [facility] Co de Phone Number [facility] [address] [place] [phone] * (ABNORMAL) Basic Metabolic Panel (12/12/2024 2:51 PM EDT) Sodium 139 135 - 145 mmol/L [facility] Potassium 3.8 3.3 - 5.1 mmol/L [facility] Chloride 109(H) 96 - 108 mmol/L [facility] Carbon Dioxide 23 22 - 29 mmol/L [facility] Anion Gap 11(L) 12 - 20 [facility] Urea Nitrogen (BUN) 13 9 - 16 mg/dL [facility] Creatinine, Serum 0.61 0.5 - 1.4 mg/dL [facility] Estimated Glomerular Filt Rate >60 [facility] Comment:Chronic Kidney Disea se: Estimated GFR < 60 mL/min/1.41z1Mfzxni Kidney Disease: Estimated GFR < 15 mL/min/1.73m2 Glucose 82 60 - 115 mg/dL [facility] Calcium 8.9 8.4 - 10.2 mg/dL [facility] Blood Venous blood specimen / Unknown 12/12/2024 2:51 PM EDT 12/12/2024 4:45 PM EDT us Hailey Sevilla MD LAB BLOOD ORDERABLES Final Resul t Performing Organization Address [facility] Co de Phone Number [facility] [address] [place] [phone] * (ABNORMAL) STI testing add on (NG, CT, Trich) (12/12/2024 12:00 AM EDT) Trichomonas (NAAT) NOT DETECTED [facility] Comment:REFERENCE RANGE: NOT DETECTEDThe analytical performance characteristics of thisassay, when used to test SurePath(TM) specimens have beendetermined by [facility]. The modifications havenot been cleared or approved by the FDA. This assay hasbeen validated pursuant to the CLIA regulations and isused for clinical purposes.For additional information, please refer tohttps://education.Stackify/faq/FQG998(This link is being provided for information/educational purposes only.)For additional information, please refer tohttp://education.Stackify/ faq/Trichomonastma(This link is being provided for informational/educational purposes only.)THIS TEST PERFORMED AT:[facility] [address] [phone] DIRECTOR: KIRILL ARCOS MD CTNG Ref Lab DETECTED(A ) NOT DETECTED [facility] Comment:If results do not co rrelate with clinical findings,testing using an alternate molecular target whichamplifies different genetic sequences can beperformed on the same sample for result confirmationwithin 7 days of sample receipt or per performinglaboratory specimen retention policy. Alternatetarget testing is available; 52903 (C. trachomatis)or 44998 (N. gonorrhoeae). NG Ref Lab NOT DETECTED NOT DETECTED [facility] ThinPrep?? vial Cervix uteri structure / Unknown 12/12/2024 12/13/2024 us Hailey Sevilla MD LAB CYTOLOGY ORDERABLES Final Re sult [facility] [address] [place] [address] [phone] * Pap Smear (12/12/2024 12:00 AM EDT) Swab 12/12/2024 12/13/2024 6:2 2 AM EDT Narrative [facility] - 12/21/2024 10:40 AM EDT ----- ------- Name: Jak Izquierdo ?Age/Sex: 29/ ? : 1995 Unit#: [id number] ?? Attend Dr: Delia Ashby ?Re12/12/24 ?Status: DEP REF ? Location: [facility] ? Disch: ? ----- ------- SPEC : [id number] ? RECD: 12/13/24 ? STATUS: ??SOUT ? REQ NUM: [id number] ? YG: 12/12/24-0000 ? SUBM DR: Hailey Sevilla MD ? ENTERED: ??12/13/24 ?SP TYPE: Pap Smr ?OTHR DR: ? ORDERED: ??Pap Smear ? Interpretation ?? Satisfactory for evaluation. ?? Negative for intraepithelial lesion or malignancy. ?? No endocervical cells seen. ?? Coccobacilli consistent with shift in vaginal marky. ?Clinical Information LMP: IUD Previous PAP test: Date not reported, negative PAP Other surgery: Other history: ? Material Received ?? ThinPrep-Cervical ----- ------- Signed (signature on file) DEONNA Stovall (ASCP) 12/21/24 1040 ? ----- ------- ? END OF REPORT ? us Hailey Sevilla MD LAB CYTOLOGY ORDERABLES Final Re sult [facility] [address] [place] [phone] * HEPATITIS C AB W/REFL TO HCV RNA, QN, PCR (06/30/2022 9:08 AM EDT) HEPATITIS C ANTIBODY NON-REACTI VE NON-REACT FERNANDA [facility] INDEX 0.08 <1.00 [facility] Comment: ?? HCV antibody was non-reactive. There is no laboratory ?? evidence of HCV infection. ?? In most cases, no further action is required. However, if recent HCV exposure is suspected, a test for HCV RNA (test code 40118) is suggested. ?? For additional information please refer to http://StackAdapt/faq/LAV20e8 (This link is being provided for informational/ educational purposes only.) ?? 06/30/2022 9:08 AM EDT Hailey Sevilla MD HISTORICAL/NON ORDERABLE LABS Fi nal Result Performing Organization Address [facility] Co de Phone Number CONVERTED LEGACY LABS * HIV 1/2 ANTIGEN/ANTIBODY,FOURTH GENERATION W/RFL (06/30/2022 9:08 AM EDT) HIV-1/2 ANTIGEN AND ANTIBODIES, 4TH GENERATION W/ REFLEX NON-REACT FERNANDA NON-REACT FERNANDA [facility] Comment: HIV-1 antigen and HIV-1/HIV-2 antibodies were not detected. There is no laboratory evidence of HIV infection. ?? PLEASE NOTE: This information has been disclosed to you from records whose confidentiality may be protected by state law. ??If your state requires such protection, then the state law prohibits you from making any further disclosure of the information without the specific written consent of the person to whom it pertains, or as otherwise permitted by law. A general authorization for the release of medical or other information is NOT sufficient for this purpose. ? For additional information please refer to http://One4All.Stackify/faq/DAV758 (This link is being provided for informational/ educational purposes only.) ? The performance of this assay has not been clinically validated in patients less than 2 years old. ?? 06/30/2022 9:08 AM EDT Hailey Sevilla MD LAB BLOOD ORDERABLES Final Resul t [facility] LAB[facility] from Last 3 Months or Most Recently Relevant to Health Maintenance Insurance [employer] [address] [place] [id number] [place] [phone] Care Teams Waiter/Waitress Head Relationship Specialty Start Date End Date Hailey Sevilla MD [address] [place] [phone] PCP - General Family Medicine 09/27/18
--- OUTSIDE RECORDS SUMMARY | 2025-01-10 18:23 | XMS_ITS | Encounter Summary ---
Author Organization [employer] Address [address] [facility] 7t [place] [address] Care Team Providers Care Electronics Design Engineer Name Role Phone Hailey Sevilla MD Primary Care Provider [phone] Encounter Details Date Type Department Care Team ([facility] st Contact Info) Description 12/18/2024 Orders Only [facility] [address] [place], [place] [phone] Hailey Sevilla MD [address] [place], [place] [phone] Social History Tobacco Use Types Packs/Day Years [...] on file documented as of this encounter Visit Diagnoses Not on filedocumented in this encounter Additional Health Concerns Assessment Noted Time PHQ-9 Depression Total Score: 0 03/09/20 24 1:49 PM EDT documented as of this encounter Care Teams Electronics Design Engineer Relationship Specialty Start Date End Date Hailey Sevilla MD [address] [place] [phone] PCP - General Family Medicine 09/27/18 documented as of this encounter
--- OUTSIDE RECORDS SUMMARY | 2025-01-10 18:23 | XMS_ITS | Clinical Summary ---
Author Organization [facility] ity Address [address] [place] [address] Care Team Providers Care Call Or Contact Centre Coach Name Role Phone Unavailable Primary Care Provider Unavailabl e Surgical History Surgery Date Site/Laterality Comments CHOLECYSTECTOMY PROCEDURE: [place] LAPAROSCOPY SURG CHOLECYSTECTOMY BREAST REDUCTION PROCEDURE: [place] BREAST REDUCTION Medical History Medical History Date Comments Anemia DX:Anemia Migraine DX:Migraine Seizure (CMS/HCC V24, CMS/HCC V28) 2015 DX:Seizure ([facility]); COMMENT: r/t migraine, EEG negative per neuro Overweight DX:Overweight Family History Medical History Relation Name Comments Arthritis Maternal Grandfather Arthritis Maternal Grandmother Breast cancer Maternal Grandmother Breast cancer Mother Hypertension Mother Lung cancer Mother Ovarian cancer Mother Arthritis Paternal Grandfather Diabetes Paternal Grandfather Arthritis Paternal Grandmother Diabetes Paternal Grandmother Relation Name Status Comments Maternal Grandfather Maternal Grandmother Mother Paternal Grandfather Paternal Grandmother Social History Tobacco Use Types Packs/Day Years Used Date Smoking Tobacco: Never Smokeless Tobacco: Never Alcohol Use Standard Drinks/Week Comments No 0 (1 standard drink = 0.6 oz pur e alcohol) Comments Unknown Sex and Gender Information Value Date Recorded Sex Assigned at Not on file Legal Sex Female 12:58 AM EST Gender Identity Not on file Sexual Orientation Not on file Obstetrics History Plan of Treatment Health Maintenance Due Date Last Done Comments Hepatitis B Vaccines (1 of 3 - 19+ 3-dose series) 11/24/2014 Cervical Cancer Screening: P ap Smear 11/24/2016 COVID-19 Vaccine ( - 2023-2 5 season) 2024 Influenza Vaccine (Season Ended) 2025 DTaP,Tdap,and Td Vaccines (2 - Td or Tdap) 11/24/2026 11/24/2016 HIB Vaccines Aged Out No longer eligi ble based on patient's age to complete this topic HPV Vaccines Aged Out No longer eligi ble based on patient's age to complete this topic Hepatitis A Vaccines Aged Out No long er eligible based on patient's age to complete this topic IPV Vaccines Aged Out No longer eligi ble based on patient's age to complete this topic MMR Vaccines Aged Out No longer eligi ble based on patient's age to complete this topic Meningococcal ACWY Vaccine Aged Out N o longer eligible based on patient's age to complete this topic Meningococcal B Vaccine Aged Out No l onger eligible based on patient's age to complete this topic Pneumococcal Vaccine: Pediat rics (0 to 5 Years) and At-Risk Patients (6 to 64 Years) Aged Out No longer eligi ble based on patient's age to complete this topic RSV Immunization Patients Un marylou 20 months Aged Out No longer eligible b ased on patient's age to complete this topic Varicella Vaccines Aged Out No longer eligible based on patient's age to complete this topic
--- OUTSIDE RECORDS SUMMARY | 2025-01-10 18:23 | XMS_ITS | Encounter Summary ---
Author Organization [employer] Address [address] [facility] 7t [place] [address] Care Team Providers Care Spray Blender Name Role Phone Hailey Sevilla MD Primary Care Provider [phone] Reason for Visit * Reason Onset Date Comments Call Back Request 12/25/2024 Encounter Details Date Type Department Care Team ([facility] st Contact Info) Description 12/25/2024 Telephone [facility] MEDICINE [address] [place], [place] [phone] Hailey Sevilla MD [address] [place], [place] [phone] Call Back Request Social History Tobacco Use Types Packs/Day Years [...] AM EDT documented as of this encounter Miscellaneous Notes * Telephone Encounter - Ivanna Parks RN - 01/10/2025 8:52 AM EDT Pt presented to [facility] for self swab. Swab completed, processed, and sent to the lab for processing. * Telephone Encounter - Lynn Botello RN - 12/25/2024 3:35 PM EDT TC placed to pt in regards to questions remaining regarding the prescribed antibiotic Doxycycline for the STI. The pt confirmed that she will be finishing this AB tomorrow 12/26/2024. The pt will be coming to the lab on 01/08/2025 to collect the swab to test for confirmation and and effectiveness of the treatment. * Telephone Encounter - Robert Garcia - 12/25/2024 11:47 AM EDT Tc from pt requesting a callback regarding Antibiotics that pt is taking. Contact pt at [phone] documented in this encounter Plan of Treatment Not on file documented as of this encounter Visit Diagnoses Not on filedocumented in this encounter Additional Health Concerns Assessment Noted Time PHQ-9 Depression Total Score: 0 03/09/20 24 1:49 PM EDT documented as of this encounter Care Teams Spray Blender Relationship Specialty Start Date End Date Hailey Sevilla MD [address] [place] [address] PCP - General Family Medicine 09/27/18 documented as of this encounter
--- OUTSIDE RECORDS SUMMARY | 2025-01-10 18:23 | XMS_ITS | Encounter Summary ---
Author Organization [employer] Address [address] [facility] 7t [place] [address] Care Team Providers Care Microwave Supervisor Name Role Phone Hailey Sevilla MD Primary Care Provider [phone] Encounter Details Date Type Department Care Team (Late st Contact Info) Description 12/21/2024 Orders Only [facility] MEDICINE [address] [place], [place] [phone] Hailey Sevilla MD [address] [place], [place] [phone] Chlamydia (Primary Dx) Social History Tobacco Use [...] as of this encounter Plan of Treatment Scheduled Orders Name Type Priority Associated Diagnoses Orde r Schedule Chlamydia/N. Gonorrhoeae RNA, TMA, Urogenitial Microbiology Routine Chlamydia Expected: 12/21/2024 (Approximate), Expires: 12/21/2025 documented as of this encounter Visit Diagnoses Diagnosis Chlamydia- Primary Other specified chlamydial infection, in conditions classified elsewhere and of unspecified site documented in this encounter Additional Health Concerns Assessment Noted Time PHQ-9 Depression Total Score: 0 03/09/20 24 1:49 PM EDT documented as of this encounter Care Teams Microwave Supervisor Relationship Specialty Start Date End Date Hailey Sevilla MD [address] [place] [address] PCP - General Family Medicine 09/27/18 documented as of this encounter
[2025-01-11 10:59] LABS: CT PCR NOT DETECTED (Not Detect.); NG PCR NOT DETECTED (Not Detect.)
== END 2025-01-10 16:53 | disposition home or self-care (01) ==
LOC: HO.HHCLNP 16:52
PROVIDERS: Visit Provider Family Medicine
DX: A74.9 Chlamydial infection, unspecified (principal)
CPT/HCPCS: 87491; 87591

== ENCOUNTER 2025-01-11 10:34 | Outpatient (AMB) | payer MEDICAID, SELFPAY ==
--- NOTE | 2025-01-11 10:30 | A.OFFVIS_ITS ---
VS Expanded 01/11/25 10:34 Height 5 ft 1 in Weight 128 lb BMI 24.2 Intake Visit Reasons: TV PO LSG 09/28/23 Allergies fish derived [FISH] Allergy (Severe, Verified 10/17/24 09:48) Anaphylaxis Iodinated Contrast Media [IV Contrast Dye] Allergy (Severe, Verified 10/17/24 09:48) Anaphylaxis pistachio nut Allergy (Intermediate, Verified 10/17/24 09:48) Swelling Medication List - Last Reconciled 01/11/25 by JOHN Agarwal clotrimazole 1% 1 appl topical BID qamhdwmq-fbb-kvep fum-folic ac 7.5 mg iron-400 mcg 1 tab PO DAILY pantoprazole 40 mg PO DAILY PRN prochlorperazine maleate (Compazine) 5 mg PO BID PRN topiramate 100 mg PO DAILY PRN [vitamin a PO] HPI Comments Details: This?is a?29?yo female who is s/p LSG 09/28/2023. Presents for 15mo post op visit. Weight at last visit on 10/17/2024 was 128.4 pounds with a BMI of 24.3, weight today is essentially the same.? No complaints of nausea, emesis, abdominal pain or reflux, or constipation. Present meal plan includes: 3 small meals of protein, prioritizes protein- chicken or meat, cooks in air fryer taking MVI Exercise routine includes: walking most days Pt reports ongoing rashes of excess skin of abdomen, which bothers her during movement and exercise. Belly button has become increasingly rashy and painful. The moisture that collects here has an unpleasant odor. Has difficulty finding clothes that fit well; has to wear compressive garment to hold excess skin in place. Has tried clotrimazole ointment but still getting some irritation. Excess skin gets in the way when walking and performing other activites of daily living, causing increased discomfort. Have you been diagnosed with reflux (GERD)? takes PPI PRN Score 0-5: 0=no symptoms, 1=noticeable but not bothersome (slight or occasional), 2=noticeable, bothersome but not daily, 3=bothersome and daily, 4=affects daily activities, 5=incapacitating, unable to do daily activities How bad is the heartburn: 0 Heartburn when lying down: 0 Heartburn when standing up: 0 Heartburn after meals: 0 Does heartburn change your diet: 0 Does heartburn wake you up from sleep: 0 Do you have difficulty swallowin Do you have pain with swallowin If you take medication for reflux, does this affect your daily life: 0 Total score: 0 PFSH Medical History Palpitation Shortness of breath Chest pain Asthma KATIE on CPAP Depression Migraines GERD (gastroesophageal reflux disease) Surgical History S/P laparoscopic sleeve gastrectomy Hx of section Hx laparoscopic cholecystectomy Hx of breast reduction, elective Family History Maternal Grandmother Breast cancer Mother Breast cancer Throat cancer Ovarian cancer Family/Other Leukemia Father Prostate cancer Diabetes Heart attack Paternal Grandfather Diabetes Social History Household Members: Family Household Members Other:: minor children ages 5 & 6 Housing: House Are you a primary home child care provider to a significant other at home: No Do you presently have visiting nurse or other home services: No Alcohol intake: former Patient Tobacco Use Status: Never used Tobacco Advance Directives Date on File: 10/15/23 service: No Telehealth Telehealth Telehealth Platform: Telephone Location of provider rendering services: practice address Location of patient: address on file Patient Identification confirmed using: Name, : Yes Telehealth method: voice only Patient verbally consented to treatment: Yes Patient verbally consented to billing insurance company: Yes Patient informed of any privacy concerns related to visit: Yes Minutes spent on Phone/Video with Pt.: 16 Assessment & Plan Assessment & Plan (1) S/P laparoscopic sleeve gastrectomy: Code(s): Z98.84 - Bariatric surgery status Category: Surgical (2) Excess skin: Code(s): L98.7 - Excessive and redundant skin and subcutaneous tissue Category: Medical Plan Continue clotrimazole for rashes of excess skin. Pt is experiencing issues of e xcess skin resulting in frequent painful and malodorous rashes refractory to topical rx, as well as limitation of mobility due to discomfort and need for special clothing. She has also sent me photos previously of these active rashes. Her insurance requires her to be 18mo postop for consideration of panniculectomy. Discussed expected postop course for panniculectomy. RTC 3 months, early March when she will be 18mo postop, in person visit for photos and physical exam.
[2025-01-11 10:34] VITALS: BMI 24.2
--- OUTSIDE RECORDS SUMMARY | 2025-01-11 12:42 | XMS_ITS | Clinical Summary ---
Author Organization [employer] Address [address] [facility] 7t [place] [address] Care Team Providers Care Meat Pickler Name Role Phone Hailey Sevilla MD Primary Care Provider Allergies No known active allergies Medications topiramate [...] (10/14/2024 6:38 AM EST): - hospitalized at [facility] [place] - Initially treated with [...] -pt is restarting Weight Management Program at [facility] -encouraged to focus on healthy lifestyle, rather than weight Obesity 12/11/2014 10/05/2024 Assessment & Plan (01/03/2023 12:21 PM EDT): -pt is starting weight management clinic and will likely to have an extensive lab evaluation; therefore, I will not order lab today 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 Encounters Date Type Department Care Team Description 12/25/2024 Telephone [facility] MEDICINE [address] [place] [phone] Hailey Sevilla MD Call Back Request 12/21/2024 Telephone [facility] [address] [place] [phone] Lynn Botello, RN Results 12/21/2024 Orders Only [facility] [address] [place] [address] Hailey Sevilla MD Chlamydia (Primary Dx) 12/18/2024 Telephone [facility] [address] [place] [address] Ivanna Parks, RN Results 12/18/2024 Orders Only [facility] [address] [place] [address] Hailey Sevilla MD Chlamydia (Primary Dx) 12/18/2024 Orders Only [facility] [address] [place] [phone] Hailey Sevilla MD 12/12/2024 1:45 PM EDT Procedure Visit [facility] [address] [place] [phone] Hailey eSvilla MD Encounter for well woman exam with routine gynecological exam (Primary Dx); Encounter for IUD removal 12/12/2024 Travel 12/08/2024 Population Health Risk Score [facility] () Department [address] [place] [phone] Provider, Population Health Generic 12/07/2024 Telephone [facility] [address] [place], [place] [phone] Hailey Sevilla MD chart prep 10/18/[address] [phone] Hailey Sevilla MD 10/18/[address] [phone] Hailey Sevilla MD from Last 3 Months [...] Comments CHLAMYDIA/N. GONORRHOEAE RNA, TMA, UROGENITAL Routine 01/10/2025 8:48 AM EDT Chlamydia CHLAMYDIA/N. GONORRHOEAE RNA, TMA, UROGENITAL Routine 12/18/2024 [...] Recently Relevant to Health Maintenance Results * Chlamydia/N. Gonorrhoeae RNA, TMA, Urogenitial (01/10/2025 8:48 AM EDT) Only the most recent of2 resultswithin the time period is included. CT PCR NOT DETECTED Not Detect. [facility] Comment:A not detected test result [...] lead to adverse medical, social or psychologicalconsequences. NG PCR NOT DETECTED Not Detect. [facility] Comment:A not detected test result [...] medical, social or psychologicalconsequences. Urine (Urine, Random) 01/10/2025 8:48 AM EDT 01/10/2025 4:52 PM EDT Narrative [facility] - 01/11/2025 10:59 AM EDT Vaginal us Hailey Sevlila MD LAB MICROBIOLOGY - GENERAL ORDER SHAKIRA Final Result [facility] [address] [place], [place] [phone] * (ABNORMAL) CBC auto differential (12/12/2024 2:51 PM EDT) White Blood Count 8.2 4.8 - 10.8 X10*3/uL [facility] Red Blood Count 3.96(L) 4.20 - 5.50 X10*6/uL [facility] Hemoglobin 12.4 12.0 - 16.0 g/dl [facility] Hematocrit 36.9(L) 37.0 - 47.0 % [facility] Mean Corpuscular Volume 93.2 80.0 - 98.0 fL [facility] Mean Corpuscular Hemoglobin 31.3 27.0 - 33.0 pg [facility] Mean Corpuscular HGB Conc 33.6 31.0 - 35.0 g/dl [facility] Red Cell Distribution Width 12.1 11.0 - 16.0 % [facility] Platelet Count 306 160 - 400 X10*3/uL [facility] Mean Platelet Volume 10.9 9.4 - 12.3 fL [facility] Neutrophils Percent Auto 51.8 45 - 73 % [facility] Imm Gran Pct Auto 0.2 0.0 - 0.4 % [facility] Lymphocytes Percent Auto 38.4 20 - 40 % [facility] Monocytes Percent Auto 7.9 2 - 11 % [facility] Eosinophils Percent Auto 1.2 0 - 4 % [facility] Basophils Percent Auto 0.5 0 - 2 % [facility] NRBC Pct Auto 0.0 0.0 - 0.2 /100WBC [facility] Neutrophils Absolute Auto 4.3 2.0 - 8.3 x10*3/uL [facility] Imm Gran Abs Auto 0.02 0.00 - 0.03 X10*3/uL [facility] Lymphocytes Absolute Auto 3.2 1.2 - 4.9 X10*3/uL [facility] Monocytes Absolute Auto 0.7 0.1 - 1.2 X10*3/uL [facility] Eosinophils Absolute Auto 0.1 0.0 - 0.4 X10*3/uL [facility] Basophils Absolute Auto 0.0 0.0 - 0.2 X10*3/uL [facility] NRBC Abs Auto 0.000 0.0 - 0.012 X10*3/uL [facility] Blood Venous blood specimen / Unknown 12/12/2024 2:51 PM EDT 12/12/2024 4:48 PM EDT Hailey Sevilla MD LAB BLOOD ORDERABLES Final Resul t [facility] [address] [place] [phone] * (ABNORMAL) Basic Metabolic Panel (12/12/2024 2:51 PM EDT) Sodium 139 135 - 145 mmol/L [facility] Potassium 3.8 3.3 - 5.1 mmol/L [facility] Chloride 109(H) 96 - 108 mmol/L [facility] Carbon Dioxide 23 22 - 29 mmol/L [facility] Anion Gap 11(L) 12 - 20 [facility] Urea Nitrogen (BUN) 13 9 - 16 mg/dL [facility] Creatinine, Serum 0.61 0.5 - 1.4 mg/dL [facility] Estimated Glomerular Filt Rate >60 [facility] Comment:Chronic Kidney Disea se: Estimated GFR < 60 mL/min/1.42y3Mgmekq Kidney Disease: Estimated GFR < 15 mL/min/1.73m2 Glucose 82 60 - 115 mg/dL [facility] Calcium 8.9 8.4 - 10.2 mg/dL [facility] Blood Venous blood specimen / Unknown 12/12/2024 2:51 PM EDT 12/12/2024 4:45 PM EDT us Hailey Sevilla MD LAB BLOOD ORDERABLES Final Resul t Performing Organization Address [facility]/ZIP Co de Phone Number [facility] [address] [place] [address] [phone] * (ABNORMAL) STI testing add on (NG, CT, Trich) (12/12/2024 12:00 AM EDT) Trichomonas (NAAT) NOT DETECTED [facility] Comment:REFERENCE RANGE: NOT DETECTEDThe analytical performance characteristics of thisassay, when used to test SurePath(TM) specimens have beendetermined by [employer]. The modifications havenot been cleared or approved by the FDA. This assay hasbeen validated pursuant to the CLIA regulations and isused for clinical purposes.For additional information, please refer tohttps://[employer].WeFi/faq/BKQ740(This link is being provided for information/educational purposes only.)For additional information, please refer tohttp://education.WeFi/ faq/Trichomonastma(This link is being provided for informational/educational purposes only.)THIS TEST PERFORMED AT:[facility] [address] [phone] DIRECTOR: KIRILL ARCOS MD CTNG Ref Lab DETECTED(A ) NOT DETECTED [facility] Comment:If results do not co rrelate with clinical findings,testing using an alternate molecular target whichamplifies different genetic sequences can beperformed on the same sample for result confirmationwithin 7 days of sample receipt or per performinglaboratory specimen retention policy. Alternatetarget testing is available; 32774 (C. trachomatis)or 50132 (N. gonorrhoeae). NG Ref Lab NOT DETECTED NOT DETECTED [facility] ThinPrep?? vial Cervix uteri structure / Unknown 12/12/2024 12/13/2024 Hailey Sevilla MD LAB CYTOLOGY ORDERABLES Final Re sult Performing Organization Address [facility]/ZIP Co de Phone Number [facility] [address] [place] [phone] * Pap Smear (12/12/2024 12:00 AM EDT) Swab 12/12/2024 12/13/2024 6:2 2 AM EDT Narrative [facility] - 12/21/2024 10:40 AM EDT ----- ------- Name: Jak Izquierdo ?Age/Sex: 29/F ? : 1995 Unit#: [id number] ?? Attend Dr: Delia Ashby ?Re12/12/24 ?Status: DEP REF ? Location: [facility] ? Disch: ? ----- ------- SPEC : [id number] ? RECD: 12/13/24-621 ? STATUS: ??SOUT ? REQ NUM: [id number] ? YG: 12/12/24-0000 ? SUBM DR: Hailey Sevilla MD ? ENTERED: ??12/13/24-631 ?SP TYPE: Pap Smr ?OTHR : ? ORDERED: ??Pap Smear ? Interpretation ?? [...] ----- ------- ? END OF REPORT ? Hailey Sevilla MD LAB CYTOLOGY ORDERABLES Final Re sult Performing Organization Address City/[facility]/ZIP Co de Phone Number [facility] [address] [place] [address] [phone] * HEPATITIS C AB W/REFL TO [...] a test for HCV RNA (test code 58761) is suggested. ?? For additional information please refer to http://education.WeFi/faq/NXQ88t9 (This link is being provided for informational/ educational purposes only.) ?? 06/30/2022 9:08 AM EDT Hailey Sevilla MD HISTORICAL/NON ORDERABLE LABS Fi nal Result Performing Organization Address [facility] Co de Phone Number [facility]GACY [facility] [...] ? For additional information please refer to http://education.WeFi/faq/ALW384 (This link is being provided for informational/ educational purposes only.) ? The performance of this assay has not been clinically validated in patients less than 2 years old. ?? 06/30/2022 9:08 AM EDT us Hailey Sevilla MD LAB BLOOD ORDERABLES Final Resul t [facility] from Last 3 Months or Most Recently Relevant to Health Maintenance Insurance [address] [place] [address] [phone] [place] [id number] Care Teams Meat Pickler Relationship Specialty Start Date End Date Hailey Sevilla MD [address] [place] [phone] PCP - General Family Medicine 09/27/18
--- OUTSIDE RECORDS SUMMARY | 2025-01-11 12:43 | XMS_ITS | Encounter Summary ---
Author Organization [employer] Address [address] [facility] 7t [place] [address] Care Team Providers Care Cell Phone Repair Technician Name Role Phone Hailey Sevilla MD Primary Care Provider [phone] Encounter Details Date Type Department Care Team (Late st Contact Info) Description 12/21/2024 Orders Only [facility] MEDICINE [address] [place], [place] [phone] Hailey Sevilla MD [address] [place], [place] [phone] Chlamydia (Primary Dx) Social History Tobacco Use [...] UROGENITAL Routine 01/10/2025 8:48 AM EDT Chlamydia documented in this encounter Results * Chlamydia/N. Gonorrhoeae RNA, TMA, Urogenitial (01/10/2025 8:48 AM EDT) CT PCR NOT DETECTED Not Detect. [facility] Comment:A not detected test result [...] psychologicalconsequences. NG PCR NOT DETECTED Not Detect. [facility] Comment:A not detected test result [...] AM EDT 01/10/2025 4:52 PM EDT Narrative [facility] - 01/11/2025 10:59 AM EDT Vaginal us Hailey Sevilla MD LAB MICROBIOLOGY - GENERAL ORDER SHAKIRA Final Result [facility] [address] [place] [phone] documented in this encounter Visit Diagnoses Diagnosis Chlamydia- Primary Other specified chlamydial infection, in conditions classified elsewhere and of unspecified site documented in this encounter Additional Health Concerns Assessment Noted Time PHQ-9 Depression Total Score: 0 03/09/20 24 1:49 PM EDT documented as of this encounter Care Teams Cell Phone Repair Technician Relationship Specialty Start Date End Date Hailey Sevilla MD [address] [place] [phone] PCP - General Family Medicine 09/27/18 documented as of this encounter
--- OUTSIDE RECORDS SUMMARY | 2025-01-11 12:43 | XMS_ITS | Encounter Summary ---
Author Organization [employer] Address [address] [facility] 7t [place] [address] Care Team Providers Care Waiter/Waitress Third Class Name Role Phone Hailey Sevilla MD Primary Care Provider Encounter Details Date Type Department Care Team (Late st Contact Info) Description 10/05/2024 Orders Only [facility] [address] [place], [place] [phone] Hailey Sevilla MD [address] [place], [place] [phone] Social History Tobacco Use Types Packs/Day Years [...] Vitamin A (10/05/2024 10:35 AM EST) Pathologist [facility] Vitamin A (Retinol) 29(A) 38 - 98 mcg/dL [facility] Comment:Vitamin supplementat ion within 24 hours prior toblood draw may affect the accuracy of the results.This test was developed and its analytical performancecharacteristics have been determined by [employer] [place], [place]. It hasnot been cleared or approved by the U.S. Food and DrugAdministration. This assay has been validated pursuantto the CLIA regulations and is used for clinicalpurposes.THIS TEST WAS PERFORMED AT:[employer] [place] [address]JEQVLJGGERRI MARQUEZ MD,PHD 10/05/2024 10:3 5 AM EST 10/05/2024 11:32 AM EST us Generic External Data Provider LAB BLOOD ORDERAB LES Final Result [facility] [address] [place] [phone] documented in this encounter Visit Diagnoses Not on filedocumented in this encounter Additional Health Concerns Assessment Noted Time PHQ-9 Depression Total Score: 0 03/09/20 24 1:49 PM EDT documented as of this encounter Care Teams Waiter/Waitress Third Class Relationship Specialty Start Date End Date Hailey Sevilla MD [address] [place] [address] PCP - General Family Medicine 09/27/18 documented as of this encounter
--- OUTSIDE RECORDS SUMMARY | 2025-01-11 12:43 | XMS_ITS | Encounter Summary ---
Author Organization [employer] Address [address] [facility] 7t [place] [address] Care Team Providers Care Geospatial Image Analyst Name Role Phone Hailey Sevilla MD Primary Care Provider [phone] Encounter Details Date Type Department Care Team (Late st Contact Info) Description 12/18/2024 Orders Only [facility] [address] [place], [place] [phone] Hailey Sevilla MD [address] [place], [place] [phone] Chlamydia (Primary Dx) Social History Tobacco Use [...] PM EDT) CT PCR DETECTED(A) Not Detect. [facility] Comment:Detected results may be observed [...] the ordering clinician orclinical facility to [facility] required by state law. NG PCR NOT DETECTED Not Detect. [facility] Comment:A not detected test result [...] PM EDT 12/18/2024 4:39 PM EDT Narrative [facility] - 12/19/2024 12:18 PM EDT Vaginal us Hailey Sevilla MD LAB MICROBIOLOGY - GENERAL ORDER SHAKIRA Final Result [facility] [address] [place] [phone] documented in this encounter Visit Diagnoses Diagnosis Chlamydia- Primary Other specified chlamydial infection, in conditions classified elsewhere and of unspecified site documented in this encounter Additional Health Concerns Assessment Noted Time PHQ-9 Depression Total Score: 0 03/09/20 24 1:49 PM EDT documented as of this encounter Care Teams Geospatial Image Analyst Relationship Specialty Start Date End Date Hailey Sevilla MD [address] [place] [phone] PCP - General Family Medicine 09/27/18 documented as of this encounter
--- OUTSIDE RECORDS SUMMARY | 2025-01-11 12:43 | XMS_ITS | Encounter Summary ---
Author Organization [employer] Address [address] [facility] 7[address] [place] [address] Care Team Providers Care Signalman Name Role Phone Hailey Sevilla MD Primary Care Provider [phone] Reason for Visit * Reason Onset Date Comments Call Back Request 12/25/2024 Encounter Details Date Type Department Care Team ([facility] st Contact Info) Description 12/25/[address] [facility] [address] [place], [place] [phone] Hailey Sevilla MD [address] [place], [place] [phone] Call Back Request Social History Tobacco Use [...] 01/10/2025 8:52 AM EDT Pt presented to [facility] for self swab. Swab completed, [...] that pt is taking. Contact pt at [phone] documented in this encounter Plan of Treatment Not on file documented as of this encounter Visit Diagnoses Not on filedocumented in this encounter Additional Health Concerns Assessment Noted Time PHQ-9 Depression Total Score: 0 03/09/20 24 1:49 PM EDT documented as of this encounter Care Teams Signalman Relationship Specialty Start Date End Date Hailey Sevilla MD [address] [place] [address] PCP - General Family Medicine 09/27/18 documented as of this encounter
--- OUTSIDE RECORDS SUMMARY | 2025-01-11 12:43 | XMS_ITS | Encounter Summary ---
Author Organization [employer] Address [address] [facility] 7[address] [place] [address] Care Team Providers Care Proposal Manager Name Role Phone Hailey Sevilla MD Primary Care Provider [phone] Encounter Details Date Type Department Care Team ([facility] st Contact Info) Description 12/18/2024 Orders Only [facility] [address] [place], [place] [phone] Hailey Sevilla MD [address] [place], [place] [phone] Social History Tobacco Use Types Packs/Day Years [...] documented as of this encounter Care Teams Proposal Manager Relationship Specialty Start Date End Date Hailey Sevilla MD [address] [place] [id number] PCP - General Family Medicine 09/27/18 documented as of this encounter
--- OUTSIDE RECORDS SUMMARY | 2025-01-11 12:43 | XMS_ITS | Clinical Summary ---
Author Organization [facility] ity Address [address] [place] [address] Care Team Providers Care Software Validation Engineer Name Role Phone Unavailable Primary Care Provider Unavailabl e Surgical History Surgery Date Site/Laterality Comments CHOLECYSTECTOMY PROCEDURE: [place] LAPAROSCOPY SURG CHOLECYSTECTOMY BREAST REDUCTION PROCEDURE: SD BREAST REDUCTION Medical History Medical History Date Comments Anemia DX:Anemia Migraine DX:Migraine Seizure (CMS/HCC V24, CMS/HCC V28) 2015 DX:Seizure ([facility]); COMMENT: r/t migraine, EEG negative per neuro [...]
== END 2025-01-11 10:46 | disposition home or self-care (01) ==
LOC: HO.HBS 10:34
PROVIDERS: PCP Family Medicine; Visit Provider Physician Assistant Surgical
DX: Z98.84 Bariatric surgery status (principal); L98.7 Excessive and redundant skin and subcutaneous tissue
CPT/HCPCS: 99214

== ENCOUNTER 2025-02-20 08:33 | Outpatient (REF) | payer MEDICAID, SELFPAY ==
--- OUTSIDE RECORDS SUMMARY | 2025-02-20 08:52 | XMS_ITS | Clinical Summary ---
Author Organization [facility] ity Address [address] [place] [address] Care Team Providers Care Modeling And Simulation Analyst Name Role Phone Unavailable Primary Care Provider Unavailabl e Surgical History Surgery Date Site/Laterality Comments CHOLECYSTECTOMY PROCEDURE: [place] LAPAROSCOPY SURG CHOLECYSTECTOMY BREAST REDUCTION PROCEDURE: [place] BREAST REDUCTION Medical History Medical History Date Comments Anemia DX:Anemia Migraine DX:Migraine Seizure (CMS/HCC V24, CMS/HCC V28) 2015 DX:Seizure ([facility]); COMMENT: r/t migraine, EEG negative per neuro [...] Screening: P ap Smear 11/24/2016 COVID-19 Vaccine (2023-2 5 season) 2024 Influenza Vaccine (Season Ended) [...]
[2025-02-20 11:47] LABS: Syphilis Screen Nonreactive (Nonreactive)
[2025-02-20 11:53] LABS: HBsAGNum1 0.27 S/CO (0.00-0.99); HIV AB/AG Nonreactive (Nonreactive); HIV Num 1 0.06 S/CO (0.00-0.99); Hepatitis B Surface Antigen Negative (Negative); ~HepC Num1 0.12 S/CO (0.00-0.79); ~Hepatitis C Antibody Nonreactive (Nonreactive)
[2025-02-20 13:07] LABS: CT PCR NOT DETECTED (Not Detect.); NG PCR NOT DETECTED (Not Detect.)
== END 2025-02-20 08:34 | disposition home or self-care (01) ==
LOC: HO.HHCL 08:33
PROVIDERS: Visit Provider Family Medicine
DX: Z11.3 Encounter for screening for infections with a predominantly sexual mode of transmission (principal)
CPT/HCPCS: 86780; 86803; 87340; 87389; 87491; 87591

== ENCOUNTER 2025-04-17 08:10 | Emergency (ER) | payer MEDICAID, SELFPAY ==
--- NOTE | 2025-04-17 08:28 | ED.GENADULT ---
HPI - General Adult General Chief complaint: General Medical Stated complaint: headaches low back pain congestion Time Seen by Provider: 04/17/25 08:27 Source: patient, RN notes reviewed and old records reviewed Mode of arrival: ambulatory Limitations: no limitations History of Present Illness ED Provider: Peter HPI narrative: Patient is a 29-year-old female presenting to the emergency department with complaint of congestion, cough, body aches and headache since yesterday. States she took Tylenol last night but nothing today. Significant other here with similar symptoms. Denies fevers. Denies chest pain, palpitations, abdominal pain. MD complaint: cough, body aches Onset (ago): day(s) Related Data Home Medications ?Medication ?Instructions ?Recorded ?Confirmed topiramate 100 mg tablet 100 mg PO DAILY PRN Migraine 02/10/23 01/11/25 Headache pantoprazole 40 mg tablet,delayed 40 mg PO DAILY PRN Heartburn 09/09/24 01/11/25 release vitamin a PO 10/17/24 01/11/25 Previous Rx's ?Medication ?Instructions ?Recorded prochlorperazine maleate 5 mg 5 mg PO BID PRN nausea and 09/13/24 tablet (Compazine) vomiting #10 tabs clotrimazole 1 % topical cream 1 appl topical BID #45 grams 10/17/24 [id number] 1 tab PO DAILY #90 tabs 10/17/24 fumarate 7.5 mg-folic acid 400 mcg tablet Allergies Allergy/AdvReac Type Severity Reaction Status Date / Time fish derived (FISH) Allergy Severe Anaphylaxis Verified 04/17/25 08:38 Iodinated Contrast Media (IV Allergy Severe Anaphylaxis Verified 04/17/25 08:38 Contrast Dye) pistachio nut Allergy Intermediate Swelling Verified 04/17/25 08:38 Review of Systems Review of Systems: As per HPI Yes all other systems are reviewed and are negative Constitutional: Constitutional: Reports as per HPI PMFSH Past Medical History Medical History Palpitation Shortness of breath Chest pain Asthma KATIE on CPAP Depression Migraines GERD (gastroesophageal reflux disease) Surgical History S/P laparoscopic sleeve gastrectomy Hx of section Hx laparoscopic cholecystectomy Hx of breast reduction, elective Family History Family History Maternal Grandmother Breast cancer Mother Breast cancer Throat cancer Ovarian cancer Family/Other Leukemia Father Prostate cancer Diabetes Heart attack Paternal Grandfather Diabetes Social History Social History Household Members: Family Household Members Other:: minor children ages 5 & 6 Housing: House Are you a primary director of career resources to a significant other at home: No Do you presently have visiting nurse or other home services: No Unable to assess alcohol history related to: Unknown Alcohol intake: former Patient Tobacco Use Status: Never used Tobacco Smoked in Last 30 Days: No Use of substances other than those prescribed or required for medical reasons: Unknown Advance Directives: Yes Advance Directives on File: Yes Advance Directives Date on File: 10/15/23 Patient : No service: No Physical Exam ED Vital Signs: Vital Signs - 24 hr 04/17/25 08:37 Temperature 99.3 F Pulse Rate 72 Respiratory Rate 18 Blood Pressure 99/68 Pulse Oximetry 100 Oxygen Delivery Method Room Air BMI result Body Mass Index 24.7 Vital signs have been reviewed and appear to be correct. Blood pressure normal. Heart rate normal. Respiratory rate normal. Temperature normal. Oxygen saturation normal. Const General: cooperative, healthy appearing and no acute distress Orientation/consciousness: oriented to person, oriented to place, oriented to time and patient oriented x3 Limitations: no limitations HENMT Head: Yes normocephalic and Yes atraumatic Ears: external ears normal, TM's normal bilaterally and EAC's normal General nose exam: Normal external nose present, Normal nasal mucous membranes and turbinates present and Normal septum present Face and sinus: Yes face symmetric Mouth: oropharynx normal and moist mucous membranes Throat: Yes posterior oropharynx normal, Yes uvula midline and No uvular edema Eyes Pupils: Equal, round and reactive pupils present Neck Neck: Yes normal visual inspection, Yes no lymphadenopathy and Yes supple Resp Effort & Inspection: normal respiratory effort and able to speak in complete sentences Auscultation: clear to auscultation bilaterally Cardio Rate: regular rate Rhythm: regular rhythm Heart sounds: S1 normal heart sound present and S2 normal heart sound present GI Palpation (GI): Soft to palpation and nontender Auscultation: normoactive bowel sounds General: Yes no CVA tenderness Back/Spine/Pelvis Back: no CVA tenderness Skin General skin exam: elasticity normal and turgor normal Neuro General: oriented to person, oriented to place, oriented to time, patient oriented x3, moves all extremities, no focal motor deficits and CN's II-XI intact bilaterally Cranial nerves: Yes Equal, round and reactive pupils present Cognition (Neuro): normal cognition Extrem General: Yes full ROM, Yes no pedal edema and Yes no calf tenderness Psych Mental Status: mental status grossly normal Affect: normal affect Thought process: Normal thought process present Medications Administered Discontinued Medications Generic Name Dose Route Start Last Admin Trade Name Shawna PRN Reason Stop Dose Admin Acetaminophen 650 mg 04/17/25 09:02 04/17/25 09:11 Acetaminophen 325 Mg Tablet PO 04/17/25 09:03 650 mg ONCE ONE Administration Ibuprofen 400 mg 04/17/25 09:02 04/17/25 09:11 Ibuprofen 400 Mg Tablet PO 04/17/25 09:03 400 mg ONCE ONE Administration Medical Decision Making Medical Decision Making [facility] Narrative: Patient is a 29-year-old female presenting to the emergency department with complaint of congestion, cough, body aches and headache since yesterday. On exam patient is awake, A+Ox3, VS WNL, afebrile, normal neurological exam without focal deficits, physical exam unremarkable. Given reported symptoms and physical exam findings, initial differential includes but is not limited to viral URI, COVID, flu, RSV, strep pharyngitis. Unlikely bronchitis, pneumonia as symptoms less than 24 hours. Strep swab negative, viral serology positive for COVID. Patient updated on results and all questions answered. Infection control precautions as well as return precautions discussed at bedside. Advised Tylenol for fever or discomfort as patient has history of gastric sleeve. Follow up with PCP as needed. Patient verbalized understanding of and agreement with plan. Differential Diagnosis Differential Diagnoses: The differential diagnosis associated with the presentation includes As per [facility] Admission/Observation Consideration of admission/observation: Escalation of care including admission/observation considered Patient would have been admitted to the hospital had their clinical presentation warranted hospital admission. Lab Data [facility] Lab Attestation statement: I reviewed the patient's lab results. as per [facility] Labs: Lab Results 04/17/25 Range/Units 09:10 Influenza Type A (PCR) NEGATIVE (Negative) Influenza Type B (PCR) NEGATIVE (Negative) RSV RNA Qual (PCR) NEGATIVE (Negative) SARS-CoV-2 RNA (RT-PCR) POSITIVE A (Negative) S. pyogenes GrpA LEWIS Negative (Negative) External Record Review External record reviewed: Inpatient record, Office record and Outpatient record Discharge Plan Discharge Clinical Impression: COVID-19 Patient Disposition: Home, Self-Care Instructions: Droplet Precautions (ED), COVID-19 (Coronavirus Disease 2019) (ED), COVID-19: Slow the Coronavirus Spread (ED) Additional Instructions: You were evaluated in the emergency department today for cough, body aches, and headache. Your COVID test was resulted as positive. You should continue to isolate at home for another 4 days. You should continue to wear mask for 5 days after that. Be sure to get plenty of rest, plenty of fluids. You can take 650 mg of Tylenol or 600 mg ibuprofen every 6 hours as needed for fever or discomfort. Return to the emergency department with worsening shortness of breath, chest pain, fever that does not improve with Tylenol or ibuprofen, persistent vomiting, or any other concerning symptoms. You should follow-up with your primary care provider. Prescriptions: No Action pantoprazole 40 mg tablet,delayed release (DR/EC) 40 mg PO DAILY PRN (Reason: Heartburn) prochlorperazine maleate [Compazine] 5 mg tablet 5 mg PO BID PRN (Reason: nausea and vomiting) Qty: 10 0RF topiramate 100 mg tablet 100 mg PO DAILY PRN (Reason: Migraine Headache) vitamin a PO zizvgefw-uxe-htzb fum-folic ac 7.5 mg iron-400 mcg tablet 1 tab PO DAILY Qty: 90 3RF clotrimazole 1 % cream 1 appl topical BID Qty: 45 3RF Stand Alone Forms: Work/School Release Print Language: Serbian
[2025-04-17 08:37] VITALS: BP 99/68; PULSE 72; RESP 18; TEMP 37.4; O2SAT 100; BMI 24.7
[2025-04-17 09:23] LABS: IDNOW Serial# 55D5AD1C; Strep A Nucleic Acid Negative (Negative)
--- OUTSIDE RECORDS SUMMARY | 2025-04-17 09:31 | XMS_ITS | Clinical Summary ---
Author Organization [facility] ity Address [address] [place] [address] Care Team Providers Care Accounting Practice Manager Name Role Phone Unavailable Primary Care Provider Unavailabl e Surgical History Surgery Date Site/Laterality Comments CHOLECYSTECTOMY PROCEDURE: [place] LAPAROSCOPY SURG CHOLECYSTECTOMY BREAST REDUCTION PROCEDURE: NM BREAST REDUCTION Medical History Medical History Date Comments Anemia DX:Anemia Migraine DX:Migraine Seizure (CMS/HCC V24, CMS/HCC V28) 2015 DX:Seizure ([facility]); COMMENT: r/t migraine, EEG negative per neuro [...] Vaccine ( - 2023-2 5 season) 2024 Depression Screening 09/27/2024 Influenza Vaccine (#1) 2025 DTaP,Tdap,and Td Vaccines (2 - Td [...] 5 Years) and At-Risk Patients (6 to 49 Years) Aged Out No longer eligi ble based on patient's age to complete this topic RSV Immunization Patients Un marylou 20 months Aged Out No longer eligible b ased on patient's age to complete this topic Varicella Vaccines Aged Out No longer eligible based on patient's age to complete this topic
[2025-04-17 09:55] LABS: Resp Syncy Virus RNA Qual PCR NEGATIVE (Negative); SARS COV2 PCR INHOUSE POSITIVE (Negative)
[2025-04-17 10:48] VITALS: BP 110/66; PULSE 91; RESP 16; TEMP 36.9; O2SAT 98
== END 2025-04-17 10:49 | disposition home or self-care (01) ==
PROVIDERS: Registered Nurse Emergency; Emergency Provider Emergency Medicine; PCP Family Medicine
DX: U07.1 COVID-19 (principal); R05.9 Cough, unspecified; R51.9 Headache, unspecified; J45.909 Unspecified asthma, uncomplicated
CPT/HCPCS: 87637; 87651; 99283; 99284

== ENCOUNTER 2025-04-25 16:33 | Emergency (ER) | payer MEDICAID, SELFPAY ==
[2025-04-25 17:43] VITALS: BP 106/66; PULSE 49; RESP 15; O2SAT 100; BMI 24.6
[2025-04-25 18:31] LABS: Hematocrit 32.7 % (37.0-47.0); Hemoglobin 11.5 g/dl (12.0-16.0); Imm Gran Abs Auto 0.01 X10*3/uL (0.00-0.03); Imm Gran Pct Auto 0.1 % (0.0-0.4); Lymphocytes Absolute Auto 3.3 X10*3/uL (1.2-4.9); MANUAL DIFF FLAG NO; Mean Corpuscular HGB Conc 35.2 g/dl (31.0-35.0); Mean Corpuscular Hemoglobin 31.9 pg (27.0-33.0); Mean Corpuscular Volume 90.8 fL (80.0-98.0); NRBC Abs Auto 0.000 X10*3/uL (0.0-0.012); NRBC Pct Auto 0.0 /100WBC (0.0-0.2); Platelet Count 289 X10*3/uL (160-400); Red Blood Count 3.60 X10*6/uL (4.20-5.50); White Blood Count 8.0 X10*3/uL (4.8-10.8)
[2025-04-25 18:33] LABS: Appearance Urine Clear; Glucose Urine UA Negative (Negative); PH 5.5 (5.0-9.0); Specific Gravity - Urine >= 1.030 (1.005-1.025); UMIC TRIGGER UA YES; UPreg QC Valid YES
[2025-04-25 18:43] LABS: Anion Gap 11 (12-20); Blood Urea Nitrogen 18 mg/dL (9-16); Calcium 8.5 mg/dL (8.4-10.2); Carbon Dioxide 25 mmol/L (22-29); Chloride 110 mmol/L (96-108); Creatinine Clr Calc Pharmacy 105.3; Estimated Glomerular Filt Rate > 60; Potassium 3.9 mmol/L (3.3-5.1); Sodium 142 mmol/L (135-145)
--- NOTE | 2025-04-25 19:39 | ED_ITS ---
HPI - General Adult General Chief complaint: Vaginal Bleeding Stated complaint: unusual bleeding from vagina Time Seen by Provider: 04/25/25 18:26 Source: patient Limitations: no limitations History of Present Illness ED Provider: Kiana Foster PA-C HPI narrative: 29-year-old female presents with vaginal bleeding. Patient states she had her last menstrual period on April 22. Over the past 3 days she has developed recurrent bleeding. The bleeding is not heavy, it is as if she is having her normal menstrual cycle. She is concerned because she technically should not be due yet for another cycle. Patient did discontinue the use of her IUD 3 months ago. Related Data Home Medications ?Medication ?Instructions ?Recorded ?Confirmed topiramate 100 mg tablet 100 mg PO DAILY PRN Migraine 02/10/23 01/11/25 Headache pantoprazole 40 mg tablet,delayed 40 mg PO DAILY PRN H eartburn 09/09/24 01/11/25 release vitamin a PO 10/17/24 01/11/25 Previous Rx's ?Medication ?Instructions ?Recorded prochlorperazine maleate 5 mg 5 mg PO BID PRN nausea a nd 09/13/24 tablet (Compazine) vomiting #10 tabs clotrimazole 1 % topical cream 1 appl topical BID #45 grams 10/17/24 [id number]-eshknfdw-deoc 1 tab PO DAILY #90 tabs fumarate 7.5 mg-folic acid 400 mcg tablet Allergies Allergy/AdvReac Type Severity Reaction Status Date / Time fish derived (FISH) Allergy Severe Anaphylaxis Verified 04/25/25 17:46 Iodinated Contrast Media (IV Allergy Severe Anaphylaxis Verified 04/25/25 17:46 Contrast Dye) pistachio nut Allergy Intermediate Swelling Verified 04/25/25 17:46 Review of Systems 2 Review of Systems: Yes all other systems are reviewed and are negative Constitutional: Constitutional: Denies fatigue and Denies fever(s) Cardiovascular: Cardiovascular: Denies chest pain and Denies dyspnea Respiratory: Respiratory: Denies dyspnea Gastrointestinal: Gastrointestinal: Denies abdominal pain, Denies nausea and Denies vomiting Genitourinary: Genitourinary: Denies pelvic pain Endocrine: Endocrine: Denies fatigue PMFSH Past Medical History Attestation statement: The following information was validated with the patient. Medical History Palpitation Shortness of breath Chest pain Asthma KATIE on CPAP Depression Migraines GERD (gastroesophageal reflux disease) Surgical History S/P laparoscopic sleeve gastrectomy Hx of section Hx laparoscopic cholecystectomy Hx of breast reduction, elective Family History Family History Maternal Grandmother Breast cancer Mother Breast cancer Throat cancer Ovarian cancer Family/Other Leukemia Father Prostate cancer Diabetes Heart attack Paternal Grandfather Diabetes Social History Social History Household Members: Family Household Members Other:: minor children ages 5 & 6 Housing: House Are you a primary career based intervention coordinator to a significant other at home: No Do you presently have visiting nurse or other home services: No Unable to assess alcohol history related to: Unknown Alcohol intake: former Patient Tobacco Use Status: Never used Tobacco Smoked in Last 30 Days: No Use of substances other than those prescribed or required for medical reasons: No Advance Directives: Yes Advance Directives on File: Yes Advance Directives Date on File: 10/15/23 Do you have a plan to hurt others: No Plan service: No Physical Exam ED Vital Signs: Vital Signs - 24 hr 04/25/25 17:43 Pulse Rate 49 L Respiratory Rate 15 Blood Pressure 106/66 Pulse Oximetry 100 Oxygen Delivery Method Room Air BMI result Body Mass Index 24.6 Const Other: Alert Orientation/consciousness: patient oriented x3 Resp Effort & Inspection: normal respiratory effort Cardio Other: Normal peripheral perfusion Skin Other: Warm dry no rash Neuro General: patient oriented x3, gait normal, no focal motor deficits and CN's II- XI intact bilaterally Psych Other: Cooperative Medical Decision Making Medical Decision Making MDM Narrative: 29-year-old female presents with vaginal bleeding. Patient states she had her last menstrual period on April 22. Over the past 3 days she has developed recurrent bleeding. The bleeding is not heavy, it is as if she is having her normal menstrual cycle. She is concerned because she technically should not be due yet for another cycle. Patient did discontinue the use of her IUD 3 months ago. No chronic issues History: Per patient I have considered the following differential diagnoses: Dysfunctional uterine bleeding, menstruation, dysmenorrhea, menometrorrhagia, fibroid, ectopic Plan: Med biggest concerns for ectopic, however the patient is not , her bleeding is consistent with the a menstrual cycle. I explained to the patient that women can have irregular cycles, they given she discontinue the IUD, this could be part of this picture. I told her the easiest way to regulate is to go back on control. She verbalizes understanding. The remainder of your screening labs were normal I have independently reviewed the following tests: Labs: No leukocytosis, not anemic, no electrolyte abnormality, not , urine not infected. Lab Data 04/25/25 18:19 04/25/25 18:20 Labs: Lab Results 04/25/25 04/25/25 04/25/25 Range/Units 18:19 18:20 18:22 WBC 8.0 (4.8-10.8) X10*3/uL RBC 3.60 L (4.20-5.50) X10*6/uL Hgb 11.5 L (12.0-16.0) g/dl Hct 32.7 L (37.0-47.0) % MCV 90.8 (80.0-98.0) fL MCH 31.9 (27.0-33.0) pg MCHC 35.2 H (31.0-35.0) g/dl RDW 11.6 (11.0-16.0) % Plt Count 289 (160-400) X10*3/uL MPV 10.2 (9.4-12.3) fL Immature Gran % (Auto) 0.1 (0.0-0.4) % Neut % (Auto) 50.6 (45-73) % Lymph % (Auto) 41.1 H (20-40) % [place] % (Auto) 6.5 (2-11) % Eos % (Auto) 1.1 (0-4) % Baso % (Auto) 0.6 (0-2) % Lymph # (Auto) 3.3 (1.2-4.9) X10*3/uL [place] # (Auto) 0.5 (0.1-1.2) X10*3/uL Eos # (Auto) 0.1 (0.0-0.4) X10*3/uL Baso # (Auto) 0.1 (0.0-0.2) X10*3/uL Abs Immat Gran (auto) 0.01 (0.00-0.03) X10*3/uL Absolute Neuts (auto) 4.1 (2.0-8.3) x10*3/uL Absolute Nucleated RBC 0.000 (0.0-0.012) X10*3/uL Nucleated RBC % (auto) 0.0 (0.0-0.2) /100WBC Sodium 142 (135-145) mmol/L Potassium 3.9 (3.3-5.1) mmol/L Chloride 110 H (96-108) mmol/L Carbon Dioxide 25 (22-29) mmol/L Anion Gap 11 L (12-20) BUN 18 H (9-16) mg/dL Creatinine 0.65 (0.5-1.4) mg/dL Estim Creat Clear Calc 105.3 Estimated GFR > 60 Random Glucose 83 (60-115) mg/dL Calcium 8.5 (8.4-10.2) mg/dL Urine Color Yellow Urine Appearance Clear Urine pH 5.5 (5.0-9.0) Ur Specific [place] >= 1.030 H (1.005-1.025) Urine Protein Negative (Neg-Trace) mg/dL Urine Glucose (UA) Negative (Negative) mg/dL Urine Ketones Trace (Negative) mg/dL Urine Blood Moderate (2+) H (Negative) Urine Nitrite Negative (Negative) Ur Leukocyte Esterase Negative (Negative) Urine RBC 3-5 H (0-2) /HPF Urine WBC 0-5 (0-5) /HPF Ur Squamous Epith Cells 0-2 (0-2) /HPF Urine Bacteria None Seen (None Seen) Hyaline Casts 0-2 (0-2) /LPF Urine Test NEGATIVE (NEGATIVE) Discharge Plan Discharge Clinical Impression: Irregular menstrual cycle Patient Disposition: Home, Self-Care Additional Instructions: All of your screening labs were normal, you were not . By discontinuing the use of the IUD, you can have some irregularity with your cycles as your body acclimates to the hormonal change. The easiest way to self regulate is to resume some form of control. Call your groundwater consultant for an appointment. Prescriptions: No Action pantoprazole 40 mg tablet,delayed release (DR/EC) 40 mg PO DAILY PRN (Reason: Heartburn) prochlorperazine maleate [Compazine] 5 mg tablet 5 mg PO BID PRN (Reason: nausea and vomiting) Qty: 10 0RF topiramate 100 mg tablet 100 mg PO DAILY PRN (Reason: Migraine Headache) vitamin a PO iaqhhpna-hjv-ticn fum-folic ac 7.5 mg iron-400 mcg tablet 1 tab PO DAILY Qty: 90 3RF clotrimazole 1 % cream 1 appl topical BID Qty: 45 3RF Print Language: Montserratian
[2025-04-25 19:51] VITALS: BP 99/63; PULSE 68; RESP 18; TEMP 36.8; O2SAT 100
[2025-04-25 19:58] VITALS: BP 99/63; PULSE 68; RESP 18; TEMP 36.8; O2SAT 100
== END 2025-04-25 19:59 | disposition home or self-care (01) ==
PROVIDERS: Emergency Provider Emergency Medicine; PCP Family Medicine
DX: N92.6 Irregular menstruation, unspecified (principal)
CPT/HCPCS: 36415; 80048; 81001; 81025; 85025; 99283; 99284

== ENCOUNTER 2025-05-02 14:01 | Outpatient (REF) | payer MEDICAID, SELFPAY ==
--- OUTSIDE RECORDS SUMMARY | 2025-05-02 14:37 | XMS_ITS | Clinical Summary ---
Author Organization [facility] ity Address [address] [place] [address] Care Team Providers Care Qualitative Researcher Name Role Phone Unavailable Primary Care Provider Unavailabl e Surgical History Surgery Date Site/Laterality Comments CHOLECYSTECTOMY PROCEDURE: [place] LAPAROSCOPY SURG CHOLECYSTECTOMY BREAST REDUCTION PROCEDURE: [place] BREAST REDUCTION Medical History Medical History Date Comments Anemia DX:Anemia Migraine DX:Migraine Seizure (CMS/HCC V24, CMS/HCC V28) 2015 DX:Seizure ([facility]); COMMENT: r/t migraine, EEG negative per [...]
--- OUTSIDE RECORDS SUMMARY | 2025-05-02 14:37 | XMS_ITS | Clinical Summary ---
Author Organization [employer] Address [address] [facility] [address] [place] [address] Care Team Providers Care Gps Navigation Installer Name Role Phone Hailey Sevilla MD Primary Care Provider [phone] Michelle Cortes RN Unavailable [phone] Laura Layne Unavailable Allergies No known active allergies Medications topiramate 50 MG tabletIndicatio ns:Chronic migraine without aura without status migrainosus, not intractable Take 1 tablet (50 mg) by mouth at bedtime. 90 tablet 3 5 Active SUMAtriptan (Imitrex) 50 MG tabletIndicatio ns:Chronic migraine without aura without status migrainosus, not intractable TAKE 1 TABLET BY MOUTH AT ONSET OF MIGRAINE. MAY REPEAT ONCE AFTER 2 HOURS IF NEEDED. NO MORE THAN 4 TABLETS PER DAY 9 tablet 1 5 Active cholecalciferol (Vitamin D-3) 50 MCG (1999) capsule Take 1 capsule (50 mcg) by mouth Once per day. 90 capsule 3 5 Active omeprazole (PriLOSEC) [address] capsuleIndicati ons:Gastroesoph ageal reflux disease, unspecified whether esophagitis present Take 1 tablet by mouth once daily before breakfast as needed for heartburn. Do not crush or chew. 30 capsule 11 5 Active multivitamin () 27-0.8 MG tablet Take 1 tablet by mouth Once per day. 90 tablet 3 5 Active Multiple Vitamins-Iron (Tab-A-Todd/Iro n) tablet Take 1 tablet by mouth Once per day. 5 Active ferrous sulfate 325 (65 Fe) MG EC tablet Take 1 tablet (325 mg) by mouth every other day. Do not crush, chew, or split. 45 tablet 3 5 Active doxycycline (Vibramycin) 100 MG capsule Take 1 capsule (100 mg) by mouth 2 times daily. 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 Assessment & Plan (10/14/2024 6:46 AM EST): - 10/14/23 - she had significant weight loss since then - continue vitamin supplementation GERD (gastroesophageal reflux disease) Assessment & Plan (10/14/2024 6:48 AM EST): - avoid NSAIDs - continue PPI Idiopathic acute pancreatitis without infection or necrosis 10/05/2024 Assessment & Plan (10/14/2024 6:38 AM EST): - hospitalized [place] [facility] - Initially treated with [...] -pt is restarting Weight Management Program at [facility] -encouraged to focus on healthy lifestyle, rather than weight Obesity 12/11/2014 10/05/2024 Assessment & Plan (01/03/2023 12:21 PM EDT): -pt is starting weight management clinic and will likely to have an extensive lab evaluation; therefore, I will not order lab today 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 [place] [address] Hailey Sevilla MD 04/27/2025 Telephone [facility] [place] [address] Hailey Sevilla MD Appointment Request; ER Follow-up 04/27/2025 Orders Only [facility] [place] [address] Hailey Sevilla MD Abnormal uterine bleeding (AUB) (Primary Dx) 04/26/2025 Telephone [facility] [place] [address] Ramakrishna Campo CNP CHART PREP 04/26/2025 Patient Outreach [facility] [place] [address] Hailey Sevilla MD 04/26/2025 Telephone [facility] [place] [address] Hailey Sevilla MD Nurse Triage 04/25/2025 Orders Only GENERIC EXTERNAL DATA DEPARTMENT Provider, Generic External Data 04/25/2025 Telephone [facility] [place] [address] Hailey Sevilla MD 04/24/2025 Telephone [facility] [place] [address] Hailey Sevilla MD 04/18/2025 Patient Outreach [facility] [place] [address] Hailey Sevilla MD Care Coordination (CM/CHW outreach) 04/18/2025 Patient Outreach [facility] [place] [address] Hailey Sevilla MD Care Coordination (CHW chart review) 04/18/2025 Patient Outreach [facility] [place] [address] Hailey Sevilla MD 04/18/2025 Patient Outreach [address] [address] Hailey Sevilla MD Care Management ([facility]- chart review) 04/18/2025 Patient Outreach [address] [address] Hailey Sevilla MD 04/17/2025 Orders Only GENERIC EXTERNAL DATA DEPARTMENT Provider, Generic External Data 02/20/2025 Results Follow-Up [address] [address] Hailey Sevilla MD Syphilis Screen, Hepatitis C Antibody with Reflex to HCV, RNA, Quantitative, Real-Time PCR, Chlamydia/N. Gonorrhoeae RNA, TMA, Urogenitial, Additional followed-up results: 2 02/16/[address] [address] Ivanna Parks RN Lab Orders 02/16/2025 Orders Only [address] [address] Hailey Sevilla MD Chlamydia (Primary Dx); Routine screening for STI (sexually transmitted infection) from Last 3 Months Immunizations Immunization Administration Dates Next Due DTaP 04/30/2000, 7,07/27/1996,04/24,01/17/1996 [...] Health Questionnaire-2 Score 0 03/09/2024 Comments Unknown Intention Date Recorded Wants to become (finding) 12/12 Sex and Gender Information Value Date Recorded Sex Assigned at Female 07/27/2022 10:20 AM EDT Legal Sex Female 10:20 AM EDT Gender Identity Female 07/27/2022 10:20 AM EDT Sexual Orientation Straight 07/27/2022 10 :20 AM EDT Last Filed Vital Signs Vital Sign Reading Time Taken Comments Blood Pressure 94/62 05/02/2025 2:26 PM EDT Pulse 62 05/02/2025 2:26 PM EDT Temperature 36.4 C (97.6 F) 05/02/2025 2:26 PM EDT Respiratory Rate 14 05/02/2025 2:26 PM EDT Oxygen Saturation 98% 05/02/2025 2:26 PM EDT Inhaled Oxygen Concentration - - Weight 63 kg (138 lb 12.8 oz) 05/02/2025 2:26 PM EDT Height 154.9 cm (5' 1 ) 05/02/2025 2:26 PM EDT Body Mass Index 26.23 05/02/2025 2:26 PM EDT Plan of Treatment Upcoming Encounters Date Type Department Care Team (Late st Contact Info) Description 05/02/2025 3:15 PM EDT Office Visit [facility] [address] [place] [address] Ramakrishna Campo, [employer] [address] [place], [place] [phone] Arrived Health Maintenance Due Date Last Done Comments Depression Screening 03/09/2025 03/09/2024, 03/09/20 24 SDOH Screening 03/09/2025 03/09/2024 Influenza Vaccine (#1) 2025 , 06/30/2022, 08/26/2020, Additional history exists Alcohol/Substance Use Screening 12/12/2025 12/12/2024 Disability Screening 12/12/2025 12/12/2024 Family Planning (PISQ) 12/12/2025 [...] 11/26/19 10 Meningococcal Vaccine Completed 12/08/2011, 007 COVID-19 Vaccine Completed 10/05/2024, 08/2022, 06/30/2022, Additional history exists HIV Screening Completed 02/20/2025, 12/2021, 06/27/2020 Hepatitis C Screening Completed 02/20/2025 , 06/30/2022, 06/27/2020 Meningococcal B Vaccine Aged Out No l onger eligible based on patient's age to complete this topic Pneumococcal Vaccine: Pediatrics (0 to 5 Years) and At-Risk Patients (6 to 49) Years Aged Out No longer eligible based on patient's age to complete this topic RSV under 20 months Aged Out No longe r eligible based on patient's age to complete this topic Rotavirus Vaccines Aged Out No longer eligible based on patient's age to complete this topic Procedures Procedure Name Priority Date/Time Associated Diagnosis Comments URINALYSIS, COMPLETE Routine 04/25/2025 6:22 PM EDT HCG, QL, URINE Routine 04/25/2025 6:22 PM EDT BASIC METABOLIC PANEL Routine 04/25/2025 6:20 PM EDT CBC WITH AUTO DIFFERENTIAL Routine 04/25/2025 6:19 PM EDT SARS COV2/INFLUENZA A/B AND RSV RNA QL NAAT Routine 04/17/2025 9:10 AM EDT STREP A NUCLEIC ACID Routine 04/17/2025 9:10 AM EDT HEPATITIS B SURFACE ANTIGEN, EIA Routine 02/20/2025 8:35 AM EDT Routine screening for STI (sexually transmitted infection) HIV 1/2 ANTIGEN/ANTIBODY, FOURTH GENERATION W/RFL Routine 02/20/2025 8:35 AM EDT Routine screening for STI (sexually transmitted infection) HEPATITIS C AB W/REFL TO HCV RNA, QN, PCR Routine 02/20/2025 8:35 AM EDT Routine screening for STI (sexually transmitted infection) SYPHILIS SCREEN Routine 02/20/2025 8:35 AM EDT Routine screening for STI (sexually transmitted infection) CHLAMYDIA/N. GONORRHOEAE RNA, TMA, UROGENITAL Routine 02/20/2025 8:35 AM EDT Routine screening for STI (sexually transmitted infection) PAP SMEAR Routine 12/12/2024 12:00 AM EDT Encounter for well woman exam with routine gynecological exam from Last 3 Months or Most Recently Relevant to Health Maintenance Results * HCG, Qualitative, Urine (04/25/2025 6:22 PM EDT) Urine NEGATIVE NEGATIVE [facility] Comment:This test was develo ped to detect early . Falsenegative results may occur after the 5th - 7th week ofpregnancy when using this test method. If clinicallyindicated, consider a serum hCG. 04/25/2025 6:22 PM EDT 04/25/2025 6:29 PM EDT us Generic External Data Provider LAB URINE ORDERAB LES Final Result [facility] [address] [place] [phone] * (ABNORMAL) Urinalysis Complete (04/25/2025 6:22 PM EDT) Color Urine Yellow [facility] Appearance Urine Clear [facility] PH 5.5 5.0 - 9.0 [facility] Glucose Urine UA Negative Negative mg/dL [facility] Urine Blood Moderate (2+)(A) Negative [facility] Specific [place] - Urine >=1.030(H) 1.005 - 1.025 [facility] Urine Protein Negative Neg-Trace mg/dL [facility] Urine Ketones Trace Negative mg/dL [facility] Nitrite Urine Negative Negative [facility] Leukocyte Esterase Urine Negative Negative [facility] RBC Urine 3-5(A) 0 - 2 /HPF [facility] Urine WBC 0-5 0 - 5 /HPF [facility] Urine Squamous Epithelial Cell 0-2 0 - 2 /HPF [facility] Urine Bacteria None Seen None Seen [facility] Hyaline Casts, Urine 0-2 0 - 2 /LPF [facility] 04/25/2025 6:22 PM EDT 04/25/2025 6:29 PM EDT us Generic External Data Provider LAB URINE ORDERAB LES Final Result [facility] [address] [place] [phone] * (ABNORMAL) Basic Metabolic Panel (04/25/2025 6:20 PM EDT) Pathologist [facility] Sodium 142 135 - 145 mmol/L [facility] Potassium 3.9 3.3 - 5.1 mmol/L [facility] Chloride 110(H) 96 - 108 mmol/L [facility] Carbon Dioxide 25 22 - 29 mmol/L [facility] Anion Gap 11(L) 12 - 20 [facility] Urea Nitrogen (BUN) 18(H) 9 - 16 mg/dL [facility] Creatinine, Serum 0.65 0.5 - 1.4 mg/dL [facility] Creatinine Clr Calc Pharmacy 105.3 [facility] Comment:Provided height and weight: 154.94 cm,58.967 kg.eGFR (calculated from the MDRD study equation) and eCrCl(calculated from the Cockcroft-Gault equation) are based ondifferent parameters and may not yield comparable results.If eCrCl result is absurd, please check patient'sheight/weight. Estimated Glomerular Filt Rate >60 [facility] Comment:Chronic Kidney Disea se: Estimated GFR < 60 mL/min/1.97y1Mextil Kidney Disease: Estimated GFR < 15 mL/min/1.73m2 Glucose 83 60 - 115 mg/dL [facility] Calcium 8.5 8.4 - 10.2 mg/dL [facility] 04/25/2025 6:20 PM EDT 04/25/2025 6:29 PM EDT us Generic External Data Provider LAB BLOOD ORDERAB LES Final Result [facility] [address] [place] [phone] * (ABNORMAL) CBC auto differential (04/25/2025 6:19 PM EDT) White Blood Count 8.0 4.8 - 10.8 X10*3/uL [facility] Red Blood Count 3.60(L) 4.20 - 5.50 X10*6/uL [facility] Hemoglobin 11.5(L) 12.0 - 16.0 g/dl [facility] Hematocrit 32.7(L) 37.0 - 47.0 % [facility] Mean Corpuscular Volume 90.8 80.0 - 98.0 fL [facility] Mean Corpuscular Hemoglobin 31.9 27.0 - 33.0 pg [facility] Mean Corpuscular HGB Conc 35.2(H) 31.0 - 35.0 g/dl [facility] Red Cell Distribution Width 11.6 11.0 - 16.0 % [facility] Platelet Count 289 160 - 400 X10*3/uL [facility] Mean Platelet Volume 10.2 9.4 - 12.3 fL [facility] Neutrophils Percent Auto 50.6 45 - 73 % [facility] Imm Gran Pct Auto 0.1 0.0 - 0.4 % [facility] Lymphocytes Percent Auto 41.1(H) 20 - 40 % [facility] Monocytes Percent Auto 6.5 2 - 11 % [facility] Eosinophils Percent Auto 1.1 0 - 4 % [facility] Basophils Percent Auto 0.6 0 - 2 % [facility] NRBC Pct Auto 0.0 0.0 - 0.2 /100WBC [facility] Neutrophils Absolute Auto 4.1 2.0 - 8.3 x10*3/uL [facility] Imm Gran Abs Auto 0.01 0.00 - 0.03 X10*3/uL [facility] Lymphocytes Absolute Auto 3.3 1.2 - 4.9 X10*3/uL [facility] Monocytes Absolute Auto 0.5 0.1 - 1.2 X10*3/uL [facility] Eosinophils Absolute Auto 0.1 0.0 - 0.4 X10*3/uL [facility] Basophils Absolute Auto 0.1 0.0 - 0.2 X10*3/uL [facility] NRBC Abs Auto 0.000 0.0 - 0.012 X10*3/uL [facility] 04/25/2025 6:19 PM EDT 04/25/2025 6:29 PM EDT us Generic External Data Provider LAB BLOOD ORDERAB LES Final Result [facility] [address] [place] [phone] [phone] * Strep A Nucleic Acid (04/17/2025 9:10 AM EDT) IDNOW SERIAL# [id number] [facility] Strep A Nucleic Acid Negative Negative [facility] Comment:All test results mus t be correlated with clinical findings.This test has not been evaluated for monitoring treatment ofinfection.Additional follow-up testing using the culture method isrequired if the result is negative and clinical symptomspersist, or in the event of an acute rheumatic feveroutbreak. 04/17/2025 9:10 AM EDT 04/17/2025 9:13 AM EDT Generic External Data Provider LAB MICROBIOLOGY - GENERAL ORDERABLES Final Result Performing Organization Address [facility] de Phone Number [facility] [address] [place] [phone] * (ABNORMAL) SARS-CoV-2 RNA, Influenza A/B, and RSV RNA, Ql NAAT (04/17/2025 9:10 AM EDT) Influenza A PCR NEGATIVE Negative [facility] Influenza B PCR NEGATIVE Negative [facility] Resp Syncy Virus RNA Qual PCR NEGATIVE Negative [facility] SARS COV2 PCR POSITIVE(A) Negative [facility] Comment:All test results mus t be correlated with clinical findings.Negative results do not preclude SARS-CoV2, influenza Avirus, influenza B virus and/or RSV infectionand should not be used as the sole basis for treatment orother patient management decisions. Negative results must becombined with clinical observations, patient history, andepidemiological information.This test has not been evaluated for monitoring treatment ofinfection.This test has been authorized by the FDA under an EmergencyUse Authorization (EUA) for use by authorized laboratories.Testing performed on the [employer] GeneXpert utilizingreal-time RT-PCR.All SARS CoV2 and positive influenza A/B results arereported to [facility]. 04/17/2025 9:10 AM EDT 04/17/2025 9:13 AM EDT Generic External Data Provider LAB MICROBIOLOGY - GENERAL ORDERABLES Final Result Performing Organization Address [facility] Co de Phone Number [facility] [address] [place] [phone] * Syphilis Screen (02/20/2025 8:35 AM EDT) [facility] Syphilis Screen Nonreactive Nonreactive [facility] Blood 02/20/2025 8:35 AM EDT 02/20/2025 11:06 AM EDT us Hailey Sevilla MD LAB BLOOD ORDERABLES Final Resul t Performing Organization Address City/[facility] Co de Phone Number [facility] [address] [place] [phone] * Hepatitis C Antibody with Reflex to HCV, RNA, Quantitative, Real-Time PCR (02/20/2025 8:35 AM EDT) [facility] Hepatitis C Antibody Nonreactive Nonreactive [facility] Comment:Antibodies to HCV no t detected; does not exclude early acuteHCV infection. Blood Venous blood specimen / Unknown 02/20/2025 8:35 AM EDT 02/20/2025 11:06 AM EDT Hailey Sevilla MD LAB BLOOD ORDERABLES Final Resul t Performing Organization Address [facility] Co de Phone Number [facility] [address] [place] [phone] * Chlamydia/N. Gonorrhoeae RNA, TMA, Urogenitial (02/20/2025 8:35 AM EDT) [facility] CT PCR NOT DETECTED Not Detect. [facility] Comment:A not detected test result [...] psychologicalconsequences. NG PCR NOT DETECTED Not Detect. [facility] Comment:A not detected test result [...] medical, social or psychologicalconsequences. Urine (Urine, Random) 02/20/2025 8:35 AM EDT 02/20/2025 11:11 AM EDT Narrative [facility] - 02/20/2025 1:07 PM EDT Urine Hailey Sevilla MD LAB MICROBIOLOGY - GENERAL ORDER SHAKIRA Final Result Performing Organization Address City/[facility]/ZIP Co de Phone Number [facility] [address] [place] [phone] * Hepatitis B surface antigen, EIA (02/20/2025 8:35 AM EDT) Hepatitis B Surface Ag Negative Negative [facility] Blood Venous blood specimen / Unknown 02/20/2025 8:35 AM EDT 02/20/2025 11:06 AM EDT Hailey Sevilla MD LAB BLOOD ORDERABLES Final Resul t Performing Organization Address [facility] Co de Phone Number [facility] [address] [place] [phone] * HIV-1/2 Antigen and Antibodies, Fourth Generation, with Reflexes (02/20/2025 8:35 AM EDT) HIV AB/AG Nonreactive Nonreactive [facility] Comment:HIV-1 p24 Ag and/or HIV-1/HIV-2 Ab not detected.A test result that is nonreactive does not exclude thepossibility of exposure to or infection with HIV-1 and/orHIV-2. Nonreactive results in this assay for individualswith prior exposure to HIV-1 and/or HIV-2 may be due toantigen and antibody levels that are below the limit ofdetection of this assay.The [employer] HIV Ag/Ab Combo assay result andsupplemental assay results should be interpreted inconjunction with the patient's clinical presentation,history and other laboratory results. If the results areinconsistent with clinical evidence, additional testing issuggested to confirm the result. Blood Venous blood specimen / Unknown 02/20/2025 8:35 AM EDT 02/20/2025 11:06 AM EDT us Hailey Sevilla MD LAB BLOOD ORDERABLES Final Resul t [facility] [address] [place] [phone] * Pap Smear (12/12/2024 12:00 AM EDT) Swab 12/12/2024 12/13/2024 6:2 2 AM EDT Narrative [facility] - 12/21/2024 10:40 AM EDT ----- ------- Name: Jak Izquierdo Age/Sex: 29/F : 1995 Unit#: [id number] Attend Dr: Delia Ashby Re12/12/24 Status: DEP REF Location: [facility] Disch: ----- ------- SPEC : [id number] RECD: 12/13/24 STATUS: DEEPAK ESTEVEZ NUM: [id number] YG: 12/12/24-[address]: Hailey Sevilla MD ENTERED: 12/13/24 SP TYPE: Pap Smr OTHR DR: ORDERED: Pap Smear Interpretation Satisfactory for evaluation. Negative for intraepithelial lesion or malignancy. No endocervical cells seen. Coccobacilli consistent with shift in vaginal marky. Clinical Information LMP: IUD Previous PAP test: Date not reported, negative PAP Other surgery: Other history: Material Received ThinPrep-Cervical ----- ------- Signed (signature on file) DEONNA Stovall (ASC) 12/21/24 1040 ----- ------- END OF REPORT us Hailey Sevilla MD LAB CYTOLOGY ORDERABLES Final Re sult [facility] [address] [place] [phone] [phone] from Last 3 Months or Most Recently Relevant to Health Maintenance Insurance [id number] Care Teams Gps Navigation Installer Relationship Specialty Start Date End Date Hailey Sevilla MD [address] [place] [phone] PCP - General Family Medicine 09/27/18 Michelle Cortes, CHARLEEN [address] [place] [address] [place] [address] Registered Nurse Family Medicine 04/18/25 Laura Layne 04/18/25
[2025-05-02 16:42] LABS: Reticulocytes Absolute 0.045 X10*6/uL (0.026-0.095)
[2025-05-02 16:59] LABS: Iron 104 mcg/dL (30-160); Percent Iron Saturation 44 % (15-50); Total Iron Binding Capacity 238 mcg/dL (228-428); Unsaturated Iron Binding 134 ug/dL
[2025-05-02 17:21] LABS: Ferritin 97 ng/mL (10-122)
[2025-05-02 17:29] LABS: Folate 8.8 ng/mL (> or = 4.0); Vitamin B12 344 pg/mL (200-900)
== END 2025-05-02 14:02 | disposition home or self-care (01) ==
LOC: HO.HHCL 14:01
PROVIDERS: PCP Family Medicine; Visit Provider Family Medicine
DX: D64.9 Anemia, unspecified (principal)
CPT/HCPCS: 36415; 82607; 82728; 82746; 83540; 85045

== ENCOUNTER 2025-05-07 13:52 | Outpatient (REF) | payer MEDICAID, SELFPAY ==
--- NOTE | ~2025-05-07 | US_ITS ---
EXAMINATION: US PELVIS TRANSABDOMINAL AND TRANSVAGINAL HISTORY: AUB, anemia COMPARISON: Correlation is made with a CT of the pelvis dated 09/09/2024. TECHNIQUE: Transabdominal and endovaginal real-time 2D morley-scale ultrasound was performed. FINDINGS: Uterus: The uterus is normal in size, measuring 8.8 x 4.2 x 5.3 cm. Myometrium has a normal echotexture. No fibroids are identified. Endometrium: The endometrial stripe measures 6 mm in thickness. There are nabothian cysts in the cervix. Right ovary: The right ovary measures 4.2 x 2.0 x 2.8 cm. There is a complex appearing 1.7 x 1.4 x 1.8 cm hypoechoic structure which may represent a hemorrhagic cyst. Left ovary: The left ovary measures 3.2 x 1.3 x 2.4 cm. The left ovary is normal in size and echotexture. Pelvic fluid: none. US/US pelvic and transvaginal IMPRESSION: Probable 1.8 cm hemorrhagic right ovarian cyst. Follow-up is recommended in 6 weeks, at a different time in the patient's menstrual cycle, to document resolution. Otherwise unremarkable pelvic ultrasound. Electronically signed by: Abhishek Alvares MD 05/07/2025 02:54 PM EDT
--- OUTSIDE RECORDS SUMMARY | 2025-05-07 14:18 | XMS_ITS | Clinical Summary ---
Author Organization [employer] Address [address] [facility] [address] [place] [address] Care Team Providers Care Temperature Control Inspector Name Role Phone Hailey Sevilla MD Primary Care Provider [phone] Michelle Cortes RN Unavailable [phone] Laura Layne Unavailable Allergies No known [...] (10/14/2024 6:38 AM EST): - hospitalized at [facility] in Aug 2024 - Initially treated with [...] -pt is restarting Weight Management Program at [facility] -encouraged to focus on healthy lifestyle, rather than weight Obesity 12/11/2014 10/05/2024 Assessment & Plan (01/03/2023 12:21 PM EDT): -pt is starting weight management clinic and will likely to have an extensive lab evaluation; therefore, I will not order lab today 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 Encounters Date Type Department Care Team Description 05/07/2025 Patient Outreach [address] [address] Hailey Sevilla MD Care Coordination (CM/CHW outreach) 05/03/2025 Results Follow-Up [address] [address] Hailey Sevilla MD Ferritin, Iron And Total Iron Binding Capacity, Reticulocyte Count, Vitamin B12 (Cobalamin) and Folate Panel, Serum 05/02/2025 3:15 PM EDT Office Visit [facility] [address] [place], [place] [address] Ramakrishna Campo CNP Abnormal uterine bleeding (AUB) (Primary Dx) 05/02/2025 Travel 05/02/2025 Orders Only [facility] [place], [place] [address] Hailey Sevilla MD Anemia, unspecified type (Primary Dx) 04/30/2025 Telephone [facility] [address], [place] [address] Hailey Sevilla MD 04/27/2025 Orders Only [facility] [address] [place], [place] [address] Hailey Sevilla MD 04/27/2025 Telephone [facility] [address] [place], [place] [address] Hailey Sevilla MD Appointment Request; ER Follow-up 04/27/2025 Orders Only [facility] [address] Hailey Sevilla MD Abnormal uterine bleeding (AUB) (Primary Dx) 04/26/2025 Telephone [facility] [address] [place], [place] [address] Ramakrishna Campo CNP CHART PREP 04/26/2025 Patient Outreach [facility] [address] Hailey Sevilla MD 04/26/2025 Telephone [facility] [place] [address] Hailey Sevilla MD Nurse Triage 04/25/2025 Orders Only GENERIC EXTERNAL DATA DEPARTMENT Provider, Generic External Data 04/25/2025 Telephone [facility] [place] [address] Hailey Sevilla MD 04/24/2025 Telephone [facility] [place] [address] Hailey Sevilla MD 04/18/2025 Patient Outreach [facility] [place] [address] Hailey Sevilla MD Care Coordination (CM/CHW outreach) 04/18/2025 Patient Outreach [address] [address] Hailey Sevilla MD Care Coordination (CHW chart review) 04/18/2025 Patient Outreach [address] [address] Hailey Sevilla MD 04/18/2025 Patient Outreach [address] [address] Hailey Sevilla MD Care Management (C3CM- chart review) 04/18/2025 Patient Outreach [address] [address] Hailey Sevilla MD 04/17/2025 Orders Only GENERIC EXTERNAL DATA DEPARTMENT Provider, Generic External Data 02/20/2025 Results Follow-Up [address] [address] Hailey Sevilla MD Syphilis Screen, Hepatitis C Antibody with Reflex to HCV, RNA, Quantitative, Real-Time PCR, Chlamydia/N. Gonorrhoeae RNA, TMA, Urogenitial, Additional followed-up results: 2 02/16/[address] [address] Ivanna Parks, computer hardware designer Orders 02/16/2025 Orders Only [address] [address] Hailey Sevilla MD Chlamydia (Primary Dx); Routine [...] 05/02/2025 2:26 PM EDT Plan of Treatment Health Maintenance Due Date Last Done Comments Depression Screening 03/09/2025 03/09/2024, 03/09/20 SDOH Screening 03/09/2025 03/09/2024 Influenza Vaccine (#1) 2025 , 06/30/2022, 08/26/2020, Additional history exists Alcohol/Substance Use Screening 12/12/2025 12/12/2024 Disability Screening 12/12/2025 12/12/2024 Family Planning (PISQ) 12/12/2025 12/12/2024 Tobacco Screening 05/02/2026 05/02/2025 Pap Smear 12/13/2027 12/12/2024 DTaP/Tdap/Td Vaccines (10 [...] Name Priority Date/Time Associated Diagnosis Comments VITAMIN B12/FOLATE, SERUM PANEL Routine 05/02/2025 2:07 PM EDT Anemia, unspecified type RETICULOCYTE COUNT Routine 05/02/2025 2: 07 PM EDT Anemia, unspecified type IRON AND TOTAL IRON BINDING CAPACITY Routine 05/02/2025 2:07 PM EDT Anemia, unspecified type FERRITIN Routine 05/02/2025 2:07 PM EDT Anemia, unspecified type URINALYSIS, COMPLETE Routine 04/25/2025 6:22 PM EDT [...] Recently Relevant to Health Maintenance Results * Vitamin B12 (Cobalamin) and Folate Panel, Serum (05/02/2025 2:07 PM EDT) Vitamin B12 344 200 - 900 pg/mL [facility] Comment:NORMAL 200-900 PG/M L INDETERMINATE 160-199 PG/ML DEFICIENT < 160 PG/ML Folate 8.8 > or = 4.0 ng/mL [facility] Comment:Reference Values:> o r = 4.0 ng/mL< 4.0 ng/mL suggests folate deficiency Methotrexate, aminopterin and folinic acid(leucovorin) are chemotherapeutic agents whose molecularstructures are similar to folate; therefore, the Architectfolate assay cannot be used for patients using these drugs. Blood 05/02/2025 2:07 PM EDT 05/02/2025 4:30 PM EDT Hailey Sevilla MD LAB BLOOD ORDERABLES Final Resul t Performing Organization Address [facility] Co de Phone Number [facility] [address] [place] [phone] * Iron And Total Iron Binding Capacity (05/02/2025 2:07 PM EDT) Iron 104 30 - 160 mcg/dL [facility] Total Iron Binding Capacity 238 228 - 428 mcg/dL [facility] Percent Iron Saturation 44 15 - 50 % [facility] Unsaturated Iron Binding 134 ug/dL [facility] Blood Venous blood specimen / Unknown 05/02/2025 2:07 PM EDT 05/02/2025 4:30 PM EDT Hailey Sevilla MD LAB BLOOD ORDERABLES Final Resul t Performing Organization Address City/[facility]/ZIP Co de Phone Number [facility] [address] [place] [phone] * (ABNORMAL) Reticulocyte Count (05/02/2025 2:07 PM EDT) Reticulocytes Absolute 0.045 0.026 - 0.095 X10*6/uL [facility] Immature Retic Fraction 4.7 3.0 - 15.9 % [facility] Retic HGB Equivalent 35.9(H) 30.0 - 35.0 pg [facility] Reticulocyte Percent 1.2 0.5 - 1.8 % [facility] Blood Venous blood specimen / Unknown 05/02/2025 2:07 PM EDT 05/02/2025 4:30 PM EDT Hailey Sevilla MD LAB BLOOD ORDERABLES Final Resul t Performing Organization Address [facility] Co de Phone Number [facility] [address] [place] [phone] * Ferritin (05/02/2025 2:07 PM EDT) Ferritin 97 10 - 122 ng/mL [facility] Blood Venous blood specimen / Unknown 05/02/2025 2:07 PM EDT 05/02/2025 4:30 PM EDT Hailey Sevilla MD LAB BLOOD ORDERABLES Final Resul t Performing Organization Address [facility] de Phone Number [facility] [address] [place] [phone] * HCG, Qualitative, Urine (04/25/2025 6:22 PM EDT) Urine NEGATIVE NEGATIVE [facility] Comment:This test was develo ped to detect early . Falsenegative results may occur after the 5th - 7th week ofpregnancy when using this test method. If clinicallyindicated, consider a serum hCG. 04/25/2025 6:22 PM EDT 04/25/2025 6:29 PM EDT us Generic External Data Provider LAB URINE ORDERAB LES Final Result Performing Organization Address [facility] Co de Phone Number [facility] [address] [place] [phone] * (ABNORMAL) Urinalysis Complete (04/25/2025 6:22 PM EDT) Color Urine Yellow [facility] Appearance Urine Clear [facility] PH 5.5 5.0 - 9.0 [facility] Glucose Urine UA Negative Negative mg/dL [facility] Urine Blood Moderate (2+)(A) Negative [facility] Specific [place] - Urine >=1.030(H) 1.005 - 1.025 [facility] Urine Protein Negative Neg-Trace mg/dL [facility] Urine Ketones Trace Negative mg/dL [facility] Nitrite Urine Negative Negative [facility] Leukocyte Esterase Urine Negative Negative [facility] RBC Urine 3-5(A) 0 - 2 /HPF [facility] Urine WBC 0-5 0 - 5 /HPF [facility] Urine Squamous Epithelial Cell 0-2 0 - 2 /HPF [facility] Urine Bacteria None Seen None Seen [facility] Hyaline Casts, Urine 0-2 0 - 2 /LPF [facility] 04/25/2025 6:22 PM EDT 04/25/2025 6:29 PM EDT us Generic External Data Provider LAB URINE ORDERAB LES Final Result [facility] [address] [place] [phone] [phone] * (ABNORMAL) Basic Metabolic Panel (04/25/2025 6:20 PM EDT) Sodium 142 135 - 145 mmol/L [facility] Potassium 3.9 3.3 - 5.1 mmol/L [facility] Chloride 110(H) 96 - 108 mmol/L [facility] Carbon Dioxide 25 22 - 29 mmol/L [facility] Anion Gap 11(L) 12 - 20 [facility] Urea Nitrogen (BUN) 18(H) 9 - 16 mg/dL [facility] Creatinine, Serum 0.65 0.5 - 1.4 mg/dL [facility] Creatinine Clr Calc Pharmacy 105.3 [facility] Comment:Provided height and weight: 154.94 cm,58.967 kg.eGFR (calculated from the MDRD study equation) and eCrCl(calculated from the Cockcroft-Gault equation) are based ondifferent parameters and may not yield comparable results.If eCrCl result is absurd, please check patient'sheight/weight. Estimated Glomerular Filt Rate >60 [facility] Comment:Chronic Kidney Disea se: Estimated GFR < 60 mL/min/1.56e0Tdznic Kidney Disease: Estimated GFR < 15 mL/min/1.73m2 Glucose 83 60 - 115 mg/dL [facility] Calcium 8.5 8.4 - 10.2 mg/dL [facility] 04/25/2025 6:20 PM EDT 04/25/2025 6:29 PM EDT us Generic External Data Provider LAB BLOOD ORDERAB LES Final Result [facility] [address] [place] [phone] * (ABNORMAL) CBC auto differential (04/25/2025 6:19 PM EDT) White Blood Count 8.0 4.8 - 10.8 X10*3/uL [facility] Red Blood Count 3.60(L) 4.20 - 5.50 X10*6/uL [facility] Hemoglobin 11.5(L) 12.0 - 16.0 g/dl [facility] Hematocrit 32.7(L) 37.0 - 47.0 % [facility] Mean Corpuscular Volume 90.8 80.0 - 98.0 fL [facility] Mean Corpuscular Hemoglobin 31.9 27.0 - 33.0 pg [facility] Mean Corpuscular HGB Conc 35.2(H) 31.0 - 35.0 g/dl [facility] Red Cell Distribution Width 11.6 11.0 - 16.0 % [facility] Platelet Count 289 160 - 400 X10*3/uL [facility] Mean Platelet Volume 10.2 9.4 - 12.3 fL [facility] Neutrophils Percent Auto 50.6 45 - 73 % [facility] Imm Gran Pct Auto 0.1 0.0 - 0.4 % [facility] Lymphocytes Percent Auto 41.1(H) 20 - 40 % [facility] Monocytes Percent Auto 6.5 2 - 11 % [facility] Eosinophils Percent Auto 1.1 0 - 4 % [facility] Basophils Percent Auto 0.6 0 - 2 % [facility] NRBC Pct Auto 0.0 0.0 - 0.2 /100WBC [facility] Neutrophils Absolute Auto 4.1 2.0 - 8.3 x10*3/uL [facility] Imm Gran Abs Auto 0.01 0.00 - 0.03 X10*3/uL [facility] Lymphocytes Absolute Auto 3.3 1.2 - 4.9 X10*3/uL [facility] Monocytes Absolute Auto 0.5 0.1 - 1.2 X10*3/uL [facility] Eosinophils Absolute Auto 0.1 0.0 - 0.4 X10*3/uL [facility] Basophils Absolute Auto 0.1 0.0 - 0.2 X10*3/uL [facility] NRBC Abs Auto 0.000 0.0 - 0.012 X10*3/uL [facility] 04/25/2025 6:19 PM EDT 04/25/2025 6:29 PM EDT us Generic External Data Provider LAB BLOOD ORDERAB LES Final Result [facility] [address] [place] [phone] * Strep A Nucleic Acid (04/17/2025 9:10 AM EDT) IDNOW SERIAL# [id number] [facility] Strep A Nucleic Acid Negative Negative [facility] Comment:All test results mus t [...] GENERAL ORDERABLES Final Result Performing Organization Address [facility]/ZIP Co de Phone Number [facility] [address] [place] [phone] * (ABNORMAL) SARS-CoV-2 RNA, Influenza A/B, and RSV RNA, Ql NAAT (04/17/2025 9:10 AM EDT) Influenza A PCR NEGATIVE Negative [facility] Influenza B PCR NEGATIVE Negative [facility] Resp Syncy Virus RNA Qual PCR NEGATIVE Negative [facility] SARS COV2 PCR POSITIVE(A) Negative [facility] Comment:All test results mus t [...] use by authorized laboratories.Testing performed on the [employer] GeneXpert utilizingreal-time RT-PCR.All SARS CoV2 and positive influenza A/B results arereported to [facility]. 04/17/2025 9:10 AM EDT 04/17/2025 9:13 AM EDT us Generic External Data Provider LAB MICROBIOLOGY - GENERAL ORDERABLES Final Result Performing Organization Address [facility]/ZIP Co de Phone Number [facility] [address] [place] [phone] * Syphilis Screen (02/20/2025 8:35 AM EDT) [facility] Syphilis Screen Nonreactive Nonreactive [facility] Blood 02/20/2025 8:3 5 AM EDT 02/20/2025 11:06 AM EDT Hailey Sevilla MD LAB BLOOD ORDERABLES Final Resul t Performing Organization Address [facility] Co de Phone Number [facility] [address] [place] [phone] * Hepatitis C Antibody with Reflex to HCV, RNA, Quantitative, Real-Time PCR (02/20/2025 8:35 AM EDT) [facility] Hepatitis C Antibody Nonreactive Nonreactive [facility] Comment:Antibodies to HCV no t detected; does not exclude early acuteHCV infection. Blood Venous blood specimen / Unknown 02/20/2025 8:35 AM EDT 02/20/2025 11:06 AM EDT Hailey Sevilla MD LAB BLOOD ORDERABLES Final Resul t Performing Organization Address [facility] de Phone Number [facility] [address] [place] [phone] * Chlamydia/N. Gonorrhoeae RNA, TMA, Urogenitial (02/20/2025 8:35 AM EDT) [facility] CT PCR NOT DETECTED Not Detect. [facility] Comment:A not detected test result [...] psychologicalconsequences. NG PCR NOT DETECTED Not Detect. [facility] Comment:A not detected test result [...] AM EDT 02/20/2025 11:11 AM EDT Narrative [facility] - 02/20/2025 1:07 PM EDT Urine Hailey Sevilla MD LAB MICROBIOLOGY - GENERAL ORDER SHAKIRA Final Result Performing Organization Address [facility] Co de Phone Number [facility] [address] [place] [phone] * Hepatitis B surface antigen, EIA (02/20/2025 8:35 AM EDT) Hepatitis B Surface Ag Negative Negative [facility] Blood Venous blood specimen / Unknown 02/20/2025 8:35 AM EDT 02/20/2025 11:06 AM EDT Hailey Sevilla MD LAB BLOOD ORDERABLES Final Resul t Performing Organization Address [facility] Co de Phone Number [facility] [address] [place] [phone] * HIV-1/2 Antigen and Antibodies, Fourth Generation, with Reflexes (02/20/2025 8:35 AM EDT) HIV AB/AG Nonreactive Nonreactive [facility] Comment:HIV-1 p24 Ag and/or HIV-1/HIV-2 Ab not detected.A test result that is nonreactive does not exclude thepossibility of exposure to or infection with HIV-1 and/orHIV-2. Nonreactive results in this assay for individualswith prior exposure to HIV-1 and/or HIV-2 may be due toantigen and antibody levels that are below the limit ofdetection of this assay.The [employer] HIV Ag/Ab Combo assay result andsupplemental assay results should be interpreted inconjunction with the patient's clinical presentation,history and other laboratory results. If the results areinconsistent with clinical evidence, additional testing issuggested to confirm the result. Blood Venous blood specimen / Unknown 02/20/2025 8:35 AM EDT 02/20/2025 11:06 AM EDT us Hailey Sevilla MD LAB BLOOD ORDERABLES Final Resul t [facility] [address] [place] [phone] * Pap Smear (12/12/2024 12:00 AM EDT) Swab 12/12/2024 12/13/2024 6:2 2 AM EDT Narrative [facility] - 12/21/2024 10:40 AM EDT ----- ------- Name: Jak Izquierdo Age/Sex: 29/F : 1995 Unit#: [id number] Attend Dr: Delia Ashby Re12/12/24 Status: DEP REF Location: [facility] Disch: ----- ------- SPEC : [id number] RECD: 12/13/24 STATUS: DEEPAK ESTEVEZ NUM: [id number] YG: 12/12/24-[address]: Hailey Sevilla MD [...] on file) DEONNA Stovall (ASCP) 12/21/24 1040 ----- ------- END OF REPORT Hailey Sevilla MD LAB CYTOLOGY ORDERABLES Final Re sult [facility] [address] [place] [phone] from Last 3 Months or Most Recently Relevant to Health Maintenance Insurance [employer] [id number] Care Teams Temperature Control Inspector Relationship Specialty Start Date End Date Hailey Sevilla MD [address] [place] [phone] PCP - General Family Medicine 09/27/18 Michelle Cortes RN [address] [place] [phone] Registered Nurse Family Medicine 04/18/25 Laura Layne 04/18/25
--- OUTSIDE RECORDS SUMMARY | 2025-05-07 14:18 | XMS_ITS | Clinical Summary ---
Author Organization [facility] ity Address [address] [place] [address] Care Team Providers Care Contracts Director Name Role Phone Unavailable Primary Care Provider Unavailabl e Surgical History Surgery Date Site/Laterality Comments CHOLECYSTECTOMY PROCEDURE: [place] LAPAROSCOPY SURG CHOLECYSTECTOMY BREAST REDUCTION PROCEDURE: [place] BREAST REDUCTION Medical History Medical History Date Comments Anemia DX:Anemia Migraine DX:Migraine Seizure (CMS/HCC V24, CMS/HCC V28) 2015 DX:Seizure ([facility]); COMMENT: r/t migraine, EEG negative [...]
== END 2025-05-07 13:53 | disposition home or self-care (01) ==
LOC: HO.HMGCX 13:52
PROVIDERS: PCP Family Medicine; Visit Provider Family Medicine
DX: N93.9 Abnormal uterine and vaginal bleeding, unspecified (principal)
CPT/HCPCS: 76830; 76856

== ENCOUNTER → 2025-05-07 13:58 | Outpatient (BNV) | payer MEDICAID, SELFPAY | PROVIDERS: PCP Family Medicine; Visit Provider Radiology Diagnostic Radiology | DX: N83.291 Other ovarian cyst, right side (principal) | CPT/HCPCS: 76830; 76856 ==

== ENCOUNTER 2025-06-18 14:12 | Outpatient (REF) | payer MEDICAID, SELFPAY ==
--- NOTE | ~2025-06-18 | US_ITS ---
CLINICAL HISTORY: Right ovarian cyst, 6 weel follow up Ultrasound of the female pelvis Comparison: US/SR - US PELVIS TRANSABDOMINAL AND TRANSVAGINAL - 05/07/25 13:59 EDT Technique: Grayscale ultrasound with assistance of color Doppler. Transabdominal scanning performed for overall anatomy. Transvaginal scanning performed for better anatomic delineation. Findings: Anteverted anteflexed uterus measures 8.6 x 3.6 x 6.1 cm. Homogeneous myometrium. Normal endometrium, 4 mm in thickness. Subcentimeter nabothian cyst. Normal right ovary, 3.2 x 1.6 x 2.6 cm. Small follicles noted. No abnormal vascular flow. Previously seen complex cyst resolved. Normal left ovary, 4.0 x 2.2 x 3.0 cm. Small follicles noted. No abnormal vascular flow. No free fluid. Impression: Small nabothian cyst, otherwise normal exam. This document has been electronically signed by: Karen West MD on 06/19/2025 14:06:38
== END 2025-06-18 14:13 | disposition home or self-care (01) ==
LOC: HO.HMGCX 14:12
PROVIDERS: PCP Family Medicine; Visit Provider Nurse Practitioner Primary Care
DX: N83.201 Unspecified ovarian cyst, right side (principal)
CPT/HCPCS: 76830; 76856

== ENCOUNTER → 2025-06-18 14:15 | Outpatient (BNV) | payer MEDICAID, SELFPAY | PROVIDERS: PCP Family Medicine; Visit Provider Radiology Diagnostic Radiology | DX: N88.8 Other specified noninflammatory disorders of cervix uteri (principal) | CPT/HCPCS: 76830; 76856 ==

== ENCOUNTER → 2025-07-11 11:42 | Outpatient (BNVA) | payer SELFPAY | PROVIDERS: Visit Provider Emergency Medicine | DX: S06.0X0A Concussion without loss of consciousness, initial encounter (principal); Y04.2XXA Assault by strike against or bumped into by another person, initial encounter | CPT/HCPCS: 99202 ==

== ENCOUNTER 2025-07-13 10:32 | Outpatient (REF) | payer MEDICAID, SELFPAY ==
--- OUTSIDE RECORDS SUMMARY | 2025-07-13 14:41 | XMS_ITS | Encounter Summary ---
Author Organization [employer] Address [address] [facility] [address] [place] [address] Care Team Providers Care Search Engine Optimizer Name Role Phone Hailey Sevilla MD Primary Care Provider [phone] Michelle Cortes RN Unavailable [phone] Laura Layne Unavailable Encounter Details Date Type Department Care Team (Late st Contact Info) Description 07/13/2025 Telephone [facility] MEDICINE [address] [place], [place] [phone] Hailey Sevilla MD [address] [place], [place] [phone] Social History Tobacco Use Types Packs/Day Years Used Date Smoking Tobacco: Never Passive Smoke Exposure: Never Smokeless Tobacco: Never Depression Answer Date Recorded Patient Health Questionnaire-9 Score 0 03/09/2024 Patient Health Questionnaire-9 Score 0 03/09/2024 Last PHQ-9: Questionnaire Data Not on file 0 03/09/2024 Housing Stability Answer Date Recorded What is your housing situation today? I have rfanky delatorre 03/09/[address] you [...] encounter Miscellaneous Notes * Telephone Encounter - Divya Logan LPN - 07/13/2025 1:05 PM EDT TC to pt to remind them to complete [employer] for submitted paperwork. Pt reports that she will be getting blood work done this afternoon - July 13, 2025 documented in this encounter Plan of Treatment Not on file documented as of this encounter Visit Diagnoses Not on filedocumented in this encounter Additional Health Concerns Assessment Noted Time PHQ-9 Depression Total Score: 0 03/09/20 24 1:49 PM EDT documented as of this encounter Care Teams Search Engine Optimizer Relationship Specialty Start Date End Date Hailey Sevilla MD [address] [place] [address] PCP - General Family Medicine 09/27/18 Michelle Cortes, CHARLEEN [address] [place] [phone] Registered Nurse Family Medicine 04/18/25 Laura Layne 04/18/25 documented as of this encounter
--- OUTSIDE RECORDS SUMMARY | 2025-07-13 14:41 | XMS_ITS | Encounter Summary ---
Author Organization [employer] Address [address] [facility] 7t [place] [address] Care Team Providers Care Gum Maker Name Role Phone Hailey Sevilla MD Primary Care Provider [phone] Michelle Cortes RN Unavailable [phone] Laura Layne Unavailable Reason for Referral * Imaging (Routine) - Closed Specialty Diagnoses / Procedures Referred By Lindy lazcano Referred To Contact Radiology Diagnoses Cyst of right ovary Procedures Us Pelvis complete Hailey Sevilla MD [address] [place] [address] Phone: tel: fax: [address] Phone: tel: fax: Referral ID Status Reason Start Date Expiration Date Visits Re quested Visits Authorized [id number] Closed 05/07/2025 05/07/2026 1 1 * Imaging (Routine) - Closed Specialty Diagnoses / Procedures Referred By Lindy lazcano Referred To Contact Radiology Diagnoses Cyst of right ovary Procedures US Pelvis Transvaginal Hailey Sevilla MD [address] [place] [address] Phone: tel: fax: [facility] [address], [place] Phone: tel: fax: Referral ID Status Reason Start Date Expiration Date Visits Re quested Visits Authorized [id number] Closed 05/07/2025 05/07/2026 1 1 Encounter Details Date Type Department Care Team (Late st Contact Info) Description 05/07/2025 Orders Only [facility] [address] [place] [address] Hailey Sevilla MD [address] [place] [address] Cyst of right ovary (Primary Dx) Social History Tobacco Use Types [...] Type Priority Associated Diagnoses Orde r Schedule Us Pelvis complete Imaging Routine Cyst of right ovary Expected: 05/07/2025, Expires: 05/07/2026 documented as of this encounter Procedures Procedure Name Priority Date/Time Associated Diagnosis Comments US PELVIS TRANSVAGINAL Routine 06/19/2025 2:06 PM EDT Cyst of right ovary documented in this encounter Results * US Pelvis Transvaginal (06/19/2025 2:06 PM EDT) Anatomical Region Laterality Modality Pelvis Ultrasound 06/19/2025 2:06 PM EDT Narrative 06/19/2025 2:08 PM EDT [facility] Adult Primary Care [address] [place] [address] [place] [address] Ultrasound Report Signed Patient: Jak Izquierdo MR#: [id number] : 1995 Acct:[id number] Age/Sex: 29 / F ADM Date: 06/18/25 Loc: HO.HMGCX Attending Dr: Hetal Castano NP Ordering Physician: Hailey Sevilla MD Date of Service: 06/18/25 Procedure(s): US pelvic and transvaginal Accession Number(s): [id number] cc: Hailey Sevilla MD Reason for Exam: Right ovarian cyst, 6 weel follow up CLINICAL HISTORY: Right ovarian cyst, 6 weel follow up Ultrasound of the female pelvis Comparison: US/SR - US PELVIS TRANSABDOMINAL AND TRANSVAGINAL - 05/07/25 13:59 EDT Technique: Grayscale ultrasound with assistance of color Doppler. Transabdominal scanning performed for overall anatomy. Transvaginal scanning performed for better anatomic delineation. Findings: Anteverted anteflexed uterus measures 8.6 x 3.6 x 6.1 cm. Homogeneous myometrium. Normal endometrium, 4 mm in thickness. Subcentimeter nabothian cyst. Normal right ovary, 3.2 x 1.6 x 2.6 cm. Small follicles noted. No abnormal vascular flow. Previously seen complex cyst resolved. Normal left ovary, 4.0 x 2.2 x 3.0 cm. Small follicles noted. No abnormal vascular flow. No free fluid. Impression: Small nabothian cyst, otherwise normal exam. This document has been electronically signed by: Karen West MD on 06/19/2025 14:06:38 Dictated By: Karen West MD Signed By: <Electronically signed by Karen West MD in OV> 06/19/25 1407 DD/ 140 TD/TT: 06/19/251405 Staffing Specialist: Procedure Note Donotuseinterpreter, Image - 06/19/2025 [facility] Primary Care [facility] [place] [address] Ultrasound Report Signed Patient: Xuan Izquierdo#: [id number] : 1995Acct:[id number] Age/Sex: Date: 06/18/25 Loc: HO.HMGCX Attending Dr: Hetal Castano NP Ordering Physician: Hailey Sevilla MD Date of Service: 06/18/25 Procedure(s): US pelvic and transvaginal Accession Number(s): [id number] cc: Hailey Sevilla MD Reason for Exam: Right ovarian cyst, 6 weel follow up CLINICAL HISTORY: Right ovarian cyst, 6 weel follow up Ultrasound of the female pelvis Comparison: US/SR - US PELVIS TRANSABDOMINAL AND TRANSVAGINAL - 05/07/25 13:59 EDT Technique: Grayscale ultrasound with assistance of color Doppler. Transabdominal scanning performed for overall anatomy. Transvaginal scanning performed for better anatomic delineation. Findings: Anteverted anteflexed uterus measures 8.6 x 3.6 x 6.1 cm. Homogeneous myometrium. Normal endometrium, 4 mm in thickness. Subcentimeter nabothian cyst. Normal right ovary, 3.2 x 1.6 x 2.6 cm. Small follicles noted. No abnormal vascular flow. Previously seen complex cyst resolved. Normal left ovary, 4.0 x 2.2 x 3.0 cm. Small follicles noted. No abnormal vascular flow. No free fluid. Impression: Small nabothian cyst, otherwise normal exam. This document has been electronically signed by: Karen West MD on 06/19/2025 14:06:38 Dictated By: Karen West MD Signed By: <Electronically signed by Karen West MD in OV> 06/19/25 1407 DD/ 1406 TD/TT: 06/19/25 140 Staffing Specialist: us Hailey Seivlla MD IMG US PROCEDURES Final Result documented in this encounter Visit Diagnoses Diagnosis Cyst of right ovary- Primary Other and unspecified ovarian cyst documented in this encounter Additional Health Concerns Assessment Noted Time PHQ-9 Depression Total Score: 0 03/09/20 24 1:49 PM EDT documented as of this encounter Care Teams Gum Maker Relationship Specialty Start Date End Date Hailey Sevilla MD [address] [place] [address] PCP - General Family Medicine 09/27/18 Michelle Cortes, RN [address] [place] [id number] Registered Nurse Family Medicine 04/18/25 Laura Layne 04/18/25 documented as of this encounter
--- OUTSIDE RECORDS SUMMARY | 2025-07-13 14:41 | XMS_ITS | Encounter Summary ---
Author Organization [employer] Address [address] [facility] 7[address] [place] [address] Care Team Providers Care Under Seal Operator Name Role Phone Hailey Sevilla MD Primary Care Provider [phone] Michelle Cortes RN Unavailable [phone] Laura Layne Unavailable Encounter Details Date Type Department Care Team (Late st Contact Info) Description 10/05/2024 Orders Only [facility] [address] [place], [place] [phone] Hailey Sevilla MD [address] [place], [place] [phone] Social History Tobacco Use Types Packs/Day Years [...] (ABNORMAL) Vitamin A (10/05/2024 10:35 AM EST) Vitamin A (Retinol) 29(A) 38 - 98 mcg/dL [facility] Comment:Vitamin supplementat ion within 24 hours prior toblood draw may affect the accuracy of the results.This test was developed and its analytical performancecharacteristics have been determined by [employer] [place], [place]. It hasnot been cleared or approved by the U.S. Food and DrugAdministration. This assay has been validated pursuantto the CLIA regulations and is used for clinicalpurposes.THIS TEST WAS PERFORMED AT:[employer] [place] [address]KSEVEALGERRI MARQUEZ MD,PHD 10/05/2024 10:3 5 AM EST 10/05/2024 11:32 AM EST us Generic External Data Provider LAB BLOOD ORDERAB LES Final Result [facility] [address] [place] [address] [phone] documented in this encounter Visit Diagnoses Not on filedocumented in this encounter Additional Health Concerns Assessment Noted Time PHQ-9 Depression Total Score: 0 03/09/20 24 1:49 PM EDT documented as of this encounter Care Teams Under Seal Operator Relationship Specialty Start Date End Date Hailey Sevilla MD [address] [place] [phone] PCP - General Family Medicine 09/27/18 Michelle Cortes RN [address] [place] [address] Registered Nurse Family Medicine 04/18/25 Laura Layne 04/18/25 documented as of this encounter
--- OUTSIDE RECORDS SUMMARY | 2025-07-13 14:41 | XMS_ITS | Encounter Summary ---
Author Organization [employer] Address [address] [facility] 7[address] [place] [address] Care Team Providers Care Home Care Manager Rn Name Role Phone Hailey Sevilla MD Primary Care Provider [phone] Michelle Cortes RN Unavailable [phone] Laura Layne Unavailable Reason for Visit * Reason Onset Date Comments Lab Orders 07/13/2025 Encounter Details Date Type Department Care Team (Late st Contact Info) Description 07/13/2025 Telephone [facility] MED[facility]INE [address] [place], [place] [phone] Hailey Sevilla MD [address] [place], [place] [phone] Lab Orders Social History Tobacco Use Types Packs/Day Years [...] as of this encounter Miscellaneous Notes * Addendum Note - Thalia Ryan RN - 07/13/2025 11:18 AM EDTAddended by: THALIA RYAN on: 07/13/2025 11:18 AM Modules accepted: Orders * Telephone Encounter - Thalia Ryan RN - 07/13/2025 11:18 AM EDT Called pt, notified labs ordered per protocol and can complete at [facility] or [facility]. Pt verbalized understanding. 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 documented in this encounter Plan of Treatment Scheduled Orders Name Type Priority Associated Diagnoses Orde r Schedule T-SPOT .TB Lab Routine Screening for tuberculosis Expected: 07/13/2025 (Approximate), Expires: 07/13/2026 documented as of this encounter Visit Diagnoses Diagnosis Screening for tuberculosis Screening examination for pulmonary tuberculosis documented in this encounter Additional Health Concerns Assessment Noted Time PHQ-9 Depression Total Score: 0 03/09/20 24 1:49 PM EDT documented as of this encounter Care Teams Home Care Manager Rn Relationship Specialty Start Date End Date Hailey Sevilla MD [address] [place] [address] PCP - General Family Medicine 09/27/18 Michelle Cortes, CHARLEEN [address] [place] [address] Registered Nurse Family Medicine 04/18/25 Laura Layne 04/18/25 documented as of this encounter
--- OUTSIDE RECORDS SUMMARY | 2025-07-13 14:41 | XMS_ITS ---
Author Organization [employer] Address [address] [facility] 7 [place] [address] Care Team Providers Care Firebrick Layer Name Role Phone Hailey Sevilla MD Primary Care Provider [phone] Michelle Cortes RN Unavailable [phone] Laura Layne Unavailable [facility] Status:Outreach In Progress (Enrolling) Start date:04/18/2025 Enrollment reason:ADT Feed Overview [facility] ED 04/17/25. Please outreach for enrollment. Case Team Name Relationship Phone Laura Layne(Responsible Staff) [phone] Continued Care and Services Coordination
--- OUTSIDE RECORDS SUMMARY | 2025-07-13 14:41 | XMS_ITS | Clinical Summary ---
Author Organization [employer] Address [address] [facility] 7t [place] [address] Care Team Providers Care Campus Administrator Name Role Phone Hailey Sevilla MD Primary Care Provider [phone] Michelle Cortes RN Unavailable [phone] Laura Layne Unavailable Allergies No known [...] 5 Active omeprazole (PriLOSEC) [address] Chanell ns:Gastroesophag eal reflux disease, unspecified whether esophagitis [...] or split. 45 tablet 3 5 Active Active Problems Problem Noted Date [...] (10/14/2024 6:38 AM EST): - hospitalized at [facility] in Aug 2024 - Initially treated with [...] Diagnosed Date Resolved Date BMI 40.0-44.9, adult ([facility]) 12/28/2022 10/05/2024 Assessment & Plan (01/03/2023 12:21 PM EDT): -pt is restarting Weight Management Program at [facility] -encouraged to focus on healthy lifestyle, rather than weight Obesity 12/11/2014 10/05/2024 Assessment & Plan (01/03/2023 12:21 PM EDT): -pt is starting weight management clinic and will likely to have an extensive lab evaluation; therefore, I will not order lab today 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 Not available.) 05/14/2025 Patient Outreach [address] [address] Hailey Sevilla MD Care Coordination (CM/CHW appt reminder) 05/07/2025 Orders Only [facility] [place] [address] Hailey Sevilla MD Cyst of right ovary (Primary Dx) 05/07/2025 Results Follow-Up [facility] [place] [address] Hailey Sevilla MD US Pelvis Transvaginal 05/07/2025 Patient Outreach [address] [place] [address] Hailey Sevilla MD Care Coordination (CM/CHW outreach) 05/03/2025 Results Follow-Up [facility] [place] [address] Hailey Sevilla MD Ferritin, Iron And Total Iron Binding Capacity, Reticulocyte Count, Vitamin B12 (Cobalamin) and Folate Panel, Serum 05/02/2025 3:15 PM EDT Office Visit [facility] [place] [address] Ramakrishna Campo CNP Abnormal uterine bleeding (AUB) (Primary Dx) 05/02/2025 Travel 05/02/2025 Orders Only [facility] [place] [address] Hailey Sevilla MD Anemia, unspecified type (Primary Dx) 04/30/2025 Telephone [facility] [place] [address] Hailey Sevilla MD 04/27/2025 Orders Only [address] [address] Hailey Sevilla MD 04/27/2025 Telephone [facility] [place] [address] Hailey Sevilla MD Appointment Request; ER Follow-up 04/27/2025 Orders Only [facility] [place] [address] Hailey Sevilla MD Abnormal uterine bleeding (AUB) (Primary Dx) 04/26/2025 [address] [place] [address] Ramakrishna Campo CNP CHART PREP 04/26/2025 Patient Outreach [address] [address] Hailey Sevilla MD 04/26/[address] [address] Hailey Sevilla MD Nurse Triage 04/25/2025 Orders Only GENERIC EXTERNAL DATA DEPARTMENT Provider, Generic External Data 04/25/[address] [address] Hailey Sevilla MD 04/24/[address] [address] Hailey Sevilla MD 04/18/2025 Patient Outreach [address] [address] Hailey Sevilla MD Care Coordination (CM/CHW outreach) 04/18/2025 Patient Outreach [address] [address] Hailey Sevilla MD Care Coordination (CHW chart review) 04/18/2025 Patient Outreach [address] [address] Hailey Sevilla MD 04/18/2025 Patient Outreach [address] [address] Hailey Sevilla MD Care Management (C3- chart review) 04/18/2025 Patient Outreach [address] [address] Hailey Sevilla MD 04/17/2025 Orders Only GENERIC EXTERNAL DATA DEPARTMENT Provider, Generic External Data from Last 3 Months Immunizations Immunization Administration [...] 2:06 PM EDT Cyst of right ovary US PELVIS TRANSVAGINAL Urgent 05/07/2025 1:59 PM EDT Abnormal uterine bleeding (AUB) VITAMIN B12/FOLATE, SERUM PANEL Routine 05/02/2025 2:07 [...] ACID Routine 04/17/2025 9:10 AM EDT HEPATITIS C AB W/REFL TO HCV RNA, [...] Recently Relevant to Health Maintenance Results * US Pelvis Transvaginal (06/19/2025 2:06 PM EDT) Only the most recent of2 resultswithin the time period is included. Anatomical Region Laterality Modality Pelvis Ultrasound 06/19/2025 2:06 PM EDT Narrative 06/19/2025 2:08 PM EDT [facility] Adult Primary Care [facility] [address], [place] [address] Ultrasound Report Signed Patient: Jak Izquierdo MR#: [id number] : 1995 Acct:[id number] Age/Sex: 29 / F ADM Date: 06/18/25 Loc: HO.HMGCX Attending Dr: Hetal Castano NP Ordering Physician: Hailey Sevilla MD Date of Service: 06/18/25 Procedure(s): US pelvic and transvaginal Accession Number(s): [id number] cc: Hailey Sevilla MD Reason for Exam: [...] OV> 06/19/25 1407 DD/ 1406 TD/TT: 06/19/25 1406 Bilingual Manager: Procedure Note Donotuseinterpreter, Image - 06/19/2025 [facility] Adult Primary Care [facility] [address], [place] [address] Ultrasound Report Signed Patient: Xuan Izquierdo#: [id number] : 1995Acct:[id number] Age/Sex: M Date: 06/18/25 Loc: HO.HMGCX Attending Dr: Hetal Castano NP Ordering Physician: Hailey Sevilla MD Date of Service: 06/18/25 Procedure(s): US pelvic and transvaginal Accession Number(s): [id number] cc: Hailey Sevilla MD Reason for Exam: [...] in OV> 06/19/25 1407 DD/ 140 TD/TT: 06/19/25 140 Bilingual Manager: us Hailey Sevilla MD IM US PROCEDURES Final Result * Vitamin B12 (Cobalamin) and Folate Panel, Serum (05/02/2025 2:07 PM EDT) Vitamin B12 344 200 - 900 pg/mL [facility] Comment:NORMAL 200-900 PG/ML INDETERMINATE 160-199 PG/ML DEFICIENT < 160 PG/ML Folate 8.8 > or = 4.0 ng/mL [facility] Comment:Reference Values:> o r = 4.0 ng/mL< 4.0 ng/mL suggests folate deficiency Methotrexate, aminopterin and folinic acid(leucovorin) are chemotherapeutic agents whose molecularstructures are similar to folate; therefore, the Architectfolate assay cannot be used for patients using these drugs. Blood 05/02/2025 2:07 PM EDT 05/02/2025 4:30 PM EDT Hailey Sevilla MD LAB BLOOD ORDERABLES Final Resul t Performing Organization Address [facility] Co de Phone Number [facility] [address] [place] [phone] * Iron And Total Iron Binding Capacity (05/02/2025 2:07 PM EDT) Iron 104 30 - 160 mcg/dL [facility] Total Iron Binding Capacity 238 228 - 428 mcg/dL [facility] Percent Iron Saturation 44 15 - 50 % [facility] Unsaturated Iron Binding 134 ug/dL [facility] Blood Venous blood specimen / Unknown 05/02/2025 2:07 PM EDT 05/02/2025 4:30 PM EDT Hailey Sevilla MD LAB BLOOD ORDERABLES Final Resul t Performing Organization Address [facility] Co de Phone Number [facility] [address] [place] [phone] * (ABNORMAL) Reticulocyte Count (05/02/2025 2:07 PM EDT) Reticulocytes Absolute 0.045 0.026 - 0.095 X10*6/uL [facility] Immature Retic Fraction 4.7 3.0 - 15.9 % [facility] Retic HGB Equivalent 35.9(H) 30.0 - 35.0 pg [facility] Reticulocyte Percent 1.2 0.5 - 1.8 % [facility] Blood Venous blood specimen / Unknown 05/02/2025 2:07 PM EDT 05/02/2025 4:30 PM EDT Hailey Sevilla MD LAB BLOOD ORDERABLES Final Resul t Performing Organization Address [facility] Co de Phone Number [facility] [address] [place] [phone] * Ferritin (05/02/2025 2:07 PM EDT) Ferritin 97 10 - 122 ng/mL [facility] Blood Venous blood specimen / Unknown 05/02/2025 2:07 PM EDT 05/02/2025 4:30 PM EDT Hailey Sevilla MD LAB BLOOD ORDERABLES Final Resul t Performing Organization Address [facility] de Phone Number [facility] [address] [place] [phone] * HCG, Qualitative, Urine (04/25/2025 6:22 PM EDT) Urine NEGATIVE NEGATIVE [facility] Comment:This test was develo ped to detect early . Falsenegative results may occur after the 5th - 7th week ofpregnancy when using this test method. If clinicallyindicated, consider a serum hCG. 04/25/2025 6:22 PM EDT 04/25/2025 6:29 PM EDT Generic External Data Provider LAB URINE ORDERAB LES Final Result Performing Organization Address [facility] Co de Phone Number [facility] [address] [place] [phone] * (ABNORMAL) Urinalysis Complete (04/25/2025 6:22 PM EDT) Color Urine Yellow [facility] Appearance Urine Clear [facility] PH 5.5 5.0 - 9.0 [facility] Glucose Urine UA Negative Negative mg/dL [facility] Urine Blood Moderate (2+)(A) Negative [facility] Specific [place] - Urine >=1.030(H) 1.005 - 1.025 [facility] Urine Protein Negative Neg-Trace mg/dL [facility] Urine Ketones Trace Negative mg/dL [facility] Nitrite Urine Negative Negative [facility] Leukocyte Esterase Urine Negative Negative [facility] RBC Urine 3-5(A) 0 - 2 /HPF [facility] Urine WBC 0-5 0 - 5 /HPF [facility] Urine Squamous Epithelial Cell 0-2 0 - 2 /HPF [facility] Urine Bacteria None Seen None Seen [facility] Hyaline Casts, Urine 0-2 0 - 2 /LPF [facility] 04/25/2025 6:22 PM EDT 04/25/2025 6:29 PM EDT us Generic External Data Provider LAB URINE ORDERAB LES Final Result Performing Organization Address City/State/[facility] Co de Phone Number [facility] [address] [place] [phone] * (ABNORMAL) Basic Metabolic Panel (04/25/2025 6:20 PM EDT) Pathologist [facility] Sodium 142 135 - 145 mmol/L [facility] Potassium 3.9 3.3 - 5.1 mmol/L [facility] Chloride 110(H) 96 - 108 mmol/L [facility] Carbon Dioxide 25 22 - 29 mmol/L [facility] Anion Gap 11(L) 12 - 20 [facility] Urea Nitrogen (BUN) 18(H) 9 - 16 mg/dL [facility] Creatinine, Serum 0.65 0.5 - 1.4 mg/dL [facility] Creatinine Clr Calc Pharmacy 105.3 [facility] Comment:Provided height and weight: 154.94 cm,58.967 kg.eGFR (calculated from the MDRD study equation) and eCrCl(calculated from the Cockcroft-Gault equation) are based ondifferent parameters and may not yield comparable results.If eCrCl result is absurd, please check patient'sheight/weight. Estimated Glomerular Filt Rate >60 [facility] Comment:Chronic Kidney Disea se: Estimated GFR < 60 mL/min/[id number] Kidney Disease: Estimated GFR < 15 mL/min/1.73m2 Glucose 83 60 - 115 mg/dL [facility] Calcium 8.5 8.4 - 10.2 mg/dL [facility] 04/25/2025 6:20 PM EDT 04/25/2025 6:29 PM EDT us Generic External Data Provider LAB BLOOD ORDERAB LES Final Result [facility] [address] [place] [phone] * (ABNORMAL) CBC auto differential (04/25/2025 6:19 PM EDT) White Blood Count 8.0 4.8 - 10.8 X10*3/uL [facility] Red Blood Count 3.60(L) 4.20 - 5.50 X10*6/uL [facility] Hemoglobin 11.5(L) 12.0 - 16.0 g/dl [facility] Hematocrit 32.7(L) 37.0 - 47.0 % [facility] Mean Corpuscular Volume 90.8 80.0 - 98.0 fL [facility] Mean Corpuscular Hemoglobin 31.9 27.0 - 33.0 pg [facility] Mean Corpuscular HGB Conc 35.2(H) 31.0 - 35.0 g/dl [facility] Red Cell Distribution Width 11.6 11.0 - 16.0 % [facility] Platelet Count 289 160 - 400 X10*3/uL [facility] Mean Platelet Volume 10.2 9.4 - 12.3 fL [facility] Neutrophils Percent Auto 50.6 45 - 73 % [facility] Imm Gran Pct Auto 0.1 0.0 - 0.4 % [facility] Lymphocytes Percent Auto 41.1(H) 20 - 40 % [facility] Monocytes Percent Auto 6.5 2 - 11 % [facility] Eosinophils Percent Auto 1.1 0 - 4 % [facility] Basophils Percent Auto 0.6 0 - 2 % [facility] NRBC Pct Auto 0.0 0.0 - 0.2 /100WBC [facility] Neutrophils Absolute Auto 4.1 2.0 - 8.3 x10*3/uL [facility] Imm Gran Abs Auto 0.01 0.00 - 0.03 X10*3/uL [facility] Lymphocytes Absolute Auto 3.3 1.2 - 4.9 X10*3/uL [facility] Monocytes Absolute Auto 0.5 0.1 - 1.2 X10*3/uL [facility] Eosinophils Absolute Auto 0.1 0.0 - 0.4 X10*3/uL [facility] Basophils Absolute Auto 0.1 0.0 - 0.2 X10*3/uL [facility] NRBC Abs Auto 0.000 0.0 - 0.012 X10*3/uL [facility] 04/25/2025 6:19 PM EDT 04/25/2025 6:29 PM EDT us Generic External Data Provider LAB BLOOD ORDERAB LES Final Result [facility] [address] [place] [phone] * Strep A Nucleic Acid (04/17/2025 9:10 AM EDT) [employer]NOW SERIAL# [id number] [facility] Strep A Nucleic Acid Negative Negative [facility] Comment:All test results mus t [...] GENERAL ORDERABLES Final Result Performing Organization Address [facility] Co de Phone Number [facility] [address] [place] [phone] * (ABNORMAL) SARS-CoV-2 RNA, Influenza A/B, and RSV RNA, Ql NAAT (04/17/2025 9:10 AM EDT) Influenza A PCR NEGATIVE Negative [facility] Influenza B PCR NEGATIVE Negative [facility] Resp Syncy Virus RNA Qual PCR NEGATIVE Negative [facility] SARS COV2 PCR POSITIVE(A) Negative [facility] Comment:All test results mus t [...] use by authorized laboratories.Testing performed on the [employer] GeneXpert utilizingreal-time RT-PCR.All SARS CoV2 and positive influenza A/B results arereported to [facility]. 04/17/2025 9:10 AM EDT 04/17/2025 9:13 AM EDT Generic External Data Provider LAB MICROBIOLOGY - GENERAL ORDERABLES Final Result Performing Organization Address [facility]/ZIP Co de Phone Number [facility] [address] [place] [phone] * Hepatitis C Antibody with Reflex to HCV, RNA, Quantitative, Real-Time PCR (02/20/2025 8:35 AM EDT) Hepatitis C Antibody Nonreactive Nonreactive [facility] Comment:Antibodies to HCV no t detected; does not exclude early acuteHCV infection. Blood Venous blood specimen / Unknown 02/20/2025 8:35 AM EDT 02/20/2025 11:06 AM EDT us Hailey Sevilla MD LAB BLOOD ORDERABLES Final Resul t [facility] [address] [place] [phone] * HIV-1/2 Antigen and Antibodies, Fourth Generation, with Reflexes (02/20/2025 8:35 AM EDT) HIV AB/AG Nonreactive Nonreactive [facility] Comment:HIV-1 p24 Ag and/or HIV-1/HIV-2 Ab not detected.A test result that is nonreactive does not exclude thepossibility of exposure to or infection with HIV-1 and/orHIV-2. Nonreactive results in this assay for individualswith prior exposure to HIV-1 and/or HIV-2 may be due toantigen and antibody levels that are below the limit ofdetection of this assay.The [employer] HIV Ag/Ab Combo assay result andsupplemental assay results should be interpreted inconjunction with the patient's clinical presentation,history and other laboratory results. If the results areinconsistent with clinical evidence, additional testing issuggested to confirm the result. Blood Venous blood specimen / Unknown 02/20/2025 8:35 AM EDT 02/20/2025 11:06 AM EDT us Hailey Sevilla MD LAB BLOOD ORDERABLES Final Resul t [facility] [address] [place] [phone] * Pap Smear (12/12/2024 12:00 AM EDT) Swab 12/12/2024 12/13/2024 6:2 2 AM EDT [facility] - 12/21/2024 10:40 AM EDT ----- ------- Name: Jak Izquierdo Age/Sex: 29/F : 1995 Unit#: [id number] Attend Dr: Delia Ashby Re12/12/24 Status: [facility] REF Location: [facility] Disch: ----- ------- SPEC : [id number] RECD: 12/13/24 STATUS: DEEPAK ESTEVEZ NUM: [id number] YG: 12/12/24-[address]: Hailey Sevilla MD ENTERED: 12/13/24 SP TYPE: Pap Smr [facility] DR: ORDERED: Pap Smear Interpretation Satisfactory for evaluation. Negative for intraepithelial lesion or malignancy. No endocervical cells seen. Coccobacilli consistent with shift in vaginal marky. Clinical Information LMP: IUD Previous PAP test: Date not reported, negative PAP Other surgery: Other history: Material Received ThinPrep-Cervical ----- ------- Signed (signature on file) DEONNA Stovall ([facility]) 12/21/24 1040 ----- ------- END OF REPORT Hailey Sevilla MD LAB CYTOLOGY ORDERABLES Final Re sult [facility] Organization Address City/State/ZIP Co de Phone Number [facility] [address] [place], [place] [phone] from Last 3 Months or Most Recently Relevant to Health Maintenance Insurance [address] [place], [place] [address] C3 Care Teams Campus Administrator Relationship Specialty Start Date End Date Hailey Sevilla MD [address] [place] [phone] PCP - General Family Medicine 09/27/18 Michelle Cortes, RN [address] [place] [phone] Registered Nurse Family Medicine 04/18/25 Laura Layne 04/18/25
--- OUTSIDE RECORDS SUMMARY | 2025-07-13 14:41 | XMS_ITS ---
Author Organization [employer] Address [address] [facility] 7 [place] [address] Care Team Providers Care Crematorium Operator Name Role Phone Hailey Sevilla MD Primary Care Provider [phone] Michelle Cortes RN Unavailable Laura Layne Unavailable CM Complex Status:Outreach In Progress (Enrolling) Start date:04/18/2025 Enrollment reason:ADT Feed Overview [facility] ED 04/17/25 Case Team Name Relationship Phone Michelle Cortes RN(Responsible Staff) Registered Nurse [phone] Continued Care and Services Coordination
--- OUTSIDE RECORDS SUMMARY | 2025-07-13 14:41 | XMS_ITS | Encounter Summary ---
Author Organization [employer] Address [address] [facility] 7t [place] [address] Care Team Providers Care Director Of Product Development Name Role Phone Hailey Sevilla MD Primary Care Provider [phone] Michelle Cortes RN Unavailable [phone] Laura Layne Unavailable Reason for Referral * Imaging (Routine) - Closed Specialty Diagnoses / Procedures Referred By Contac t Referred To Contact Radiology Diagnoses Abnormal uterine bleeding (AUB) Procedures Us Pelvis complete Hailey Sevilla MD [address] [place] [address] Phone: tel: fax: [address] Phone: tel: fax: Referral ID Status Reason Start Date Expiration Date Visits Re quested Visits Authorized [id number] Closed 04/27/2025 04/27/2026 1 1 * Imaging (Urgent) - Closed Specialty Diagnoses / Procedures Referred By Contac t Referred To Contact Radiology Diagnoses Abnormal uterine bleeding (AUB) Procedures US Pelvis Transvaginal Hailey Sevilla MD [address] [place] [address] Phone: tel: fax: [facility] [address] [place], [place] Phone: tel: fax: Referral ID Status Reason Start Date Expiration Date Visits Re quested Visits Authorized [id number] Closed 04/27/2025 04/27/2026 1 1 Encounter Details Date Type Department Care Team (Late st Contact Info) Description 04/27/2025 Orders Only [facility] MEDICINE [address] [place], [place] [phone] Hailey Sevilla MD [address] [place], [place] [phone] Abnormal uterine bleeding (AUB) (Primary Dx) Social History Tobacco Use Types [...] r Schedule Us Pelvis complete Imaging Routine Abnormal uterine bleeding (AUB) Expected: 04/27/2025, Expires: 04/27/2026 documented as of this encounter Procedures Procedure Name Priority Date/Time Associated Diagnosis Comments US PELVIS TRANSVAGINAL Urgent 05/07/2025 1:59 PM EDT Abnormal uterine bleeding (AUB) documented in this encounter Results * US Pelvis Transvaginal (05/07/2025 1:59 PM EDT) Anatomical Region Laterality Modality Pelvis Ultrasound 05/07/2025 1:59 PM EDT Narrative 05/07/2025 2:57 PM EDT [facility] [address] [place] [address] [place] [address] Ultrasound Report Signed Patient: Jak Izquierdo MR#: [id number] : 1995 Acct:[id number] Age/Sex: 29 / F ADM Date: 05/07/25 Loc: HO.HMGCX Attending Dr: Hailey Sevilla MD Ordering Physician: Hailey Sevilla MD Date of Service: 05/07/25 Procedure(s): US pelvic and transvaginal Accession Number(s): [id number] cc: Hailey Sevilla MD EXAMINATION: US PELVIS TRANSABDOMINAL AND TRANSVAGINAL HISTORY: AUB, anemia COMPARISON: Correlation is made with a CT of the pelvis dated 09/09/2024. TECHNIQUE: Transabdominal and endovaginal real-time 2D morley-scale ultrasound was performed. FINDINGS: Uterus: The uterus is normal in size, measuring 8.8 x 4.2 x 5.3 cm. Myometrium has a normal echotexture. No fibroids are identified. Endometrium: The endometrial stripe measures 6 mm in thickness. There are nabothian cysts in the cervix. Right ovary: The right ovary measures 4.2 x 2.0 x 2.8 cm. There is a complex appearing 1.7 x 1.4 x 1.8 cm hypoechoic structure which may represent a hemorrhagic cyst. Left ovary: The left ovary measures 3.2 x 1.3 x 2.4 cm. The left ovary is normal in size and echotexture. Pelvic fluid: none. US/US pelvic and transvaginal IMPRESSION: Probable 1.8 cm hemorrhagic right ovarian cyst. Follow-up is recommended in 6 weeks, at a different time in the patient's menstrual cycle, to document resolution. Otherwise unremarkable pelvic ultrasound. Electronically signed by: Abhishek Alvares MD 05/07/2025 02:54 PM EDT RP Dictated By: Abhishek Alvares MD Signed By: <Electronically signed by Abhishek Alvares MD in OV> 05/07/25 1454 DD/ 1359 TD/TT: 05/07/25 1425 Spanish Literature Professor: Procedure Note Donotuseinterpreter, Image - 05/07/2025 [facility] Adult Primary Care [address] [place] [address] [place] [address] Ultrasound Report Signed Patient: Xuan Izquierdo#: [id number] : 1995Acct:[id number] Age/Sex: Date: 05/07/25 Loc: .HMGCX Attending Dr: Hailey Sevilla MD Ordering Physician: Hailey Sevilla MD Date of Service: 05/07/25 Procedure(s): US pelvic and transvaginal Accession Number(s): [id number] cc: Hailey Sevilla MD EXAMINATION: US PELVIS TRANSABDOMINAL AND TRANSVAGINAL HISTORY: AUB, anemia COMPARISON: Correlation is made with a CT of the pelvis dated 09/09/2024. TECHNIQUE: Transabdominal and endovaginal real-time 2D morley-scale ultrasound was performed. FINDINGS: Uterus: The uterus is normal in size, measuring 8.8 x 4.2 x 5.3 cm. Myometrium has a normal echotexture. No fibroids are identified. Endometrium: The endometrial stripe measures 6 mm in thickness. There are nabothian cysts in the cervix. Right ovary: The right ovary measures 4.2 x 2.0 x 2.8 cm. There is a complex appearing 1.7 x 1.4 x 1.8 cm hypoechoic structure which may represent a hemorrhagic cyst. Left ovary: The left ovary measures 3.2 x 1.3 x 2.4 cm. The left ovary is normal in size and echotexture. Pelvic fluid: none. US/US pelvic and transvaginal IMPRESSION: Probable 1.8 cm hemorrhagic right ovarian cyst. Follow-up is recommended in 6 weeks, at a different time in the patient's menstrual cycle, to document resolution. Otherwise unremarkable pelvic ultrasound. Electronically signed by: Abhishek Alvares MD 05/07/2025 02:54 PM EDT RP Dictated By: Abhishek Alvares MD Signed By: <Electronically signed by Abhishek Alvares MD in OV> 05/07/25 1454 DD/ 1359 TD/TT: 05/07/25 1425 Spanish Literature Professor: us Hailey Sevilla MD IMG US PROCEDURES Final Result documented in this encounter Visit Diagnoses Diagnosis Abnormal uterine bleeding (AUB)- Primary documented in this encounter Additional Health Concerns Assessment Noted Time PHQ-9 Depression Total Score: 0 03/09/20 24 1:49 PM EDT documented as of this encounter Care Teams Director Of Product Development Relationship Specialty Start Date End Date Hailey Sevilla MD [address] [place] [address] PCP - General Family Medicine 09/27/18 Michelle Cortes, CHARLEEN [address] [place] [address] Registered Nurse Family Medicine 04/18/25 Laura Layne 04/18/25 documented as of this encounter
--- OUTSIDE RECORDS SUMMARY | 2025-07-13 14:41 | XMS_ITS | Encounter Summary ---
Author Organization [email or web address] Address [address] [facility] 7t [place] [address] Care Team Providers Care Sectional Belt Mold Assembler Name Role Phone Hailey Sevilla MD Primary Care Provider Michelle Cortes RN Unavailable Larua Layne Unavailable Encounter Details Date Type Department Care Team (Late st Contact Info) Description 02/16/2025 Orders Only [facility] MEDICINE [address] [place], [place] [phone] Hailey Sevilal MD [address] [place], [place] [phone] Chlamydia (Primary Dx); Routine screening for STI (sexually transmitted infection) Social History Tobacco Use Types Packs/Day Years [...] Procedure Name Priority Date/Time Associated Diagnosis Comments SYPHILIS SCREEN Routine 02/20/2025 8:35 AM EDT Routine screening for STI (sexually transmitted infection) HEPATITIS C AB W/REFL TO HCV RNA, QN, PCR Routine 02/20/2025 8:35 AM EDT Routine screening for STI (sexually transmitted infection) CHLAMYDIA/N. GONORRHOEAE RNA, TMA, UROGENITAL Routine 02/20/2025 8:35 AM EDT Routine screening for STI (sexually transmitted infection) HEPATITIS B SURFACE ANTIGEN, EIA Routine 02/20/2025 8:35 AM EDT Routine screening for STI (sexually transmitted infection) HIV 1/2 ANTIGEN/ANTIBODY, FOURTH GENERATION W/RFL Routine 02/20/2025 8:35 AM EDT Routine screening for STI (sexually transmitted infection) documented in this encounter Results * Hepatitis B surface antigen, EIA (02/20/2025 8:35 AM EDT) Hepatitis B Surface Ag Negative Negative [facility] Blood Venous blood specimen / Unknown 02/20/2025 8:35 AM EDT 02/20/2025 11:06 AM EDT Hailey Sevilla MD LAB BLOOD ORDERABLES Final Resul t Performing Organization Address [facility] Co de Phone Number [facility] [address] [place] [phone] * HIV-1/2 Antigen and Antibodies, Fourth Generation, with Reflexes (02/20/2025 8:35 AM EDT) HIV AB/AG Nonreactive Nonreactive [facility] Comment:HIV-1 p24 Ag and/or HIV-1/HIV-2 Ab not detected.A test result that is nonreactive does not exclude thepossibility of exposure to or infection with HIV-1 and/orHIV-2. Nonreactive results in this assay for individualswith prior exposure to HIV-1 and/or HIV-2 may be due toantigen and antibody levels that are below the limit ofdetection of this assay.The [employer] HIV Ag/Ab Combo assay result andsupplemental assay results should be interpreted inconjunction with the patient's clinical presentation,history and other laboratory results. If the results areinconsistent with clinical evidence, additional testing issuggested to confirm the result. Blood Venous blood specimen / Unknown 02/20/2025 8:35 AM EDT 02/20/2025 11:06 AM EDT Hailey Sevilla MD LAB BLOOD ORDERABLES Final Resul t Performing Organization Address [facility]/ZIP Co de Phone Number [facility] [address] [place] [phone] [phone] * Chlamydia/N. Gonorrhoeae RNA, TMA, Urogenitial (02/20/2025 8:35 AM EDT) CT PCR NOT DETECTED Not Detect. [facility] Comment:A not detected test [...] psychologicalconsequences. NG PCR NOT DETECTED Not Detect. [facility] Comment:A not detected test [...] AM EDT 02/20/2025 11:11 AM EDT Narrative [facility] - 02/20/2025 1:07 PM EDT Urine us Hailey Sevilla MD LAB MICROBIOLOGY - GENERAL ORDER SHAKIRA Final Result [facility] [address] [place] [phone] * Hepatitis C Antibody with Reflex to HCV, RNA, Quantitative, Real-Time PCR (02/20/2025 8:35 AM EDT) Hepatitis C Antibody Nonreactive Nonreactive [facility] Comment:Antibodies to HCV no t detected; does not exclude early acuteHCV infection. Blood Venous blood specimen / Unknown 02/20/2025 8:35 AM EDT 02/20/2025 11:06 AM EDT us Hailey Sevilla MD LAB BLOOD ORDERABLES Final Resul t Performing Organization Address [facility] Co de Phone Number [facility] [address] [place] [phone] * Syphilis Screen (02/20/2025 8:35 AM EDT) Syphilis Screen Nonreactive Nonreactive [facility] Blood 02/20/2025 8:35 AM EDT 02/20/2025 11:06 AM EDT us Hailey Sevilla MD LAB BLOOD ORDERABLES Final Resul t Performing Organization Address [facility] Co de Phone Number [facility] [address] [place] [phone] documented in this encounter Visit Diagnoses Diagnosis Chlamydia- Primary Other specified chlamydial infection, in conditions classified elsewhere and of unspecified site Routine screening for STI (sexually transmitted infection) Screening examination for venereal disease documented in this encounter Additional Health Concerns Assessment Noted Time PHQ-9 Depression Total Score: 0 03/09/20 24 1:49 PM EDT documented as of this encounter Care Teams Sectional Belt Mold Assembler Relationship Specialty Start Date End Date Hailey Sevilla MD [address] [place] [address] PCP - General Family Medicine 09/27/18 Michelle Cortes, RN [address] [place] [phone] Registered Nurse Family Medicine 04/18/25 Laura Lyane 04/18/25 documented as of this encounter
--- OUTSIDE RECORDS SUMMARY | 2025-07-13 14:41 | XMS_ITS | Encounter Summary ---
Author Organization [employer] Address [address] [facility] 7t [place] [address] Care Team Providers Care Independent Video Producer Name Role Phone Hailey Sevilla MD Primary Care Provider [phone] Michelle Cortes RN Unavailable [phone] Laura Layne Unavailable Encounter Details Date Type Department Care Team (Late st Contact Info) Description 04/27/2025 Orders Only [facility] MEDICINE [address] [place], [place] [phone] Hailey Sevilla MD [address] [place], [place] [phone] Social History Tobacco Use Types Packs/Day Years [...] documented as of this encounter Care Teams Independent Video Producer Relationship Specialty Start Date End Date Hailey Sevilla MD [address] [place] [address] PCP - General Family Medicine 09/27/18 Michelle Cortes RN [address] [place] [phone] Registered Nurse Family Medicine 04/18/25 Laura Layne 04/18/25 documented as of this encounter
--- OUTSIDE RECORDS SUMMARY | 2025-07-13 14:41 | XMS_ITS | Encounter Summary ---
Author Organization [employer] Address [address] [facility] 7t [place] [address] Care Team Providers Care Eligibility Consultant Name Role Phone Hailey Sevilla MD Primary Care Provider [phone] Michelle Cortes RN Unavailable [phone] Laura Layne Unavailable Encounter Details Date Type Department Care Team (Late st Contact Info) Description 05/02/2025 Orders Only [facility] MEDICINE [address] [place], [place] [phone] Hailey Sevilla MD [address] [place], [place] [phone] Anemia, unspecified type (Primary Dx) Social History Tobacco Use Types [...] 05/02/2025 2:07 PM EDT Anemia, unspecified type IRON AND TOTAL IRON BINDING CAPACITY Routine 05/02/2025 2:07 PM EDT Anemia, unspecified type RETICULOCYTE COUNT Routine 05/02/2025 2: 07 PM EDT Anemia, unspecified type FERRITIN Routine 05/02/2025 2:07 PM EDT Anemia, unspecified type documented in this encounter Results * Vitamin B12 (Cobalamin) and Folate Panel, Serum (05/02/2025 2:07 PM EDT) Vitamin B12 344 200 - 900 pg/mL [facility] Comment:NORMAL 200-900 PG/ML INDETERMINATE 160-199 PG/ML DEFICIENT < 160 PG/ML Folate 8.8 > or = 4.0 ng/mL [facility] Comment:Reference Values:> o r = 4.0 ng/mL< 4.0 ng/mL suggests folate deficiency Methotrexate, aminopterin and folinic acid(leucovorin) are chemotherapeutic agents whose molecularstructures are similar to folate; therefore, the Architectfolate assay cannot be used for patients using these drugs. Blood 05/02/2025 2:07 PM EDT 05/02/2025 4:30 PM EDT Hailey Sevilla MD LAB BLOOD ORDERABLES Final Resul t Performing Organization Address [facility] Phone Number [facility] [address] [place] [phone] * (ABNORMAL) Reticulocyte Count (05/02/2025 2:07 PM EDT) Reticulocytes Absolute 0.045 0.026 - 0.095 X10*6/uL [facility] Immature Retic Fraction 4.7 3.0 - 15.9 % [facility] Retic HGB Equivalent 35.9(H) 30.0 - 35.0 pg [facility] Reticulocyte Percent 1.2 0.5 - 1.8 % [facility] Blood Venous blood specimen / Unknown 05/02/2025 2:07 PM EDT 05/02/2025 4:30 PM EDT Hailey Sevilla MD LAB BLOOD ORDERABLES Final Resul t Performing Organization Address [facility] de Phone Number [facility] [address] [place] [phone] * Iron And Total Iron Binding Capacity (05/02/2025 2:07 PM EDT) Iron 104 30 - 160 mcg/dL [facility] Total Iron Binding Capacity 238 228 - 428 mcg/dL [facility] Percent Iron Saturation 44 15 - 50 % [facility] Unsaturated Iron Binding 134 ug/dL [facility] Blood Venous blood specimen / Unknown 05/02/2025 2:07 PM EDT 05/02/2025 4:30 PM EDT us Hailey Sevilla MD LAB BLOOD ORDERABLES Final Resul t Performing Organization Address City/[facility]/ZIP Co de Phone Number [facility] [address] [place] [phone] * Ferritin (05/02/2025 2:07 PM EDT) Ferritin 97 10 - 122 ng/mL [facility] Blood Venous blood specimen / Unknown 05/02/2025 2:07 PM EDT 05/02/2025 4:30 PM EDT us Hailey Sevilla MD LAB BLOOD ORDERABLES Final Resul t Performing Organization Address [facility] Co de Phone Number [facility] [address] [place] [phone] documented in this encounter Visit Diagnoses Diagnosis Anemia, unspecified type- Primary documented in this encounter Additional Health Concerns Assessment Noted Time PHQ-9 Depression Total Score: 0 03/09/20 24 1:49 PM EDT documented as of this encounter Care Teams Eligibility Consultant Relationship Specialty Start Date End Date Hailey Sevilla MD [address] [place] [address] PCP - General Family Medicine 09/27/18 Michelle Cortes, CHARLEEN [address] [place] [phone] Registered Nurse Family Medicine 04/18/25 Laura Layne 04/18/25 documented as of this encounter
--- OUTSIDE RECORDS SUMMARY | 2025-07-13 14:41 | XMS_ITS | Encounter Summary ---
Author Organization [employer] Address [address] [facility] 7t [place] [address] Care Team Providers Care Community Coordinator Name Role Phone Hailey Sevilla MD Primary Care Provider [phone] Michelle Cortes RN Unavailable [phone] Laura Layne Unavailable Encounter Details Date Type Department Care Team (Late st Contact Info) Description 12/18/2024 Orders Only [facility] MEDICINE [address] [place], [place] [phone] Hailey Sevilla MD [address] [place], [place] [phone] Social History Tobacco Use Types Packs/Day Years [...] documented as of this encounter Care Teams Community Coordinator Relationship Specialty Start Date End Date Hailey Sevilla MD [address] [place] [address] PCP - General Family Medicine 09/27/18 Michelle Cortes RN [address] [place] [phone] Registered Nurse Family Medicine 04/18/25 Laura Layne 04/18/25 documented as of this encounter
--- OUTSIDE RECORDS SUMMARY | 2025-07-13 14:41 | XMS_ITS | Clinical Summary ---
Author Organization [facility] Address [address] [place] [address] Care Team Providers Care Food Sales Clerk Name Role Phone Unavailable Primary Care Provider Unavailabl e Surgical History Surgery Date Site/Laterality Comments CHOLECYSTECTOMY PROCEDURE: [facility] LAPAROSCOPY SURG CHOLECYSTECTOMY BREAST REDUCTION PROCEDURE: UT BREAST REDUCTION Medical History Medical History Date Comments Anemia DX:Anemia Migraine DX:Migraine Seizure (CMS/HCC V24, CMS/HCC V28) 2015 DX:Seizure ([facility]); COMMENT: r/t migraine, EEG negative [...] Cervical Cancer Screening: P ap Smear 11/24/2016 HPV Vaccines (1 - 3-dose SCD M series) 11/24/2022 Depression Screening 09/27/2024 COVID-19 Vaccine ( - 2023-2 5 season) 2025 Influenza Vaccine (#1) 2025 DTaP,Tdap,and Td Vaccines (2 - Td or Tdap) 11/24/2026 11/24/2016 RSV Immunization Adult Patie nts (1 - 1-dose 75+ series) 11/24/2070 HIB Vaccines Aged Out No longer eligi [...]
--- OUTSIDE RECORDS SUMMARY | 2025-07-13 14:41 | XMS_ITS | Encounter Summary ---
Author Organization [employer] Address [address] [facility] 7t [place] [address] Care Team Providers Care Equipment Inspector Name Role Phone Hailey Sevilla MD Primary Care Provider [phone] Michelle Cortes RN Unavailable [phone] Laura Layne Unavailable Encounter Details Date Type Department Care Team (Late st Contact Info) Description 12/18/2024 Orders Only [facility] MEDICINE [address] [place], [place] [phone] Hailey Sevilla MD [address] [place], [place] [phone] Chlamydia (Primary Dx) Social History Tobacco Use [...] PM EDT) CT PCR DETECTED(A) Not Detect. [facility] Comment:Detected results may be observed [...] the ordering clinician orclinical facility to the [facility] required by state law. NG PCR NOT DETECTED Not Detect. [facility] Comment:A not detected test result [...] PM EDT 12/18/2024 4:39 PM EDT Narrative [facility] - 12/19/2024 12:18 PM EDT Vaginal Hailey Sevilla MD LAB MICROBIOLOGY - GENERAL ORDER SHAKIRA Final Result [facility] [address] [place] [phone] documented in this encounter Visit Diagnoses Diagnosis Chlamydia- Primary Other specified chlamydial infection, in conditions classified elsewhere and of unspecified site documented in this encounter Additional Health Concerns Assessment Noted Time PHQ-9 Depression Total Score: 0 03/09/20 24 1:49 PM EDT documented as of this encounter Care Teams Equipment Inspector Relationship Specialty Start Date End Date Hailey Sevilla MD [address] [place] [address] PCP - General Family Medicine 09/27/18 Michelle Cortes, CHARLEEN [address] [place] [phone] Registered Nurse Family Medicine 04/18/25 Laura Layne 04/18/25 documented as of this encounter
--- OUTSIDE RECORDS SUMMARY | 2025-07-13 14:42 | XMS_ITS | Encounter Summary ---
Author Organization [employer] Address 75 [facility] 7t [place] [address] Care Team Providers Care Manager Strategic Marketing Name Role Phone Hailey Sevilla MD Primary Care Provider [phone] Michelle Cortes RN Unavailable [phone] Laura Layne Unavailable Encounter Details Date Type Department Care Team (Late st Contact Info) Description 12/21/2024 Orders Only [facility] MEDICINE [address] [place], [place] [phone] Hailey Sevilla MD [address] [place], [place] [phone] Chlamydia (Primary Dx) Social History Tobacco Use [...] EDT) CT PCR NOT DETECTED Not Detect. [facility] Comment:A not detected test result does [...] psychologicalconsequences. NG PCR NOT DETECTED Not Detect. [facility] Comment:A not detected test [...] AM EDT 01/10/2025 4:52 PM EDT Narrative [facility] - 01/11/2025 10:59 AM EDT Vaginal Hailey Sevilla MD LAB MICROBIOLOGY - GENERAL ORDER SHAKIRA Final Result [facility] [address] [place] [phone] documented in this encounter Visit Diagnoses Diagnosis Chlamydia- Primary Other specified chlamydial infection, in conditions classified elsewhere and of unspecified site documented in this encounter Additional Health Concerns Assessment Noted Time PHQ-9 Depression Total Score: 0 03/09/20 24 1:49 PM EDT documented as of this encounter Care Teams Manager Strategic Marketing Relationship Specialty Start Date End Date Hailey Sevilla MD [address] [place] [address] PCP - General Family Medicine 09/27/18 Michelle Cortes, RN [address] [place] [phone] Registered Nurse Family Medicine 04/18/25 Laura Layne 04/18/25 documented as of this encounter
[2025-07-16 10:28] LABS: TS Negative Control Passed; TS Panel A 2; TS Panel B 3; TS Positive Control Passed; TSpotTB Negative (Negative)
== END 2025-07-13 10:33 | disposition home or self-care (01) ==
LOC: HO.HHCL 10:32
PROVIDERS: PCP Family Medicine; Visit Provider Family Medicine
DX: S06.0X0A Concussion without loss of consciousness, initial encounter (principal); Y04.2XXA Assault by strike against or bumped into by another person, initial encounter; Z11.1 Encounter for screening for respiratory tuberculosis; Z02.79 Encounter for issue of other medical certificate
CPT/HCPCS: 36415; 86481; 99213

== ENCOUNTER 2025-08-29 13:40 | Outpatient (AMB) | payer MEDICAID, SELFPAY ==
--- NOTE | 2025-08-29 14:16 | A.OFFVIS_ITS ---
Vital Signs 08/29/25 14:18 Height 5 ft 1 in Weight 147 lb 4.301 oz BMI 27.8 BP 96/64 Blood Pressure Location Lt brachial Position Sitting Pulse 54 Pulse Source Monitor Intake Visit Reasons: 1 yr f/up Intake Note: 1 yr f/up Aircraft Cleaner Required: No Accompanied by: Self / Same As Patient Allergies fish derived (FISH) Allergy (Severe, Verified 04/25/25 17:46) Anaphylaxis Iodinated Contrast Media (IV Contrast Dye) Allergy (Severe, Verified 04/25/25 17:46) Anaphylaxis pistachio nut Allergy (Intermediate, Verified 04/25/25 17:46) Swelling Medication List - Last Reconciled 08/29/25 by Alirio Donato MD clotrimazole 1% 1 appl topical BID pborupbz-kep-fxvz fum-folic ac 7.5 mg iron-400 mcg 1 tab PO DAILY pantoprazole 40 mg PO DAILY PRN prochlorperazine maleate (Compazine) 5 mg PO BID PRN topiramate 100 mg PO DAILY PRN [vitamin a PO] HPI Comments Details: 29-year-old female here for follow-up. She has been following with Tawanna in our office. Previously had stress echocardiogram where no wall motion abnormalities were noticed. She had some bradycardia but 3 day Holter monitor did not show any significant arrhythmia. Also during exercise stress test her peak heart rate was 179 beats per minute. She does not have any chronotropic incompetence. She is status post bariatric surgery and has lost 100 lb. At times she has noticed dizziness and lightheadedness and fatigue. She hydrate herself. Prev ious visits her blood pressure was low but overall her blood pressure has improved significantly. She is saying she continues to lose weight. She also has reproducible sharp chest pains which she can point with 1 finger. 08/29/2025: She is back for follow-up. She has been exercising and has no significant symptoms. She continues to get off and on sharp, reproducible chest pains. These happen when she is laying and at time when she is moving. Please pleuritic in nature and reproducible on the chest wall. I have reassured her that the pain is noncardiac. [facility] Medical History Palpitation Shortness of breath Chest pain Asthma KATIE on CPAP Depression Migraines GERD (gastroesophageal reflux disease) Surgical History History of esophagogastroduodenoscopy (EGD) S/P laparoscopic sleeve gastrectomy Hx of section Hx laparoscopic cholecystectomy Hx of breast reduction, elective Family History Maternal Grandmother Breast cancer Mother Breast cancer Throat cancer Ovarian cancer Family/Other Leukemia Father Prostate cancer Diabetes Heart attack Paternal Grandfather Diabetes Social History Household Members: Family Household Members Other:: minor children ages 5 & 6 Housing: House Are you a primary child care centre director to a significant other at home: No Do you presently have visiting nurse or other home services: No Unable to assess alcohol history related to: Unknown Alcohol intake: former Patient Tobacco Use Status: Never used Tobacco Advance Directives Date on File: 10/15/23 service: No Review of Systems Const Denies chills, Denies fatigue, Denies fever(s), Denies frequent falls, Denies weakness, Denies weight gain and Denies weight loss ENT Denies dizziness Card Reports chest pain, Reports chest pain at rest, Reports chest pain with activity, Denies leg edema, Denies lightheadedness, Denies palpitations, Denies dyspnea and Denies dyspnea on exertion Resp Denies cough, Denies dyspnea and Denies dyspnea on exertion GI Denies hematochezia Musc Denies abnormal gait, Denies muscle weakness, Denies numbness, Denies radiating pain into limb and Denies tingling Neuro Denies abnormal gait, Denies dizziness, Denies frequent falls, Denies numbness, Denies tingling and Denies weakness Endo Denies fatigue and Denies palpitations Physical Exam Vital Signs: Last Vital Signs Pulse 54 08/29/25 14:18 BP 96/64 08/29/25 14:18 BMI result Body Mass Index 27.8 GENERAL APPEARANCE: in no acute distress, pleasant. NECK: no carotid bruit, no jugular venous distention. SKIN: no suspicious lesions, warm and dry. HEART: no murmurs, regular rate and rhythm. LUNGS: clear to auscultation bilaterally. ABDOMEN: soft, nontender. EXTREMITIES: no edema. PERIPHERAL PULSES: equal. NEUROLOGIC: No gross deficits, AAO X 3 Assessment & Plan Assessment & Plan (1) Chest pain: Code(s): R07.9 - Chest pain, unspecified Category: Medical Plan Pleasant 29-year-old lady with background of morbid obesity status post bariatric surgery with significant weight loss. She has noncardiac chest pain. She continues to get similar symptoms. No clear exertional pattern and reproducible on the chest wall. No further testing needed. She has sinus bradycardia but does not have chronotropic incompetence. Clinically stable. I have advised her to follow up with us as needed. Thank you for allowing me to participate in the care of your patient. Please feel free to contact me if you have any questions. Coding Level of Care Code Est Pt Level 3 (99900) Diagnoses Chest pain R07.9
[2025-08-29 14:18] VITALS: BP 96/64; PULSE 54; BMI 27.8
--- OUTSIDE RECORDS SUMMARY | 2025-08-29 16:16 | XMS_ITS | Clinical Summary ---
Author Organization [facility] ity Address [address] [place] [address] Care Team Providers Care Multifocal Lens Assembler Name Role Phone Unavailable Primary Care Provider Unavailabl e Surgical History Surgery Date Site/Laterality Comments CHOLECYSTECTOMY PROCEDURE: [place] LAPAROSCOPY SURG CHOLECYSTECTOMY BREAST REDUCTION PROCEDURE: [place] BREAST REDUCTION Medical History Medical History Date Comments Anemia DX:Anemia Migraine DX:Migraine Seizure (CMS/HCC V24, CMS/HCC V28) 2015 DX:Seizure ([facility]); COMMENT: r/t migraine, EEG negative [...] Depression Screening 09/27/2024 COVID-19 Vaccine ( - 2024-2 6 season) 2025 Influenza Vaccine (#1) 2025 DTaP,Tdap,and [...]
--- OUTSIDE RECORDS SUMMARY | 2025-08-29 16:16 | XMS_ITS ---
Author Organization [employer] Address [address] [facility] 7 [place] [address] Care Team Providers Care Multi Line Claims Adjuster Name Role Phone Hailey Sevilla MD Primary Care Provider Michelle Cortes RN Unavailable [phone] Laura Layne Unavailable CM Complex Status:Outreach In Progress (Enrolling) Start date:04/18/2025 Enrollment reason:ADT Feed Overview [facility] 04/17/25 Case Team Name Relationship Phone Michelle Cortes RN(Responsible Staff) Registered Nurse [phone] Continued Care and Services Coordination
--- OUTSIDE RECORDS SUMMARY | 2025-08-29 16:16 | XMS_ITS | Clinical Summary ---
Author Organization [employer] Address [address] [facility] 7t [place] [address] Care Team Providers Care S3B Multi Sensor Operator Name Role Phone Hailey Sevilla MD Primary Care Provider [phone] Michelle Cortes RN Unavailable [phone] Laura Layne Unavailable Allergies No known [...] 5 Active cholecalciferol (Vitamin D-3) 50 MCG (2000 UT) capsule Take 1 capsule (50 mcg) by mouth Once per day. 90 capsule 3 5 Active multivitamin () 27-0.8 MG tablet [...] or split. 45 tablet 3 5 Active omeprazole (PriLOSEC) [address] Lua ns:Gastroesophag eal reflux disease, unspecified whether esophagitis present TAKE 1 CAPSULE BY MOUTH EVERY DAY BEFORE BREAKFAST NEEDED FOR HEARTBURN. 90 capsule 1 5 Active Active Problems Problem Noted Date [...] (10/14/2024 6:38 AM EST): - hospitalized at [facility] in Aug 2024 - Initially treated with [...] Diagnosed Date Resolved Date BMI 40.0-44.9, adult ([facility]) 12/28/2022 10/05/2024 Assessment & Plan (01/03/2023 12:21 PM EDT): -pt is restarting Weight Management Program at [facility] -encouraged to focus on healthy lifestyle, rather than weight Obesity 12/11/2014 10/05/2024 Assessment & Plan (01/03/2023 12:21 PM EDT): -pt is starting weight management clinic and will likely to have an extensive lab evaluation; therefore, I will not order lab today 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 Encounters Date Type Department Care Team Description 07/26/2025 Refill [facility] [address] [place] [address] Hailey Sevilla MD Gastroesophageal reflux disease, unspecified whether esophagitis present 07/13/2025 Telephone [facility] [address] [place] [address] Hailey Sevilla MD 07/13/2025 Telephone [facility] [address] [place], [place] [phone] Hailey Sevilla MD Lab Orders 06/04/2025 Patient Outreach [facility] [address] [place] [address] Hailey Sevilla MD from Last 3 Months Immunizations Immunization Administration [...] Care Team (Late st Contact Info) Description 10/01/2025 2:30 PM EST Office Visit [facility] [address] [place], [place] [phone] Hailey Sevilla MD [address] [place] [address] Health Maintenance Due Date Last Done Comments Pneumococcal Vaccine: Pediatrics (0 to 5 Years) and At-Risk Patients (6 to 49) Years (1 of 2 - PCV) 11/24/2014 Depression Screening 03/09/2025 03/09/2024, 03/09/20 24 SDOH Screening 03/09/2025 03/09/2024 COVID-19 Vaccine ( season) 2025 10/05/2024, 09/07/2022, 06/30/2022, Additional history exists Influenza Vaccine (#1) 2025 , 06/30/2022, 08/26/2020, [...] Vaccine Completed 12/08/2011, 007 HIV Screening Completed 02/20/2025, 12/2021, 06/27/2020 Hepatitis [...] Procedure Name Priority Date/Time Associated Diagnosis Comments T-SPOT(R).TB Routine 07/13/2025 12:00 PM EDT Screening for tuberculosis US PELVIS TRANSVAGINAL Routine 06/19/2025 2:06 PM EDT Cyst of right ovary HEPATITIS C AB W/REFL TO HCV RNA, [...] Recently Relevant to Health Maintenance Results * T-SPOT??.TB (07/13/2025 12:00 PM EDT) [facility] T Spot TB Negative Negative [facility] Comment:A negative test resu lt does not exclude the possibilityof exposure to or infection with Mycobacteriumtuberculosis (M. tuberculosis). Patients with recentexposure to TB infected individuals exhibiting anegative T-SPOT.TB result should be considered forretesting within 6 weeks or if other relevant clinicalsymptoms indicate. Results from T-SPOT.TB testing mustbe used in conjunction with each individual'sepidemiological history, current medical status,and results of other diagnostic evaluations.The T-SPOT.TB test is qualitative and results arereported as positive, borderline, or negative, giventhat the test controls perform as expected. In linewith the Centers for Disease Control and Prevention's2010 recommendation to report quantitative measurementsalongside the qualitative result, the laboratoryprovides spot counts for informational purposes only.The T-SPOT.TB test should not be interpreted as aquantitative test. TS PANEL A 2 [facility] TS PANEL B 3 [facility] Negative Control Passed [facility] Positive Control Passed [facility] Comment:For additional infor stacy, please refer tohttp://education.Loopback/faq/MAZ270(This link is being provided for informational/educational purposes only.)THIS TEST WAS PERFORMED AT:[employer]/[id number] [place] [address]SBMQCEEGERRI MARQUEZ MD,PHD 07/13/2025 12:0 0 PM EDT 07/13/2025 1:16 PM EDT us Hailey Sevilla MD LAB BLOOD ORDERABLES Final Resul t [facility] [address] [place] [phone] * US Pelvis Transvaginal (06/19/2025 2:06 PM EDT) Anatomical Region Laterality Modality Pelvis Ultrasound 06/19/2025 2:06 PM EDT Narrative 06/19/2025 2:08 PM EDT [facility] Adult Primary Care [facility] [place] [address] Ultrasound Report Signed Patient: Jak Izquierdo MR#: [id number] : 1995 Acct:[id number] Age/Sex: 29 / F ADM Date: 06/18/25 Loc: HO.HMGCX Attending Dr: Hetal Castano NP Ordering Physician: Hailey Sevilla MD Date of Service: 06/18/25 Procedure(s): US pelvic and transvaginal Accession Number(s): [id number] cc: Hailey Sevilla MD Reason for Exam: [...] 06/19/25 1407 DD/ 1406 TD/TT: 06/19/25 1406 Manager Ed: Procedure Note Donotuseinterpreter, Image - 06/19/2025 [facility] Adult Primary Care [address] [place] [address] [place] [address] Ultrasound Report Signed Patient: Xuan Izquierdo#: [id number] : 1995Acct:[id number] Age/Sex: Date: 06/18/25 Loc: .HMGCX Attending Dr: Hetal Castano NP Ordering Physician: Hailey Sevilla MD Date of Service: 06/18/25 Procedure(s): US pelvic and transvaginal Accession Number(s): [id number] cc: Hailey Sevilla MD Reason for Exam: [...] West MD in OV> 06/19/25 1407 DD/ 05 TD/TT: 06/19/251405 Manager Ed: Hailey Sevilla MD IMG US PROCEDURES Final Result * Hepatitis C Antibody with Reflex to HCV, RNA, Quantitative, Real-Time PCR (02/20/2025 8:35 AM EDT) Hepatitis C Antibody Nonreactive Nonreactive [facility] Comment:Antibodies to HCV no t detected; does not exclude early acuteHCV infection. Blood Venous blood specimen / Unknown 02/20/2025 8:35 AM EDT 02/20/2025 11:06 AM EDT Hailey Sevilla MD LAB BLOOD ORDERABLES Final Resul t [facility] [address] [place] [phone] * HIV-1/2 Antigen and Antibodies, Fourth Generation, with Reflexes (02/20/2025 8:35 AM EDT) HIV AB/AG Nonreactive Nonreactive [facility] Comment:HIV-1 p24 Ag and/or HIV-1/HIV-2 Ab not detected.A test result that is nonreactive does not exclude thepossibility of exposure to or infection with HIV-1 and/orHIV-2. Nonreactive results in this assay for individualswith prior exposure to HIV-1 and/or HIV-2 may be due toantigen and antibody levels that are below the limit ofdetection of this assay.The Managed MethodsniMedstro HIV Ag/Ab Combo assay result andsupplemental assay results should be interpreted inconjunction with the patient's clinical presentation,history and other laboratory results. If the results areinconsistent with clinical evidence, additional testing issuggested to confirm the result. Blood Venous blood specimen / Unknown 02/20/2025 8:35 AM EDT 02/20/2025 11:06 AM EDT us Hailey Sevilla MD LAB BLOOD ORDERABLES Final Resul t [facility] [address] [place] [phone] * Pap Smear (12/12/2024 12:00 AM EDT) Swab 12/12/2024 12/13/2024 6:2 2 AM EDT Narrative [facility] - 12/21/2024 10:40 AM EDT ----- ------- Name: Adan PenaJak murphy Age/Sex: 29/F : 1995 Unit#: [id number] Attend Dr: Delia Ashby Re12/12/24 Status: DEP REF Location: [facility] Disch: ----- ------- SPEC : [id number] RECD: 12/13/24 STATUS: DEEPAK ESTEVEZ NUM: [id number] YG: 12/12/24-0000 [facility] DR: Hailey Sevilla MD ENTERED: 12/13/24 SP TYPE: Pap Smr OT DR: ORDERED: Pap Smear Interpretation Satisfactory for [...] MD LAB CYTOLOGY ORDERABLES Final Re sult [facility] [address] [place] [address] [phone] from Last 3 Months or Most Recently Relevant to Health Maintenance Insurance [facility] C3 Care Teams S3B Multi Sensor Operator Relationship Specialty Start Date End Date Hailey Sevilla MD [address] [place] [phone] PCP - General Family Medicine 09/27/18 Michelle Cortes RN [address] [place] [phone] Registered Nurse Family Medicine 04/18/25 Laura Layne 04/18/25
--- OUTSIDE RECORDS SUMMARY | 2025-08-29 16:16 | XMS_ITS ---
Author Organization [employer] Address [address] [facility] 7 [place] [address] Care Team Providers Care Hospitality Host Name Role Phone Hailey Sevilla MD Primary Care Provider Michelle Cortes RN Unavailable [phone] Laura Layne Unavailable CHW Complex Status:Outreach In Progress (Enrolling) Start date:04/18/2025 Enrollment reason:ADT Feed Overview [facility] ED 04/17/25. Please outreach for enrollment. Case Team Name Relationship Phone Laura Layne(Responsible Staff) [phone] Continued Care and Services Coordination
--- OUTSIDE RECORDS SUMMARY | 2025-08-29 16:17 | XMS_ITS | Encounter Summary ---
Author Organization [employer] Address [address] [facility] 7t [place] [address] Care Team Providers Care Hourly Team Members Name Role Phone Hailey Sevilla MD Primary Care Provider [phone] Michelle Cortes RN Unavailable [phone] Laura Layne Unavailable Encounter Details Date Type Department Care Team (Late st Contact Info) Description 12/18/2024 Orders Only [facility] [address] [place], [place] [phone] Hailey Sevilla MD [address] [place], [place] [phone] Chlamydia (Primary Dx) Social History Tobacco Use [...] as of this encounter Plan of Treatment Upcoming Encounters Date Type Department Care Team (Late st Contact Info) Description 10/01/2025 2:30 PM EST Office Visit [facility] [address] [place] [phone] Hailey Seivlla MD [address] [place] [address] documented as of this encounter Procedures Procedure Name Priority Date/Time Associated Diagnosis Comments CHLAMYDIA/N. GONORRHOEAE RNA, TMA, UROGENITAL Routine 12/18/2024 1:31 PM EDT Chlamydia documented in this encounter Results * (ABNORMAL) Chlamydia/N. Gonorrhoeae RNA, TMA, Urogenitial (12/18/2024 1:31 PM EDT) CT PCR DETECTED(A) Not Detect. [facility] Comment:Detected results may be observed [...] the ordering clinician orclinical facility to the [facility] required by state law. NG PCR NOT DETECTED Not Detect. [facility] Comment:A not detected test result [...] PM EDT 12/18/2024 4:39 PM EDT Narrative [facility] - 12/19/2024 12:18 PM EDT Vaginal Hailey Sevilla MD LAB MICROBIOLOGY - GENERAL ORDER SHAKIRA Final Result [facility] [address] [place] [address] [phone] documented in this encounter Visit Diagnoses Diagnosis Chlamydia- Primary Other specified chlamydial infection, in conditions classified elsewhere and of unspecified site documented in this encounter Additional Health Concerns Assessment Noted Time PHQ-9 Depression Total Score: 0 03/09/20 24 1:49 PM EDT documented as of this encounter Care Teams Hourly Team Members Relationship Specialty Start Date End Date Hailey Sevilla MD [address] [place] [phone] PCP - General Family Medicine 09/27/18 Michelle Cortes, RN [address] [place] [phone] Registered Nurse Family Medicine 04/18/25 Laura Layne 04/18/25 documented as of this encounter
--- OUTSIDE RECORDS SUMMARY | 2025-08-29 16:17 | XMS_ITS | Encounter Summary ---
Author Organization [employer] Address [address] [facility] 7t [place] [address] Care Team Providers Care Laboratory Immunologist Name Role Phone Hailey Sevilla MD Primary Care Provider [phone] Michelle Cortes RN Unavailable [phone] Laura Layne Unavailable Encounter Details Date Type Department Care Team (Late st Contact Info) Description 04/27/2025 Orders Only [facility] [address] [place], [place] [phone] Hailey Sevilla MD [address] [place], [place] [phone] Social History Tobacco Use Types Packs/Day Years [...] Description 10/01/2025 2:30 PM EST Office Visit [facility] [address] [place] [address] Hailey Sevilla MD [address] [place] [address] documented as of this encounter Visit Diagnoses Not on filedocumented in this encounter Additional Health Concerns Assessment Noted Time PHQ-9 Depression Total Score: 0 03/09/20 24 1:49 PM EDT documented as of this encounter Care Teams Laboratory Immunologist Relationship Specialty Start Date End Date Hailey Sevilla MD [address] [place] [address] PCP - General Family Medicine 09/27/18 Michelle Cortes RN [address] [place] [phone] Registered Nurse Family Medicine 04/18/25 Laura Layne 04/18/25 documented as of this encounter
--- OUTSIDE RECORDS SUMMARY | 2025-08-29 16:17 | XMS_ITS | Encounter Summary ---
Author Organization [employer] Address [address] [facility] 7t [place] [address] Care Team Providers Care Fitting Room Attendant Name Role Phone Hailey Sevilla MD Primary Care Provider [phone] Michelle Cortes RN Unavailable [phone] Laura Layne Unavailable Encounter Details Date Type Department Care Team (Late st Contact Info) Description 05/02/2025 Orders Only [facility] [address] [place], [place] [phone] Hailey Sevilla MD [address] [place], [place] [phone] Anemia, unspecified type (Primary Dx) Social History [...] Description 10/01/2025 2:30 PM EST Office Visit [facility] [address] [place] [phone] Hailey Sevilla MD [address] [place] [address] documented as of this encounter Procedures Procedure [...] Vitamin B12 344 200 - 900 pg/mL [facility] Comment:NORMAL 200-900 PG/ML INDETERMINATE 160-199 PG/ML DEFICIENT < 160 PG/ML Folate 8.8 > or = 4.0 ng/mL [facility] Comment:Reference Values:> o r = 4.0 ng/mL< 4.0 ng/mL suggests folate deficiency Methotrexate, aminopterin and folinic acid(leucovorin) are chemotherapeutic agents whose molecularstructures are similar to folate; therefore, the Architectfolate assay cannot be used for patients using these drugs. Blood 05/02/2025 2:07 PM EDT 05/02/2025 4:30 PM EDT Hailey Sevilla MD LAB BLOOD ORDERABLES Final Resul t Performing Organization Address [facility] de Phone Number [facility] [address] [place] [address] [phone] * (ABNORMAL) Reticulocyte Count (05/02/2025 2:07 PM EDT) Reticulocytes Absolute 0.045 0.026 - 0.095 X10*6/uL [facility] Immature Retic Fraction 4.7 3.0 - 15.9 % [facility] Retic HGB Equivalent 35.9(H) 30.0 - 35.0 pg [facility] Reticulocyte Percent 1.2 0.5 - 1.8 % [facility] Blood Venous blood specimen / Unknown 05/02/2025 2:07 PM EDT 05/02/2025 4:30 PM EDT Hailey Sevilla MD LAB BLOOD ORDERABLES Final Resul t Performing Organization Address [facility] de Phone Number [facility] [address] [place] [address] [phone] * Iron And Total Iron Binding Capacity (05/02/2025 2:07 PM EDT) Iron 104 30 - 160 mcg/dL [facility] Total Iron Binding Capacity 238 228 - 428 mcg/dL [facility] Percent Iron Saturation 44 15 - 50 % [facility] Unsaturated Iron Binding 134 ug/dL [facility] Blood Venous blood specimen / Unknown 05/02/2025 2:07 PM EDT 05/02/2025 4:30 PM EDT us Hailey Sevilla MD LAB BLOOD ORDERABLES Final Resul t Performing Organization Address [facility] Co de Phone Number [facility] [address] [place] [phone] * Ferritin (05/02/2025 2:07 PM EDT) Ferritin 97 10 - 122 ng/mL [facility] Blood Venous blood specimen / Unknown 05/02/2025 2:07 PM EDT 05/02/2025 4:30 PM EDT us Hailey Sevilla MD LAB BLOOD ORDERABLES Final Resul t Performing Organization Address [facility] de Phone Number [facility] [address] [place] [phone] documented in this encounter Visit Diagnoses Diagnosis Anemia, unspecified type- Primary documented in this encounter Additional Health Concerns Assessment Noted Time PHQ-9 Depression Total Score: 0 03/09/20 24 1:49 PM EDT documented as of this encounter Care Teams Fitting Room Attendant Relationship Specialty Start Date End Date Hailey Sevilla MD [address] [place] [address] PCP - General Family Medicine 09/27/18 Michelle Cortes, CHARLEEN [address] [place] [phone] Registered Nurse Family Medicine 04/18/25 Laura Layne 04/18/25 documented as of this encounter
--- OUTSIDE RECORDS SUMMARY | 2025-08-29 16:17 | XMS_ITS | Encounter Summary ---
Author Organization [employer] Address 75 [facility] 7t [place] [address] Care Team Providers Care Clam Shucker Name Role Phone Hailey Sevilla MD Primary Care Provider [phone] Michelle Cortes RN Unavailable [phone] Laura Layne Unavailable Encounter Details Date Type Department Care Team (Late st Contact Info) Description 10/05/2024 Orders Only [facility] MEDICINE [address] [place], [place] [phone] Hailey Sevilla MD [address] [place], [place] [phone] Social History Tobacco Use Types Packs/Day Years [...] Description 10/01/2025 2:30 PM EST Office Visit [facility] MED[facility]INE [address] [place], [place] [phone] Hailey Sevilla MD [address] [place] [address] documented as of this encounter Procedures Procedure Name Priority Date/Time Associated Diagnosis Comments VITAMIN A Routine 10/05/2024 10:35 AM EST documented in this encounter Results * (ABNORMAL) Vitamin A (10/05/2024 10:35 AM EST) Vitamin A (Retinol) 29(A) 38 - 98 mcg/dL [facility] Comment:Vitamin supplementat ion within 24 hours prior toblood draw may affect the accuracy of the results.This test was developed and its analytical performancecharacteristics have been determined by [employer] [place], [place]. It hasnot been cleared or approved by the U.S. Food and DrugAdministration. This assay has been validated pursuantto the CLIA regulations and is used for clinicalpurposes.THIS TEST WAS PERFORMED AT:[employer] [place] [address]UQMIBSLGERRI MARQUEZ MD,PHD 10/05/2024 10:3 5 AM EST 10/05/2024 11:32 AM EST us Generic External Data Provider LAB BLOOD ORDERAB LES Final Result [facility] [address] [place] [phone] documented in this encounter Visit Diagnoses Not on filedocumented in this encounter Additional Health Concerns Assessment Noted Time PHQ-9 Depression Total Score: 0 03/09/20 24 1:49 PM EDT documented as of this encounter Care Teams Clam Shucker Relationship Specialty Start Date End Date Hailey Sevilla MD [address] [place] [address] PCP - General Family Medicine 09/27/18 Michelle Cortes, RN [address] [place] [address] Registered Nurse Family Medicine 04/18/25 Laura Layne 04/18/25 documented as of this encounter
--- OUTSIDE RECORDS SUMMARY | 2025-08-29 16:17 | XMS_ITS | Encounter Summary ---
Author Organization [employer] Address 75 [facility] 7t [place] [address] Care Team Providers Care Diploma Maker Name Role Phone Hailey Sevilla MD Primary Care Provider [phone] Michelle Cortes RN Unavailable Laura Layne Unavailable Reason for Referral * Imaging (Routine) - Closed Specialty Diagnoses / Procedures Referred By Contac t Referred To Contact Radiology Diagnoses Abnormal uterine bleeding (AUB) Procedures Us Pelvis complete Hailey Sevilla MD [address] [place] [address] Phone: tel: fax: [facility] [address] [place] [phone] Phone: tel: fax: Referral ID Status Reason Start Date Expiration Date Visits Re quested Visits Authorized [id number] Closed 04/27/2025 04/27/2026 1 1 * Imaging (Urgent) - Closed Specialty Diagnoses / Procedures Referred By Contac t Referred To Contact Radiology Diagnoses Abnormal uterine bleeding (AUB) Procedures US Pelvis Transvaginal Hailey Sevilla MD [address] [place] [address] Phone: tel: fax: [facility] [address] [place] [address] Phone: tel: fax: Referral ID Status Reason Start Date Expiration Date Visits Re quested Visits Authorized [id number] Closed 04/27/2025 04/27/2026 1 1 Encounter Details Date Type Department Care Team (Late st Contact Info) Description 04/27/2025 Orders Only [facility] MEDICINE [address] [place] [address] Hailey Sevilla MD [address] [place], [place] [phone] Abnormal uterine bleeding (AUB) (Primary Dx) Social [...] Description 10/01/2025 2:30 PM EST Office Visit [facility] [address] [place], [place] [phone] Hailey Sevilla MD [address] [place], [place] [phone] Scheduled Orders Name Type Priority Associated Diagnoses [...] PM EDT Narrative 05/07/2025 2:57 PM EDT [facility] Adult Primary Care [address] [place] [address] [place] [address] Ultrasound Report Signed Patient: Jak Izquierdo MR#: [id number] : 1995 Acct:[id number] Age/Sex: 29 / F ADM Date: 05/07/25 Loc: HO.HMGCX Attending Dr: Hailey Sevilla MD Ordering Physician: Hailey Sevilla MD Date of Service: 05/07/25 Procedure(s): US pelvic and transvaginal Accession Number(s): [id number] cc: Hailey Sevilla MD EXAMINATION: US PELVIS [...] Abhishek Alvares MD 05/07/2025 02:54 PM EDT Dictated By: Abhishek Alvares MD Signed By: <Electronically signed by Abhishek Alvares MD in OV> 05/07/25 1454 DD/ 1359 TD/TT: 05/07/25 1425 Criminal Justice Faculty: Procedure Note Donotuseinterpreter, Image - 05/07/2025 [facility] Adult Primary Care [facility] [place] [address] Ultrasound Report Signed Patient: Xuan Izquierdo#: [id number] : 1995Acct:[id number] Age/Sex: Date: 05/07/25 Loc: HO.HMGCX Attending Dr: Hailey Sevilla MD Ordering Physician: Hailey Sevilla MD Date of Service: 05/07/25 Procedure(s): US pelvic and transvaginal Accession Number(s): [id number] cc: Hailey Sevilla MD EXAMINATION: US PELVIS [...] Abhishek Alvares MD 05/07/2025 02:54 PM EDT Dictated By: Abhishek Alvares MD Signed By: <Electronically signed by Abhishek Alvares MD in OV> 05/07/25 1454 DD/ 1359 TD/TT: 05/07/25 1425 Criminal Justice Faculty: us Hailey Sevilla MD IMG US PROCEDURES Final Result documented in this encounter Visit Diagnoses Diagnosis Abnormal uterine bleeding (AUB)- Primary documented in this encounter Additional Health Concerns Assessment Noted Time PHQ-9 Depression Total Score: 0 03/09/20 24 1:49 PM EDT documented as of this encounter Care Teams Diploma Maker Relationship Specialty Start Date End Date Hailey Sevilla MD [address] [place] [address] PCP - General Family Medicine 09/27/18 Michelle Cortes RN [address] [place] [phone] Registered Nurse Family Medicine 04/18/25 Laura Layne 04/18/25 documented as of this encounter
--- OUTSIDE RECORDS SUMMARY | 2025-08-29 16:17 | XMS_ITS | Encounter Summary ---
Author Organization [employer] Address 75 [facility] 7t [place] [address] Care Team Providers Care Slip Mixer Name Role Phone Hailey Sevilla MD Primary Care Provider [phone] Michelle Cortes RN Unavailable [phone] Laura Layne Unavailable Reason for Referral * Imaging (Routine) - Closed Specialty Diagnoses / Procedures Referred By Contac t Referred To Contact Radiology Diagnoses Cyst of right ovary Procedures Us Pelvis complete Hailey Sevilla MD [address] [place] [address] Phone: tel: fax: [facility] [address] [place] [phone] Phone: tel: fax: Referral ID Status Reason Start Date Expiration Date Visits Re quested Visits Authorized [id number] Closed 05/07/2025 05/07/2026 1 1 * Imaging (Routine) - Closed Specialty Diagnoses / Procedures Referred By Contac t Referred To Contact Radiology Diagnoses Cyst of right ovary Procedures US Pelvis Transvaginal Hailey Sevilla MD [address] [place] [address] Phone: tel: fax: [facility] [address] [place] [address] Phone: tel: fax: Referral ID Status Reason Start Date Expiration Date Visits Re quested Visits Authorized [id number] Closed 05/07/2025 05/07/2026 1 1 Encounter Details Date Type Department Care Team (Late st Contact Info) Description 05/07/2025 Orders Only [facility] MEDICINE [address] [place], [place] [phone] Hailey Sevilla MD [address] [place] [address] Cyst of right ovary (Primary Dx) Social [...] Description 10/01/2025 2:30 PM EST Office Visit [facility] MEDICINE [address] [place], [place] [phone] Hailey Sevilla MD [address] [place], [place] [phone] Scheduled Orders Name Type Priority Associated Diagnoses [...] PM EDT Narrative 06/19/2025 2:08 PM EDT [facility] Adult Primary Care [address] [place] [address] [place] [address] Ultrasound Report Signed Patient: Jak Izquierdo MR#: [id number] : 1995 Acct:[id number] Age/Sex: 29 / F ADM Date: 06/18/25 Loc: HO.HMGCX Attending Dr: Hetal Castano NP Ordering Physician: Hailey Sevilla MD Date of Service: 06/18/25 Procedure(s): US pelvic and transvaginal Accession Number(s): [id number] cc: Hailey Sevilla MD Reason for Exam: [...] 06/19/25 1407 DD/ 1406 TD/TT: 06/19/25 1406 Chemist Food: Procedure Note Donotuseinterpreter, Image - 06/19/2025 [facility] Adult Primary Care [facility] [place] [address] Ultrasound Report Signed Patient: Xuan Izquierdo#: [id number] : 1995Acct:[id number] Age/Sex: FADM Date: 06/18/25 Loc: HO.HMGX Attending Dr: Hetal Castano [employer] Ordering Physician: Hailey Sevilla MD Date of Service: 06/18/25 Procedure(s): US pelvic and transvaginal Accession Number(s): [id number] cc: Hailey Sevilla MD Reason for Exam: [...] OV> 06/19/25 1407 DD/ 140 TD/TT: 06/19/251405 Chemist Food: us Hailey Sevilla MD IMG US PROCEDURES Final Result documented in this encounter Visit Diagnoses Diagnosis Cyst of right ovary- Primary Other and unspecified ovarian cyst documented in this encounter Additional Health Concerns Assessment Noted Time PHQ-9 Depression Total Score: 0 03/09/20 24 1:49 PM EDT documented as of this encounter Care Teams Slip Mixer Relationship Specialty Start Date End Date Hailey Sevilla MD [address] [place] [address] PCP - General Family Medicine 09/27/18 Michelle Cortes RN [address] [place] [address] Registered Nurse Family Medicine 04/18/25 Laura Layne 04/18/25 documented as of this encounter
--- OUTSIDE RECORDS SUMMARY | 2025-08-29 16:17 | XMS_ITS | Encounter Summary ---
Author Organization [employer] Address 75 [facility] 7t [place] [address] Care Team Providers Care Pharmacist Helper Name Role Phone Hailey Sevilla MD Primary Care Provider [phone] Michelle Cortes RN Unavailable [phone] Laura Layne Unavailable Encounter Details Date Type Department Care Team (Late st Contact Info) Description 12/21/2024 Orders Only [facility] MEDICINE [address] [place], [place] [phone] Hailey Sevilla MD [address] [place], [place] [phone] Chlamydia (Primary Dx) Social History Tobacco Use [...] Description 10/01/2025 2:30 PM EST Office Visit [facility] MEDICINE [address] [place] [phone] Hailey Sevilla MD [address] [place] [address] documented as of this encounter Procedures Procedure Name Priority Date/Time Associated Diagnosis Comments CHLAMYDIA/N. GONORRHOEAE RNA, TMA, UROGENITAL Routine 01/10/2025 8:48 AM EDT Chlamydia documented in this encounter Results * Chlamydia/N. Gonorrhoeae RNA, TMA, Urogenitial (01/10/2025 8:48 AM EDT) CT PCR NOT DETECTED Not Detect. [facility] Comment:A not detected test result [...] psychologicalconsequences. NG PCR NOT DETECTED Not Detect. [facility] Comment:A not detected test result [...] AM EDT 01/10/2025 4:52 PM EDT Narrative [facility] - 01/11/2025 10:59 AM EDT Vaginal Hailey Sevilla MD LAB MICROBIOLOGY - GENERAL ORDER SHAKIRA Final Result [facility] [address] [place] [phone] documented in this encounter Visit Diagnoses Diagnosis Chlamydia- Primary Other specified chlamydial infection, in conditions classified elsewhere and of unspecified site documented in this encounter Additional Health Concerns Assessment Noted Time PHQ-9 Depression Total Score: 0 03/09/20 24 1:49 PM EDT documented as of this encounter Care Teams Pharmacist Helper Relationship Specialty Start Date End Date Hailey Sevilla MD [address] [place] [address] PCP - General Family Medicine 09/27/18 Michelle Cortes RN [address] [place] [address] [place] [address] Registered Nurse Family Medicine 04/18/25 Laura Layne 04/18/25 documented as of this encounter
--- OUTSIDE RECORDS SUMMARY | 2025-08-29 16:17 | XMS_ITS | Encounter Summary ---
Author Organization [employer] Address 75 [facility] 7t [place] [address] Care Team Providers Care Manager Recruiting Name Role Phone Hailey Sevilla MD Primary Care Provider [phone] Michelle Cortes RN Unavailable [phone] Laura Layne Unavailable Encounter Details Date Type Department Care Team (Late st Contact Info) Description 02/16/2025 Orders Only [facility] MEDICINE [address] [place], [place] [phone] Hailey Sevilla MD [address] [place] [address] Chlamydia (Primary Dx); Routine screening for STI [...] Description 10/01/2025 2:30 PM EST Office Visit [facility] MEDICINE [address] [place] [address] Hailey Sevilla MD [address] [place] [address] documented as of this encounter Procedures Procedure [...] EDT) Hepatitis B Surface Ag Negative Negative [facility] Blood Venous blood specimen / Unknown 02/20/2025 8:35 AM EDT 02/20/2025 11:06 AM EDT us Hailey Sevilla MD LAB BLOOD ORDERABLES Final Resul t Performing Organization Address [facility]/ZIP Co de Phone Number [facility] [address] [place] [phone] * HIV-1/2 Antigen and Antibodies, Fourth Generation, with Reflexes (02/20/2025 8:35 AM EDT) Pathologist [facility] HIV AB/AG Nonreactive Nonreactive [facility] Comment:HIV-1 p24 Ag and/or HIV-1/HIV-2 Ab not detected.A test result that is nonreactive does not exclude thepossibility of exposure to or infection with HIV-1 and/orHIV-2. Nonreactive results in this assay for individualswith prior exposure to HIV-1 and/or HIV-2 may be due toantigen and antibody levels that are below the limit ofdetection of this assay.The [employer] HIV Ag/Ab Combo assay result andsupplemental assay results should be interpreted inconjunction with the patient's clinical presentation,history and other laboratory results. If the results areinconsistent with clinical evidence, additional testing issuggested to confirm the result. Blood Venous blood specimen / Unknown 02/20/2025 8:35 AM EDT 02/20/2025 11:06 AM EDT us Hailey Sevilla MD LAB BLOOD ORDERABLES Final Resul t [facility] [address] [place] [phone] * Chlamydia/N. Gonorrhoeae RNA, TMA, Urogenitial (02/20/2025 8:35 AM EDT) CT PCR NOT DETECTED Not Detect. [facility] Comment:A not detected test [...] psychologicalconsequences. NG PCR NOT DETECTED Not Detect. [facility] Comment:A not detected test [...] AM EDT 02/20/2025 11:11 AM EDT Narrative [facility] - 02/20/2025 1:07 PM EDT Urine us Hailey Sevilla MD LAB MICROBIOLOGY - GENERAL ORDER SHAKIRA Final Result [facility] [address] [place] [phone] * Hepatitis C Antibody with Reflex to HCV, RNA, Quantitative, Real-Time PCR (02/20/2025 8:35 AM EDT) Hepatitis C Antibody Nonreactive Nonreactive [facility] Comment:Antibodies to HCV no t detected; does not exclude early acuteHCV infection. Blood Venous blood specimen / Unknown 02/20/2025 8:35 AM EDT 02/20/2025 11:06 AM EDT Hailey Sevilla MD LAB BLOOD ORDERABLES Final Resul t Performing Organization Address [facility] Co de Phone Number [facility] [address] [place] [phone] * Syphilis Screen (02/20/2025 8:35 AM EDT) Syphilis Screen Nonreactive Nonreactive [facility] Blood 02/20/2025 8:35 AM EDT 02/20/2025 11:06 AM EDT Hailey Sevilla MD LAB BLOOD ORDERABLES Final Resul t Performing Organization Address [facility] de Phone Number [facility] [address] [place] [phone] documented in this encounter Visit Diagnoses Diagnosis Chlamydia- Primary Other specified chlamydial infection, in conditions classified elsewhere and of unspecified site Routine screening for STI (sexually transmitted infection) Screening examination for venereal disease documented in this encounter Additional Health Concerns Assessment Noted Time PHQ-9 Depression Total Score: 0 03/09/20 24 1:49 PM EDT documented as of this encounter Care Teams Manager Recruiting Relationship Specialty Start Date End Date Hailey Sevilla MD [address] [place] [phone] PCP - General Family Medicine 09/27/18 Michelle Cortes RN [address] [place] [address] Registered Nurse Family Medicine 04/18/25 Laura Layne 04/18/25 documented as of this encounter
--- OUTSIDE RECORDS SUMMARY | 2025-08-29 16:17 | XMS_ITS | Encounter Summary ---
Author Organization [employer] Address [address] [facility] 7t [place] [address] Care Team Providers Care Data Entry Operator Name Role Phone Hailey Sevilla MD Primary Care Provider [phone] Michelle Cortes RN Unavailable [phone] Laura Layne Unavailable Encounter Details Date Type Department Care Team (Late st Contact Info) Description 12/18/2024 Orders Only [facility] MEDICINE [address] [place], [place] [phone] Hailey Sevilla MD [address] [place], [place] [phone] Social History Tobacco Use Types Packs/Day Years [...] Description 10/01/2025 2:30 PM EST Office Visit [facility] MEDICINE [address] [place] [address] Hailey Sevilla MD [address] [place] [address] documented as of this encounter Visit Diagnoses Not on filedocumented in this encounter Additional Health Concerns Assessment Noted Time PHQ-9 Depression Total Score: 0 03/09/20 24 1:49 PM EDT documented as of this encounter Care Teams Data Entry Operator Relationship Specialty Start Date End Date Hailey Sevilla MD [address] [place] [address] PCP - General Family Medicine 09/27/18 Michelle Cortes RN [address] [place] [address] Registered Nurse Family Medicine 04/18/25 Laura Layne 04/18/25 documented as of this encounter
== END 2025-08-29 14:52 | disposition home or self-care (01) ==
LOC: HO.HCS 13:40
PROVIDERS: PCP Family Medicine; Visit Provider Internal Medicine Cardiovascular Disease
DX: R07.9 Chest pain, unspecified (principal)
CPT/HCPCS: 93010; 99213

== ENCOUNTER → 2025-08-29 13:40 | Outpatient (BNVA) | payer MEDICAID, SELFPAY | PROVIDERS: PCP Family Medicine; Visit Provider Internal Medicine Cardiovascular Disease | DX: R07.89 Other chest pain (principal); R00.1 Bradycardia, unspecified | CPT/HCPCS: 93005; 99212 ==

== ENCOUNTER 2025-09-03 14:38 | Outpatient (REF) | payer MEDICAID, SELFPAY ==
--- OUTSIDE RECORDS SUMMARY | 2025-09-03 23:46 | XMS_ITS | Clinical Summary ---
Author Organization [employer] Address 75 [facility] 7t [place] [address] Care Team Providers Care Tire Shop Manager Name Role Phone Hailey Sevilla MD Primary Care Provider [phone] Michelle Cortes RN Unavailable [phone] Laura Layne Unavailable Allergies No known [...] (10/14/2024 6:38 AM EST): - hospitalized at [facility] in Aug 2024 - Initially treated with [...] Diagnosed Date Resolved Date BMI 40.0-44.9, adult ([facility]) 12/28/2022 10/05/2024 Assessment & Plan (01/03/2023 12:21 PM EDT): -pt is restarting Weight Management Program at [facility] -encouraged to focus on healthy lifestyle, rather than weight Obesity 12/11/2014 10/05/2024 Assessment & Plan (01/03/2023 12:21 PM EDT): -pt is starting weight management clinic and will likely to have an extensive lab evaluation; therefore, I will not order lab today 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 Encounters Date Type Department Care Team Description 09/03/2025 Orders Only [facility] MED & PEDS [address] [place], [place] [phone] Rosa Goncalves FNP Missed menses (Primary Dx) 09/03/2025 Telephone [facility] MEDICINE [address] [place], [place] [phone] Hailey Sevilla MD Lab Orders 07/26/2025 Refill [facility] MEDICINE [address] [place], [place] [phone] Hailey Sevilla MD Gastroesophageal reflux disease, unspecified whether esophagitis present 07/13/2025 Telephone [facility] MEDICINE [address] [place], [place] [phone] Hailey Sevilla MD 07/13/2025 Telephone [facility] MEDICINE [address] [place], [place] [phone] Hailey Sevilla MD Lab Orders 06/04/2025 Patient Outreach [facility] MED[facility]INE [address] [place] [phone] Hailey Sevilla MD from Last 3 Months Immunizations Immunization Administration Dates Next Due DTaP 04/30/2000, 7,07/27/1996,04/24,01/17/1996 HPV, Quadrivalent 02/07/2009, 8,02/17/2008,12/30 Hep A, ped/adol, 2 dose 07/16/2010,2009 Hep B, Adolescent or Pediatric 07/27/1996,1995,1995 Hib ([facility]) 03/21/1997, 6,04/24/1996,01/16 IPV 04/30/2000, 6,04/24/1996,03/18 Influenza Injectable [...] Description 10/01/2025 2:30 PM EST Office Visit [facility] MEDICINE [address] [place] [address] Hailey Sevilla MD [address] [place], [place] [phone] Health Maintenance Due Date Last Done Comments [...] Procedure Name Priority Date/Time Associated Diagnosis Comments HCG, TOTAL, QN Routine 09/03/2025 2:43 PM EST Missed menses T-SPOT(R).TB Routine 07/13/2025 12:00 PM EDT Screening [...] Recently Relevant to Health Maintenance Results * hCG, Total, Quantitative (09/03/2025 2:43 PM EST) HCG Quantitative 21 mIU/mL [facility] Comment:Weeks post LMP Appro ximate hCG(Last Menstrual Period) Range (mIU/ml)3 - 4 weeks 9 - 1304 - 5 weeks 75 - 2,6005 - 6 weeks 850 - 20,8006 - 7 weeks 4000 - 100,2007 - 12 weeks 11,500 - 289,71379 - 16 weeks 18,300 - 137,84962 - 29 weeks (2nd trimester) 1,400 - 53,12126 - 41 weeks (3rd trimester) 940 - 60,000The Cordero B- hCG assay is used for the early detection ofpregnancy; it cannot be used to diagnose any conditionunrelated to . If a B-hCG level is not supportedby the clinical evidence, results should be confirmed by analternative method (qualitative urine hCG, for example). Blood Venous blood specimen / Unknown 09/03/2025 2:43 PM EST 09/03/2025 4:07 PM EST Rosa Goncalves [facility] LAB BLOOD ORDERABLES Final Res ult [facility] [address] [place] [phone] * T-SPOT??.TB (07/13/2025 12:00 PM EDT) T Spot TB Negative Negative [facility] Comment:A negative test resu lt [...] as aquantitative test. TS PANEL A 2 [facility] TS PANEL B 3 [facility] Negative Control Passed [facility] Positive Control Passed [facility] Comment:For additional infor stacy, please refer tohttp://education.[employer]/faq/XGP761(This link is being provided for informational/educational purposes only.)THIS TEST WAS PERFORMED AT:[employer] [id number] [place] [address]GNITGMZGERRI MARQUEZ MD,PHD 07/13/2025 12:0 0 PM EDT 07/13/2025 1:16 PM EDT us Hailey Sevilla MD LAB BLOOD ORDERABLES Final Resul t [facility] [address] [place] [phone] * US Pelvis Transvaginal (06/19/2025 2:06 PM EDT) Anatomical Region Laterality Modality Pelvis Ultrasound 06/19/2025 2:06 PM EDT Narrative 06/19/2025 2:08 PM EDT [facility] [address] Ultrasound Report Signed Patient: Jak Izquierdo MR#: [id number] : 1995 Acct:[id number] Age/Sex: 29 / F ADM Date: 06/18/25 Loc: HO.HMGCX Attending Dr: Hetal Castano NP Ordering Physician: Hailey Sevilla MD Date of Service: 06/18/25 Procedure(s): US pelvic and transvaginal Accession Number(s): [id number] cc: Hailey Sevilla MD Reason for Exam: [...] by Karen West MD in OV> 06/19/25 140 DD/ 05 TD/TT: 06/19/251405 Circuit Recorder: Procedure Note Donotuseinterpreter, Image - 06/19/2025 [facility] [place] [facility] [address] [place] [address] [place] [address] Ultrasound Report Signed Patient: Xuan Izquierdo#: [id number] : 1995Acct:[id number] Age/Sex: Date: 06/18/25 Loc: HO.HMGCX Attending Dr: Hetal Castano NP Ordering Physician: Hailey Sevilla MD Date of Service: 06/18/25 Procedure(s): US pelvic and transvaginal Accession Number(s): [id number] cc: Hailey Sevilla MD Reason for Exam: [...] 06/19/25 1407 DD/ 140 TD/TT: 06/19/25 140 Circuit Recorder: Hailey Sevilla MD IMG US PROCEDURES Final Result * Hepatitis C Antibody with Reflex to HCV, RNA, Quantitative, Real-Time PCR (02/20/2025 8:35 AM EDT) Hepatitis C Antibody Nonreactive Nonreactive [facility] Comment:Antibodies to HCV no t detected; does not exclude early acuteHCV infection. Blood Venous blood specimen / Unknown 02/20/2025 8:35 AM EDT 02/20/2025 11:06 AM EDT Hailey Sevilla MD LAB BLOOD ORDERABLES Final Resul t [facility] [address] [place] [phone] * HIV-1/2 Antigen and Antibodies, Fourth Generation, with Reflexes (02/20/2025 8:35 AM EDT) HIV AB/AG Nonreactive Nonreactive [facility] Comment:HIV-1 p24 Ag and/or HIV-1/HIV-2 Ab not detected.A test result that is nonreactive does not exclude thepossibility of exposure to or infection with HIV-1 and/orHIV-2. Nonreactive results in this assay for individualswith prior exposure to HIV-1 and/or HIV-2 may be due toantigen and antibody levels that are below the limit ofdetection of this assay.The [employer] HIV Ag/Ab Combo assay result andsupplemental assay results should be interpreted inconjunction with the patient's clinical presentation,history and other laboratory results. If the results areinconsistent with clinical evidence, additional testing issuggested to confirm the result. Blood Venous blood specimen / Unknown 02/20/2025 8:35 AM EDT 02/20/2025 11:06 AM EDT us Hailey Sevilla MD LAB BLOOD ORDERABLES Final Resul t [facility] [address] [place] [phone] * Pap Smear (12/12/2024 12:00 AM EDT) Swab 12/12/2024 12/13/2024 6:2 2 AM EDT Narrative [facility] - 12/21/2024 10:40 AM EDT ----- ------- Name: Jak Izquierdo Age/Sex: 29/F : 1995 Unit#: [id number] Attend Dr: Delia Ashby Re12/12/24 Status: DEP REF Location: HO.HHCL Disch: ----- ------- SPEC : [id number] RECD: 12/13/24 STATUS: DEEPAK ESTEVEZ NUM: [id number] YG: 12/12/24-[address]: Hailey Sevilla MD [...] MD LAB CYTOLOGY ORDERABLES Final Re sult [facility] [address] [place] [phone] [phone] from Last 3 Months or Most Recently Relevant to Health Maintenance Insurance [facility] C3 Care Teams Tire Shop Manager Relationship Specialty Start Date End Date Hailey Sevilla MD [address] [place] [phone] PCP - General Family Medicine 09/27/18 Michelle Cortes, CHARLEEN [address] [place] [address] Registered Nurse Family Medicine 04/18/25 Laura Layne 04/18/25
--- OUTSIDE RECORDS SUMMARY | 2025-09-03 23:47 | XMS_ITS ---
Author Organization [employer] Address 75 [facility] 7 [place] [address] Care Team Providers Care Director Of Operations Name Role Phone Hailey Sevilla MD Primary Care Provider [phone] Michelle Cortes RN Unavailable [phone] Laura Layne Unavailable CM Complex Status:Outreach In Progress (Enrolling) Start date:04/18/2025 Enrollment reason:ADT Feed Overview ADT-[facility] ED 04/17/25 Case Team Name Relationship Phone Michelle Cortes RN(Responsible Staff) Registered Nurse [phone] Continued Care and Services Coordination
--- OUTSIDE RECORDS SUMMARY | 2025-09-03 23:47 | XMS_ITS | Encounter Summary ---
Author Organization [employer] Address 75 [facility] 7t [place] [address] Care Team Providers Care Wood Shingle Roofer Name Role Phone Hailey Sevilla MD Primary Care Provider [phone] Michelle Cortes RN Unavailable [phone] Laura Layne Unavailable Encounter Details Date Type Department Care Team (Late st Contact Info) Description 12/18/2024 Orders Only [facility] MEDICINE [address] [place], [place] [phone] Hailey Sevilla MD [address] [place], [place] [phone] Social History Tobacco Use Types Packs/Day Years [...] 10/01/2025 2:30 PM EST Office Visit [facility] MEDICINE [address] [place] [address] Hailey Sevilla MD [address] [place] [address] documented as of this encounter Visit Diagnoses Not on filedocumented in this encounter Additional Health Concerns Assessment Noted Time PHQ-9 Depression Total Score: 0 03/09/20 24 1:49 PM EDT documented as of this encounter Care Teams Wood Shingle Roofer Relationship Specialty Start Date End Date Hailey Sevilla MD [address] [place] [address] PCP - General Family Medicine 09/27/18 Michelle Cortes RN [address] [place] [address] Registered Nurse Family Medicine 04/18/25 Laura Layne 04/18/25 documented as of this encounter
--- OUTSIDE RECORDS SUMMARY | 2025-09-03 23:47 | XMS_ITS | Encounter Summary ---
Author Organization [employer] Address 75 [facility] 7t [place] [address] Care Team Providers Care Technology Resource Teacher Name Role Phone Hailey Sevilla MD Primary Care Provider [phone] Michelle Cortes RN Unavailable [phone] Laura Lyane Unavailable Reason for Referral * Imaging (Routine) - Closed Specialty Diagnoses / Procedures Referred By Contac t Referred To Contact Radiology Diagnoses Abnormal uterine bleeding (AUB) Procedures Us Pelvis complete Hailey Sevilla MD [address] [place] [address] Phone: tel: fax: [address] [address] Phone: tel: fax: Referral ID Status Reason Start Date Expiration Date Visits Re quested Visits Authorized [id number] Closed 04/27/2025 04/27/2026 1 1 * Imaging (Urgent) - Closed Specialty Diagnoses / Procedures Referred By Contac t Referred To Contact Radiology Diagnoses Abnormal uterine bleeding (AUB) Procedures US Pelvis Transvaginal Hailey Sevilla MD [address] [place] [address] Phone: tel: fax: [facility] [address] [place] [address] Phone: tel: fax: Referral ID Status Reason Start Date Expiration Date Visits Re quested Visits Authorized [id number] Closed 04/27/2025 04/27/2026 1 1 Encounter Details Date Type Department Care Team (Late st Contact Info) Description 04/27/2025 Orders Only [facility] MEDICINE [address] [place] [address] Hailey Sevilla MD [address] [place], [place] [phone] Abnormal uterine bleeding (AUB) (Primary Dx) Social [...] Description 10/01/2025 2:30 PM EST Office Visit [facility] MEDICINE [address] [place], [place] [phone] Hailey Sevilla MD [address] [place], [place] [phone] Scheduled Orders Name Type Priority Associated Diagnoses [...] PM EDT Narrative 05/07/2025 2:57 PM EDT [facility] [address] [place] [address] [place] [address] Ultrasound Report Signed Patient: Jak Izquierdo MR#: [id number] : 1995 Acct:[id number] Age/Sex: 29 / F ADM Date: 05/07/25 Loc: HO.HMGCX Attending Dr: Hailey Sevilla MD Ordering Physician: Hailey Sevilla MD Date of Service: 05/07/25 Procedure(s): US pelvic and transvaginal Accession Number(s): [id number] cc: Hailey Sevilla MD EXAMINATION: US PELVIS [...] 05/07/25 1454 DD/ 1359 TD/TT: 05/07/25 1425 Product Safety Specialist: Procedure Note Donotuseinterpreter, Image - 05/07/2025 [facility] Primary Care [facility] [place] [address] Ultrasound Report Signed Patient: Xuan Izquierdo#: [id number] : 1995Acct:[id number] Age/Sex: Date: 05/07/25 Loc: HO.HMGCX Attending Dr: Hailey Sevilla MD Ordering Physician: Hailey Sevilla MD Date of Service: 05/07/25 Procedure(s): US pelvic and transvaginal Accession Number(s): [id number] cc: Hailey Sevilla MD EXAMINATION: US PELVIS [...] 05/07/25 1454 DD/ 1359 TD/TT: 05/07/25 1425 Product Safety Specialist: us Hailey Sevilla MD IMG US PROCEDURES Final Result documented in this encounter Visit Diagnoses Diagnosis Abnormal uterine bleeding (AUB)- Primary documented in this encounter Additional Health Concerns Assessment Noted Time PHQ-9 Depression Total Score: 0 03/09/20 24 1:49 PM EDT documented as of this encounter Care Teams Technology Resource Teacher Relationship Specialty Start Date End Date Hailey Sevilla MD [address] [place] [address] PCP - General Family Medicine 09/27/18 Michelle Cortes RN [address] [place] [address] Registered Nurse Family Medicine 04/18/25 Laura Layne 04/18/25 documented as of this encounter
--- OUTSIDE RECORDS SUMMARY | 2025-09-03 23:47 | XMS_ITS ---
Author Organization [employer] Address 75 [facility] 7 [place] [address] Care Team Providers Care Bank Messenger Name Role Phone Hailey Sevilla MD Primary Care Provider [phone] Michelle Cortes RN Unavailable [phone] Laura Layne Unavailable CHW Complex Status:Outreach In Progress (Enrolling) Start date:04/18/2025 Enrollment reason:ADT Feed Overview ADT-[facility] ED 04/17/25. Please outreach for enrollment. Case Team Name Relationship Phone Laura Layne(Responsible Staff) [phone] Continued Care and Services Coordination
--- OUTSIDE RECORDS SUMMARY | 2025-09-03 23:47 | XMS_ITS | Encounter Summary ---
Author Organization [employer] Address 75 [facility] 7t [place] [address] Care Team Providers Care Grading Clerk Name Role Phone Hailey Sevilla MD Primary Care Provider [phone] Michelle Cortes RN Unavailable [phone] Laura Layne Unavailable Encounter Details Date Type Department Care Team (Late st Contact Info) Description 04/27/[address] [facility] MEDICINE [address] [place], [place] [phone] Hailey Sevilla MD [address] [place], [place] [phone] Social History Tobacco Use Types Packs/Day Years [...] Description 10/01/2025 2:30 PM EST Office Visit [facility] MEDICINE [address] [place] [address] Hailey Sevilla MD [address] [place] [address] documented as of this encounter Visit Diagnoses Not on filedocumented in this encounter Additional Health Concerns Assessment Noted Time PHQ-9 Depression Total Score: 0 03/09/20 24 1:49 PM EDT documented as of this encounter Care Teams Grading Clerk Relationship Specialty Start Date End Date Hailey Sevilla MD [address] [place] [address] PCP - General Family Medicine 09/27/18 Michelle Cortes RN [address] [place] [address] Registered Nurse Family Medicine 04/18/25 Laura Layne 04/18/25 documented as of this encounter
--- OUTSIDE RECORDS SUMMARY | 2025-09-03 23:47 | XMS_ITS | Encounter Summary ---
Author Organization [employer] Address 75 [facility] 7t [place] [address] Care Team Providers Care Rcis Name Role Phone Hailey Sevilla MD Primary Care Provider [phone] Michelle Cortes RN Unavailable [phone] Laura Layne Unavailable Encounter Details Date Type Department Care Team (Late st Contact Info) Description 12/21/2024 Orders Only [facility] MEDICINE [address] [place], [place] [phone] Hailey Sevilla MD [address] [place], [place] [phone] Chlamydia (Primary Dx) Social History Tobacco Use [...] Description 10/01/2025 2:30 PM EST Office Visit [facility] MEDICINE [address] [place] [address] Hailey Sevilla MD [address] [place] [address] documented as of this encounter Procedures Procedure Name Priority Date/Time Associated Diagnosis Comments CHLAMYDIA/N. GONORRHOEAE RNA, TMA, UROGENITAL Routine 01/10/2025 8:48 AM EDT Chlamydia documented in this encounter Results * Chlamydia/N. Gonorrhoeae RNA, TMA, Urogenitial (01/10/2025 8:48 AM EDT) CT PCR NOT DETECTED Not Detect. [facility] Comment:A not detected test result does [...] psychologicalconsequences. NG PCR NOT DETECTED Not Detect. [facility] Comment:A not detected test result does [...] AM EDT 01/10/2025 4:52 PM EDT Narrative [facility] - 01/11/2025 10:59 AM EDT Vaginal Hailey Sevilla MD LAB MICROBIOLOGY - GENERAL ORDER SHAKIRA Final Result [facility] [address] [place] [phone] documented in this encounter Visit Diagnoses Diagnosis Chlamydia- Primary Other specified chlamydial infection, in conditions classified elsewhere and of unspecified site documented in this encounter Additional Health Concerns Assessment Noted Time PHQ-9 Depression Total Score: 0 03/09/20 24 1:49 PM EDT documented as of this encounter Care Teams Rcis Relationship Specialty Start Date End Date Hailey Sevilla MD [address] [place] [address] PCP - General Family Medicine 09/27/18 Michelle Cortes RN [address] [place] [address] [place] [address] Registered Nurse Family Medicine 04/18/25 Laura Layne 04/18/25 documented as of this encounter
--- OUTSIDE RECORDS SUMMARY | 2025-09-03 23:47 | XMS_ITS | Encounter Summary ---
Author Organization [employer] Address 75 [facility] 7t [place] [address] Care Team Providers Care Golf Course Architect Name Role Phone Hailey Sevilla MD Primary Care Provider [phone] Michelle Cortes RN Unavailable [phone] Laura Layne Unavailable Encounter Details Date Type Department Care Team (Late st Contact Info) Description 10/05/2024 Orders Only [facility] MEDICINE [address] [place], [place] [phone] Hailey Sevilla MD [address] [place], [place] [phone] Social History Tobacco Use Types Packs/Day Years [...] Description 10/01/2025 2:30 PM EST Office Visit [facility] MEDICINE [address] [place], [place] [phone] Hailey Sevilla MD [address] [place] [address] documented as of this encounter Procedures Procedure Name Priority Date/Time Associated Diagnosis Comments VITAMIN A Routine 10/05/2024 10:35 AM EST documented in this encounter Results * (ABNORMAL) Vitamin A (10/05/2024 10:35 AM EST) Vitamin A (Retinol) 29(A) 38 - 98 mcg/dL [facility] Comment:Vitamin supplementat ion within 24 hours prior toblood draw may affect the accuracy of the results.This test was developed and its analytical performancecharacteristics have been determined by [employer] [place], [place]. It hasnot been cleared or approved by the U.S. Food and DrugAdministration. This assay has been validated pursuantto the CLIA regulations and is used for clinicalpurposes.THIS TEST WAS PERFORMED AT:[facility] [facility] [place] [address]BYPVVHDGERRI MARQUEZ MD,PHD 10/05/2024 10:3 5 AM EST 10/05/2024 11:32 AM EST us Generic External Data Provider LAB BLOOD ORDERAB LES Final Result [facility] [address] [place] [phone] documented in this encounter Visit Diagnoses Not on filedocumented in this encounter Additional Health Concerns Assessment Noted Time PHQ-9 Depression Total Score: 0 03/09/20 24 1:49 PM EDT documented as of this encounter Care Teams Golf Course Architect Relationship Specialty Start Date End Date Hailey Sevilla MD [address] [place] [address] PCP - General Family Medicine 09/27/18 Michelle Cortes, RN [address] [place] [address] Registered Nurse Family Medicine 04/18/25 Laura Layne 04/18/25 documented as of this encounter
--- OUTSIDE RECORDS SUMMARY | 2025-09-03 23:47 | XMS_ITS | Encounter Summary ---
Author Organization [employer] Address 75 [facility] 7t [place] [address] Care Team Providers Care Sky Line Yarder Name Role Phone Hailey Sevilla MD Primary Care Provider [phone] Michelle Cortes RN Unavailable [phone] Laura Layne Unavailable Reason for Visit * Reason Onset Date Comments Lab Orders 09/03/2025 Encounter Details Date Type Department Care Team (Late st Contact Info) Description 09/03/2025 Telephone [facility] MEDICINE [address] [place], [place] [phone] Hailey Sevilla MD [address] [place], [place] [phone] Lab Orders Social History Tobacco Use Types [...] encounter Miscellaneous Notes * Telephone Encounter - Shayy Ryan RN - 09/03/2025 10:47 AM EST Pt messaged regarding this on [employer], covering provider Rosa Goncalves already sent lab orders. Pt aware. * Telephone Encounter - Heber [place] - 09/03/2025 8:49 AM EST Tc from pt requesting a lab order for a test through blood work. Contact pt at [phone] documented in this encounter Plan of Treatment Upcoming Encounters Date Type Department Care Team (Late st Contact Info) Description 10/01/2025 2:30 PM EST Office Visit [facility] MEDICINE [address] [place], [place] [phone] Hailey Sevilla MD [address] [place] [address] documented as of this encounter Visit Diagnoses Not on filedocumented in this encounter Additional Health Concerns Assessment Noted Time PHQ-9 Depression Total Score: 0 03/09/20 24 1:49 PM EDT documented as of this encounter Care Teams Sky Line Yarder Relationship Specialty Start Date End Date Hailey Sevilla MD [address] [place] [address] PCP - General Family Medicine 09/27/18 Michelle Cortes RN [address] [place] [address] Registered Nurse Family Medicine 04/18/25 Laura Layne 04/18/25 documented as of this encounter
--- OUTSIDE RECORDS SUMMARY | 2025-09-03 23:47 | XMS_ITS | Encounter Summary ---
Author Organization [employer] Address [address] [facility] 7t [place] [address] Care Team Providers Care Incident Response Engineer Name Role Phone Hailey Sevilla MD Primary Care Provider [phone] Michelle Cortes RN Unavailable [phone] Laura Layne Unavailable Encounter Details Date Type Department Care Team (Late st Contact Info) Description 02/16/[address] [facility] MED[facility] [address] [place], [place] [phone] Hailey Sevilla MD [address] [place] [address] Chlamydia (Primary Dx); Routine screening for STI [...] Description 10/01/2025 2:30 PM EST Office Visit [facility] [address] [place] [phone] Hailey Sevilla MD [address] [place] [address] documented as of this encounter Procedures Procedure [...] EDT) Hepatitis B Surface Ag Negative Negative [facility] Blood Venous blood specimen / Unknown 02/20/2025 8:35 AM EDT 02/20/2025 11:06 AM EDT us Hailey Sevilla MD LAB BLOOD ORDERABLES Final Resul t Performing Organization Address [facility]/ZIP Co de Phone Number [facility] [address] [place] [phone] * HIV-1/2 Antigen and Antibodies, Fourth Generation, with Reflexes (02/20/2025 8:35 AM EDT) Pathologist [facility] HIV AB/AG Nonreactive Nonreactive [facility] Comment:HIV-1 p24 Ag and/or HIV-1/HIV-2 Ab not detected.A test result that is nonreactive does not exclude thepossibility of exposure to or infection with HIV-1 and/orHIV-2. Nonreactive results in this assay for individualswith prior exposure to HIV-1 and/or HIV-2 may be due toantigen and antibody levels that are below the limit ofdetection of this assay.The [employer] HIV Ag/Ab Combo assay result andsupplemental assay results should be interpreted inconjunction with the patient's clinical presentation,history and other laboratory results. If the results areinconsistent with clinical evidence, additional testing issuggested to confirm the result. Blood Venous blood specimen / Unknown 02/20/2025 8:35 AM EDT 02/20/2025 11:06 AM EDT us Hailey Sevilla MD LAB BLOOD ORDERABLES Final Resul t [facility] [address] [place] [phone] * Chlamydia/N. Gonorrhoeae RNA, TMA, Urogenitial (02/20/2025 8:35 AM EDT) CT PCR NOT DETECTED Not Detect. [facility] Comment:A not detected test result [...] psychologicalconsequences. NG PCR NOT DETECTED Not Detect. [facility] Comment:A not detected test result [...] AM EDT 02/20/2025 11:11 AM EDT Narrative [facility] - 02/20/2025 1:07 PM EDT Urine us Hailey Sevilla MD LAB MICROBIOLOGY - GENERAL ORDER SHAKIRA Final Result [facility] [address] [place] [phone] * Hepatitis C Antibody with Reflex to HCV, RNA, Quantitative, Real-Time PCR (02/20/2025 8:35 AM EDT) Hepatitis C Antibody Nonreactive Nonreactive [facility] Comment:Antibodies to HCV no t detected; does not exclude early acuteHCV infection. Blood Venous blood specimen / Unknown 02/20/2025 8:35 AM EDT 02/20/2025 11:06 AM EDT Hailey Sevilla MD LAB BLOOD ORDERABLES Final Resul t Performing Organization Address [facility] Co de Phone Number [facility] [address] [place] [phone] * Syphilis Screen (02/20/2025 8:35 AM EDT) Syphilis Screen Nonreactive Nonreactive [facility] Blood 02/20/2025 8:35 AM EDT 02/20/2025 11:06 AM EDT Hailey Sevilla MD LAB BLOOD ORDERABLES Final Resul t Performing Organization Address [facility] de Phone Number [facility] [address] [place] [phone] documented in this encounter Visit Diagnoses Diagnosis Chlamydia- Primary Other specified chlamydial infection, in conditions classified elsewhere and of unspecified site Routine screening for STI (sexually transmitted infection) Screening examination for venereal disease documented in this encounter Additional Health Concerns Assessment Noted Time PHQ-9 Depression Total Score: 0 03/09/20 24 1:49 PM EDT documented as of this encounter Care Teams Incident Response Engineer Relationship Specialty Start Date End Date Hailey Sevilla MD [address] [place] [phone] PCP - General Family Medicine 09/27/18 Michelle Cortes RN [address] [place] [phone] Registered Nurse Family Medicine 04/18/25 Laura Layne 04/18/25 documented as of this encounter
--- OUTSIDE RECORDS SUMMARY | 2025-09-03 23:47 | XMS_ITS | Encounter Summary ---
Author Organization [employer] Address [address] [facility] 7t [place] [address] Care Team Providers Care Auto Body Worker Name Role Phone Hailey Sevilla MD Primary Care Provider [phone] Michelle Cortes RN Unavailable [phone] Laura Layne Unavailable Encounter Details Date Type Department Care Team (Late st Contact Info) Description 09/03/2025 Orders Only [facility] [address] [place], [place] [phone] Rosa Goncalves FNP [address] [place] [address] Missed menses (Primary Dx) Social History Tobacco Use Types [...] Description 10/01/2025 2:30 PM EST Office Visit [facility] [address] [place] [address] Hailey Sevilla MD [address] [place] [address] documented as of this encounter Procedures Procedure Name Priority Date/Time Associated Diagnosis Comments HCG, TOTAL, QN Routine 09/03/2025 2:43 PM EST Missed menses documented in this encounter Results * hCG, Total, Quantitative (09/03/2025 2:43 PM EST) HCG Quantitative 21 mIU/mL [facility] Comment:Weeks post LMP Appro ximate hCG(Last Menstrual Period) Range (mIU/ml)3 - 4 weeks 9 - 1304 - 5 weeks 75 - 2,6005 - 6 weeks 850 - 20,8006 - 7 weeks 4000 - 100,2007 - 12 weeks 11,500 - 289,74566 - 16 weeks 18,300 - 137,94694 - 29 weeks (2nd trimester) 1,400 - 53,40834 - 41 weeks (3rd trimester) 940 - [...] 2:43 PM EST 09/03/2025 4:07 PM EST us Rosa Goncalves CANAL SUPERINTENDENT LAB BLOOD ORDERABLES Final Res ult [facility] [address] [place] [phone] documented in this encounter Visit Diagnoses Diagnosis Missed menses- Primary documented in this encounter Additional Health Concerns Assessment Noted Time PHQ-9 Depression Total Score: 0 03/09/20 24 1:49 PM EDT documented as of this encounter Care Teams Auto Body Worker Relationship Specialty Start Date End Date Hailey Sevilla MD [address] [place] [address] PCP - General Family Medicine 09/27/18 Michelle Cortes, CHARLEEN [address] [place] [address] Registered Nurse Family Medicine 04/18/25 Laura Layne 04/18/25 documented as of this encounter
--- OUTSIDE RECORDS SUMMARY | 2025-09-03 23:47 | XMS_ITS | Encounter Summary ---
Author Organization [employer] Address [address] [facility] 7t [place] [address] Care Team Providers Care Repairer Shoe Sticks Name Role Phone Hailey Sevilla MD Primary Care Provider [phone] Michelle Cortes RN Unavailable [phone] Laura Layne Unavailable Reason for Referral * Imaging (Routine) - Closed Specialty Diagnoses / Procedures Referred By Contac t Referred To Contact Radiology Diagnoses Cyst of right ovary Procedures Us Pelvis complete Hailey Sevilla MD [address] [place] [address] Phone: tel: fax: [facility] [address] [place] [phone] Phone: tel: fax: Referral ID Status Reason Start Date Expiration Date Visits Re quested Visits Authorized [id number] Closed 05/07/2025 05/07/2026 1 1 * Imaging (Routine) - Closed Specialty Diagnoses / Procedures Referred By Contac t Referred To Contact Radiology Diagnoses Cyst of right ovary Procedures US Pelvis Transvaginal Hailey Sevilla MD [address] [place] [address] Phone: tel: fax: [facility] [address] [place] [address] Phone: tel: fax: Referral ID Status Reason Start Date Expiration Date Visits Re quested Visits Authorized [id number] Closed 05/07/2025 05/07/2026 1 1 Encounter Details Date Type Department Care Team (Late st Contact Info) Description 05/07/2025 Orders Only [facility] [address] [place], [place] [phone] Hailey Sevilla MD [address] [place] [address] Cyst of right ovary (Primary [...] 2:30 PM EST Office Visit [facility] [address] [place], [place] [phone] Hailey Sevilla MD [address] [place], [place] [phone] Scheduled Orders Name Type Priority Associated Diagnoses [...] PM EDT Narrative 06/19/2025 2:08 PM EDT [facility] Adult Primary Care [address] [place] [address] [place] [address] Ultrasound Report Signed Patient: Jak Izquierdo MR#: [id number] : 1995 Acct:[id number] Age/Sex: 29 / F ADM Date: 06/18/25 Loc: HO.HMGCX Attending Dr: Hetal Castano NP Ordering Physician: Hailey Sevilla MD Date of Service: 06/18/25 Procedure(s): US pelvic and transvaginal Accession Number(s): [id number] cc: Hailey Sevilla MD Reason for Exam: [...] 06/19/25 1407 DD/ 1406 TD/TT: 06/19/25 1406 Sprayer Automatic Spray Machine: Procedure Note Donotuseinterpreter, Image - 06/19/2025 [facility] Adult Primary Care [facility] [place] [address] Ultrasound Report Signed Patient: Xuan Izquierdo#: [id number] : 1995Acct:[id number] Age/Sex: FADM Date: 06/18/25 Loc: HO.HMGX Attending Dr: Hetal Castano EXPERT MEDICAL WRITER Ordering Physician: Hailey Sevilla MD Date of Service: 06/18/25 Procedure(s): US pelvic and transvaginal Accession Number(s): [id number] cc: Hailey Sevilla MD Reason for Exam: [...] OV> 06/19/25 1407 DD/ 140 TD/TT: 06/19/251405 Sprayer Automatic Spray Machine: us Hailey Sevilla MD IMG US PROCEDURES Final Result documented in this encounter Visit Diagnoses Diagnosis Cyst of right ovary- Primary Other and unspecified ovarian cyst documented in this encounter Additional Health Concerns Assessment Noted Time PHQ-9 Depression Total Score: 0 03/09/20 24 1:49 PM EDT documented as of this encounter Care Teams Repairer Shoe Sticks Relationship Specialty Start Date End Date Hailey Sevilla MD [address] [place] [address] PCP - General Family Medicine 09/27/18 Michelle Cortes RN [address] [place] [phone] Registered Nurse Family Medicine 04/18/25 Laura Layne 04/18/25 documented as of this encounter
--- OUTSIDE RECORDS SUMMARY | 2025-09-03 23:47 | XMS_ITS | Encounter Summary ---
Author Organization [employer] Address [address] [facility] 7t [place] [address] Care Team Providers Care Sludge Mill Operator Name Role Phone Hailey Sevilla MD Primary Care Provider [phone] Michelle Cortes RN Unavailable [phone] Laura Layne Unavailable Encounter Details Date Type Department Care Team (Late st Contact Info) Description 05/02/2025 Orders Only [facility] [address] [place], [place] [phone] Hailey Sevilla MD [address] [place], [place] [phone] Anemia, unspecified type (Primary Dx) Social History [...] Description 10/01/2025 2:30 PM EST Office Visit [facility] MED[facility] [address] [place] [phone] Hailey Sevilla MD [address] [place] [address] documented as of this encounter Procedures Procedure [...] Vitamin B12 344 200 - 900 pg/mL [facility] Comment:NORMAL 200-900 PG/ML INDETERMINATE 160-199 PG/ML DEFICIENT < 160 PG/ML Folate 8.8 > or = 4.0 ng/mL [facility] Comment:Reference Values:> o r = 4.0 ng/mL< 4.0 ng/mL suggests folate deficiency Methotrexate, aminopterin and folinic acid(leucovorin) are chemotherapeutic agents whose molecularstructures are similar to folate; therefore, the Architectfolate assay cannot be used for patients using these drugs. Blood 05/02/2025 2:07 PM EDT 05/02/2025 4:30 PM EDT Hailey Sevilla MD LAB BLOOD ORDERABLES Final Resul t Performing Organization Address [facility] de Phone Number [facility] [address] [place] [phone] * (ABNORMAL) Reticulocyte Count (05/02/2025 2:07 PM EDT) Reticulocytes Absolute 0.045 0.026 - 0.095 X10*6/uL [facility] Immature Retic Fraction 4.7 3.0 - 15.9 % [facility] Retic HGB Equivalent 35.9(H) 30.0 - 35.0 pg [facility] Reticulocyte Percent 1.2 0.5 - 1.8 % [facility] Blood Venous blood specimen / Unknown 05/02/2025 2:07 PM EDT 05/02/2025 4:30 PM EDT Hailey Sevilla MD LAB BLOOD ORDERABLES Final Resul t Performing Organization Address [facility] de Phone Number [facility] [address] [place] [address] [phone] * Iron And Total Iron Binding Capacity (05/02/2025 2:07 PM EDT) Iron 104 30 - 160 mcg/dL [facility] Total Iron Binding Capacity 238 228 - 428 mcg/dL [facility] Percent Iron Saturation 44 15 - 50 % [facility] Unsaturated Iron Binding 134 ug/dL [facility] Blood Venous blood specimen / Unknown 05/02/2025 2:07 PM EDT 05/02/2025 4:30 PM EDT us Hailey Sevilla MD LAB BLOOD ORDERABLES Final Resul t Performing Organization Address [facility] Co de Phone Number [facility] [address] [place] [phone] [phone] * Ferritin (05/02/2025 2:07 PM EDT) Ferritin 97 10 - 122 ng/mL [facility] Blood Venous blood specimen / Unknown 05/02/2025 2:07 PM EDT 05/02/2025 4:30 PM EDT us Hailey Sevilla MD LAB BLOOD ORDERABLES Final Resul t Performing Organization Address [facility] de Phone Number [facility] [address] [place] [address] [phone] documented in this encounter Visit Diagnoses Diagnosis Anemia, unspecified type- Primary documented in this encounter Additional Health Concerns Assessment Noted Time PHQ-9 Depression Total Score: 0 03/09/20 24 1:49 PM EDT documented as of this encounter Care Teams Sludge Mill Operator Relationship Specialty Start Date End Date Hailey Sevilla MD [address] [place] [address] PCP - General Family Medicine 09/27/18 Michelle Cortes, CHARLEEN [address] [place] [address] Registered Nurse Family Medicine 04/18/25 Laura Layne 04/18/25 documented as of this encounter
--- OUTSIDE RECORDS SUMMARY | 2025-09-03 23:47 | XMS_ITS | Clinical Summary ---
Author Organization [facility] ity Address [address] [place] [address] Care Team Providers Care Welder Fabricator Name Role Phone Unavailable Primary Care Provider Unavailabl e Surgical History Surgery Date Site/Laterality Comments CHOLECYSTECTOMY PROCEDURE: [place] LAPAROSCOPY SURG CHOLECYSTECTOMY BREAST REDUCTION PROCEDURE: [place] BREAST REDUCTION Medical History Medical History Date Comments Anemia DX:Anemia Migraine DX:Migraine Seizure (CMS/HCC V24, CMS/HCC V28) 2015 DX:Seizure ([facility]); COMMENT: r/t migraine, EEG negative per neuro [...] on file Sexual Orientation Not on file Plan of Treatment Health Maintenance Due Date [...]
--- OUTSIDE RECORDS SUMMARY | 2025-09-03 23:47 | XMS_ITS | Encounter Summary ---
Author Organization [employer] Address [address] [facility] 7t [place] [address] Care Team Providers Care Range Examiner Name Role Phone Hailey Sevilla MD Primary Care Provider Michelle Cortes RN Unavailable [phone] Laura Layne Unavailable Encounter Details Date Type Department Care Team (Late st Contact Info) Description 12/18/2024 Orders Only [facility] [address] [place], [place] [phone] Hailey Sevilla MD [address] [place], [place] [phone] Chlamydia (Primary Dx) Social History Tobacco Use [...] Description 10/01/2025 2:30 PM EST Office Visit [facility] [address] [place] [phone] Hailey Sevilla MD [address] [place] [address] documented as of this encounter Procedures Procedure Name Priority Date/Time Associated Diagnosis Comments CHLAMYDIA/N. GONORRHOEAE RNA, TMA, UROGENITAL Routine 12/18/2024 1:31 PM EDT Chlamydia documented in this encounter Results * (ABNORMAL) Chlamydia/N. Gonorrhoeae RNA, TMA, Urogenitial (12/18/2024 1:31 PM EDT) CT PCR DETECTED(A) Not Detect. [facility] Comment:Detected results may be observed [...] ordering clinician orclinical facility [facility] required by state law. NG PCR NOT DETECTED Not Detect. [facility] Comment:A not detected test [...] PM EDT 12/18/2024 4:39 PM EDT Narrative [facility] - 12/19/2024 12:18 PM EDT Vaginal Hailey Sevilla MD LAB MICROBIOLOGY - GENERAL ORDER SHAKIRA Final Result [facility] [address] [place] [address] [phone] documented in this encounter Visit Diagnoses Diagnosis Chlamydia- Primary Other specified chlamydial infection, in conditions classified elsewhere and of unspecified site documented in this encounter Additional Health Concerns Assessment Noted Time PHQ-9 Depression Total Score: 0 03/09/20 24 1:49 PM EDT documented as of this encounter Care Teams Range Examiner Relationship Specialty Start Date End Date Hailey Sveilla MD [address] [place] [phone] PCP - General Family Medicine 09/27/18 Michelle Cortes, RN [address] [place] [phone] Registered Nurse Family Medicine 04/18/25 Laura Layne 04/18/25 documented as of this encounter
== END 2025-09-03 14:39 | disposition home or self-care (01) ==
LOC: HO.HHCL 14:38
PROVIDERS: PCP Family Medicine; Visit Provider Registered Nurse
DX: N92.6 Irregular menstruation, unspecified (principal)
CPT/HCPCS: 36415; 84702

== ENCOUNTER 2025-09-04 11:02 | Emergency (ER) | payer MEDICAID, SELFPAY ==
--- NOTE | ~2025-09-04 | US_ITS ---
EXAMINATION: US OBSTETRICAL ULTRASOUND CLINICAL INFORMATION: Left lower quadrant abdomen pain, low but positive hCG = 21 COMPARISON: None available. LMP: 08/02/2024. Gestational age by maternal dates is 4 weeks 5 days. Estimated date of delivery by maternal dates is 05/09/2026. TECHNIQUE: Transabdominal and transvaginal ultrasound was performed through the pelvis with grayscale and color Doppler imaging FINDINGS: No gestational sac or parts were identified. The uterus is anteverted. The endometrial stripe is 14 mm thick. There is a small focal echogenic region in the central endometrial stripe without posterior acoustic shadowing. Additionally, there is an echogenic focus 2x3 mm size in the anterior fundus with posterior acoustic shadowing consistent with focal calcification. MATERNAL ADNEXA: The right maternal ovary measures 2.2 x 1.9 x 2.2 cm. The left maternal ovary measures 3.5 x 2.0 x 2.3 cm. There is a thick-walled cyst measuring 2.0 x 1.5 x 1.4 cm There is no significant maternal adnexal mass. No maternal pelvic ascites. US/US OB pelvic and transvaginal IMPRESSION: No intrauterine gestation. Possible corpus luteum on the left. Electronically signed by: Boy Chung MD 09/04/2025 12:45 PM CED
[2025-09-04 11:13] VITALS: BP 113/68; PULSE 65; RESP 18; TEMP 36.9; O2SAT 99; BMI 27.6
--- NOTE | 2025-09-04 11:18 | ED_ITS ---
HPI - General Adult General Chief complaint: Abdominal Pain Stated complaint: Issues Time Seen by Provider: 09/04/25 14:36 Source: patient, RN notes reviewed and old records reviewed Mode of arrival: ambulatory History of Present Illness ED Provider: Sachi [place] PA-C HPI narrative: 29-year-old female w/+home test, asthma, KATIE on CPAP, depression, migraines, GERD presenting to the ED complaining of 4 positive tests at home and lower abdominal cramping x today. LMP 08/02/25. denies fever, chills, nausea, vomiting, diarrhea /constipation, vaginal bleeding or discharge Related Data Home Medications ?Medication ?Instructions ?Recorded ?Confirmed topiramate 100 mg tablet 100 mg PO DAILY PRN Migraine 02/10/23 08/29/25 Headache pantoprazole 40 mg tablet,delayed 40 mg PO DAILY PRN H eartburn 09/09/24 08/29/25 release vitamin a PO 10/17/24 08/29/25 Previous Rx's ?Medication ?Instructions ?Recorded prochlorperazine maleate 5 mg 5 mg PO BID PRN nausea a nd 09/13/24 tablet (Compazine) vomiting #10 tabs clotrimazole 1 % topical cream 1 appl topical BID #45 grams 10/17/24 oggfwjbdxxyg-ckhtrjlb-gyeo 1 tab PO DAILY #90 tabs fumarate 7.5 mg-folic acid 400 mcg tablet Allergies Allergy/AdvReac Type Severity Reaction Status Date / Time fish derived (FISH) Allergy Severe Anaphylaxis Verified 09/04/25 11:17 Iodinated Contrast Media (IV Allergy Severe Anaphylaxis Verified 09/04/25 11:17 Contrast Dye) pistachio nut Allergy Intermediate Swelling Verified 09/04/25 11:17 Review of Systems 2 Review of Systems: Yes all other systems are reviewed and are negative Constitutional: Constitutional: Reports as per [facility] Past Medical History Attestation statement: The following information was validated with the patient. Source: old records reviewed Medical History Palpitation Shortness of breath Chest pain Asthma KATIE on CPAP Depression Migraines GERD (gastroesophageal reflux disease) Surgical History History of esophagogastroduodenoscopy (EGD) S/P laparoscopic sleeve gastrectomy Hx of section Hx laparoscopic cholecystectomy Hx of breast reduction, elective Family History Family History Maternal Grandmother Breast cancer Mother Breast cancer Throat cancer Ovarian cancer Family/Other Leukemia Father Prostate cancer Diabetes Heart attack Paternal Grandfather Diabetes Social History Social History Household Members: Family Household Members Other:: minor children ages 5 & 6 Housing: House Are you a primary day care assistant to a significant other at home: No Do you presently have visiting nurse or other home services: No Alcohol intake: former Patient Tobacco Use Status: Never used Tobacco Advance Directives: Yes Advance Directives on File: Yes Advance Directives Date on File: 10/15/23 service: No Physical Exam ED Vital Signs: Vital Signs - 24 hr 09/04/25 14:34 09/04/25 15:57 Temperature 98.4 F 98.4 F Pulse Rate 67 67 Respiratory Rate 16 16 Blood Pressure 108/65 108/65 Pulse Oximetry 99 99 Oxygen Delivery Method Room Air Room Air BMI result Body Mass Index 27.6 Const General: cooperative, healthy appearing and no acute distress Orientation/consciousness: patient oriented x3 Limitations: no limitations HENMT Head: Yes normal to inspection and Yes atraumatic Ears: hearing grossly normal bilaterally General nose exam: Normal external nose present Face and sinus: Yes normal facial exam Eyes General: appearance normal, both eyes and all related structures EOM: EOMs intact bilaterally Neck Neck: Yes normal visual inspection and Yes no meningeal signs Resp Effort & Inspection: normal respiratory effort and no respiratory distress Cardio Rate: regular rate GI Inspection: Yes normal to inspection Palpation (GI): Soft to palpation, nontender, no guarding and not rigid General: Yes no CVA tenderness Back/Spine/Pelvis Back: no CVA tenderness Skin Rashes: no rashes Wounds: no wounds Neuro General: patient oriented x3, tone normal and no meningeal signs Cranial nerves: Yes CN's II-XII intact bilaterally Gait exam (Neuro): Normal gait present Extrem General: Yes normal to inspection Course Course Course Narrative: RME: 29-year-old female 4 weeks 3rd presents to ED for left lower quadrant abdominal pain/cramping past couple of years without any vaginal bleeding. Labs ultrasound ordered -1452-- hCG down trending from yesterday. Patient had outpatient labs with PCP yesterday and hCG was 21, today is 9 US OB pelvic and transvaginal IMPRESSION: No intrauterine gestation. Possible corpus luteum on the left. > results discussed with patient that this is likely a miscarriage. Possibility of ectopic discussed. Discussed with patient she needs repeat HCG every 48 hours essentially until hCG is 0 with close OBGYN follow-up. Discussed threatened return precautions/ ectopic return precautions including increasing/ unremitting pain, bleeding, fever to return to the ED immediately Results discussed with patient including worrisome signs and symptoms and strict return precautions, and when to return to the emergency department. They verbalized understanding and feel safe for discharge at this time. Medical Decision Making Medical Decision Making [facility] Narrative: 29-year-old female w/+home test, asthma, KATIE on CPAP, depression, migraines, GERD presenting to the ED complaining of 4 positive tests at home and lower abdominal cramping x today. on exam vital signs stable, NAD, nontoxic appearing. Abdomen is soft and nontender. Concern for early vs ectopic vs threatened miscarriage. . Lower suspicion for acute diverticulitis / appendicitis or ovarian torsion at this time Plan: Labs, UA, ultrasound Please refer to course for remaining clinical decision making, interpretation of labs/imaging results, and discussions with consultants and/or family members. Differential Diagnosis Differential Diagnoses: The differential diagnosis associated with the presentation includes As above Admission/Observation Consideration of admission/observation: Escalation of care including admission/observation considered Lab Data [facility] Lab Attestation statement: I reviewed the patient's lab results. 09/04/25 13:21 09/04/25 13:21 Labs: Lab Results 09/04/25 Range/Units 13:21 WBC 8.0 (4.8-10.8) X10*3/uL RBC 3.79 L (4.20-5.50) X10*6/uL Hgb 12.2 (12.0-16.0) g/dl Hct 35.1 L (37.0-47.0) % MCV 92.6 (80.0-98.0) fL MCH 32.2 (27.0-33.0) pg MCHC 34.8 (31.0-35.0) g/dl RDW 11.8 (11.0-16.0) % Plt Count 273 (160-400) X10*3/uL MPV 10.2 (9.4-12.3) fL Immature Gran % (Auto) 0.3 (0.0-0.4) % Neut % (Auto) 55.3 (45-73) % Lymph % (Auto) 34.5 (20-40) % [place] % (Auto) 7.9 (2-11) % Eos % (Auto) 1.5 (0-4) % Baso % (Auto) 0.5 (0-2) % Lymph # (Auto) 2.8 (1.2-4.9) X10*3/uL [place] # (Auto) 0.6 (0.1-1.2) X10*3/uL Eos # (Auto) 0.1 (0.0-0.4) X10*3/uL Baso # (Auto) 0.0 (0.0-0.2) X10*3/uL Abs Immat Gran (auto) 0.02 (0.00-0.03) X10*3/uL Absolute Neuts (auto) 4.4 (2.0-8.3) x10*3/uL Absolute Nucleated RBC 0.000 (0.0-0.012) X10*3/uL Nucleated RBC % (auto) 0.0 (0.0-0.2) /100WBC PT 11.9 (11.2-13.5) SEC INR 1.0 (0.9-1.1) APTT 26.4 L (26.7-34.1) SEC Sodium 138 (135-145) mmol/L Potassium 4.4 (3.3-5.1) mmol/L Chloride 109 H (96-108) mmol/L Carbon Dioxide 24 (22-29) mmol/L Anion Gap 9 L (12-20) BUN 14 (9-16) mg/dL Creatinine 0.66 (0.5-1.4) mg/dL Estim Creat Clear Calc 109.5 Estimated GFR > 60 Random Glucose 86 (60-115) mg/dL Calcium 9.2 D (8.4-10.2) mg/dL Total Bilirubin 0.5 (0.0-1.0) mg/dL AST 20 (5-31) U/L ALT 16 (0-31) U/L Alkaline Phosphatase 46 (39-117) U/L Total Protein 7.3 (6.5-8.0) g/dL Albumin 4.1 (3.5-5.0) g/dL Beta HCG, Quant 9 mIU/mL Urine Color Yellow Urine Appearance Cloudy Urine pH 7.0 (5.0-9.0) Ur Specific [place] 1.020 (1.005-1.025) Urine Protein Negative (Neg-Trace) mg/dL Urine Glucose (UA) Negative (Negative) mg/dL Urine Ketones Negative (Negative) mg/dL Urine Blood Negative (Negative) Urine Nitrite Negative (Negative) Ur Leukocyte Esterase Negative (Negative) Urine Test NEGATIVE (NEGATIVE) Independent Interpretation I performed an independent interpretation of an: Ultrasound Radiology Impression Discussion of test interpretation with radiology: I have reviewed the radiologist's reading. External Record Review External record reviewed: Inpatient record, Office record, Outpatient record, Prior outpatient labs, Prior outpatient radiology, Primary care record and Outside ED record Tests considered The following testing was considered but not selected: As above Prescription Management I considered prescription management with: Other Chronic Conditions Patient?s care impacted by: Other ( asthma, KATIE on CPAP) Social Determinants Patient?s care significantly limited by Social Determinants of Health including: Other Social Determinant of Health Discharge Plan Discharge Clinical Impression: Miscarriage Patient Disposition: Home, Self-Care Instructions: Miscarriage (ED) Additional Instructions: your hCG is down trending, yesterday was 21, today is 9. ultrasound does not show a intrauterine You need to have close follow-up with OBGYN and repeat labs every 48 hours to monitor this blood test. If you develop any persistent or worsening abdominal pain, vaginal bleeding, fever, nausea or vomiting return to the ED immediately You were seen in our Emergency Department for an early test being positive and abdominal pain/and or vaginal bleeding. It is very early on and your symptoms require repeat testing and monitoring. Your initial ultrasound did not confirm a in your uterus. You need repeat testing of your blood test (hcg) in 48 hours. Another Ultrasound may also need to be done in 5 days, this should be determined by your outpatient provider. These tests can be done at your primary care office, OBGYN office, or the Emergency Department if you cannot reach your outside providers. After discharge please monitor your symptoms and seek immediate care for bleeding heavier than a period, severe abdominal pain, fainting, or any other concerns. Please see list of local OBGYN providers below: OBGYN and Midwifery [facility] [address] [place] [address] [phone] [facility] [address] [phone] [facility] [place] [phone] [phone] Prescriptions: No Action pantoprazole 40 mg tablet,delayed release (DR/EC) 40 mg PO DAILY PRN (Reason: Heartburn) prochlorperazine maleate [Compazine] 5 mg tablet 5 mg PO BID PRN (Reason: nausea and vomiting) Qty: 10 0RF topiramate 100 mg tablet 100 mg PO DAILY PRN (Reason: Migraine Headache) vitamin a PO invuvdpx-jvw-tmoz fum-folic ac 7.5 mg iron-400 mcg tablet 1 tab PO DAILY Qty: 90 3RF clotrimazole 1 % cream 1 appl topical BID Qty: 45 3RF Referrals: [facility] [Provider Group] - 2 days Interventions: ED Discharge Assessment Last Done: 09/04/25 15:57 Discharge Date/Time: 09/04/25 15:58 Print Language: Arabic
[2025-09-04 13:27] LABS: MANUAL DIFF FLAG NO
[2025-09-04 13:30] LABS: Appearance Urine Cloudy; Glucose Urine UA Negative (Negative); Hematocrit 35.1 % (37.0-47.0); Hemoglobin 12.2 g/dl (12.0-16.0); Imm Gran Abs Auto 0.02 X10*3/uL (0.00-0.03); Imm Gran Pct Auto 0.3 % (0.0-0.4); Lymphocytes Absolute Auto 2.8 X10*3/uL (1.2-4.9); Mean Corpuscular HGB Conc 34.8 g/dl (31.0-35.0); Mean Corpuscular Hemoglobin 32.2 pg (27.0-33.0); Mean Corpuscular Volume 92.6 fL (80.0-98.0); NRBC Abs Auto 0.000 X10*3/uL (0.0-0.012); NRBC Pct Auto 0.0 /100WBC (0.0-0.2); PH 7.0 (5.0-9.0); Platelet Count 273 X10*3/uL (160-400); Red Blood Count 3.79 X10*6/uL (4.20-5.50); Specific Gravity - Urine 1.020 (1.005-1.025); White Blood Count 8.0 X10*3/uL (4.8-10.8)
[2025-09-04 13:31] LABS: UPreg QC Valid YES
[2025-09-04 13:41] LABS: INTERNATIONAL NORM RATIO 1.0 (0.9-1.1); Prothrombin Time 11.9 SEC (11.2-13.5)
[2025-09-04 13:44] LABS: Partial Thromboplastin Time 26.4 SEC (26.7-34.1)
[2025-09-04 13:55] LABS: Alanine Aminotransferase 16 U/L (0-31); Albumin Level 4.1 g/dL (3.5-5.0); Alkaline Phosphatase 46 U/L (39-117); Anion Gap 9 (12-20); Aspartate Amino Transferase 20 U/L (5-31); Blood Urea Nitrogen 14 mg/dL (9-16); Calcium 9.2 mg/dL (8.4-10.2); Carbon Dioxide 24 mmol/L (22-29); Chloride 109 mmol/L (96-108); Creatinine Clr Calc Pharmacy 109.5; Estimated Glomerular Filt Rate > 60; Potassium 4.4 mmol/L (3.3-5.1); Sodium 138 mmol/L (135-145); Total Protein 7.3 g/dL (6.5-8.0)
[2025-09-04 14:34] VITALS: BP 108/65; PULSE 67; RESP 16; TEMP 36.9; O2SAT 99
[2025-09-04 15:57] VITALS: BP 108/65; PULSE 67; RESP 16; TEMP 36.9; O2SAT 99
== END 2025-09-04 15:58 | disposition home or self-care (01) ==
PROVIDERS: Physician Assistant; Emergency Provider Emergency Medicine Emergency Medical Services; PCP Family Medicine
DX: O03.9 Complete or unspecified spontaneous abortion without complication (principal); R10.23 Pelvic and perineal pain bilateral; Z79.899 Other long term (current) drug therapy
CPT/HCPCS: 36415; 76801; 76817; 80053; 81003; 81025; 84702; 85025; 85610; 85730; 99282; 99284

== ENCOUNTER → 2025-09-04 11:17 | Outpatient (BNV) | payer MEDICAID, SELFPAY | PROVIDERS: PCP Family Medicine; Visit Provider Radiology Diagnostic Radiology | DX: O26.891 Other specified pregnancy related conditions, first trimester (principal); R10.9 Unspecified abdominal pain; Z3A.01 Less than 8 weeks gestation of pregnancy | CPT/HCPCS: 76801; 76817 ==

== ENCOUNTER 2025-09-05 14:12 | Outpatient (REF) | payer MEDICAID, SELFPAY ==
--- OUTSIDE RECORDS SUMMARY | 2025-09-05 22:10 | XMS_ITS ---
Author Organization [employer] Address [address] [facility] 7 [place] [address] Care Team Providers Care Newspaper Stuffer Name Role Phone Hailey Sevilla MD Primary Care Provider [phone] Michelle Cortes RN Unavailable [phone] Laura Layne Unavailable [facility] Complex Status:Outreach In Progress (Enrolling) Start date:04/18/2025 Enrollment reason:ADT Feed Overview [facility]T-[facility] ED 04/17/25. Please outreach for enrollment. Case Team Name Relationship Phone Laura Layne(Responsible Staff) [phone] Continued Care and Services Coordination
--- OUTSIDE RECORDS SUMMARY | 2025-09-05 22:10 | XMS_ITS | Encounter Summary ---
Author Organization [employer] Address [address] [facility] [address] [place] [address] Care Team Providers Care Heading Maker Name Role Phone Hailey Sevilla MD Primary Care Provider [phone] Michelle Cortes RN Unavailable [phone] Laura Layne Unavailable Encounter Details Date Type Department Care Team (Late st Contact Info) Description 12/18/2024 Orders Only [facility] [address] [place], [place] [phone] Hailey Sevilla MD [address] [place] [address] Social History Tobacco Use Types Packs/Day Years [...] PM EST Office Visit [facility] [address] [place] [address] Hailey Sevilla MD [address] [place] [address] documented as of this encounter Visit Diagnoses Not on filedocumented in this encounter Additional Health Concerns Assessment Noted Time PHQ-9 Depression Total Score: 0 03/09/20 24 1:49 PM EDT documented as of this encounter Care Teams Heading Maker Relationship Specialty Start Date End Date Hailey Sevilla MD [address] [place] [address] PCP - General Family Medicine 09/27/18 Michelle Cortes RN [address] [place] [phone] Registered Nurse Family Medicine 04/18/25 Laura Layne 04/18/25 documented as of this encounter
--- OUTSIDE RECORDS SUMMARY | 2025-09-05 22:10 | XMS_ITS | Encounter Summary ---
Author Organization [employer] Address [address] [facility] [address] [place] [address] Care Team Providers Care Transformer Tester Name Role Phone Hailey Sevilla MD Primary Care Provider [phone] Michelle Cortes RN Unavailable [phone] Laura Layne Unavailable Encounter Details Date Type Department Care Team (Late st Contact Info) Description 10/05/2024 Orders Only [facility] [address] [place], [place] [phone] Hailey Sevilla MD [address] [place], [place] [phone] Social History Tobacco Use Types Packs/Day Years [...] Description 10/01/2025 2:30 PM EST Office Visit [facility] [address] [place], [place] [phone] Hailey Sevilla MD [address] [place] [address] documented as of this encounter Procedures Procedure Name Priority Date/Time Associated Diagnosis Comments VITAMIN A Routine 10/05/2024 10:35 AM EST documented in this encounter Results * (ABNORMAL) Vitamin A (10/05/2024 10:35 AM EST) Vitamin A (Retinol) 29(A) 38 - 98 mcg/dL [facility] Comment:Vitamin supplementat ion within 24 hours prior toblood draw may affect the accuracy of the results.This test was developed and its analytical performancecharacteristics have been determined by [employer] [place], [place]. It hasnot been cleared or approved by the U.S. Food and DrugAdministration. This assay has been validated pursuantto the CLIA regulations and is used for clinicalpurposes.THIS TEST WAS PERFORMED AT:[facility] [place] [address]NVRELVKGERRI MARQUEZ MD,PHD 10/05/2024 10:3 5 AM EST 10/05/2024 11:32 AM EST us Generic External Data Provider LAB BLOOD ORDERAB LES Final Result [facility] [address] [place] [phone] documented in this encounter Visit Diagnoses Not on filedocumented in this encounter Additional Health Concerns Assessment Noted Time PHQ-9 Depression Total Score: 0 03/09/20 24 1:49 PM EDT documented as of this encounter Care Teams Transformer Tester Relationship Specialty Start Date End Date Hailey Sevilla MD [address] [place] [address] PCP - General Family Medicine 09/27/18 Michelle Cortes, RN [address] [place] [phone] Registered Nurse Family Medicine 04/18/25 Laura Layne 04/18/25 documented as of this encounter
--- OUTSIDE RECORDS SUMMARY | 2025-09-05 22:10 | XMS_ITS | Clinical Summary ---
Author Organization [employer] Address [address] [facility] 7t [place] [address] Care Team Providers Care Scrap Picker Name Role Phone Hailey Sevilla MD Primary Care Provider [phone] Michelle Cortes RN Unavailable [phone] Laura Layne Unavailable Allergies No known [...] (10/14/2024 6:38 AM EST): - hospitalized at [facility] in Aug 2024 - Initially treated [...] Diagnosed Date Resolved Date BMI 40.0-44.9, adult ([facility]) 12/28/2022 10/05/2024 Assessment & Plan (01/03/2023 12:21 PM EDT): -pt is restarting Weight Management Program at [facility] -encouraged to focus on healthy lifestyle, rather than weight Obesity 12/11/2014 10/05/2024 Assessment & Plan (01/03/2023 12:21 PM EDT): -pt is starting weight management clinic and will likely to have an extensive lab evaluation; therefore, I will not order lab today 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 Encounters Date Type Department Care Team Description 09/04/2025 Orders Only GENERIC EXTERNAL DATA DEPARTMENT Provider, Generic External Data 09/03/2025 Orders Only [facility] [address] [place] [address] Rosa Goncalves FNP Missed menses (Primary Dx) 09/03/2025 Telephone [facility] [address] [place] [address] Hailey Sevilla MD Lab Orders 07/26/2025 Refill [facility] [address] [place], [place] [phone] Hailey Sevilla MD Gastroesophageal reflux disease, unspecified whether esophagitis present 07/13/2025 Telephone [facility] [address] [place] [address] Hailey Sevilla MD 07/13/2025 Telephone [facility] [address] [place] [phone] Hailey Sevilla MD Lab Orders from Last 3 Months Immunizations Immunization Administration [...] EST Office Visit [facility] [address] [place], [place] [phone] Hailey Sevilla MD [address] [place] [address] Health Maintenance Due Date Last Done Comments [...] Associated Diagnosis Comments HCG, TOTAL, QN Routine 09/05/2025 2:17 PM EST Abdominal pain affecting HCG, TOTAL, QN Routine 09/04/2025 1:21 PM EST COMPREHENSIVE METABOLIC PANEL Routine 09/04/2025 1:21 PM EST APTT Routine 09/04/2025 1:21 PM EST PROTHROMBIN TIME-INR Routine 09/04/2025 1:21 PM EST CBC WITH AUTO DIFFERENTIAL Routine 09/04/2025 1:21 PM EST HCG, QL, URINE Routine 09/04/2025 1:21 PM EST URINALYSIS WITH REFLEX MICROSCOPIC Routine 09/04/2025 1:21 PM EST US OB PELVIS TRANSVAGINAL Routine 09/04/2025 12:09 PM EST HCG, TOTAL, QN Routine 09/03/2025 2:43 PM [...] Health Maintenance Results * hCG, Total, Quantitative (09/05/2025 2:17 PM EST) Only the most recent of3 resultswithin the time period is included. HCG Quantitative 5 mIU/mL [facility] Comment:Weeks post LMP Appro ximate hCG(Last Menstrual Period) Range (mIU/ml)3 - 4 weeks 9 - 1304 - 5 weeks 75 - 2,6005 - 6 weeks 850 - 20,8006 - 7 weeks 4000 - 100,2007 - 12 weeks 11,500 - 289,53849 - 16 weeks 18,300 - 137,06031 - 29 weeks (2nd trimester) 1,400 - 53,86190 - 41 weeks (3rd trimester) 940 - 60,000The Cordero B- hCG assay is used for the early detection ofpregnancy; it cannot be used to diagnose any conditionunrelated to . If a B-hCG level is not supportedby the clinical evidence, results should be confirmed by analternative method (qualitative urine hCG, for example). Blood Venous blood specimen / Unknown 09/05/2025 2:17 PM EST 09/05/2025 4:10 PM EST us Rosa Goncalves [facility] LAB BLOOD ORDERABLES Final Res ult [facility] [address] [place] [phone] [phone] * (ABNORMAL) CBC auto differential (09/04/2025 1:21 PM EST) White Blood Count 8.0 4.8 - 10.8 X10*3/uL [facility] Red Blood Count 3.79(L) 4.20 - 5.50 X10*6/uL [facility] Hemoglobin 12.2 12.0 - 16.0 g/dl [facility] Hematocrit 35.1(L) 37.0 - 47.0 % [facility] Mean Corpuscular Volume 92.6 80.0 - 98.0 fL [facility] Mean Corpuscular Hemoglobin 32.2 27.0 - 33.0 pg [facility] Mean Corpuscular HGB Conc 34.8 31.0 - 35.0 g/dl [facility] Red Cell Distribution Width 11.8 11.0 - 16.0 % [facility] Platelet Count 273 160 - 400 X10*3/uL [facility] Mean Platelet Volume 10.2 9.4 - 12.3 fL [facility] Neutrophils Percent Auto 55.3 45 - 73 % [facility] Imm Gran Pct Auto 0.3 0.0 - 0.4 % [facility] Lymphocytes Percent Auto 34.5 20 - 40 % [facility] Monocytes Percent Auto 7.9 2 - 11 % [facility] Eosinophils Percent Auto 1.5 0 - 4 % [facility] Basophils Percent Auto 0.5 0 - 2 % [facility] NRBC Pct Auto 0.0 0.0 - 0.2 /100WBC [facility] Neutrophils Absolute Auto 4.4 2.0 - 8.3 x10*3/uL [facility] Imm Gran Abs Auto 0.02 0.00 - 0.03 X10*3/uL [facility] Lymphocytes Absolute Auto 2.8 1.2 - 4.9 X10*3/uL [facility] Monocytes Absolute Auto 0.6 0.1 - 1.2 X10*3/uL [facility] Eosinophils Absolute Auto 0.1 0.0 - 0.4 X10*3/uL [facility] Basophils Absolute Auto 0.0 0.0 - 0.2 X10*3/uL [facility] NRBC Abs Auto 0.000 0.0 - 0.012 X10*3/uL [facility] 09/04/2025 1:21 PM EST 09/04/2025 1:26 PM EST Generic External Data Provider LAB BLOOD ORDERAB LES Final Result Performing Organization Address [facility] Co de Phone Number [facility] [address] [place] [address] [phone] * HCG, Qualitative, Urine (09/04/2025 1:21 PM EST) Urine NEGATIVE NEGATIVE [facility] Comment:This test was develo ped to detect early . Falsenegative results may occur after the 5th - 7th week ofpregnancy when using this test method. If clinicallyindicated, consider a serum hCG. 09/04/2025 1:21 PM EST 09/04/2025 1:26 PM EST [employer] External Data Provider LAB URINE ORDERAB LES Final Result Performing Organization Address [facility] Co de Phone Number [facility] [address] [place] [phone] * Urinalysis w/reflex microscopic (09/04/2025 1:21 PM EST) Color Urine Yellow [facility] Appearance Urine Cloudy [facility] PH 7.0 5.0 - 9.0 [facility] Glucose Urine UA Negative Negative mg/dL [facility] Urine Blood Negative Negative [facility] Specific [place] - Urine 1.020 1.005 - 1.025 [facility] Urine Protein Negative Neg-Trace mg/dL [facility] Urine Ketones Negative Negative mg/dL [facility] Nitrite Urine Negative Negative [facility] Leukocyte Esterase Urine Negative Negative [facility] 09/04/2025 1:21 PM EST 09/04/2025 1:26 PM EST Narrative [facility] - 09/04/2025 1:30 PM EST [id number], Clean Catch us Generic External Data Provider LAB URINE ORDERAB LES Final Result Performing Organization Address [facility]/ZIP Co de Phone Number [facility] [address] [place] [phone] * (ABNORMAL) Partial Thromboplastin Time, Activated (APTT) (09/04/2025 1:21 PM EST) Partial Thromboplastin Time 26.4(L) 26.7 - 34.1 SEC [facility] 09/04/2025 1:21 PM EST 09/04/2025 1:26 PM EST us Generic External Data Provider LAB BLOOD ORDERAB LES Final Result Performing Organization Address [facility]/ZIP Co de Phone Number [facility] [address] [place] [phone] * Prothrombin Time-INR (09/04/2025 1:21 PM EST) Prothrombin Time 11.9 11.2 - 13.5 SEC [facility] INTERNATIONAL NORM RATIO 1.0 0.9 - 1.1 [facility] Comment:INTERNATIONAL NORMAL IZED RATIO (INR) REFERENCE RANGES Reference RangeFor patients not on anticoagulant therapy: 0.9 - 1.1INR ranges for oral anticoagulanttherapy:For prevention and treatment of venous thrombosis and pulmonary embolism: 2.0 - 3.0For acute myocardial infarction with aspirin therapy: 2.0 - 3.0For acute myocardial infarction without aspirin therapy: 3.0 - 4.0For patients with mechanical prosthetic heart valves: 2.5 - 3.5 09/04/2025 1:21 PM EST 09/04/2025 1:26 PM EST us Generic External Data Provider LAB BLOOD ORDERAB LES Final Result [facility] [address] [place] [address] [phone] * (ABNORMAL) Comprehensive Metabolic Panel (09/04/2025 1:21 PM EST) Sodium 138 135 - 145 mmol/L [facility] Potassium 4.4 3.3 - 5.1 mmol/L [facility] Chloride 109(H) 96 - 108 mmol/L [facility] Carbon Dioxide 24 22 - 29 mmol/L [facility] Anion Gap 9(L) 12 - 20 [facility] Urea Nitrogen (BUN) 14 9 - 16 mg/dL [facility] Creatinine, Serum 0.66 0.5 - 1.4 mg/dL [facility] Creatinine Clr Calc Pharmacy 109.5 [facility] Comment:Provided height and weight: 154.94 cm,66.2 kg.eGFR (calculated from the MDRD study equation) and eCrCl(calculated from the Cockcroft-Gault equation) are based ondifferent parameters and may not yield comparable results.If eCrCl result is absurd, please check patient'sheight/weight. Estimated Glomerular Filt Rate >60 [facility] Comment:Chronic Kidney Disea se: Estimated GFR < 60 mL/min/1.48m5Csbamp Kidney Disease: Estimated GFR < 15 mL/min/1.73m2 Glucose 86 60 - 115 mg/dL [facility] Calcium 9.2 8.4 - 10.2 mg/dL [facility] Bilirubin, Total 0.5 0.0 - 1.0 mg/dL [facility] Aspartate Amino Transferase 20 5 - 31 U/L [facility] Alanine Aminotransferase 16 0 - 31 U/L [facility] Total Protein 7.3 6.5 - 8.0 g/dL [facility] Albumin Level 4.1 3.5 - 5.0 g/dL [facility] Alkaline Phosphatase 46 39 - 117 U/L [facility] 09/04/2025 1:21 PM EST 09/04/2025 1:26 PM EST us Generic External Data Provider LAB BLOOD ORDERAB LES Final Result [facility] [address] [place] [phone] * US OB Pelvis with Transvaginal (09/04/2025 12:09 PM EST) Anatomical Region Laterality Modality Pelvis Ultrasound 09/04/2025 12:0 9 PM EST Narrative 09/04/2025 12:48 PM EST [address] [address] Ultrasound Report Signed Patient: Jak Izquierdo MR#: [id number] : 1995 Acct:[id number] Age/Sex: 29 / F ADM Date: 09/04/25 Loc: HO.ED Attending Dr: Ordering Physician: Aris Glaser Date of Service: 09/04/25 Procedure(s): US OB pelvic and transvaginal Accession Number(s): [id number] cc: Aris Glaser; Hailey Sevilla MD Reason for Exam: abdominal pain EXAMINATION: US OBSTETRICAL ULTRASOUND CLINICAL INFORMATION: Left lower quadrant abdomen pain, low but positive hCG = 21 COMPARISON: None available. LMP: 08/02/2024. Gestational age by maternal dates is 4 weeks 5 days. Estimated date of delivery by maternal dates is 05/09/2026. TECHNIQUE: Transabdominal and transvaginal ultrasound was performed through the pelvis with grayscale and color Doppler imaging FINDINGS: No gestational sac or parts were identified. The uterus is anteverted. The endometrial stripe is 14 mm thick. There is a small focal echogenic region in the central endometrial stripe without posterior acoustic shadowing. Additionally, there is an echogenic focus 2x3 mm size in the anterior fundus with posterior acoustic shadowing consistent with focal calcification. MATERNAL ADNEXA: The right maternal ovary measures 2.2 x 1.9 x 2.2 cm. The left maternal ovary measures 3.5 x 2.0 x 2.3 cm. There is a thick-walled cyst measuring 2.0 x 1.5 x 1.4 cm There is no significant maternal adnexal mass. No maternal pelvic ascites. US/US OB pelvic and transvaginal IMPRESSION: No intrauterine gestation. Possible corpus luteum on the left. Electronically signed by: Boy Chung MD 09/04/2025 12:45 PM [facility] Dictated By: Boy Chung MD Signed By: <Electronically signed by Boy Chung MD in OV> 09/04/25 1245 DD/ 1209 TD/TT: 09/04/25 1222 Practice Support Specialist: Procedure Note Donotuseinterpreter, Image - 09/04/2025 [place] [address] Ultrasound Report Signed Patient: Xuan Izquierdo#: [id number] : 1995Acct:[id number] Age/Sex: Date: 09/04/25 Loc: .ED Attending Dr: Ordering Physician: Aris Glaser Date of Service: 09/04/25 Procedure(s): US OB pelvic and transvaginal Accession Number(s): [id number] cc: Aris Glaser; Hailey Sevilla MD Reason for Exam: abdominal pain EXAMINATION: US OBSTETRICAL ULTRASOUND CLINICAL INFORMATION: Left lower quadrant abdomen pain, low but positive hCG = 21 COMPARISON: None available. LMP: 08/02/2024. Gestational age by maternal dates is 4 weeks 5 days. Estimated date of delivery by maternal dates is 05/09/2026. TECHNIQUE: Transabdominal and transvaginal ultrasound was performed through the pelvis with grayscale and color Doppler imaging FINDINGS: No gestational sac or parts were identified. The uterus is anteverted. The endometrial stripe is 14 mm thick. There is a small focal echogenic region in the central endometrial stripe without posterior acoustic shadowing. Additionally, there is an echogenic focus 2x3 mm size in the anterior fundus with posterior acoustic shadowing consistent with focal calcification. MATERNAL ADNEXA: The right maternal ovary measures 2.2 x 1.9 x 2.2 cm. The left maternal ovary measures 3.5 x 2.0 x 2.3 cm. There is a thick-walled cyst measuring 2.0 x 1.5 x 1.4 cm There is no significant maternal adnexal mass. No maternal pelvic ascites. US/US OB pelvic and transvaginal IMPRESSION: No intrauterine gestation. Possible corpus luteum on the left. Electronically signed by: Boy Chung MD 09/04/2025 12:45 PM EST RP Dictated By: Boy Chung MD Signed By: <Electronically signed by Boy Chung MD in OV> 09/04/25 1245 DD/ 1209 TD/TT: 09/04/25 1222 Practice Support Specialist: us [facility] External Provider IMG US PROCEDURES Final Result * T-SPOT??.TB (07/13/2025 12:00 PM EDT) T Spot TB Negative Negative [facility] Comment:A negative test resu lt [...] as aquantitative test. TS PANEL A 2 [facility] TS PANEL B 3 [facility] Negative Control Passed [facility] Positive Control Passed [facility] Comment:For additional infor stacy, please refer tohttp://education.questdiagnostics.com/faq/OTG776(This link is being provided for informational/educational purposes only.)THIS TEST WAS PERFORMED AT:[facility] [id number] [place] [address]GESTPWD Ad MARQUEZ MD,PHD 07/13/2025 12:0 0 PM EDT 07/13/2025 1:16 PM EDT us Hailey Sevilal MD LAB BLOOD ORDERABLES Final Resul t [facility] [address] [place] [phone] * US Pelvis Transvaginal (06/19/2025 2:06 PM EDT) Anatomical Region Laterality Modality Pelvis Ultrasound 06/19/2025 2:06 PM EDT Narrative 06/19/2025 2:08 PM EDT [facility] Adult Primary Care [address] [place] [address] [place] [address] Ultrasound Report Signed Patient: Jak Izquierdo MR#: [id number] : 1995 Acct:[id number] Age/Sex: 29 / F ADM Date: 06/18/25 Loc: HO.HMGCX Attending Dr: Hetal Castano NP Ordering Physician: Hailey Sevilla MD Date of Service: 06/18/25 Procedure(s): US pelvic and transvaginal Accession Number(s): [id number] cc: Hailey Sevilla MD Reason for Exam: [...] OV> 06/19/25 1407 DD/ 05 TD/TT: 06/19/251405 Practice Support Specialist: Procedure Note Donotuseinterpreter, Image - 06/19/2025 [facility] Adult Primary Care [facility] [place] [address] Ultrasound Report Signed Patient: Jak Izquierdo#: [id number] : 1995Acct:[id number] Age/Sex: Date: 06/18/25 Loc: HO.HMGCX Attending Dr: Hetal Castano NP Ordering Physician: Hailey Sevilla MD Date of Service: 06/18/25 Procedure(s): US pelvic and transvaginal Accession Number(s): [id number] cc: Hailey Sevilla MD Reason for Exam: [...] OV> 06/19/25 1407 DD/ 05 TD/TT: 06/19/251405 Practice Support Specialist: Hailey Sevilla MD IMG US PROCEDURES Final Result * Hepatitis C Antibody with Reflex to HCV, RNA, Quantitative, Real-Time PCR (02/20/2025 8:35 AM EDT) Pathologist [facility] Hepatitis C Antibody Nonreactive Nonreactive [facility] Comment:Antibodies to HCV no t detected; does not exclude early acuteHCV infection. Blood Venous blood specimen / Unknown 02/20/2025 8:35 AM EDT 02/20/2025 11:06 AM EDT Hailey Sevilla MD LAB BLOOD ORDERABLES Final Resul t [facility] [address] [place] [phone] * HIV-1/2 Antigen and Antibodies, Fourth Generation, with Reflexes (02/20/2025 8:35 AM EDT) HIV AB/AG Nonreactive Nonreactive [facility] Comment:HIV-1 p24 Ag and/or HIV-1/HIV-2 Ab not detected.A test result that is nonreactive does not exclude thepossibility of exposure to or infection with HIV-1 and/orHIV-2. Nonreactive results in this assay for individualswith prior exposure to HIV-1 and/or HIV-2 may be due toantigen and antibody levels that are below the limit ofdetection of this assay.The [employer] HIV Ag/Ab Combo assay result andsupplemental assay results should be interpreted inconjunction with the patient's clinical presentation,history and other laboratory results. If the results areinconsistent with clinical evidence, additional testing issuggested to confirm the result. Blood Venous blood specimen / Unknown 02/20/2025 8:35 AM EDT 02/20/2025 11:06 AM EDT us Hailey Sevilla MD LAB BLOOD ORDERABLES Final Resul t [facility] [address] [place] [phone] * Pap Smear (12/12/2024 12:00 AM EDT) Swab 12/12/2024 12/13/2024 6:2 2 AM EDT Narrative [facility] - 12/21/2024 10:40 AM EDT ----- ------- Name: Adan BlankenshipShaunyvon Age/Sex: 29/F : 1995 Unit#: [id number] Attend Dr: Delia Ashby Re12/12/24 Status: MISBAH SONG Location: HO.HHCL Disch: ----- ------- SPEC : [id number] RECD: 12/13/24-621 STATUS: DEEPAK ESTEVEZ NUM: [id number] YG: 12/12/24-[address]: Hailey Sevilla MD ENTERED: 12/13/24 SP TYPE: Pap Smr OTHR : ORDERED: Pap Smear Interpretation Satisfactory for evaluation. [...] MD LAB CYTOLOGY ORDERABLES Final Re sult [facility] [address] [place] [phone] from Last 3 Months or Most Recently Relevant to Health Maintenance Insurance [employer] Care Teams Scrap Picker Relationship Specialty Start Date End Date Hailey Sevilla MD [address] [place] [phone] PCP - General Family Medicine 09/27/18 Michelle Cortes, RN [address] [place] [phone] Registered Nurse Family Medicine 04/18/25 Laura Layne 04/18/25
--- OUTSIDE RECORDS SUMMARY | 2025-09-05 22:10 | XMS_ITS ---
Author Organization [employer] Address [address] [facility] 7 [place] [address] Care Team Providers Care Railroad Wheels And Axles Inspector Name Role Phone Hailey Sevilla MD Primary Care Provider [phone] Michelle Cortes RN Unavailable [phone] Laura Layne Unavailable CM Complex Status:Outreach In Progress (Enrolling) Start date:04/18/2025 Enrollment reason:ADT Feed Overview [facility] ED 04/17/25 Case Team Name Relationship Phone Michelle Cortes RN(Responsible Staff) Registered Nurse [phone] Continued Care and Services Coordination
--- OUTSIDE RECORDS SUMMARY | 2025-09-05 22:10 | XMS_ITS | Encounter Summary ---
Author Organization [employer] Address [address] [facility] [address]t [place] [address] Care Team Providers Care Trade Recruiter Name Role Phone Hailey Sevilla MD Primary Care Provider [phone] Michelle Cortes RN Unavailable [phone] Laura Layne Unavailable Encounter Details Date Type Department Care Team (Late st Contact Info) Description 12/18/2024 Orders Only [facility] [address] [place], [place] [phone] Hailey Sevilla MD [address] [place], [place] [phone] Chlamydia (Primary Dx) Social History Tobacco Use [...] Description 10/01/2025 2:30 PM EST Office Visit [facility] [address] [place] [phone] Hailey Sevilla MD [address] [place] [address] documented as of this encounter Procedures Procedure Name Priority Date/Time Associated Diagnosis Comments CHLAMYDIA/N. GONORRHOEAE RNA, TMA, UROGENITAL Routine 12/18/2024 1:31 PM EDT Chlamydia documented in this encounter Results * (ABNORMAL) Chlamydia/N. Gonorrhoeae RNA, TMA, Urogenitial (12/18/2024 1:31 PM EDT) CT PCR DETECTED(A) Not Detect. [facility] Comment:Detected results may be observed [...] the ordering clinician orclinical facility to the [facility] required by state law. NG PCR NOT DETECTED Not Detect. [facility] Comment:A not detected test [...] PM EDT 12/18/2024 4:39 PM EDT Narrative [facility] - 12/19/2024 12:18 PM EDT Vaginal Hailey Sevilla MD LAB MICROBIOLOGY - GENERAL ORDER SHAKIRA Final Result [facility] [address] [place] [phone] [phone] documented in this encounter Visit Diagnoses Diagnosis Chlamydia- Primary Other specified chlamydial infection, in conditions classified elsewhere and of unspecified site documented in this encounter Additional Health Concerns Assessment Noted Time PHQ-9 Depression Total Score: 0 03/09/20 24 1:49 PM EDT documented as of this encounter Care Teams Trade Recruiter Relationship Specialty Start Date End Date Hailey Sevilla MD [address] [place] [phone] PCP - General Family Medicine 09/27/18 Michelle Cortes, RN [address] [place] [phone] Registered Nurse Family Medicine 04/18/25 Laura Layne 04/18/25 documented as of this encounter
--- OUTSIDE RECORDS SUMMARY | 2025-09-05 22:10 | XMS_ITS | Encounter Summary ---
Author Organization [employer] Address 75 [facility] 7t [place] [address] Care Team Providers Care Diagnostics Tech Name Role Phone Hailey Sevilla MD Primary Care Provider [phone] Michelle Cortes RN Unavailable [phone] Laura Layne Unavailable Encounter Details Date Type Department Care Team (Late st Contact Info) Description 09/03/2025 Orders Only [facility] MED & PEDS [address] [place], [place] [phone] Rosa Goncalves FNP [address] [place] [address] Missed menses (Primary Dx) Social History Tobacco [...] Description 10/01/2025 2:30 PM EST Office Visit [facility] MEDICINE [address] [place] [address] Hailey Sevilla MD [address] [place] [address] documented as of this encounter Procedures Procedure Name Priority Date/Time Associated Diagnosis Comments US OB PELVIS TRANSVAGINAL Routine 09/04/2025 12:09 PM EST HCG, TOTAL, QN Routine 09/03/2025 2:43 PM EST Missed menses documented in this encounter Results * US OB Pelvis with Transvaginal (09/04/2025 12:09 PM EST) Anatomical Region Laterality Modality Pelvis Ultrasound 09/04/2025 12:0 9 PM EST Narrative 09/04/2025 12:48 PM EST [facility] [address] [place] [address] Ultrasound Report Signed Patient: Jak Izquierdo MR#: [id number] : 1995 Acct:[id number] Age/Sex: 29 / F ADM Date: 09/04/25 Loc: HO.ED Attending Dr: Ordering Physician: Aris Glaser Date of Service: 09/04/25 Procedure(s): US OB pelvic and transvaginal Accession Number(s): [id number] cc: Aris Glaser; Hailey Sevilla MD Reason [...] by: Boy Chung MD 09/04/2025 12:45 PM [facility] Dictated By: Boy Chung MD Signed By: <Electronically signed by Boy Chung MD in OV> 09/04/25 1245 DD/ 1209 TD/TT: 09/04/25 1222 Syruper: Procedure Note Donotuseinterpreter, Image - 09/04/[address] [address] Ultrasound Report Signed Patient: Jak IzquierdoMR#: [id number] : 1995Acct:[id number] Age/Sex: Date: 09/04/25 Loc: HO.ED Attending Dr: Ordering Physician: Aris Glaser Date of Service: 09/04/25 Procedure(s): US OB pelvic and transvaginal Accession Number(s): [id number] cc: Aris Glaser; Hailey Sevilla MD Reason [...] by: Boy Chung MD 09/04/2025 12:45 PM [facility] Dictated By: Boy Chung MD Signed By: <Electronically signed by Boy Chung MD in OV> 09/04/25 1245 DD/ 1209 TD/TT: 09/04/25 1222 Syruper: [facility] External Provider IMG US PROCEDURES Final Result * hCG, Total, Quantitative (09/03/2025 2:43 PM EST) HCG Quantitative 21 mIU/mL [facility] Comment:Weeks post LMP Appr oximate hCG(Last Menstrual Period) Range (mIU/ml)3 - 4 weeks 9 - 1304 - 5 weeks 75 - 2,6005 - 6 weeks 850 - 20,8006 - 7 weeks 4000 - 100,2007 - 12 weeks 11,500 - 289,58113 - 16 weeks 18,300 - 137,88500 - 29 weeks (2nd trimester) 1,400 - 53,58396 - 41 weeks (3rd trimester) 940 - [...] 09/03/2025 4:07 PM EST us Rosa Goncalves CITY PL[employer]NER LAB BLOOD ORDERABLES Final Res ult [facility] [address] [place] [address] [phone] documented in this encounter Visit Diagnoses Diagnosis Missed menses- Primary documented in this encounter Additional Health Concerns Assessment Noted Time PHQ-9 Depression Total Score: 0 03/09/20 24 1:49 PM EDT documented as of this encounter Care Teams Diagnostics Tech Relationship Specialty Start Date End Date Hailey Sevilla MD [address] [place] [address] PCP - General Family Medicine 09/27/18 Michelle Cortes, CHARLEEN [address] [place] [address] Registered Nurse Family Medicine 04/18/25 Laura Layne 04/18/25 documented as of this encounter
--- OUTSIDE RECORDS SUMMARY | 2025-09-05 22:10 | XMS_ITS | Encounter Summary ---
Author Organization [employer] Address 75 [facility] 7t [place] [address] Care Team Providers Care Crystalizer Name Role Phone Hailey Sevilla MD Primary Care Provider [phone] Michelle Cortes RN Unavailable [phone] Laura Layne Unavailable Reason for Referral * Imaging (Routine) - Closed Specialty Diagnoses / Procedures Referred By Contac t Referred To Contact Radiology Diagnoses Cyst of right ovary Procedures Us Pelvis complete Hailey Sevilla MD [address] [place] [address] Phone: tel: fax: [facility] [address] [place] [phone] Phone: tel: fax: Referral ID Status Reason Start Date Expiration Date Visits Re quested Visits Authorized [id number] Closed 05/07/2025 05/07/2026 1 1 * Imaging (Routine) - Closed Specialty Diagnoses / Procedures Referred By Contac t Referred To Contact Radiology Diagnoses Cyst of right ovary Procedures US Pelvis Transvaginal Hailey Sevilla MD [address] [place] [address] Phone: tel: fax: [facility] [address] [place] [address] Phone: tel: fax: Referral ID Status Reason Start Date Expiration Date Visits Re quested Visits Authorized [id number] Closed 05/07/2025 05/07/2026 1 1 Encounter Details Date Type Department Care Team (Late st Contact Info) Description 05/07/2025 Orders Only [facility] MEDICINE [address] [place], [place] [phone] Hailey Sevilla MD [address] [place] [address] Cyst of right ovary (Primary [...] Description 10/01/2025 2:30 PM EST Office Visit [facility] [address] [place], [place] [phone] Hailey Sevilla MD [address] [place], [place] [phone] Scheduled Orders Name Type Priority Associated Diagnoses [...] PM EDT Narrative 06/19/2025 2:08 PM EDT [facility] [address] [place] [address] [place] [address] Ultrasound Report Signed Patient: Jak Izquierdo MR#: [id number] : 1995 Acct:[id number] Age/Sex: 29 / F ADM Date: 06/18/25 Loc: HO.HMGCX Attending Dr: Hetal Castano NP Ordering Physician: Hailey Sevilla MD Date of Service: 06/18/25 Procedure(s): US pelvic and transvaginal Accession Number(s): [id number] cc: Hailey Sevilla MD Reason for Exam: [...] 06/19/25 1407 DD/ 1406 TD/TT: 06/19/25 1406 Avionics Repair Technician: Procedure Note Donotuseinterpreter, Image - 06/19/2025 [facility] [place] [facility] [place] [address] Ultrasound Report Signed Patient: Xuan Izquierdo#: [id number] : 1995Acct:[id number] Age/Sex: FADM Date: 06/18/25 Loc: HO.HMGX Attending Dr: Hetal Castano GAS DERRICK OPERATOR Ordering Physician: Hailey Sevilla MD Date of Service: 06/18/25 Procedure(s): US pelvic and transvaginal Accession Number(s): [id number] cc: Hailey Sevilla MD Reason for Exam: [...] OV> 06/19/25 1407 DD/ 140 TD/TT: 06/19/251405 Avionics Repair Technician: us Hailey Sevilla MD IMG US PROCEDURES Final Result documented in this encounter Visit Diagnoses Diagnosis Cyst of right ovary- Primary Other and unspecified ovarian cyst documented in this encounter Additional Health Concerns Assessment Noted Time PHQ-9 Depression Total Score: 0 03/09/20 24 1:49 PM EDT documented as of this encounter Care Teams Crystalizer Relationship Specialty Start Date End Date Hailey Sevilla MD [address] [place] [address] PCP - General Family Medicine 09/27/18 Michelle Cortes RN [address] [place] [address] Registered Nurse Family Medicine 04/18/25 Laura Layne 04/18/25 documented as of this encounter
--- OUTSIDE RECORDS SUMMARY | 2025-09-05 22:10 | XMS_ITS | Encounter Summary ---
Author Organization [employer] Address 75 [facility] 7t [place] [address] Care Team Providers Care Milk Hauler Name Role Phone Hailey Sevilla MD Primary Care Provider [phone] Michelle Cortes RN Unavailable [phone] Laura Layne Unavailable Reason for Visit * Reason Onset Date Comments Lab Orders 09/03/2025 Encounter Details Date Type Department Care Team (Late st Contact Info) Description 09/03/2025 Telephone [facility] [address] [place], [place] [phone] Hailey Sevilla MD [address] [place], [place] [phone] Lab Orders Social History Tobacco Use Types [...] encounter Miscellaneous Notes * Telephone Encounter - DARCY Beth - 09/05/2025 3:40 PM EST Outgoing TC placed to Frashely - she denies any abdominal pain/cramping, no F/C/N/V/D. She did repeat the lab work already today. Plan: continue monitoring HCG every 48 hours until the level is less than 5mIU/mL. Follow up/ED precautions reviewed. Sending to nursing team as FYI * Addendum Note - DARCY Beth - 09/05/2025 1:23 PM ESTAddended by: VIELKA GONCALVES on: 09/05/2025 01:23 PM Modules accepted: Orders * Telephone Encounter - Shayy Ryan RN - 09/05/2025 11:13 AM EST Pt seen at [facility] ED for abdominal cramping. Discharge uploaded to pt's chart, per paperwork: - repeat HCG every 48 hrs until 0 - possible repeat pelvic ultrasound in 5 days Will message covering provider. * Telephone Encounter - Lynn Botello RN - 09/04/2025 10:09 AM EST Per pt chart hCG blood work resulted on 09/03/2025 as ordered by covering provider Vielka Goncalves. * Telephone Encounter - Shayy Ryan RN - 09/03/2025 10:47 AM EST Pt messaged regarding this on [employer] App, covering provider Vielka Goncalves already sent lab orders. Pt aware. * Telephone Encounter - Heber Duncan - 09/03/2025 8:49 AM EST Tc from pt requesting a lab order for a test through blood work. Contact pt at [phone] documented in this encounter Plan of Treatment Upcoming Encounters Date Type Department Care Team (Late st Contact Info) Description 10/01/2025 2:30 PM EST Office Visit [facility] [address] [place] [address] Hailey Sevilla MD [address] [place] [address] documented as of this encounter Procedures Procedure Name Priority Date/Time Associated Diagnosis Comments HCG, TOTAL, QN Routine 09/05/2025 2:17 PM EST Abdominal pain affecting documented in this encounter Results * hCG, Total, Quantitative (09/05/2025 2:17 PM EST) HCG Quantitative 5 mIU/mL [facility] Comment:Weeks post LMP Appro ximate hCG(Last Menstrual Period) Range (mIU/ml)3 - 4 weeks 9 - 1304 - 5 weeks 75 - 2,6005 - 6 weeks 850 - 20,8006 - 7 weeks 4000 - 100,2007 - 12 weeks 11,500 - 289,14301 - 16 weeks 18,300 - 137,55112 - 29 weeks (2nd trimester) 1,400 - 53,92049 - 41 weeks (3rd trimester) 940 - [...] PM EST 09/05/2025 4:10 PM EST us Vielka Goncalves PHARMACIST MANAGER LAB BLOOD ORDERABLES Final Res ult [facility] [address] [place] [address] [phone] documented in this encounter Visit Diagnoses Diagnosis Abdominal pain affecting documented in this encounter Additional Health Concerns Assessment Noted Time PHQ-9 Depression Total Score: 0 03/09/20 24 1:49 PM EDT documented as of this encounter Care Teams Milk Hauler Relationship Specialty Start Date End Date Hailey Sevilla MD [address] [place] [address] PCP - General Family Medicine 09/27/18 Michelle Cortes RN [address] [place] [address] Registered Nurse Family Medicine 04/18/25 Laura Layne 04/18/25 documented as of this encounter
--- OUTSIDE RECORDS SUMMARY | 2025-09-05 22:10 | XMS_ITS | Encounter Summary ---
Author Organization [employer] Address 75 [facility] 7t [place] [address] Care Team Providers Care Manager Emergency Department Name Role Phone Hailey Sevilla MD Primary Care Provider Michelle Cortes RN Unavailable [phone] Laura Layne Unavailable Encounter Details Date Type Department Care Team (Late st Contact Info) Description 05/02/2025 Orders Only [facility] [address] [place], [place] [phone] Hailey Sevilla MD [address] [place], [place] [phone] Anemia, unspecified type (Primary Dx) Social History [...] Description 10/01/2025 2:30 PM EST Office Visit [facility] [address] [place] [address] Hailey Sevilla MD [address] [place] [address] documented as of this encounter Procedures Procedure [...] Vitamin B12 344 200 - 900 pg/mL [facility] Comment:NORMAL 200-900 PG/ML INDETERMINATE 160-199 PG/ML DEFICIENT < 160 PG/ML Folate 8.8 > or = 4.0 ng/mL [facility] Comment:Reference Values:> o r = 4.0 ng/mL< 4.0 ng/mL suggests folate deficiency Methotrexate, aminopterin and folinic acid(leucovorin) are chemotherapeutic agents whose molecularstructures are similar to folate; therefore, the Architectfolate assay cannot be used for patients using these drugs. Blood 05/02/2025 2:07 PM EDT 05/02/2025 4:30 PM EDT Hailey Sevilla MD LAB BLOOD ORDERABLES Final Resul t Performing Organization Address [facility] de Phone Number [facility] [address] [place] [phone] * (ABNORMAL) Reticulocyte Count (05/02/2025 2:07 PM EDT) Reticulocytes Absolute 0.045 0.026 - 0.095 X10*6/uL [facility] Immature Retic Fraction 4.7 3.0 - 15.9 % [facility] Retic HGB Equivalent 35.9(H) 30.0 - 35.0 pg [facility] Reticulocyte Percent 1.2 0.5 - 1.8 % [facility] Blood Venous blood specimen / Unknown 05/02/2025 2:07 PM EDT 05/02/2025 4:30 PM EDT Hailey Sevilla MD LAB BLOOD ORDERABLES Final Resul t Performing Organization Address [facility] de Phone Number [facility] [address] [place] [address] [phone] * Iron And Total Iron Binding Capacity (05/02/2025 2:07 PM EDT) Iron 104 30 - 160 mcg/dL [facility] Total Iron Binding Capacity 238 228 - 428 mcg/dL [facility] Percent Iron Saturation 44 15 - 50 % [facility] Unsaturated Iron Binding 134 ug/dL [facility] Blood Venous blood specimen / Unknown 05/02/2025 2:07 PM EDT 05/02/2025 4:30 PM EDT us Hailey Sevilla MD LAB BLOOD ORDERABLES Final Resul t Performing Organization Address [facility] Co de Phone Number [facility] [address] [place] [address] [phone] * Ferritin (05/02/2025 2:07 PM EDT) Ferritin 97 10 - 122 ng/mL [facility] Blood Venous blood specimen / Unknown 05/02/2025 2:07 PM EDT 05/02/2025 4:30 PM EDT us Hailey Sevilla MD LAB BLOOD ORDERABLES Final Resul t Performing Organization Address [facility] de Phone Number [facility] [address] [place] [phone] [phone] documented in this encounter Visit Diagnoses Diagnosis Anemia, unspecified type- Primary documented in this encounter Additional Health Concerns Assessment Noted Time PHQ-9 Depression Total Score: 0 03/09/20 24 1:49 PM EDT documented as of this encounter Care Teams Manager Emergency Department Relationship Specialty Start Date End Date Hailey Sevilla MD [address] [place] [address] PCP - General Family Medicine 09/27/18 Michelle Cortes, CHARLEEN [address] [place] [phone] Registered Nurse Family Medicine 04/18/25 Laura Layne 04/18/25 documented as of this encounter
--- OUTSIDE RECORDS SUMMARY | 2025-09-05 22:10 | XMS_ITS | Encounter Summary ---
Author Organization [employer] Address 75 [facility] 7t [place] [address] Care Team Providers Care Journeyman Molder Name Role Phone Hailey Sevilla MD Primary Care Provider [phone] Michelle Cortes RN Unavailable [phone] Laura Layne Unavailable Reason for Referral * Imaging (Routine) - Closed Specialty Diagnoses / Procedures Referred By Contac t Referred To Contact Radiology Diagnoses Abnormal uterine bleeding (AUB) Procedures Us Pelvis complete Hailey Sevilla MD [address] [place] [address] Phone: tel: fax: [facility] [address] [place] [phone] Phone: tel: fax: Referral ID Status Reason Start Date Expiration Date Visits Re quested Visits Authorized [id number] Closed 04/27/2025 04/27/2026 1 1 * Imaging (Urgent) - Closed Specialty Diagnoses / Procedures Referred By Contac t Referred To Contact Radiology Diagnoses Abnormal uterine bleeding (AUB) Procedures US Pelvis Transvaginal Hailey Sevilla MD [address] [place] [address] Phone: tel: fax: [facility] [address] [place] [address] Phone: tel: fax: Referral ID Status Reason Start Date Expiration Date Visits Re quested Visits Authorized [id number] Closed 04/27/2025 04/27/2026 1 1 Encounter Details Date Type Department Care Team (Late st Contact Info) Description 04/27/2025 Orders Only [facility] [address] [place] [address] Hailey Sevilla MD [address] [place], [place] [phone] Abnormal uterine bleeding (AUB) (Primary Dx) Social [...] Description 10/01/2025 2:30 PM EST Office Visit [facility] [address] [place], [place] [phone] Hailey Sevilla MD [address] [place], [place] [phone] Scheduled Orders Name Type Priority Associated Diagnoses [...] PM EDT Narrative 05/07/2025 2:57 PM EDT [facility] [address] [place] [address] [place] [address] Ultrasound Report Signed Patient: Jak Izquierdo MR#: [id number] : 1995 Acct:[id number] Age/Sex: 29 / F ADM Date: 05/07/25 Loc: HO.HMGCX Attending Dr: Hailey Sevilla MD Ordering Physician: Hailey Sevilla MD Date of Service: 05/07/25 Procedure(s): US pelvic and transvaginal Accession Number(s): [id number] cc: Hailey Sevilla MD EXAMINATION: US PELVIS [...] 05/07/25 1454 DD/ 1359 TD/TT: 05/07/25 1425 Inbound Customer Service Agent: Procedure Note Donotuseinterpreter, Image - 05/07/2025 [facility] [place] [address] Ultrasound Report Signed Patient: Xuan Izquierdo#: [id number] : 1995Acct:[id number] Age/Sex: Date: 05/07/25 Loc: HO.HMGCX Attending Dr: Hailey Sevilla MD Ordering Physician: Hailey Sevilla MD Date of Service: 05/07/25 Procedure(s): US pelvic and transvaginal Accession Number(s): [id number] cc: Hailey Sevilla MD EXAMINATION: US PELVIS [...] 05/07/25 1454 DD/ 1359 TD/TT: 05/07/25 1425 Inbound Customer Service Agent: us Hailey Sevilla MD IMG US PROCEDURES Final Result documented in this encounter Visit Diagnoses Diagnosis Abnormal uterine bleeding (AUB)- Primary documented in this encounter Additional Health Concerns Assessment Noted Time PHQ-9 Depression Total Score: 0 03/09/20 24 1:49 PM EDT documented as of this encounter Care Teams Journeyman Molder Relationship Specialty Start Date End Date Hailey Sevilla MD [address] [place] [address] PCP - General Family Medicine 09/27/18 Michelle Cortes RN [address] [place] [address] Registered Nurse Family Medicine 04/18/25 Laura Layne 04/18/25 documented as of this encounter
--- OUTSIDE RECORDS SUMMARY | 2025-09-05 22:10 | XMS_ITS | Encounter Summary ---
Author Organization [employer] Address 75 [facility] 7t [place] [address] Care Team Providers Care Recorder Of Deeds Name Role Phone Hailey Sevilla MD Primary Care Provider [phone] Michelle Cortes RN Unavailable [phone] Laura Layne Unavailable Encounter Details Date Type Department Care Team (Late st Contact Info) Description 02/16/2025 Orders Only [facility] MEDICINE [address] [place], [place] [phone] Hailey Sevilla MD [address] [place] [address] Chlamydia (Primary Dx); Routine screening for STI [...] Description 10/01/2025 2:30 PM EST Office Visit [facility] [address] [place] [phone] Hailey Sevilla MD [address] [place] [address] documented as of this encounter Procedures Procedure [...] EDT) Hepatitis B Surface Ag Negative Negative [facility] Blood Venous blood specimen / Unknown 02/20/2025 8:35 AM EDT 02/20/2025 11:06 AM EDT us Hailey Sevilla MD LAB BLOOD ORDERABLES Final Resul t Performing Organization Address [facility]/ZIP Co de Phone Number [facility] [address] [place] [phone] * HIV-1/2 Antigen and Antibodies, Fourth Generation, with Reflexes (02/20/2025 8:35 AM EDT) Pathologist [facility] HIV AB/AG Nonreactive Nonreactive [facility] Comment:HIV-1 p24 Ag and/or HIV-1/HIV-2 Ab not detected.A test result that is nonreactive does not exclude thepossibility of exposure to or infection with HIV-1 and/orHIV-2. Nonreactive results in this assay for individualswith prior exposure to HIV-1 and/or HIV-2 may be due toantigen and antibody levels that are below the limit ofdetection of this assay.The [employer] HIV Ag/Ab Combo assay result andsupplemental assay results should be interpreted inconjunction with the patient's clinical presentation,history and other laboratory results. If the results areinconsistent with clinical evidence, additional testing issuggested to confirm the result. Blood Venous blood specimen / Unknown 02/20/2025 8:35 AM EDT 02/20/2025 11:06 AM EDT us Hailey Sevilla MD LAB BLOOD ORDERABLES Final Resul t [facility] [address] [place] [phone] * Chlamydia/N. Gonorrhoeae RNA, TMA, Urogenitial (02/20/2025 8:35 AM EDT) CT PCR NOT DETECTED Not Detect. [facility] Comment:A not detected test result [...] psychologicalconsequences. NG PCR NOT DETECTED Not Detect. [facility] Comment:A not detected test result [...] AM EDT 02/20/2025 11:11 AM EDT Narrative [facility] - 02/20/2025 1:07 PM EDT Urine us Hailey Sevilla MD LAB MICROBIOLOGY - GENERAL ORDER SHAKIRA Final Result [facility] [address] [place] [phone] * Hepatitis C Antibody with Reflex to HCV, RNA, Quantitative, Real-Time PCR (02/20/2025 8:35 AM EDT) Hepatitis C Antibody Nonreactive Nonreactive [facility] Comment:Antibodies to HCV no t detected; does not exclude early acuteHCV infection. Blood Venous blood specimen / Unknown 02/20/2025 8:35 AM EDT 02/20/2025 11:06 AM EDT Hailey Sevilla MD LAB BLOOD ORDERABLES Final Resul t Performing Organization Address [facility] Co de Phone Number [facility] [address] [place] [phone] * Syphilis Screen (02/20/2025 8:35 AM EDT) Syphilis Screen Nonreactive Nonreactive [facility] Blood 02/20/2025 8:35 AM EDT 02/20/2025 11:06 AM EDT Hailey Sevilla MD LAB BLOOD ORDERABLES Final Resul t Performing Organization Address [facility] de Phone Number [facility] [address] [place] [phone] documented in this encounter Visit Diagnoses Diagnosis Chlamydia- Primary Other specified chlamydial infection, in conditions classified elsewhere and of unspecified site Routine screening for STI (sexually transmitted infection) Screening examination for venereal disease documented in this encounter Additional Health Concerns Assessment Noted Time PHQ-9 Depression Total Score: 0 03/09/20 24 1:49 PM EDT documented as of this encounter Care Teams Recorder Of Deeds Relationship Specialty Start Date End Date Hailey Sevilla MD [address] [place] [address] PCP - General Family Medicine 09/27/18 Michelle Cortes RN [address] [place] [address] Registered Nurse Family Medicine 04/18/25 Laura Layne 04/18/25 documented as of this encounter
--- OUTSIDE RECORDS SUMMARY | 2025-09-05 22:10 | XMS_ITS | Clinical Summary ---
Author Organization [facility] ity Address [address] [place] [address] Care Team Providers Care Dairy Frozen Manager Name Role Phone Unavailable Primary Care Provider Unavailabl e Surgical History Surgery Date Site/Laterality Comments CHOLECYSTECTOMY PROCEDURE: [place] LAPAROSCOPY SURG CHOLECYSTECTOMY BREAST REDUCTION PROCEDURE: OK BREAST REDUCTION Medical History Medical History Date Comments Anemia DX:Anemia Migraine DX:Migraine Seizure (CMS/HCC V24, CMS/HCC V28) 2015 DX:Seizure ([facility]); COMMENT: r/t migraine, EEG negative [...]
--- OUTSIDE RECORDS SUMMARY | 2025-09-05 22:10 | XMS_ITS | Encounter Summary ---
Author Organization [employer] Address [address] [facility] [address] [place] [address] Care Team Providers Care Yard Supervisor Name Role Phone Hailey Sevilla MD Primary Care Provider [phone] Michelle Cortes RN Unavailable [phone] Laura Layne Unavailable Encounter Details Date Type Department Care Team (Late st Contact Info) Description 04/27/2025 Orders Only [facility] MEDICINE [address] [place], [place] [phone] Hailey Sevilla MD [address], [place] [phone] Social History Tobacco Use Types Packs/Day Years [...] Description 10/01/2025 2:30 PM EST Office Visit [facility] MEDICINE [address] [place] [address] Hailey Sevilla MD [address] [place] [address] documented as of this encounter Visit Diagnoses Not on filedocumented in this encounter Additional Health Concerns Assessment Noted Time PHQ-9 Depression Total Score: 0 03/09/20 24 1:49 PM EDT documented as of this encounter Care Teams Yard Supervisor Relationship Specialty Start Date End Date Hailey Sevilla MD [address] [place] [address] PCP - General Family Medicine 09/27/18 Michelle Cortes RN [address] [place] [phone] Registered Nurse Family Medicine 04/18/25 Laura Layne 04/18/25 documented as of this encounter
--- OUTSIDE RECORDS SUMMARY | 2025-09-05 22:11 | XMS_ITS | Encounter Summary ---
Author Organization [employer] Address [address] [facility] [address] [place] [address] Care Team Providers Care Licensed Embalmer Supervisor Name Role Phone Hailey Sevilla MD Primary Care Provider [phone] Michelle Cortes RN Unavailable [phone] Laura Layne Unavailable Encounter Details Date Type Department Care Team (Late st Contact Info) Description 09/04/2025 Orders Only GENERIC EXTERNAL DATA DEPARTMENT Provider, Generic External Data Social History Tobacco Use Types Packs/Day Years [...] Description 10/01/2025 2:30 PM EST Office Visit [facility] MEDICINE [address] [place] [address] Hailey Sevilla MD [address] [place] [address] documented as of this encounter Procedures Procedure Name Priority Date/Time Associated Diagnosis Comments CBC WITH AUTO DIFFERENTIAL Routine 09/04/2025 1:21 PM EST HCG, QL, URINE Routine 09/04/2025 1:21 PM EST URINALYSIS WITH REFLEX MICROSCOPIC Routine 09/04/2025 1:21 PM EST APTT Routine 09/04/2025 1:21 PM EST PROTHROMBIN TIME-INR Routine 09/04/2025 1:21 PM EST HCG, TOTAL, QN Routine 09/04/2025 1:21 PM EST COMPREHENSIVE METABOLIC PANEL Routine 09/04/2025 1:21 PM EST documented in this encounter Results * hCG, Total, Quantitative (09/04/2025 1:21 PM EST) HCG Quantitative 9 mIU/mL [facility] Comment:Weeks post LMP Appro ximate hCG(Last Menstrual Period) Range (mIU/ml)3 - 4 weeks 9 - 1304 - 5 weeks 75 - 2,6005 - 6 weeks 850 - 20,8006 - 7 weeks 4000 - 100,2007 - 12 weeks 11,500 - 289,69351 - 16 weeks 18,300 - 137,74528 - 29 weeks (2nd trimester) 1,400 - 53,29409 - 41 weeks (3rd trimester) 940 - 60,000The Cordero B- hCG assay is used for the early detection ofpregnancy; it cannot be used to diagnose any conditionunrelated to . If a B-hCG level is not supportedby the clinical evidence, results should be confirmed by analternative method (qualitative urine hCG, for example). 09/04/2025 1:21 PM EST 09/04/2025 1:26 PM EST us Generic External Data Provider LAB BLOOD ORDERAB LES Final Result Performing Organization Address City/State/[facility] Co de Phone Number [facility] [address] [place] [phone] * (ABNORMAL) Comprehensive Metabolic Panel (09/04/2025 1:21 PM EST) Sodium 138 135 - 145 mmol/L [facility] Potassium 4.4 3.3 - 5.1 mmol/L [facility] Chloride 109(H) 96 - 108 mmol/L [facility] Carbon Dioxide 24 22 - 29 mmol/L [facility] Anion Gap 9(L) 12 - 20 [facility] Urea Nitrogen (BUN) 14 9 - 16 mg/dL [facility] Creatinine, Serum 0.66 0.5 - 1.4 mg/dL [facility] Creatinine Clr Calc Pharmacy 109.5 [facility] Comment:Provided height and weight: 154.94 cm,66.2 kg.eGFR (calculated from the MDRD study equation) and eCrCl(calculated from the Cockcroft-Gault equation) are based ondifferent parameters and may not yield comparable results.If eCrCl result is absurd, please check patient'sheight/weight. Estimated Glomerular Filt Rate >60 [facility] Comment:Chronic Kidney Disea se: Estimated GFR < 60 mL/min/1.33l2Tsytuw Kidney Disease: Estimated GFR < 15 mL/min/1.73m2 Glucose 86 60 - 115 mg/dL [facility] Calcium 9.2 8.4 - 10.2 mg/dL [facility] Bilirubin, Total 0.5 0.0 - 1.0 mg/dL [facility] Aspartate Amino Transferase 20 5 - 31 U/L [facility] Alanine Aminotransferase 16 0 - 31 U/L [facility] Total Protein 7.3 6.5 - 8.0 g/dL [facility] Albumin Level 4.1 3.5 - 5.0 g/dL [facility] Alkaline Phosphatase 46 39 - 117 U/L [facility] 09/04/2025 1:21 PM EST 09/04/2025 1:26 PM EST us Generic External Data Provider LAB BLOOD ORDERAB LES Final Result Performing Organization Address City/[facility] Co de Phone Number [facility] [address] [place] [phone] * (ABNORMAL) Partial Thromboplastin Time, Activated (APTT) (09/04/2025 1:21 PM EST) Partial Thromboplastin Time 26.4(L) 26.7 - 34.1 SEC [facility] 09/04/2025 1:21 PM EST 09/04/2025 1:26 PM EST us Generic External Data Provider LAB BLOOD ORDERAB LES Final Result Performing Organization Address [facility] Co de Phone Number [facility] [address] [place] [phone] * Prothrombin Time-INR (09/04/2025 1:21 PM EST) Prothrombin Time 11.9 11.2 - 13.5 SEC [facility] INTERNATIONAL NORM RATIO 1.0 0.9 - 1.1 [facility] Comment:INTERNATIONAL NORMAL IZED RATIO (INR) [...] Provider LAB BLOOD ORDERAB LES Final Result [facility] [address] [place] [phone] [phone] * (ABNORMAL) CBC auto differential (09/04/2025 1:21 PM EST) White Blood Count 8.0 4.8 - 10.8 X10*3/uL [facility] Red Blood Count 3.79(L) 4.20 - 5.50 X10*6/uL [facility] Hemoglobin 12.2 12.0 - 16.0 g/dl [facility] Hematocrit 35.1(L) 37.0 - 47.0 % [facility] Mean Corpuscular Volume 92.6 80.0 - 98.0 fL [facility] Mean Corpuscular Hemoglobin 32.2 27.0 - 33.0 pg [facility] Mean Corpuscular HGB Conc 34.8 31.0 - 35.0 g/dl [facility] Red Cell Distribution Width 11.8 11.0 - 16.0 % [facility] Platelet Count 273 160 - 400 X10*3/uL [facility] Mean Platelet Volume 10.2 9.4 - 12.3 fL [facility] Neutrophils Percent Auto 55.3 45 - 73 % [facility] Imm Gran Pct Auto 0.3 0.0 - 0.4 % [facility] Lymphocytes Percent Auto 34.5 20 - 40 % [facility] Monocytes Percent Auto 7.9 2 - 11 % [facility] Eosinophils Percent Auto 1.5 0 - 4 % [facility] Basophils Percent Auto 0.5 0 - 2 % [facility] NRBC Pct Auto 0.0 0.0 - 0.2 /100WBC [facility] Neutrophils Absolute Auto 4.4 2.0 - 8.3 x10*3/uL [facility] Imm Gran Abs Auto 0.02 0.00 - 0.03 X10*3/uL [facility] Lymphocytes Absolute Auto 2.8 1.2 - 4.9 X10*3/uL [facility] Monocytes Absolute Auto 0.6 0.1 - 1.2 X10*3/uL [facility] Eosinophils Absolute Auto 0.1 0.0 - 0.4 X10*3/uL [facility] Basophils Absolute Auto 0.0 0.0 - 0.2 X10*3/uL [facility] NRBC Abs Auto 0.000 0.0 - 0.012 X10*3/uL [facility] 09/04/2025 1:21 PM EST 09/04/2025 1:26 PM EST us Generic External Data Provider LAB BLOOD ORDERAB LES Final Result Performing Organization Address City/State/[facility] Co de Phone Number [facility] [address] [place] [phone] * HCG, Qualitative, Urine (09/04/2025 1:21 PM EST) Urine NEGATIVE NEGATIVE [facility] Comment:This test was develo ped to detect early . Falsenegative results may occur after the 5th - 7th week ofpregnancy when using this test method. If clinicallyindicated, consider a serum hCG. 09/04/2025 1:21 PM EST 09/04/2025 1:26 PM EST us Generic External Data Provider LAB URINE ORDERAB LES Final Result Performing Organization Address [facility]/ZIP Co de Phone Number [facility] [address] [place] [phone] * Urinalysis w/reflex microscopic (09/04/2025 1:21 PM EST) Color Urine Yellow [facility] Appearance Urine Cloudy [facility] PH 7.0 5.0 - 9.0 [facility] Glucose Urine UA Negative Negative mg/dL [facility] Urine Blood Negative Negative [facility] Specific [place] - Urine 1.020 1.005 - 1.025 [facility] Urine Protein Negative Neg-Trace mg/dL [facility] Urine Ketones Negative Negative mg/dL [facility] Nitrite Urine Negative Negative [facility] Leukocyte Esterase Urine Negative Negative [facility] 09/04/2025 1:21 PM EST 09/04/2025 1:26 PM EST Narrative [facility] - 09/04/2025 1:30 PM EST [id number], Clean Catch us Generic External Data Provider LAB URINE ORDERAB LES Final Result Performing Organization Address [facility] Co de Phone Number [facility] [address] [place] [phone] documented in this encounter Visit Diagnoses Not on filedocumented in this encounter Additional Health Concerns Assessment Noted Time PHQ-9 Depression Total Score: 0 03/09/20 24 1:49 PM EDT documented as of this encounter Care Teams Licensed Embalmer Supervisor Relationship Specialty Start Date End Date Hailey Sevilla MD [address] [place] [phone] PCP - General Family Medicine 09/27/18 Mihcelle Cortes RN [address] [place] [phone] Registered Nurse Family Medicine 04/18/25 Laura Layne 04/18/25 documented as of this encounter
--- OUTSIDE RECORDS SUMMARY | 2025-09-05 22:11 | XMS_ITS | Encounter Summary ---
Author Organization [email or web address] Address [address] [facility] [address] [place] [address] Care Team Providers Care Senior Economist Name Role Phone Hailey Sevilla MD Primary Care Provider [phone] Michelle Cortes RN Unavailable [phone] Laura Layne Unavailable Encounter Details Date Type Department Care Team (Late st Contact Info) Description 12/21/2024 Orders Only [facility] MEDIC[facility] [address] [place], [place] [phone] Hailey Sevilla MD [address] [place], [place] [phone] Chlamydia (Primary Dx) Social History Tobacco Use [...] Description 10/01/2025 2:30 PM EST Office Visit [facility] MED[facility] [address] [place] [phone] Hailey Sevilla MD [address] [place] [address] documented as of this encounter Procedures Procedure Name Priority Date/Time Associated Diagnosis Comments CHLAMYDIA/N. GONORRHOEAE RNA, TMA, UROGENITAL Routine 01/10/2025 8:48 AM EDT Chlamydia documented in this encounter Results * Chlamydia/N. Gonorrhoeae RNA, TMA, Urogenitial (01/10/2025 8:48 AM EDT) CT PCR NOT DETECTED Not Detect. [facility] Comment:A not detected test [...] psychologicalconsequences. NG PCR NOT DETECTED Not Detect. [facility] Comment:A not detected test [...] AM EDT 01/10/2025 4:52 PM EDT Narrative [facility] - 01/11/2025 10:59 AM EDT Vaginal Hailey Sevilla MD LAB MICROBIOLOGY - GENERAL ORDER SHAKIRA Final Result [facility] [address] [place] [phone] documented in this encounter Visit Diagnoses Diagnosis Chlamydia- Primary Other specified chlamydial infection, in conditions classified elsewhere and of unspecified site documented in this encounter Additional Health Concerns Assessment Noted Time PHQ-9 Depression Total Score: 0 03/09/20 24 1:49 PM EDT documented as of this encounter Care Teams Senior Economist Relationship Specialty Start Date End Date Hailey Sevilla MD [address] [place] [phone] PCP - General Family Medicine 09/27/18 Michelle Cortes RN [address] [place] [address] [place] [phone] Registered Nurse Family Medicine 04/18/25 Laura Layne 04/18/25 documented as of this encounter
== END 2025-09-05 14:13 ==
LOC: HO.HHCL 14:12
PROVIDERS: PCP Registered Nurse; Visit Provider Registered Nurse
DX: O26.899 Other specified pregnancy related conditions, unspecified trimester (principal); R10.9 Unspecified abdominal pain
CPT/HCPCS: 36415; 84702

== ENCOUNTER 2025-09-07 09:00 | Outpatient (REF) | payer MEDICAID, SELFPAY | END 2025-09-07 09:01 | disposition home or self-care (01) | LOC: HO.HHCL 09:00 | PROVIDERS: PCP Registered Nurse; Visit Provider Registered Nurse | DX: O03.9 Complete or unspecified spontaneous abortion without complication (principal) | CPT/HCPCS: 36415; 84702 ==